=== PATIENT | female | born 1955 | race Caucasian/White ===

== ENCOUNTER 2024-12-12 20:18 | Inpatient (IN) | payer MEDICARE, MEDICAID, SELFPAY ==
[2024-12-12 20:15] VITALS: BP 120/48; PULSE 78; RESP 22; TEMP 36.9; O2SAT 93
[2024-12-12 21:31] VITALS: PULSE 81
[2024-12-12 21:35] VITALS: BP 121/60; PULSE 76; RESP 22; O2SAT 97
[2024-12-12 21:41] LABS: Add Urine Microscopic? YES; Appearance Urine Turbid (Clear); Glucose Urine UA Negative (Negative); Leukocyte Esterase Ur 3+ LEU/UL (Negative); Need Manual Microscopic Reviewed; Nitrate Urine Negative (Negative); Specific Grav Ur 1.019 (1.001-1.035)
[2024-12-12 21:52] LABS: Hematocrit 31.4 % (37.0-47.0); Hemoglobin 10.1 g/dL (12.0-15.0); Immature Granulocyte Percent A 0.4 % (0-0.5); Lymphocytes Absolute Auto 1.57 K/mm3 (0.9-3.2); Mean Corpuscular HGB Conc 32.2 g/dl (32-36); Mean Corpuscular Hemoglobin 29.2 pg (26-34); Mean Corpuscular Volume 90.8 fl (80-100); Nucleated Red Blood Cells Absolute Auto 0.000 K/mm3 (0.0-0.012); Nucleated Red Blood Cells Perc 0.0 % (0.0-0.2); Platelet Count Result 437 k/mm3 (150-375); Red Blood Count 3.46 M/mm3 (4.2-5.4); White Blood Count 11.0 K/mm3 (4.5-10.0)
[2024-12-12 22:17] LABS: Alanine Aminotransferase 19 U/L (6-35); Albumin Level 3.4 g/dL (3.5-5.1); Alkaline Phosphatase 140 U/L (38-126); Anion Gap 8 mmol/L (4-12); Aspartate Amino Transferase 23 U/L (14-36); Bilirubin,Total 0.3 mg/dL (0.2-1.3); Blood Urea Nitrogen 22 mg/dL (7-17); Calcium 8.8 mg/dL (8.4-10.2); Carbon Dioxide 21 mmol/L (22-30); Chloride 104 mmol/L (98-107); Estimated CRCL calculation 48 ml/min; Estimated Glomerular Filt Rate > 60; Glucose 110 mg/dL (65-110); Potassium 3.9 mmol/L (3.4-5.0); Sodium 133 mmol/L (137-145); Total Protein 6.8 g/dL (6.3-8.2)
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
[2024-12-12] MEDS: SODIUM CHLORIDE 0.9% IV 1,000 ML 999 ML IV CONT (22:51)
[2024-12-12] MEDS: cefTRIAXone 1 GM in SODIUM CHLORIDE 0.9% IV 50 ML 100 ML IVPB (22:51)
[2024-12-13] MEDS: FLUCONAZOLE 150 MG TABLET PO (00:42)
[2024-12-13 01:23] VITALS: BMI 21.7
--- NOTE | 2024-12-13 01:25 | ADMGEN ---
This patient, Valerie Rivers, was admitted to [facility] Surg Room 330-02. Patient/family oriented to hospital policies and general routines including ID bracelet, bed and alarms, visiting hours, pain management, procedures, bathroom and other care routines, personal items, smoking policy, room service/diet, and visiting hours. Information on how to activate the Rapid Response Team has been discussed. Patient/Family are encouraged to report perceived risks to care and to ask questions if they do not understand what they are told or what they should do.
[2024-12-13 02:30] VITALS: PULSE 76; RESP 22; O2SAT 97
[2024-12-13 03:00] VITALS: BP 133/57; PULSE 90; RESP 18; TEMP 35.9; O2SAT 97
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
[2024-12-13 06:15] VITALS: BP 133/67; PULSE 94; RESP 18; TEMP 36.3; O2SAT 98
[2024-12-13 08:50] LABS: Hematocrit 31.5 % (37.0-47.0); Hemoglobin 10.0 g/dL (12.0-15.0); Mean Corpuscular HGB Conc 31.7 g/dl (32-36); Mean Corpuscular Hemoglobin 29.2 pg (26-34); Mean Corpuscular Volume 91.8 fl (80-100); Platelet Count Result 375 k/mm3 (150-375); Red Blood Count 3.43 M/mm3 (4.2-5.4); White Blood Count 13.0 K/mm3 (4.5-10.0)
[2024-12-13 09:16] LABS: Anion Gap 7 mmol/L (4-12); Blood Urea Nitrogen 15 mg/dL (7-17); Calcium 8.7 mg/dL (8.4-10.2); Carbon Dioxide 22 mmol/L (22-30); Chloride 108 mmol/L (98-107); Estimated CRCL calculation 50 ml/min; Estimated Glomerular Filt Rate > 60; Glucose 103 mg/dL (65-110); Potassium 4.0 mmol/L (3.4-5.0); Sodium 137 mmol/L (137-145)
[2024-12-13] MEDS: ASPIRIN 81 MG ENTERIC TABLET PO (09:31)
[2024-12-13] MEDS: dilTIAZem HCL CD 180 MG CAP.24HR PO (09:31)
[2024-12-13] MEDS: LOSARTAN POTASSIUM 50 MG TABLET PO (09:31)
[2024-12-13] MEDS: FOLIC ACID 1 MG TABLET PO (09:31)
[2024-12-13] MEDS: FERROUS SULFATE 325 MG TABLET DR PO (09:31)
--- NOTE | 2024-12-13 09:33 | PM.IMPN ---
Progress Note: A&P Assessment and Plan (1) Neglectful caretaking: Status: Acute Assessment and Plan: Patient's family is concerned that the patient is not receiving good care at the [facility]. Care coordination has been consulted for palcement (2) Abnormal urinalysis: Code(s): R82.90 - Unspecified abnormal findings in urine Status: Acute Assessment and Plan: - UA with possible infection however many epithelial cells noted so possible contamination - UC obtained on 12/13: pending - no previous micro to be reviewed - started on rocephin on 12/13 (3) Candidiasis, unspecified: Code(s): B37.9 - Candidiasis, unspecified Status: Acute Assessment and Plan: Patient scratching at her groin and could possibly have some underlying candidiasis. Received a dose of fluconazole in the ER which should be adequate for treatment. Patient reports that itching has resolved. (4) Hyponatremia: Code(s): E87.1 - Hypo-osmolality and hyponatremia Status: Acute Assessment and Plan: Mild hyponatremia on admission, received fluids in the ER. Repeat Na on am labs WNL. Will also check TSH to rule out some component of thyroid dysfunction causing hyponatremia. TSH WNL. (5) Dementia: Qualifiers: Dementia behavioral or psychological symptom: unspecified whether behavioral, psychotic, or mood disturbance or anxiety Dementia severity: severe Dementia type: unspecified type Qualified Code(s): F03.C0 - Unspecified dementia, severe, without behavioral disturbance, psychotic disturbance, mood disturbance, and anxiety Code(s): F03.90 - Unspecified dementia, unspecified severity, without behavioral disturbance, psychotic disturbance, mood disturbance, and anxiety Status: Acute Assessment and Plan: Currently AOx3. (6) Diabetes: Code(s): E11.9 - Type 2 diabetes mellitus without complications Status: Acute Assessment and Plan: - hypoglycemia protocol - POC blood glucose ACHS - home medication - metformin 500 mg daily - correct regimen ordered - low dose SSI - A1C 5.8 (7) Hypertension: Code(s): I10 - Essential (primary) hypertension Status: Acute Assessment and Plan: Chronic, continue home medications - diltiazem 180 mg daily - losartan 50 mg daily - blood pressures stable, continue to monitor Time Spent With Patient Time with patient: 25 - 35 minutes Subjective Date/time seen: 12/13/24 09:33 Interval history: 69-year-old female with a past medical history of CVA, dementia essential hypertension and diabetes who presented to the ER from [facility] per family request because they were concerned about the patient receiving poor care. Patient is pleasant lying comfortably bed. He is alert and oriented x3 on exam she denies any chest pain, shortness a breath, palpitations, nausea/vomiting, abdominal pain, as well as dysuria/burning sensation with urination. Notes that the itching has resolved. Review of Systems Review of Systems: All systems reviewed & are unremarkable except as noted in HPI and below Exam Narrative: AF HR 94 RR 18 SpO2 98 BP 133/67 General: female in no acute respiratory distress who is nontoxic appearing, lying semi recumbent in bed. HEENT: Normocephalic. Atraumatic. Extraocular movement intact. Sclera clear and anicteric. No facial asymmetry. Chest: Lungs are clear to auscultation bilaterally. No wheezes or crackles. CV: Heart was regular rate and rhythm. S1-S2. No murmurs, gallops, or rubs. Abd: Abdomen was soft. Nontender. Nondistended. Positive bowel sounds. Ext: No clubbing, cyanosis, or edema. DP pulses bilaterally. Neuro: Patient is alert and oriented x3. Speech is clear. Objective Data Vital Signs Vital Signs: Vital Signs - 24 hr 12/12/24 20:15 12/12/24 21:31 12/12/24 21:35 Temperature 98.4 F Pulse Rate 78 81 76 Respiratory Rate 22 H 22 H Blood Pressure 120/48 L 121/60 Pulse Oximetry 93 97 Oxygen Delivery Room Air 12/13/24 02:30 12/13/24 03:00 12/13/24 06:15 Temperature 96.7 F L 97.3 F L Pulse Rate 76 90 94 Respiratory Rate 22 H 18 18 Blood Pressure 133/57 L 133/67 Pulse Oximetry 97 97 98 Oxygen Delivery Room Air Intake/Output Intake/Output: Intake & Output 12/10/24 12/11/24 12/12/24 12/13/24 23:59 23:59 23:59 23:59 Intake Total 50 1000 Output Total 75 Balance -25 1000 Meds/Results Medications: Active Medications Generic Name Dose Route Start Last Admin Trade Name Freq PRN Reason Stop Dose Admin Acetaminophen 650 mg 12/13/24 00:13 Acetaminophen 650 Mg Suppository RECTAL Q6H PRN Mild Pain (1-3) or Fever Artificial Tears 2 drop 12/13/24 08:04 Artificial Tears Ophth Soln 15 Ml Bottle EACH EYE Q6H PRN dry eye(s) Aspirin 81 mg 12/13/24 09:00 12/13/24 09:31 Aspirin 81 Mg Enteric Tablet PO 81 mg DAILY ELIAS Administration Atorvastatin Calcium 80 mg 12/13/24 18:00 Atorvastatin 40 Mg Tablet PO QPM ELIAS Dextrose 12.5 gm 12/13/24 00:13 Dextrose 50% 25 Gm/50 Ml Syringe IV PUSH PRN PRN Hypoglycemia Protocol Diltiazem HCl 180 mg 12/13/24 09:00 12/13/24 09:31 Diltiazem Hcl Cd 180 Mg Cap.24hr PO 180 mg DAILY ELIAS Administration Ferrous Sulfate 325 mg 12/13/24 08:15 08 09:31 Ferrous Sulfate [address] PO 325 mg DAILY@0800 ELIAS Administration Folic Acid 1 mg 12/13/24 09:00 12/13/24 09:31 Folic Acid 1 Mg Tablet PO 1 mg DAILY ELIAS Administration Glucagon 1 mg 12/13/24 00:13 Glucagon For Inj 1 Mg Vial IM PRN PRN Hypoglycemia Protocol Glucose 15 gm 12/13/24 00:13 Glucose Oral Gel 15 Gm Of Glucse In 37.5 Gm Tube PO PRN PRN Hypoglycemia Protocol Dextrose 1,000 mls @ 100 mls/hr 12/13/24 00:13 Dextrose 5% 1,000 Ml IVPB PRN PRN Hypoglycemia Protocol Ceftriaxone Sodium 1 gm/ 50 mls @ 100 mls/hr 12/13/24 21:00 Sodium Chloride IVPB Q24H ELIAS Losartan Potassium 50 mg 12/13/24 09:00 12/13/24 09:31 Losartan Potassium 50 Mg Tablet PO 50 mg DAILY ELIAS Administration Ondansetron HCl 4 mg 12/13/24 00:13 Ondansetron Inj 4 Mg/2 Ml Vial IV PUSH Q4H PRN Nausea Sodium Chloride 1 spray 12/13/24 08:04 Saline 0.65% Tomas Soln 44 Ml Btl NASAL Q2H PRN dry nasal passages Labs Labs: Laboratory Results - last 24 hr 12/12/24 12/12/24 12/13/24 21:15 21:45 08:43 WBC 11.0 H 13.0 H RBC 3.46 L 3.43 L Hgb 10.1 L 10.0 L Hct 31.4 L 31.5 L MCV 90.8 91.8 MCH 29.2 29.2 MCHC 32.2 31.7 L RDW 13.3 13.2 Plt Count 437 H 375 MPV 9.2 8.9 Immature Gran % (Auto) 0.4 Neut % (Auto) 74.6 H Lymph % (Auto) 14.2 L [place] % (Auto) 8.0 Eos % (Auto) 1.9 Baso % (Auto) 0.9 Lymph # (Auto) 1.57 [place] # (Auto) 0.9 H Eos # (Auto) 0.2 Baso # (Auto) 0.1 Abs Immat Gran (auto) 0.04 H Absolute Neuts (auto) 8.2 H Absolute Nucleated RBC 0.000 Nucleated RBC % 0.0 Sodium 133 L 137 Potassium 3.9 4.0 Chloride 104 108 H Carbon Dioxide 21 L 22 Anion Gap 8 7 BUN 22 H 15 D Creatinine 0.77 0.73 Estim Creat Clear Calc 48 50 Estimated GFR > 60 > 60 Glucose 110 103 Calcium 8.8 8.7 Total Bilirubin 0.3 AST 23 ALT 19 Alkaline Phosphatase 140 H Total Protein 6.8 Albumin 3.4 L Urine Color Yellow Urine Appearance Turbid H Urine pH 6.0 Ur Specific [place] 1.019 Urine Protein 2+ H Urine Glucose (UA) Negative Urine Ketones Negative Ur Blood (Man) 3+ H Urine Nitrate Negative Urine Bilirubin Negative Urine Urobilinogen 1.0 Add Ur Microanalysis Reviewed Leukocyte Esterase Rfl 3+ H Urine RBC >100 H Urine WBC >100 H Ur Squamous Epith Cells Many H Urine Bacteria 1+ H Urine Casts 3-5 Quality VTE Prophylaxis VTE prophylaxis: mechanical ordered (SCDs)
[2024-12-13 09:47] LABS: Thyroid Stimulating Hormone Reflex 0.832 uIU/mL (0.465-4.68)
[2024-12-13 10:31] LABS: Hemoglobin A1C 5.8 % (<5.7)
[2024-12-13 14:00] VITALS: BP 141/62; PULSE 78; RESP 18; TEMP 36.1; O2SAT 99
[2024-12-13] MEDS: ATORVASTATIN 40 MG TABLET 80 MG PO (17:23)
[2024-12-13 20:00] VITALS: PULSE 77; RESP 16; O2SAT 99
[2024-12-13 20:58] VITALS: BP 102/91; PULSE 77; RESP 16; TEMP 36.2; O2SAT 99
[2024-12-13] MEDS: cefTRIAXone 1 GM in SODIUM CHLORIDE 0.9% IV 50 ML 100 ML IVPB (21:34)
[2024-12-14 06:00] VITALS: BP 135/73; PULSE 84; RESP 20; TEMP 36.7; O2SAT 97
--- NOTE | 2024-12-14 08:08 | PM.IMPN ---
Progress Note: A&P Assessment and Plan (1) Neglectful caretaking: Status: Acute Assessment and Plan: Patient's family is concerned that the patient is not receiving good care at the skilled nursing. Care coordination has been consulted for palcement (2) Abnormal urinalysis: Code(s): R82.90 - Unspecified abnormal findings in urine Status: Acute Assessment and Plan: - UA with possible infection however many epithelial cells noted so possible contamination - UC obtained on 12/13: pending - no previous micro to be reviewed - started on rocephin on 12/13 Endorsed dysuria and burning sensation. (3) Candidiasis, unspecified: Code(s): B37.9 - Candidiasis, unspecified Status: Acute Assessment and Plan: Patient scratching at her groin and could possibly have some underlying candidiasis. Received a dose of fluconazole in the ER which should be adequate for treatment. (4) Hyponatremia: Code(s): E87.1 - Hypo-osmolality and hyponatremia Status: Acute Assessment and Plan: Mild hyponatremia on admission, received fluids in the ER. Repeat Na on am labs WNL. Will also check TSH to rule out some component of thyroid dysfunction causing hyponatremia. TSH WNL. Resolved. (5) Dementia: Qualifiers: Dementia behavioral or psychological symptom: unspecified whether behavioral, psychotic, or mood disturbance or anxiety Dementia severity: severe Dementia type: unspecified type Qualified Code(s): F03.C0 - Unspecified dementia, severe, without behavioral disturbance, psychotic disturbance, mood disturbance, and anxiety Code(s): F03.90 - Unspecified dementia, unspecified severity, without behavioral disturbance, psychotic disturbance, mood disturbance, and anxiety Status: Acute Assessment and Plan: Currently AOx3. (6) Diabetes: Code(s): E11.9 - Type 2 diabetes mellitus without complications Status: Acute Assessment and Plan: - hypoglycemia protocol - POC blood glucose ACHS - home medication - metformin 500 mg daily - correct regimen ordered - low dose SSI - A1C 5.8 (7) Hypertension: Code(s): I10 - Essential (primary) hypertension Status: Acute Assessment and Plan: Chronic, continue home medications - diltiazem 180 mg daily - losartan 50 mg daily - blood pressures stable, continue to monitor Time Spent With Patient Time with patient: 25 - 35 minutes Subjective Date/time seen: 12/14/24 08:08 Interval history: 69-year-old female with a past medical history of CVA, dementia essential hypertension and diabetes who presented to the ER from skilled nursing per family request because they were concerned about the patient receiving poor care. Patient is pleasant lying comfortably in bed. She is AOx3 on assessment but does appear confused and not following all commands. She endorses slight burning and pain with urination. She has no other complaints denying chest pain, palpitations, shortness of breath, nausea/vomiting and abdominal pain. Review of Systems Review of Systems: However unsure how accurate given baseline dementia. All systems reviewed & are unremarkable except as noted in HPI and below Exam Narrative: AF HR 84 RR 20 Spo2 97 BP 135/73 General: female in no acute respiratory distress who is nontoxic appearing, lying semi recumbent in bed. HEENT: Normocephalic. Atraumatic. Extraocular movement intact. Sclera clear and anicteric. No facial asymmetry. Chest: Lungs are clear to auscultation bilaterally. No wheezes or crackles. CV: Heart was regular rate and rhythm. Abd: Abdomen was soft. Nontender. Nondistended. Positive bowel sounds. Ext: No clubbing, cyanosis, or edema. DP pulses bilaterally. Neuro: Patient is alert and oriented x3. Speech is clear. Flaccid left arm and slight contracture to left leg from prior CVA. Objective Data Vital Signs Vital Signs: Vital Signs - 24 hr 12/13/24 09:30 12/13/24 14:00 12/13/24 20:00 Temperature 97.0 F L Pulse Rate 78 77 Respiratory Rate 18 16 Blood Pressure 141/62 H Pulse Oximetry 99 99 Oxygen Delivery Room Air Room Air 12/13/24 20:58 12/14/24 06:00 Temperature 97.2 F L 98.1 F Pulse Rate 77 84 Respiratory Rate 16 20 Blood Pressure 102/91 H 135/73 Pulse Oximetry 99 97 Oxygen Delivery Intake/Output Intake/Output: Intake & Output 12/11/24 12/12/24 12/13/24 12/14/24 23:59 23:59 23:59 23:59 Intake Total 50 1390 120 Output Total 75 Balance -25 1390 120 Meds/Results Medications: Active Medications Generic Name Dose Route Start Last Admin Trade Name Freq PRN Reason Stop Dose Admin Acetaminophen 650 mg 12/13/24 00:13 Acetaminophen 650 Mg Suppository RECTAL Q6H PRN Mild Pain (1-3) or Fever Artificial Tears 2 drop 12/13/24 08:04 Artificial Tears Ophth Soln 15 Ml Bottle EACH EYE Q6H PRN dry eye(s) Aspirin 81 mg 12/13/24 09:00 12/13/24 09:31 Aspirin 81 Mg Enteric Tablet PO 81 mg DAILY ELIAS Administration Atorvastatin Calcium 80 mg 12/13/24 18:00 12/13/24 17:23 Atorvastatin 40 Mg Tablet PO 80 mg QPM ELIAS Administration Dextrose 12.5 gm 12/13/24 09:36 Dextrose 50% 25 Gm/50 Ml Syringe IV PUSH PRN PRN Hypoglycemia Protocol Diltiazem HCl 180 mg 12/13/24 09:00 12/13/24 09:31 Diltiazem Hcl Cd 180 Mg Cap.24hr PO 180 mg DAILY ELIAS Administration Ferrous Sulfate 325 mg 12/13/24 08:15 08 09:31 Ferrous Sulfate [address] PO 325 mg DAILY@0800 ELIAS Administration Folic Acid 1 mg 12/13/24 09:00 12/13/24 09:31 Folic Acid 1 Mg Tablet PO 1 mg DAILY ELIAS Administration Glucagon 1 mg 12/13/24 09:36 Glucagon For Inj 1 Mg Vial IM PRN PRN Hypoglycemia Protocol Glucose 15 gm 12/13/24 09:36 Glucose Oral Gel 15 Gm Of Glucse In 37.5 Gm Tube PO PRN PRN Hypoglycemia Protocol Ceftriaxone Sodium 1 gm/ 50 mls @ 100 mls/hr 12/13/24 21:00 12/13/24 22:04 Sodium Chloride IVPB Infused Q24H ELIAS Infusion Dextrose 1,000 mls @ 100 mls/hr 12/13/24 09:36 Dextrose 5% 1,000 Ml IVPB PRN PRN Hypoglycemia Protocol Insulin Aspart 2 - 5 units 12/13/24 12:00 12/13/24 17:22 Insulin Aspart (*Bkc) 100 Units/Ml SUB-Q Not Given TIDWM [facility] Protocol Losartan Potassium 50 mg 12/13/24 09:00 12/13/24 09:31 Losartan Potassium 50 Mg Tablet PO 50 mg DAILY ELIAS Administration Ondansetron HCl 4 mg 12/13/24 00:13 Ondansetron Inj 4 Mg/2 Ml Vial IV PUSH Q4H PRN Nausea Sodium Chloride 1 spray 12/13/24 08:04 Saline 0.65% Tomas Soln 44 Ml Btl NASAL Q2H PRN dry nasal passages Labs Labs: Laboratory Results - last 24 hr 12/13/24 12/13/24 12/13/24 08:38 08:43 12:20 WBC 13.0 H RBC 3.43 L Hgb 10.0 L Hct 31.5 L MCV 91.8 MCH 29.2 MCHC 31.7 L RDW 13.2 Plt Count 375 MPV 8.9 Sodium 137 Potassium 4.0 Chloride 108 H Carbon Dioxide 22 Anion Gap 7 BUN 15 D Creatinine 0.73 Estim Creat Clear Calc 50 Estimated GFR > 60 Glucose 103 POC Capillary Glucose 102 Hemoglobin A1c 5.8 H Calcium 8.7 TSH (Reflex) 0.832 12/13/24 12/13/24 12/14/24 16:46 19:59 07:34 WBC RBC Hgb Hct MCV MCH MCHC RDW Plt Count MPV Sodium Potassium Chloride Carbon Dioxide Anion Gap BUN Creatinine Estim Creat Clear Calc Estimated GFR Glucose POC Capillary Glucose 91 98 93 Hemoglobin A1c Calcium TSH (Reflex) Quality VTE Prophylaxis VTE prophylaxis: mechanical ordered (SCDs)
[2024-12-14 08:21] LABS: Hematocrit 33.6 % (37.0-47.0); Hemoglobin 11.1 g/dL (12.0-15.0); Mean Corpuscular HGB Conc 33.0 g/dl (32-36); Mean Corpuscular Hemoglobin 29.4 pg (26-34); Mean Corpuscular Volume 89.1 fl (80-100); Platelet Count Result 392 k/mm3 (150-375); Red Blood Count 3.77 M/mm3 (4.2-5.4); White Blood Count 10.8 K/mm3 (4.5-10.0)
[2024-12-14 08:41] LABS: Alanine Aminotransferase 16 U/L (6-35); Albumin Level 3.4 g/dL (3.5-5.1); Alkaline Phosphatase 162 U/L (38-126); Anion Gap 8 mmol/L (4-12); Aspartate Amino Transferase 25 U/L (14-36); Bilirubin,Total 0.3 mg/dL (0.2-1.3); Blood Urea Nitrogen 12 mg/dL (7-17); Calcium 8.9 mg/dL (8.4-10.2); Carbon Dioxide 21 mmol/L (22-30); Chloride 106 mmol/L (98-107); Estimated CRCL calculation 53 ml/min; Estimated Glomerular Filt Rate > 60; Glucose 101 mg/dL (65-110); Potassium 4.1 mmol/L (3.4-5.0); Sodium 135 mmol/L (137-145); Total Protein 6.8 g/dL (6.3-8.2)
[2024-12-14] MEDS: FERROUS SULFATE 325 MG TABLET DR PO (09:54)
[2024-12-14] MEDS: LOSARTAN POTASSIUM 50 MG TABLET PO (09:54)
[2024-12-14] MEDS: ASPIRIN 81 MG ENTERIC TABLET PO (09:54)
[2024-12-14] MEDS: dilTIAZem HCL CD 180 MG CAP.24HR PO (09:54)
[2024-12-14] MEDS: FOLIC ACID 1 MG TABLET PO (09:55)
[2024-12-14 14:00] VITALS: BP 135/60; PULSE 76; RESP 16; TEMP 36.1; O2SAT 100
--- NOTE | 2024-12-14 17:32 | PC.NURSE ---
Patient has little to no appetite, not wanting to take medications at this time, patient wants to be left alone.
[2024-12-14] MEDS: cefTRIAXone 1 GM in SODIUM CHLORIDE 0.9% IV 50 ML 100 ML IVPB (20:20)
[2024-12-14 21:04] VITALS: O2SAT 97
[2024-12-14 22:00] VITALS: BP 150/64; PULSE 76; RESP 18; TEMP 36.4; O2SAT 100
[2024-12-15 06:00] VITALS: BP 147/69; PULSE 78; RESP 18; TEMP 36.5; O2SAT 99
[2024-12-15 06:09] LABS: Hematocrit 34.9 % (37.0-47.0); Hemoglobin 11.2 g/dL (12.0-15.0); Mean Corpuscular HGB Conc 32.1 g/dl (32-36); Mean Corpuscular Hemoglobin 29.3 pg (26-34); Mean Corpuscular Volume 91.4 fl (80-100); Platelet Count Result 465 k/mm3 (150-375); Red Blood Count 3.82 M/mm3 (4.2-5.4); White Blood Count 14.7 K/mm3 (4.5-10.0)
[2024-12-15 06:48] LABS: Alanine Aminotransferase 19 U/L (6-35); Albumin Level 3.5 g/dL (3.5-5.1); Alkaline Phosphatase 177 U/L (38-126); Anion Gap 13 mmol/L (4-12); Aspartate Amino Transferase 28 U/L (14-36); Bilirubin,Total 0.3 mg/dL (0.2-1.3); Blood Urea Nitrogen 13 mg/dL (7-17); Calcium 8.9 mg/dL (8.4-10.2); Carbon Dioxide 17 mmol/L (22-30); Chloride 105 mmol/L (98-107); Estimated CRCL calculation 51 ml/min; Estimated Glomerular Filt Rate > 60; Glucose 121 mg/dL (65-110); Potassium 3.9 mmol/L (3.4-5.0); Sodium 135 mmol/L (137-145); Total Protein 7.0 g/dL (6.3-8.2)
--- NOTE | 2024-12-15 07:17 | P.PNIM_ITS ---
Progress Note: A&P Assessment and Plan (1) Neglectful caretaking: Status: Acute Assessment and Plan: Patient's family is concerned that the patient is not receiving good care at the [facility]. Care coordination has been consulted for palcement (2) Abnormal urinalysis: Code(s): R82.90 - Unspecified abnormal findings in urine Status: Acute Assessment and Plan: - UA with possible infection however many epithelial cells noted so possible contamination - UC obtained on 12/13: negative - no previous micro to be reviewed - started on Rocephin on 12/12 Given that patient did endorse dysuria and burning sensation will still treat for UTI. (3) Candidiasis, unspecified: Code(s): B37.9 - Candidiasis, unspecified Status: Acute Assessment and Plan: Patient scratching at her groin and could possibly have some underlying candidiasis. Received a dose of fluconazole in the ER which should be adequate for treatment. (4) Hyponatremia: Code(s): E87.1 - Hypo-osmolality and hyponatremia Status: Acute Assessment and Plan: Mild hyponatremia on admission, received fluids in the ER. Repeat Na on am labs WNL. Will also check TSH to rule out some component of thyroid dysfunction causing hyponatremia. TSH WNL. Resolved. (5) Dementia: Qualifiers: Dementia behavioral or psychological symptom: unspecified whether behavioral, psychotic, or mood disturbance or anxiety Dementia severity: severe Dementia type: unspecified type Qualified Code(s): F03.C0 - Unspecified dementia, severe, without behavioral disturbance, psychotic disturbance, mood disturbance, and anxiety Code(s): F03.90 - Unspecified dementia, unspecified severity, without behavioral disturbance, psychotic disturbance, mood disturbance, and anxiety Status: Acute Assessment and Plan: Currently AOx3. (6) Diabetes: Code(s): E11.9 - Type 2 diabetes mellitus without complications Status: Acute Assessment and Plan: - hypoglycemia protocol - POC blood glucose ACHS - home medication - metformin 500 mg daily - correct regimen ordered - low dose SSI - A1C 5.8 (7) Hypertension: Code(s): I10 - Essential (primary) hypertension Status: Acute Assessment and Plan: Chronic, continue home medications - diltiazem 180 mg daily - losartan 50 mg daily - blood pressures stable, continue to monitor Time Spent With Patient Time with patient: 25 - 35 minutes Subjective Date/time seen: 12/15/24 07:17 Interval history: 69-year-old female with a past medical history of CVA, dementia essential hypertension and diabetes who presented [facility] ER from [facility] per family request because they were concerned about the patient receiving poor care. Patient is pleasant lying in bed. She remains Aox3 on assessment. She has no complaints denying chest pain, shortness of breath, palpitations, nausea/vomiting, abdominal pain, and dysuria/burning with urination. Review of Systems Review of Systems: All systems reviewed & are unremarkable except as noted in HPI and below Exam Narrative: AF HR 78 RR 18 Spo2 99 BP 147/69 General: female in no acute respiratory distress who is nontoxic appearing, lying semi recumbent in bed. HEENT: Normocephalic. Atraumatic. Extraocular movement intact. Sclera clear and anicteric. No facial asymmetry. Appears dry. Chest: Lungs are clear to auscultation bilaterally. No wheezes or crackles. CV: Heart was regular rate and rhythm. Abd: Abdomen was soft. Nontender. Nondistended. Positive bowel sounds. Ext: No clubbing, cyanosis, or edema. DP pulses bilaterally. Neuro: Patient is alert and oriented x3. Speech is clear. Flaccid left arm and slight contracture to left leg from prior CVA. Objective Data Vital Signs Vital Signs: Vital Signs - 24 hr 12/14/24 09:54 12/14/24 14:00 12/14/24 20:00 Temperature 96.9 F L Pulse Rate 76 Respiratory Rate 16 Blood Pressure 135/60 Pulse Oximetry 100 Oxygen Delivery Room Air Room Air 12/14/24 21:04 12/14/24 22:00 12/15/24 06:00 Temperature 97.6 F 97.7 F Pulse Rate 76 78 Respiratory Rate 18 18 Blood Pressure 150/64 H 147/69 H Pulse Oximetry 97 100 99 Oxygen Delivery Room Air Intake/Output Intake/Output: Intake & Output 12/12/24 12/13/24 12/14/24 12/15/24 23:59 23:59 23:59 23:59 Intake Total 50 1390 170 0 Output Total 75 Balance -25 1390 170 0 Meds/Results Medications: Active Medications Generic Name Dose Route Start Last Admin Trade Name Freq PRN Reason Stop Dose Admin Acetaminophen 650 mg 12/13/24 00:13 Acetaminophen 650 Mg Suppository RECTAL Q6H PRN Mild Pain (1-3) or Fever Artificial Tears 2 drop 12/13/24 08:04 Artificial Tears Ophth Soln 15 Ml Bottle EACH EYE Q6H PRN dry eye(s) Aspirin 81 mg 12/13/24 09:00 12/14/24 09:54 Aspirin 81 Mg Enteric Tablet PO 81 mg DAILY ELIAS Administration Atorvastatin Calcium 80 mg 12/13/24 18:00 12/14/24 17:31 Atorvastatin 40 Mg Tablet PO Not Given QPM ELIAS Dextrose 12.5 gm 12/13/24 09:36 Dextrose 50% 25 Gm/50 Ml Syringe IV PUSH PRN PRN Hypoglycemia Protocol Diltiazem HCl 180 mg 12/13/24 09:00 12/14/24 09:54 Diltiazem Hcl Cd 180 Mg Cap.24hr PO 180 mg DAILY ELIAS Administration Ferrous Sulfate 325 mg 12/13/24 08:15 08 09:54 Ferrous Sulfate [address] PO 325 mg DAILY@0800 ELIAS Administration Folic Acid 1 mg 12/13/24 09:00 12/14/24 09:55 Folic Acid 1 Mg Tablet PO 1 mg DAILY ELIAS Administration Glucagon 1 mg 12/13/24 09:36 Glucagon For Inj 1 Mg Vial IM PRN PRN Hypoglycemia Protocol Glucose 15 gm 12/13/24 09:36 Glucose Oral Gel 15 Gm Of Glucse In 37.5 Gm Tube PO PRN PRN Hypoglycemia Protocol Ceftriaxone Sodium 1 gm/ 50 mls @ 100 mls/hr 12/13/24 21:00 12/14/24 20:20 Sodium Chloride IVPB 100 mls/hr Q24H ELIAS Administration Dextrose 1,000 mls @ 100 mls/hr 12/13/24 09:36 Dextrose 5% 1,000 Ml IVPB PRN PRN Hypoglycemia Protocol Insulin Aspart 2 - 5 units 12/13/24 12:00 12/14/24 17:00 Insulin Aspart (*Bkc) 100 Units/Ml SUB-Q Not Given TIDWM [facility] Protocol Losartan Potassium 50 mg 12/13/24 09:00 12/14/24 09:54 Losartan Potassium 50 Mg Tablet PO 50 mg DAILY ELIAS Administration Ondansetron HCl 4 mg 12/13/24 00:13 Ondansetron Inj 4 Mg/2 Ml Vial IV PUSH Q4H PRN Nausea Sodium Chloride 1 spray 12/13/24 08:04 Saline 0.65% Tomas Soln 44 Ml Btl NASAL Q2H PRN dry nasal passages Labs Labs: Laboratory Results - last 24 hr 12/14/24 12/14/24 12/14/24 07:34 08:15 11:21 WBC 10.8 H RBC 3.77 L Hgb 11.1 L Hct 33.6 L MCV 89.1 MCH 29.4 MCHC 33.0 RDW 13.1 Plt Count 392 H MPV 8.9 Sodium 135 L Potassium 4.1 Chloride 106 Carbon Dioxide 21 L Anion Gap 8 BUN 12 Creatinine 0.69 L Estim Creat Clear Calc 53 Estimated GFR > 60 Glucose 101 POC Capillary Glucose 93 95 Calcium 8.9 Total Bilirubin 0.3 AST 25 ALT 16 Alkaline Phosphatase 162 H Total Protein 6.8 Albumin 3.4 L 12/14/24 12/14/24 12/15/24 16:47 20:14 05:47 WBC 14.7 H RBC 3.82 L Hgb 11.2 L Hct 34.9 L MCV 91.4 MCH 29.3 MCHC 32.1 RDW 13.2 Plt Count 465 H MPV 9.3 Sodium 135 L Potassium 3.9 Chloride 105 Carbon Dioxide 17 L Anion Gap 13 H BUN 13 Creatinine 0.72 Estim Creat Clear Calc 51 Estimated GFR > 60 Glucose 121 H POC Capillary Glucose 71 87 Calcium 8.9 Total Bilirubin 0.3 AST 28 ALT 19 Alkaline Phosphatase 177 H Total Protein 7.0 Albumin 3.5 Quality VTE Prophylaxis VTE prophylaxis: mechanical ordered (SCDs)
[2024-12-15] MEDS: dilTIAZem HCL CD 180 MG CAP.24HR PO (11:10)
[2024-12-15] MEDS: LOSARTAN POTASSIUM 50 MG TABLET PO (11:10)
[2024-12-15] MEDS: FOLIC ACID 1 MG TABLET PO (11:10)
[2024-12-15 14:00] VITALS: BP 114/61; PULSE 84; RESP 18; TEMP 36.6; O2SAT 99
[2024-12-15] MEDS: SODIUM CHLORIDE 0.9% IV 1,000 ML 75 ML IV CONT (14:11)
[2024-12-15] MEDS: ATORVASTATIN 40 MG TABLET 80 MG PO (18:02)
[2024-12-15 20:00] VITALS: PULSE 81; RESP 16; O2SAT 98
[2024-12-15 20:48] VITALS: BP 126/66; PULSE 81; RESP 16; TEMP 37.1; O2SAT 98
[2024-12-15] MEDS: cefTRIAXone 1 GM in SODIUM CHLORIDE 0.9% IV 50 ML 100 ML IVPB (21:54)
[2024-12-16 06:17] LABS: Hematocrit 31.9 % (37.0-47.0); Hemoglobin 10.1 g/dL (12.0-15.0); Mean Corpuscular HGB Conc 31.7 g/dl (32-36); Mean Corpuscular Hemoglobin 28.9 pg (26-34); Mean Corpuscular Volume 91.4 fl (80-100); Platelet Count Result 409 k/mm3 (150-375); Red Blood Count 3.49 M/mm3 (4.2-5.4); White Blood Count 11.6 K/mm3 (4.5-10.0)
[2024-12-16 06:39] LABS: Alanine Aminotransferase 19 U/L (6-35); Albumin Level 3.1 g/dL (3.5-5.1); Alkaline Phosphatase 143 U/L (38-126); Anion Gap 10 mmol/L (4-12); Aspartate Amino Transferase 27 U/L (14-36); Bilirubin,Total 0.3 mg/dL (0.2-1.3); Blood Urea Nitrogen 15 mg/dL (7-17); Calcium 8.4 mg/dL (8.4-10.2); Carbon Dioxide 16 mmol/L (22-30); Chloride 110 mmol/L (98-107); Estimated CRCL calculation 47 ml/min; Estimated Glomerular Filt Rate > 60; Glucose 90 mg/dL (65-110); Potassium 4.0 mmol/L (3.4-5.0); Sodium 136 mmol/L (137-145); Total Protein 6.2 g/dL (6.3-8.2)
[2024-12-16 07:32] VITALS: BP 134/60; PULSE 63; RESP 16; TEMP 36.6; O2SAT 99
[2024-12-16] MEDS: FERROUS SULFATE 325 MG TABLET DR PO (09:06)
[2024-12-16] MEDS: ASPIRIN 81 MG ENTERIC TABLET PO (09:06)
[2024-12-16] MEDS: dilTIAZem HCL CD 180 MG CAP.24HR PO (09:06)
[2024-12-16] MEDS: FOLIC ACID 1 MG TABLET PO (09:06)
[2024-12-16] MEDS: LOSARTAN POTASSIUM 50 MG TABLET PO (09:06)
--- NOTE | 2024-12-16 10:01 | P.DS_ITS ---
DS: Admitting Diagnosis Discharge Date 12/16/2024 Admitting Diagnosis neglectful caretaking abnormal ua candidiasis hyponatremia dementia dm htn DS: Discharge Diagnosis Discharge Diagnosis (1) Neglectful caretaking: Status: Acute (2) Abnormal urinalysis: Code(s): R82.90 - Unspecified abnormal findings in urine Status: Acute (3) Candidiasis, unspecified: Code(s): B37.9 - Candidiasis, unspecified Status: Acute (4) Hyponatremia: Code(s): E87.1 - Hypo-osmolality and hyponatremia Status: Acute (5) Dementia: Qualifiers: Dementia behavioral or psychological symptom: unspecified whether behavioral, psychotic, or mood disturbance or anxiety Dementia severity: severe Dementia type: unspecified type Qualified Code(s): F03.C0 - Unspecified dementia, severe, without behavioral disturbance, psychotic disturbance, mood disturbance, and anxiety Code(s): F03.90 - Unspecified dementia, unspecified severity, without behavioral disturbance, psychotic disturbance, mood disturbance, and anxiety Status: Acute (6) Diabetes: Code(s): E11.9 - Type 2 diabetes mellitus without complications Status: Acute (7) Hypertension: Code(s): I10 - Essential (primary) hypertension Status: Acute DS: Summary Hospital Course Reason for hospitalization: neglectful caretaking abnormal ua candidiasis hyponatremia dementia dm htn Hospital Course: 69-year-old female with a past medical history of CVA, dementia essential hypertension and diabetes who presented to the ER from care home per family request because they were concerned about the patient receiving poor care. Not meeting sepsis criteria. Mild hyponatremia on admission, received fluids in the ER. Repeat Na on am labs WNL. TSH obtained to rule out some component of thyroid dysfunction causing hyponatremia and TSH WNL. Patient scratching at her groin concerning underlying candidiasis. Received a dose of fluconazole in the ER which should be adequate for treatment. UA with possible infection however many epithelial cells noted so possible contamination. UC obtained on 12/13 was negative. Patient was endorsing dysuria and burning throughout the admission so she was treated for a possible UTI. Antibiotic course completed during admission. Patient had no complaints at time of discharge denying chest pain, shortness of breath, palpitations, nausea/vomiting, abdominal pain, and uti like symptoms of dysuria/burning/urgency. Patient discharged to SNF in a stable condition. She is to follow up with her PCP in 1 week. Status at Discharge Functional status at discharge: wheelchair bound Time Spent with Patient Time attestation: Total time spent providing and/or coordinating discharge services: Time spent: Greater than 30 minutes Exam Narrative: AF HR 63 RR 16 Spo2 99 BP 134/60 General: female in no acute respiratory distress who is nontoxic appearing, lying semi recumbent in bed. HEENT: Normocephalic. Atraumatic. Extraocular movement intact. Sclera clear and anicteric. No facial asymmetry. Chest: Lungs are clear to auscultation bilaterally. No wheezes or crackles. CV: Heart was regular rate and rhythm. Abd: Abdomen was soft. Nontender. Nondistended. Positive bowel sounds. Ext: No clubbing, cyanosis, or edema. DP pulses bilaterally. Neuro: Patient is alert and oriented x3. Speech is clear. Flaccid left arm and slight contracture to left leg from prior CVA. DS: Data Data Completed and Pending Labs on day of discharge: Labs from last 24 hours 12/16/24 12/16/24 12/15/24 07:42 05:55 20:51 WBC 11.6 H RBC 3.49 L Hgb 10.1 L Hct 31.9 L MCV 91.4 MCH 28.9 MCHC 31.7 L RDW 13.2 Plt Count 409 H MPV 9.1 Sodium 136 L Potassium 4.0 Chloride 110 H Carbon Dioxide 16 L Anion Gap 10 BUN 15 Creatinine 0.78 Estim Creat Clear Calc 47 Estimated GFR > 60 Glucose 90 POC Capillary Glucose 80 84 Calcium 8.4 Total Bilirubin 0.3 AST 27 ALT 19 Alkaline Phosphatase 143 H Total Protein 6.2 L Albumin 3.1 L 12/15/24 12/15/24 16:40 11:35 WBC RBC Hgb Hct MCV MCH MCHC RDW Plt Count MPV Sodium Potassium Chloride Carbon Dioxide Anion Gap BUN Creatinine Estim Creat Clear Calc Estimated GFR Glucose POC Capillary Glucose 87 101 Calcium Total Bilirubin AST ALT Alkaline Phosphatase Total Protein Albumin Discharge Plan Discharge Attending physician on discharge: Jesse Leal Consulting providers: Olivia Bass Discharging Clinician: Olivia Bass Anticipated Discharge Date/Time: 12/16/24 09:52 Patient Disposition: SNF Activity: as tolerated Diet: as tolerated, diabetic and other - see discharge instructions Discharge Instructions: Discharge disposition: Patient diagnosed with a UTI Completed antibiotics during admission Eat well balanced meals and stay hydrated Keep active to remain strong Avoid use of diapers or pads Good sid Care every 2 hours Trend urine output Continue to monitor blood glucose levels Patient is to remain a feeder Continue pureed diet and thickened liquids Monitor blood pressures Take caution while standing, rising, or moving Change positions slowly taking a break between each position change If you standing feel dizzy sit back down and take a break Encouraged to continue with yearly vaccinations Return to the emergency department if he developed sudden shortness of breath, chest pain, nausea, vomiting, upset stomach or intractable diarrhea Return to the emergency department if you develop fever greater than 100.5 Follow-up with the primary care physician within 1-2 weeks Thank you for [facility] for your healthcare needs Patient Instructions: Urinary Tract Infection in Older Adults (DC) Patient Language: Kiswahili Stand Alone Forms: General Discharge Information Follow-up/Referrals: UNKNOWN,DOCTOR [Primary Care Provider] - 1 Week Discharge Medications: Continued Artificial Tears([id number]) Drops 2 drp EACH EYE Q6H PRN (Reason: dry eye(s)) aspirin [Adult Low Dose Aspirin] 81 mg tablet,delayed release (DR/EC) 81 mg PO DAILY atorvastatin 80 mg tablet 80 mg PO QPM bisacodyl 5 mg tablet,delayed release (DR/EC) 5 mg PO DAILY PRN (Reason: constipation) diltiazem HCl 180 mg capsule,extended release 24hr 180 mg PO DAILY ferrous sulfate 325 mg (65 mg iron) tablet 325 mg PO DAILY Fleet Enema 19-7 gram/118 mL enema 118 ml RECTAL DAILY PRN (Reason: constipation) folic acid 1 mg tablet 1 mg PO DAILY hydrocortisone 1 % cream 1 applic topical DAILY Rx Instructions: Face losartan 50 mg tablet 50 mg PO DAILY metformin 500 mg tablet 500 mg PO DAILY polyethylene glycol 3350 [Miralax] 17 gram powder in packet 17 g PO DAILY PRN (Reason: constipation) Saline Mist 0.65 % aerosol,spray 1 spray intranasal Q2H PRN (Reason: dry nasal passages) Rx Instructions: 1 spray each nostril ergocalciferol (vitamin D2) [Vitamin D2] 1,250 mcg (50,000 unit) capsule 1,250 mcg PO WEEKLY Rx Instructions: MONDAYS Date of admission: 12/14/24 10:31 Primary Care Provider: UNKNOWN,DOCTOR Admitting Provider: Tori Patino Attending physician on admission: Tori Patino Condition: Stable Hospitalist MIPS Heart Failure (Exclusion) Patient has history of Heart Transplant or Left Ventricular Assistive Device?: No IF YES, STOP HERE Heart Failure (Qualifier) Patient has current or prior documentation of LVEF less than or equal to 40%, or mod/servere depressed LVSF?: No IF NO, STOP HERE
--- NOTE | 2024-12-16 12:14 | P.PNIM_ITS ---
Progress Note: A&P Assessment and Plan (1) Neglectful caretaking: Status: Acute Assessment and Plan: Patient's family is concerned that the patient is not receiving good care at the detention. Care coordination has been consulted for placement Received a phone call from care coordination stating that [facility] is unable to accept patient at this time due to bed availability. [facility] will be able to take patient on Wednesday. Patient remains inpatient awaiting bed availability at [facility]. (2) Abnormal urinalysis: Code(s): R82.90 - Unspecified abnormal findings in urine Status: Acute Assessment and Plan: - UA with possible infection however many epithelial cells noted so possible contamination - UC obtained on 12/13: negative - no previous micro to be reviewed - started on Rocephin on 12/12 Patient no longer endorsing dysuria and burning sensation however will still treat for UTI given that she was previously symptomatic. Rocephin course to be completed today, 12/16. (3) Candidiasis, unspecified: Code(s): B37.9 - Candidiasis, unspecified Status: Acute Assessment and Plan: Patient scratching at her groin and could possibly have some underlying candidiasis. Received a dose of fluconazole in the ER which should be adequate for treatment. (4) Hyponatremia: Code(s): E87.1 - Hypo-osmolality and hyponatremia Status: Acute Assessment and Plan: Mild hyponatremia on admission, received fluids in the ER. Repeat Na on am labs WNL. Will also check TSH to rule out some component of thyroid dysfunction causing hyponatremia. TSH WNL. Resolved. (5) Dementia: Qualifiers: Dementia type: unspecified type Dementia severity: severe Dementia behavioral or psychological symptom: unspecified whether behavioral, psychotic, or mood disturbance or anxiety Qualified Code(s): F03.C0 - Unspecified dementia, severe, without behavioral disturbance, psychotic disturbance, mood disturbance, and anxiety Code(s): F03.90 - Unspecified dementia, unspecified severity, without behavioral disturbance, psychotic disturbance, mood disturbance, and anxiety Status: Acute Assessment and Plan: Currently AOx3. (6) Diabetes: Code(s): E11.9 - Type 2 diabetes mellitus without complications Status: Acute Assessment and Plan: - hypoglycemia protocol - POC blood glucose ACHS - home medication - metformin 500 mg daily - correct regimen ordered - low dose SSI - A1C 5.8 Glucose levels remains well controlled. Continue to monitor. (7) Hypertension: Code(s): I10 - Essential (primary) hypertension Status: Acute Assessment and Plan: Chronic, continue home medications - diltiazem 180 mg daily - losartan 50 mg daily - blood pressures stable, continue to monitor Time Spent With Patient Time with patient: 25 - 35 minutes Subjective Date/time seen: 12/16/24 12:14 Interval history: 69-year-old female with a past medical history of CVA, dementia essential hypertension and diabetes who presented to the ER from detention per family request because they were concerned about the patient receiving poor care. Patient is pleasant lying in bed. She remains Aox3 on assessment following some commands. Per nursing staff patient ate about 25 % of breakfast today. She has no complaints denying chest pain, shortness of breath, palpitations, nausea/vomiting, abdominal pain, and dysuria/burning with urination. Review of Systems Review of Systems: All systems reviewed & are unremarkable except as noted in HPI and below Exam Narrative: AF HR 63 RR 16 Spo2 99 BP 134/60 General: female in no acute respiratory distress who is nontoxic appearing, lying semi recumbent in bed. HEENT: Normocephalic. Atraumatic. Extraocular movement intact. Sclera clear and anicteric. No facial asymmetry. Chest: Lungs are clear to auscultation bilaterally. No wheezes or crackles. CV: Heart was regular rate and rhythm. Abd: Abdomen was soft. Nontender. Nondistended. Positive bowel sounds. Ext: No clubbing, cyanosis, or edema. DP pulses bilaterally. Neuro: Patient is alert and oriented x3. Speech is clear. Flaccid left arm and slight contracture to left leg from prior CVA. Objective Data Vital Signs Vital Signs: Vital Signs - 24 hr 12/15/24 14:00 12/15/24 20:00 12/15/24 20:48 Temperature 98 F 98.8 F Pulse Rate 84 81 81 Respiratory Rate 18 16 16 Blood Pressure 114/61 126/66 Pulse Oximetry 99 98 98 Oxygen Delivery Room Air 12/16/24 07:32 Temperature 97.9 F Pulse Rate 63 Respiratory Rate 16 Blood Pressure 134/60 Pulse Oximetry 99 Oxygen Delivery Intake/Output Intake/Output: Intake & Output 12/13/24 12/14/24 12/15/24 12/16/24 23:59 23:59 23:59 23:59 Intake Total 1390 089 48 2923 Balance 1390 893 91 0464 Meds/Results Medications: Active Medications Generic Name Dose Route Start Last Admin Trade Name Freq PRN Reason Stop Dose Admin Acetaminophen 650 mg 12/13/24 00:13 Acetaminophen 650 Mg Suppository RECTAL Q6H PRN Mild Pain (1-3) or Fever Artificial Tears 2 drop 12/13/24 08:04 Artificial Tears Ophth Soln 15 Ml Bottle EACH EYE Q6H PRN dry eye(s) Aspirin 81 mg 12/13/24 09:00 12/16/24 09:06 Aspirin 81 Mg Enteric Tablet PO 81 mg DAILY ELIAS Administration Atorvastatin Calcium 80 mg 12/13/24 18:00 12/15/24 18:02 Atorvastatin 40 Mg Tablet PO 80 mg QPM ELIAS Administration Dextrose 12.5 gm 12/13/24 09:36 Dextrose 50% 25 Gm/50 Ml Syringe IV PUSH PRN PRN Hypoglycemia Protocol Diltiazem HCl 180 mg 12/13/24 09:00 12/16/24 09:06 Diltiazem Hcl Cd 180 Mg Cap.24hr PO 180 mg DAILY ELIAS Administration Ferrous Sulfate 325 mg 12/13/24 08:15 12/16/24 09:06 Ferrous Sulfate [address] PO 325 mg DAILY@0800 ELIAS Administration Folic Acid 1 mg 12/13/24 09:00 12/16/24 09:06 Folic Acid 1 Mg Tablet PO 1 mg DAILY ELIAS Administration Glucagon 1 mg 12/13/24 09:36 Glucagon For Inj 1 Mg Vial IM PRN PRN Hypoglycemia Protocol Glucose 15 gm 12/13/24 09:36 Glucose Oral Gel 15 Gm Of Glucse In 37.5 Gm Tube PO PRN PRN Hypoglycemia Protocol Ceftriaxone Sodium 1 gm/ 50 mls @ 100 mls/hr 12/13/24 21:00 12/15/24 22:24 Sodium Chloride IVPB Infused Q24H ELIAS Infusion Dextrose 1,000 mls @ 100 mls/hr 12/13/24 09:36 Dextrose 5% 1,000 Ml IVPB PRN PRN Hypoglycemia Protocol Insulin Aspart 2 - 5 units 12/13/24 12:00 12/16/24 09:01 Insulin Aspart (*Bkc) 100 Units/Ml SUB-Q Not Given TIDWM ELIAS Protocol Losartan Potassium 50 mg 12/13/24 09:00 12/16/24 09:06 Losartan Potassium 50 Mg Tablet PO 50 mg DAILY ELIAS Administration Ondansetron HCl 4 mg 12/13/24 00:13 Ondansetron Inj 4 Mg/2 Ml Vial IV PUSH Q4H PRN Nausea Sodium Chloride 1 spray 12/13/24 08:04 Saline 0.65% Tomas Soln 44 Ml Btl NASAL Q2H PRN dry nasal passages Labs Labs: Laboratory Results - last 24 hr 12/15/24 12/15/24 12/16/24 16:40 20:51 05:55 WBC 11.6 H RBC 3.49 L Hgb 10.1 L Hct 31.9 L MCV 91.4 MCH 28.9 MCHC 31.7 L RDW 13.2 Plt Count 409 H MPV 9.1 Sodium 136 L Potassium 4.0 Chloride 110 H Carbon Dioxide 16 L Anion Gap 10 BUN 15 Creatinine 0.78 Estim Creat Clear Calc 47 Estimated GFR > 60 Glucose 90 POC Capillary Glucose 87 84 Calcium 8.4 Total Bilirubin 0.3 AST 27 ALT 19 Alkaline Phosphatase 143 H Total Protein 6.2 L Albumin 3.1 L 12/16/24 12/16/24 07:42 11:14 WBC RBC Hgb Hct MCV MCH MCHC RDW Plt Count MPV Sodium Potassium Chloride Carbon Dioxide Anion Gap BUN Creatinine Estim Creat Clear Calc Estimated GFR Glucose POC Capillary Glucose 80 102 Calcium Total Bilirubin AST ALT Alkaline Phosphatase Total Protein Albumin Quality VTE Prophylaxis VTE prophylaxis: mechanical ordered (SCDs)
[2024-12-16 13:14] VITALS: BP 142/61; PULSE 78; RESP 16; TEMP 36.5; O2SAT 99
[2024-12-16] MEDS: ATORVASTATIN 40 MG TABLET 80 MG PO (17:17)
[2024-12-16] MEDS: cefTRIAXone 1 GM in SODIUM CHLORIDE 0.9% IV 50 ML 100 ML IVPB (21:04)
[2024-12-16 21:36] VITALS: O2SAT 97
[2024-12-16 22:00] VITALS: BP 130/69; PULSE 78; RESP 20; TEMP 36.2; O2SAT 96
[2024-12-17 06:00] VITALS: BP 137/55; PULSE 74; RESP 20; TEMP 36.2; O2SAT 100
[2024-12-17 06:27] LABS: Hematocrit 34.3 % (37.0-47.0); Hemoglobin 11.3 g/dL (12.0-15.0); Mean Corpuscular HGB Conc 32.9 g/dl (32-36); Mean Corpuscular Hemoglobin 29.6 pg (26-34); Mean Corpuscular Volume 89.8 fl (80-100); Platelet Count Result 428 k/mm3 (150-375); Red Blood Count 3.82 M/mm3 (4.2-5.4); White Blood Count 12.6 K/mm3 (4.5-10.0)
[2024-12-17 06:44] LABS: Alanine Aminotransferase 20 U/L (6-35); Albumin Level 3.5 g/dL (3.5-5.1); Alkaline Phosphatase 166 U/L (38-126); Anion Gap 10 mmol/L (4-12); Aspartate Amino Transferase 30 U/L (14-36); Bilirubin,Total 0.2 mg/dL (0.2-1.3); Blood Urea Nitrogen 13 mg/dL (7-17); Calcium 9.0 mg/dL (8.4-10.2); Carbon Dioxide 19 mmol/L (22-30); Chloride 109 mmol/L (98-107); Estimated CRCL calculation 52 ml/min; Estimated Glomerular Filt Rate > 60; Glucose 98 mg/dL (65-110); Potassium 4.0 mmol/L (3.4-5.0); Sodium 138 mmol/L (137-145); Total Protein 6.9 g/dL (6.3-8.2)
--- NOTE | 2024-12-17 06:52 | P.PNIM_ITS ---
Progress Note: A&P Assessment and Plan (1) Neglectful caretaking: Status: Acute Assessment and Plan: Patient's family is concerned that the patient is not receiving good care at the detention. Care coordination has been consulted for placement Received a phone call from care coordination stating that [facility] is unable to accept patient at this time due to bed availability. [facility] will be able to take patient on Wednesday. Patient remains inpatient awaiting bed availability at [facility]. (2) Abnormal urinalysis: Code(s): R82.90 - Unspecified abnormal findings in urine Status: Acute Assessment and Plan: - UA with possible infection however many epithelial cells noted so possible contamination - UC obtained on 12/13: negative - no previous micro to be reviewed - started on Rocephin on 12/12 Patient no longer endorsing dysuria and burning sensation however will still treat for UTI given that she was previously symptomatic. Rocephin course to be completed today, 12/16. Resolved. (3) Candidiasis, unspecified: Code(s): B37.9 - Candidiasis, unspecified Status: Acute Assessment and Plan: Patient scratching at her groin and could possibly have some underlying candidiasis. Received a dose of fluconazole in the ER which should be adequate for treatment. Patient no longer scratching. Resolved. (4) Hyponatremia: Code(s): E87.1 - Hypo-osmolality and hyponatremia Status: Acute Assessment and Plan: Mild hyponatremia on admission, received fluids in the ER. Repeat Na on am labs WNL. Will also check TSH to rule out some component of thyroid dysfunction causing hyponatremia. TSH WNL. Resolved. (5) Dementia: Qualifiers: Dementia behavioral or psychological symptom: unspecified whether behavioral, psychotic, or mood disturbance or anxiety Dementia severity: severe Dementia type: unspecified type Qualified Code(s): F03.C0 - Unspecified dementia, severe, without behavioral disturbance, psychotic disturbance, mood disturbance, and anxiety Code(s): F03.90 - Unspecified dementia, unspecified severity, without behavioral disturbance, psychotic disturbance, mood disturbance, and anxiety Status: Acute Assessment and Plan: Currently AOx3, follows few commands. (6) Diabetes: Code(s): E11.9 - Type 2 diabetes mellitus without complications Status: Acute Assessment and Plan: - hypoglycemia protocol - POC blood glucose ACHS - home medication - metformin 500 mg daily - correct regimen ordered - low dose SSI - A1C 5.8 Glucose levels remains well controlled. Continue to monitor. (7) Hypertension: Code(s): I10 - Essential (primary) hypertension Status: Acute Assessment and Plan: Chronic, continue home medications - diltiazem 180 mg daily - losartan 50 mg daily - blood remain pressures stable, continue to monitor Time Spent With Patient Time with patient: 15 - 25 minutes Subjective Date/time seen: 12/17/24 06:52 Interval history: 69-year-old female with a past medical history of CVA, dementia essential hypertension and diabetes who presented to the ER from detention per family request because they were concerned about the patient receiving poor care. Patient is pleasant lying in bed. She again remains AOx3 on assessment following some commands. She has no complaints denying chest pain, shortness of breath, palpitations, nausea/vomiting and abdominal pain. Review of Systems Review of Systems: All systems reviewed & are unremarkable except as noted in HPI and below Exam Narrative: AF HR 74 RR 20 SpO2 100 BP 137/55 General: female in no acute respiratory distress who is nontoxic appearing, lying semi recumbent in bed. HEENT: Normocephalic. Atraumatic. Extraocular movement intact. Sclera clear and anicteric. No facial asymmetry. Chest: Lungs are clear to auscultation bilaterally. No wheezes or crackles. CV: Heart was regular rate and rhythm. Abd: Abdomen was soft. Nontender. Nondistended. Positive bowel sounds. Ext: No clubbing, cyanosis, or edema. DP pulses bilaterally. Neuro: Patient is alert and oriented x3. Speech is clear. Flaccid left arm and slight contracture to left leg from prior CVA. Objective Data Vital Signs Vital Signs: Vital Signs - 24 hr 12/16/24 07:32 12/16/24 13:14 12/16/24 20:00 Temperature 97.9 F 97.7 F Pulse Rate 63 78 Respiratory Rate 16 16 Blood Pressure 134/60 142/61 H Pulse Oximetry 99 99 Oxygen Delivery Room Air Fraction of Inspired Oxygen 12/16/24 21:36 12/16/24 22:00 12/17/24 06:00 Temperature 97.2 F L 97.2 F L Pulse Rate 78 74 Respiratory Rate 20 20 Blood Pressure 130/69 137/55 L Pulse Oximetry 97 96 100 Oxygen Delivery Room Air Fraction of Inspired Oxygen 21 Intake/Output Intake/Output: Intake & Output 12/14/24 12/15/24 12/16/24 12/17/24 23:59 23:59 23:59 23:59 Intake Total 333 68 4375 50 Balance 935 61 4623 50 Meds/Results Medications: Active Medications Generic Name Dose Route Start Last Admin Trade Name Freq PRN Reason Stop Dose Admin Acetaminophen 650 mg 12/13/24 00:13 Acetaminophen 650 Mg Suppository RECTAL Q6H PRN Mild Pain (1-3) or Fever Artificial Tears 2 drop 12/13/24 08:04 Artificial Tears Ophth Soln 15 Ml Bottle EACH EYE Q6H PRN dry eye(s) Aspirin 81 mg 12/13/24 09:00 12/16/24 09:06 Aspirin 81 Mg Enteric Tablet PO 81 mg DAILY ELIAS Administration Atorvastatin Calcium 80 mg 12/13/24 18:00 12/16/24 17:17 Atorvastatin 40 Mg Tablet PO 80 mg QPM ELIAS Administration Dextrose 12.5 gm 12/13/24 09:36 Dextrose 50% 25 Gm/50 Ml Syringe IV PUSH PRN PRN Hypoglycemia Protocol Diltiazem HCl 180 mg 12/13/24 09:00 12/16/24 09:06 Diltiazem Hcl Cd 180 Mg Cap.24hr PO 180 mg DAILY ELIAS Administration Ferrous Sulfate 325 mg 12/13/24 08:15 12/16/24 09:06 Ferrous Sulfate [address] PO 325 mg DAILY@0800 ELIAS Administration Folic Acid 1 mg 12/13/24 09:00 12/16/24 09:06 Folic Acid 1 Mg Tablet PO 1 mg DAILY ELIAS Administration Glucagon 1 mg 12/13/24 09:36 Glucagon For Inj 1 Mg Vial IM PRN PRN Hypoglycemia Protocol Glucose 15 gm 12/13/24 09:36 Glucose Oral Gel 15 Gm Of Glucse In 37.5 Gm Tube PO PRN PRN Hypoglycemia Protocol Ceftriaxone Sodium 1 gm/ 50 mls @ 100 mls/hr 12/13/24 21:00 12/16/24 21:04 Sodium Chloride IVPB 100 mls/hr Q24H ELIAS Administration Dextrose 1,000 mls @ 100 mls/hr 12/13/24 09:36 Dextrose 5% 1,000 Ml IVPB PRN PRN Hypoglycemia Protocol Insulin Aspart 2 - 5 units 12/13/24 12:00 12/16/24 17:16 Insulin Aspart (*Bkc) 100 Units/Ml SUB-Q Not Given TIDWM [facility] Protocol Losartan Potassium 50 mg 12/13/24 09:00 12/16/24 09:06 Losartan Potassium 50 Mg Tablet PO 50 mg DAILY [facility] Administration Ondansetron HCl 4 mg 12/13/24 00:13 Ondansetron Inj 4 Mg/2 Ml Vial IV PUSH Q4H PRN Nausea Sodium Chloride 1 spray 12/13/24 08:04 Saline 0.65% Tomas Soln 44 Ml Btl NASAL Q2H PRN dry nasal passages Labs Labs: Laboratory Results - last 24 hr 12/16/24 12/16/24 12/16/24 07:42 11:14 16:14 WBC RBC Hgb Hct MCV MCH MCHC RDW Plt Count MPV Sodium Potassium Chloride Carbon Dioxide Anion Gap BUN Creatinine Estim Creat Clear Calc Estimated GFR Glucose POC Capillary Glucose 80 102 92 Calcium Total Bilirubin AST ALT Alkaline Phosphatase Total Protein Albumin 12/16/24 12/17/24 12/17/24 19:58 03:59 06:02 WBC 12.6 H RBC 3.82 L Hgb 11.3 L Hct 34.3 L MCV 89.8 MCH 29.6 MCHC 32.9 RDW 13.3 Plt Count 428 H MPV 9.3 Sodium 138 Potassium 4.0 Chloride 109 H Carbon Dioxide 19 L Anion Gap 10 BUN 13 Creatinine 0.70 Estim Creat Clear Calc 52 Estimated GFR > 60 Glucose 98 POC Capillary Glucose 75 87 Calcium 9.0 Total Bilirubin 0.2 AST 30 ALT 20 Alkaline Phosphatase 166 H Total Protein 6.9 Albumin 3.5 Quality VTE Prophylaxis VTE prophylaxis: mechanical ordered (SCDs)
[2024-12-17 08:00] VITALS: PULSE 74; RESP 20; O2SAT 100
[2024-12-17] MEDS: FERROUS SULFATE 325 MG TABLET DR PO (08:21)
[2024-12-17] MEDS: dilTIAZem HCL CD 180 MG CAP.24HR PO (08:21)
[2024-12-17] MEDS: LOSARTAN POTASSIUM 50 MG TABLET PO (08:21)
[2024-12-17] MEDS: FOLIC ACID 1 MG TABLET PO (08:21)
[2024-12-17] MEDS: ASPIRIN 81 MG ENTERIC TABLET PO (08:21)
[2024-12-17 14:00] VITALS: BP 119/56; PULSE 71; RESP 18; TEMP 35.8; O2SAT 100
[2024-12-17] MEDS: ATORVASTATIN 40 MG TABLET 80 MG PO (17:00)
[2024-12-17] MEDS: cefTRIAXone 1 GM in SODIUM CHLORIDE 0.9% IV 50 ML 100 ML IVPB (20:32)
[2024-12-17 22:00] VITALS: BP 154/54; PULSE 105; RESP 16; TEMP 36.7; O2SAT 97
[2024-12-18 06:00] VITALS: BP 91/72; PULSE 85; RESP 16; TEMP 36.7; O2SAT 96
[2024-12-18 06:50] LABS: Alanine Aminotransferase 24 U/L (6-35); Albumin Level 3.7 g/dL (3.5-5.1); Alkaline Phosphatase 186 U/L (38-126); Anion Gap 13 mmol/L (4-12); Aspartate Amino Transferase 34 U/L (14-36); Bilirubin,Total 0.4 mg/dL (0.2-1.3); Blood Urea Nitrogen 16 mg/dL (7-17); Calcium 9.1 mg/dL (8.4-10.2); Carbon Dioxide 15 mmol/L (22-30); Chloride 109 mmol/L (98-107); Estimated CRCL calculation 38 ml/min; Estimated Glomerular Filt Rate 56; Glucose 122 mg/dL (65-110); Potassium 4.0 mmol/L (3.4-5.0); Sodium 137 mmol/L (137-145); Total Protein 7.2 g/dL (6.3-8.2)
[2024-12-18 08:41] VITALS: BP 124/52; PULSE 78; RESP 18; O2SAT 100
[2024-12-18] MEDS: ASPIRIN 81 MG ENTERIC TABLET PO (08:43)
--- NOTE | 2024-12-18 13:19 | PM.IMPN ---
Progress Note: A&P Assessment and Plan (1) Dysphagia: Code(s): R13.10 - Dysphagia, unspecified Status: Acute Assessment and Plan: Throughout admission patient was able to tolerate her pureed diet with thickened liquids however today per RN patient was noted to pocket her pills and food. No noted choking event. Will consult speech therapy for a bedside swallow study to reassess. Patient was able to take most of her pills this am as they were crushable, however per RN patient had difficulties with the Diltazem given the size of the medication. Per pharmacy this form of diltiazem is unable to be crushed. After further discussion with pharmacy will transition patient to diltiazem 60 mg TID as this is the equivalent to her 180mg daily. The 60 mg TID tablets are also crushable. (2) Neglectful caretaking: Status: Acute Assessment and Plan: Patient's family is concerned that the patient is not receiving good care at the skilled nursing. Care coordination has been consulted for placement Received a phone call from care coordination stating that [facility] is unable to accept patient at this time due to bed availability. [facility] will be able to take patient on Wednesday. (3) Abnormal urinalysis: Code(s): R82.90 - Unspecified abnormal findings in urine Status: Acute Assessment and Plan: - UA with possible infection however many epithelial cells noted so possible contamination - UC obtained on 12/13: negative - no previous micro to be reviewed - started on Rocephin on 12/12 Patient no longer endorsing dysuria and burning sensation however will still treat for UTI given that she was previously symptomatic. Rocephin course to be completed today, 12/16. Resolved. (4) Candidiasis, unspecified: Code(s): B37.9 - Candidiasis, unspecified Status: Acute Assessment and Plan: Patient scratching at her groin and could possibly have some underlying candidiasis. Received a dose of fluconazole in the ER which should be adequate for treatment. Patient no longer scratching. Resolved. (5) Hyponatremia: Code(s): E87.1 - Hypo-osmolality and hyponatremia Status: Acute Assessment and Plan: Mild hyponatremia on admission, received fluids in the ER. Repeat Na on am labs WNL. Will also check TSH to rule out some component of thyroid dysfunction causing hyponatremia. TSH WNL. Resolved. (6) Dementia: Qualifiers: Dementia type: unspecified type Dementia severity: severe Dementia behavioral or psychological symptom: unspecified whether behavioral, psychotic, or mood disturbance or anxiety Qualified Code(s): F03.C0 - Unspecified dementia, severe, without behavioral disturbance, psychotic disturbance, mood disturbance, and anxiety Code(s): F03.90 - Unspecified dementia, unspecified severity, without behavioral disturbance, psychotic disturbance, mood disturbance, and anxiety Status: Acute Assessment and Plan: Currently AOx3, follows few commands. (7) Diabetes: Code(s): E11.9 - Type 2 diabetes mellitus without complications Status: Acute Assessment and Plan: - hypoglycemia protocol - POC blood glucose ACHS - home medication - metformin 500 mg daily - correct regimen ordered - low dose SSI - A1C 5.8 Glucose levels remains well controlled. Continue to monitor. (8) Hypertension: Code(s): I10 - Essential (primary) hypertension Status: Acute Assessment and Plan: Chronic, continue home medications - diltiazem 180 mg daily - losartan 50 mg daily - blood remain pressures stable, continue to monitor Subjective Date/time seen: 12/18/24 13:19 Interval history: 69-year-old female with a past medical history of CVA, dementia essential hypertension and diabetes who presented to the ER from skilled nursing per family request because they were concerned about the patient receiving poor care. Patient is pleasant lying comfortably in bed. She again remains AOx3 however remains confused as per baseline. Patient has no complaints denying chest pain, palpitations, shortness of breath, nausea/vomiting and abdominal pain. Patient was able to take most of her pills this am as they were crushable, however per RN patient had difficulties with the Diltazem given the size of the medication. Per pharmacy this form of diltiazem is unable to be crushed. After further discussion with pharmacy will transition patient to diltiazem 60 mg TID as this is the equivalent to her 180mg daily. The 60 mg TID tablets are also crushable. Will consult speech therapy for a bedside swallow study to reassess. Review of Systems Review of Systems: However unsure how accurate given patients baseline mental status. All systems reviewed & are unremarkable except as noted in HPI and below Exam Narrative: AF HR 78 RR 18 Spo2 100 BP 124/52 General: female in no acute respiratory distress who is nontoxic appearing, lying semi recumbent in bed. Chest: Lungs are clear to auscultation bilaterally. CV: Heart was regular rate and rhythm. Abd: Abdomen was soft. Nontender. Nondistended. Positive bowel sounds. Ext: No clubbing, cyanosis, or edema. DP pulses bilaterally. Neuro: Patient is alert and oriented x3. Speech is clear. Flaccid left arm and slight contracture to left leg from prior CVA. Objective Data Vital Signs Vital Signs: Vital Signs - 24 hr 12/17/24 14:00 12/17/24 20:00 12/17/24 22:00 Temperature 96.4 F L 98.0 F Pulse Rate 71 105 H Respiratory Rate 18 16 Blood Pressure 119/56 L 154/54 H Pulse Oximetry 100 97 Oxygen Delivery Room Air 12/18/24 06:00 12/18/24 08:41 Temperature 98.1 F Pulse Rate 85 78 Respiratory Rate 16 18 Blood Pressure 91/72 L 124/52 L Pulse Oximetry 96 100 Oxygen Delivery Intake/Output Intake/Output: Intake & Output 12/15/24 12/16/24 12/17/24 12/18/24 23:59 23:59 23:59 23:59 Intake Total 50 1350 210 0 Balance 50 1350 210 0 Meds/Results Medications: Active Medications Generic Name Dose Route Start Last Admin Trade Name Freq PRN Reason Stop Dose Admin Acetaminophen 650 mg 12/13/24 00:13 Acetaminophen 650 Mg Suppository RECTAL Q6H PRN Mild Pain (1-3) or Fever Artificial Tears 2 drop 12/13/24 08:04 Artificial Tears Ophth Soln 15 Ml Bottle EACH EYE Q6H PRN dry eye(s) Aspirin 81 mg 12/13/24 09:00 12/18/24 08:43 Aspirin 81 Mg Enteric Tablet PO 81 mg DAILY ELIAS Administration Atorvastatin Calcium 80 mg 12/13/24 18:00 12/17/24 17:00 Atorvastatin 40 Mg Tablet PO 80 mg QPM ELIAS Administration Dextrose 12.5 gm 12/13/24 09:36 Dextrose 50% 25 Gm/50 Ml Syringe IV PUSH PRN PRN Hypoglycemia Protocol Diltiazem HCl 180 mg 12/13/24 09:00 12/18/24 08:49 Diltiazem Hcl Cd 180 Mg Cap.24hr PO Not Given DAILY ELIAS Ferrous Sulfate 325 mg 12/13/24 08:15 12/18/24 08:43 Ferrous Sulfate [address] PO 325 mg DAILY@0800 ELIAS Administration Folic Acid 1 mg 12/13/24 09:00 12/18/24 08:43 Folic Acid 1 Mg Tablet PO 1 mg DAILY ELIAS Administration Glucagon 1 mg 12/13/24 09:36 Glucagon For Inj 1 Mg Vial IM PRN PRN Hypoglycemia Protocol Glucose 15 gm 12/13/24 09:36 Glucose Oral Gel 15 Gm Of Glucse In 37.5 Gm Tube PO PRN PRN Hypoglycemia Protocol Dextrose 1,000 mls @ 100 mls/hr 12/13/24 09:36 Dextrose 5% 1,000 Ml IVPB PRN PRN Hypoglycemia Protocol Insulin Aspart 2 - 5 units 12/13/24 12:00 12/18/24 12:25 Insulin Aspart (*Bkc) 100 Units/Ml SUB-Q Not Given TIDWM [facility] Protocol Losartan Potassium 50 mg 12/13/24 09:00 12/18/24 08:43 Losartan Potassium 50 Mg Tablet PO 50 mg DAILY ELIAS Administration Ondansetron HCl 4 mg 12/13/24 00:13 Ondansetron Inj 4 Mg/2 Ml Vial IV PUSH Q4H PRN Nausea Sodium Chloride 1 spray 12/13/24 08:04 Saline 0.65% Tomas Soln 44 Ml Btl NASAL Q2H PRN dry nasal passages Labs Labs: Laboratory Results - last 24 hr 12/17/24 12/17/24 12/18/24 16:30 20:01 06:28 Sodium 137 Potassium 4.0 Chloride 109 H Carbon Dioxide 15 L Anion Gap 13 H BUN 16 Creatinine 0.98 Estim Creat Clear Calc 38 Estimated GFR 56 L Glucose 122 H POC Capillary Glucose 93 101 Calcium 9.1 Total Bilirubin 0.4 AST 34 ALT 24 Alkaline Phosphatase 186 H Total Protein 7.2 Albumin 3.7 12/18/24 12/18/24 07:45 11:41 Sodium Potassium Chloride Carbon Dioxide Anion Gap BUN Creatinine Estim Creat Clear Calc Estimated GFR Glucose POC Capillary Glucose 116 H 109 H Calcium Total Bilirubin AST ALT Alkaline Phosphatase Total Protein Albumin Quality VTE Prophylaxis VTE prophylaxis: mechanical ordered (SCDs)
[2024-12-18 14:00] VITALS: BP 143/64; PULSE 96; RESP 18; TEMP 36.3; O2SAT 99
--- NOTE | 2024-12-18 15:34 | P.DS_ITS ---
DS: Admitting Diagnosis Discharge Date 12/18/2024 Admitting Diagnosis dysphagia neglectful care taking abnormal ua candidiasis hyponatremia dementia dm htn DS: Discharge Diagnosis Discharge Diagnosis (1) Dysphagia: Code(s): R13.10 - Dysphagia, unspecified Status: Acute (2) Neglectful caretaking: Status: Acute (3) Abnormal urinalysis: Code(s): R82.90 - Unspecified abnormal findings in urine Status: Acute (4) Candidiasis, unspecified: Code(s): B37.9 - Candidiasis, unspecified Status: Acute (5) Hyponatremia: Code(s): E87.1 - Hypo-osmolality and hyponatremia Status: Acute (6) Dementia: Qualifiers: Dementia type: unspecified type Dementia severity: severe Dementia behavioral or psychological symptom: unspecified whether behavioral, psychotic, or mood disturbance or anxiety Qualified Code(s): F03.C0 - Unspecified dementia, severe, without behavioral disturbance, psychotic disturbance, mood disturbance, and anxiety Code(s): F03.90 - Unspecified dementia, unspecified severity, without behavioral disturbance, psychotic disturbance, mood disturbance, and anxiety Status: Acute (7) Diabetes: Code(s): E11.9 - Type 2 diabetes mellitus without complications Status: Acute (8) Hypertension: Code(s): I10 - Essential (primary) hypertension Status: Acute DS: Summary Hospital Course Reason for hospitalization: dysphagia neglectful care taking abnormal ua candidiasis hyponatremia dementia dm htn Hospital Course: 69-year-old female with a past medical history of CVA, dementia essential hypertension and diabetes who [facility] because they were concerned about the patient receiving poor care. Not meeting sepsis criteria. Mild hyponatremia on admission, received fluids in the ER. Repeat Na on am labs WNL. TSH obtained to rule out some component of thyroid dysfunction causing hyponatremia and TSH WNL. Patient scratching at her groin concerning underlying candidiasis. Received a dose of fluconazole in the ER which should be adequate for treatment. On assessments throughout admission patient no longer scratching. UA with possible infection however many epithelial cells noted so possible contamination. UC obtained on 12/13 was negative. Patient was endorsing dysuria and burning throughout the admission so she was treated for a possible UTI. Antibiotic course completed during admission. Patient was to be discharged on 12/16 however received a phone call from care coordination stating that [facility] was unable to accept patient at that time due to bed availability. [facility] noted that they would be able to take the patient on Wednesday. On 12/18 patients nurse reported some concern for possible dysphagia and noted patient was unable to take her diltiazem 180 mg daily given pill size and the inability to crush it. Speech consulted and stated patient to remain on pureed diet and thickened liquids. No concerns per speech during bed side swallow. Given patients difficulty with the diltiazem medication size and the inability to crush this pill, discussed with pharmacy and will transition patient to diltiazem 60 mg TID as this is the equivalent dosage and that pill can be crushed if needed. Patient again had no complaints at time of discharge denying chest pain, shortness of breath, palpitations, nausea/vomiting, abdominal pain, and uti like symptoms of dysuria/burning/urgency. Patient discharged to SNF in a stable condition. She is to follow up with her PCP in 1 week. Status at Discharge Functional status at discharge: wheelchair bound Time Spent with Patient Time attestation: Total time spent providing and/or coordinating discharge services: Time spent: Greater than 30 minutes Exam Narrative: AF HR 78 RR 18 Spo2 100 BP 124/52 General: female in no acute respiratory distress who is nontoxic appearing, lying semi recumbent in bed. Chest: Lungs are clear to auscultation bilaterally. CV: Heart was regular rate and rhythm. Abd: Abdomen was soft. Nontender. Nondistended. Positive bowel sounds. Ext: No clubbing, cyanosis, or edema. DP pulses bilaterally. Neuro: Patient is alert and oriented x3. Speech is clear. Flaccid left arm and slight contracture to left leg from prior CVA. DS: Data Data Completed and Pending Labs on day of discharge: Labs from last 24 hours 12/18/24 12/18/24 12/18/24 11:41 07:45 06:28 Sodium 137 Potassium 4.0 Chloride 109 H Carbon Dioxide 15 L Anion Gap 13 H BUN 16 Creatinine 0.98 Estim Creat Clear Calc 38 Estimated GFR 56 L Glucose 122 H POC Capillary Glucose 109 H 116 H Calcium 9.1 Total Bilirubin 0.4 AST 34 ALT 24 Alkaline Phosphatase 186 H Total Protein 7.2 Albumin 3.7 12/17/24 12/17/24 20:01 16:30 Sodium Potassium Chloride Carbon Dioxide Anion Gap BUN Creatinine Estim Creat Clear Calc Estimated GFR Glucose POC Capillary Glucose 101 93 Calcium Total Bilirubin AST ALT Alkaline Phosphatase Total Protein Albumin Discharge Plan Discharge Attending physician on discharge: Jesse Leal Consulting providers: Olivia Bass Discharging Clinician: Olivia Bass Anticipated Discharge Date/Time: 12/16/24 09:52 Patient Disposition: SNF Activity: as tolerated Diet: as tolerated, diabetic and other - see discharge instructions Discharge Instructions: Discharge disposition: Patient diagnosed with a UTI Completed antibiotics during admission Eat well balanced meals and stay hydrated Keep active to remain strong Avoid use of diapers or pads Good sid Care every 2 hours Trend urine output Continue to monitor blood glucose levels Patient is to continue having help feeding with all meals Continue aspiration precautions Continue pureed diet and thickened liquids Monitor blood pressures Given patient requiring her pills intermittently crushed, her diltiazem medication has been changed to 60 mg three times a day. This tablet is crushable if needed. Take caution while standing, rising, or moving Change positions slowly taking a break between each position change If you standing feel dizzy sit back down and take a break Encouraged to continue with yearly vaccinations Return to the emergency department if he developed sudden shortness of breath, chest pain, nausea, vomiting, upset stomach or intractable diarrhea Return to the emergency department if you develop fever greater than 100.5 Follow-up with the primary care physician within 1-2 weeks Thank you for [facility] for your healthcare needs Patient Instructions: Urinary Tract Infection in Older Adults (DC) Patient Language: Chinese Stand Alone Forms: General Discharge Information Follow-up/Referrals: UNKNOWN,DOCTOR [Primary Care Provider] - 1 Week Discharge Medications: New diltiazem HCl 60 mg Tablet 60 mg PO TID Qty: 90 0RF Continued Artificial Tears([id number]) Drops 2 drp EACH EYE Q6H PRN (Reason: dry eye(s)) aspirin [Adult Low Dose Aspirin] 81 mg tablet,delayed release (DR/EC) 81 mg PO DAILY atorvastatin 80 mg tablet 80 mg PO QPM bisacodyl 5 mg tablet,delayed release (DR/EC) 5 mg PO DAILY PRN (Reason: constipation) ferrous sulfate 325 mg (65 mg iron) tablet 325 mg PO DAILY Fleet Enema 19-7 gram/118 mL enema 118 ml RECTAL DAILY PRN (Reason: constipation) folic acid 1 mg tablet 1 mg PO DAILY hydrocortisone 1 % cream 1 applic topical DAILY Rx Instructions: Face losartan 50 mg tablet 50 mg PO DAILY metformin 500 mg tablet 500 mg PO DAILY polyethylene glycol 3350 [Miralax] 17 gram powder in packet 17 g PO DAILY PRN (Reason: constipation) Saline Mist 0.65 % aerosol,spray 1 spray intranasal Q2H PRN (Reason: dry nasal passages) Rx Instructions: 1 spray each nostril ergocalciferol (vitamin D2) [Vitamin D2] 1,250 mcg (50,000 unit) capsule 1,250 mcg PO WEEKLY Rx Instructions: MONDAYS Discontinued diltiazem HCl 180 mg capsule,extended release 24hr 180 mg PO DAILY Date of admission: 12/14/24 10:31 Primary Care Provider: UNKNOWN,DOCTOR Admitting Provider: Tori Patino Attending physician on admission: Tori Patino Condition: Stable Hospitalist MIPS Heart Failure (Exclusion) Patient has history of Heart Transplant or Left Ventricular Assistive Device?: No IF YES, STOP HERE Heart Failure (Qualifier) Patient has current or prior documentation of LVEF less than or equal to 40%, or mod/servere depressed LVSF?: No IF NO, STOP HERE
== END 2024-12-18 16:15 | DRG 758 ==
LOC: ANHED 22:32 → ANH3MEDSUR 12-13 00:50
PROVIDERS: Emergency Medicine; Admitting Provider Internal Medicine; Emergency Provider Student in an Organized Health Care Education/Training Program; Visit Provider Student in an Organized Health Care Education/Training Program
DX: B37.49 Other urogenital candidiasis (principal); E87.1 Hypo-osmolality and hyponatremia; S40.812D Abrasion of left upper arm, subsequent encounter; S40.811D Abrasion of right upper arm, subsequent encounter; R13.10 Dysphagia, unspecified; D50.9 Iron deficiency anemia, unspecified; E11.9 Type 2 diabetes mellitus without complications; E78.5 Hyperlipidemia, unspecified; F03.90 Unspecified dementia, unspecified severity, without behavioral disturbance, psychotic disturbance, mood disturbance, and anxiety; F41.9 Anxiety disorder, unspecified; F32.A Depression, unspecified; H04.129 Dry eye syndrome of unspecified lacrimal gland; I10 Essential (primary) hypertension; Z86.73 Personal history of transient ischemic attack (TIA), and cerebral infarction without residual deficits; Z79.82 Long term (current) use of aspirin; Z79.84 Long term (current) use of oral hypoglycemic drugs; Z88.0 Allergy status to penicillin
CPT/HCPCS: 36415; 80048; 80053; 81001; 82948; 83036; 84443; 85025; 85027; 87086; 92610; 96365; 96375; 99285; A9270; G0378; J0696; J7030

== ENCOUNTER 2024-12-23 19:42 | Inpatient (IN) | payer MEDICARE, MEDICAID, SELFPAY ==
[2024-12-23] VITALS (9 sets, daily range): BP systolic 85–123; BP diastolic 40–104; PULSE 92–107; RESP 15–22; TEMP 36.6–36.7; O2SAT 92–100; BMI 15.7
--- NOTE | ~2024-12-23 | XR_ITS ---
EXAMINATION: XR chest ET placement 12/28/2024 15:37 INDICATION: Intubation TECHNIQUE:A single AP semiupright portable frontal image of the chest was obtained. COMPARISON: None available FINDINGS: Nasogastric tube courses below the diaphragm, its tip is not visualized. No pneumothorax. No pleural effusion. No free air in the diaphragm. Small opacities in the left lower lung. Endotracheal tube is present with its tip 1.3 cm above the dayana. IMPRESSION: 1: Endotracheal tube is present with its tip 1.3 cm above the dayana. Correlate clinically. 2. Small opacities in the left lower lung which represents atelectasis or infiltrates. Reviewed, dictated and finalized at location Q. IMPRESSION: 1: Endotracheal tube is present with its tip 1.3 cm above the dayana. Correlat e clinically. 2. Small opacities in the left lower lung which represents atelectasis or infil trates.
--- NOTE | ~2024-12-23 | XR_ITS ---
Clinical history:OG/NG tube insertion EXAM:X-ray abdomen gastric tube TECHNIQUE:A single AP semiupright portable frontal image was obtained. Comparisons:Chest x-ray 29/05/2024 FINDINGS: Nasogastric tube courses below the diaphragm, its tip projects over the medial aspect of the left upper abdomen likely within the body of the stomach. There are a few air-filled loops of large and small bowel. Visualized lungs are clear. IMPRESSION: Nasogastric tube courses below the diaphragm, its tip projects over the medial aspect of the left upper abdomen likely within the body of the stomach. Nonspecific bowel gas pattern. Reviewed, dictated and finalized at location Q.
--- NOTE | ~2024-12-23 | XR_ITS ---
Portable chest x-ray Comparison: 12/28/2024 Clinical History: Intubation Findings: Endotracheal tube and NG tube are in satisfactory positions. There is focal retrocardiac airspace disease. Right lung clear. Cardiomediastinal silhouette is stable. Bones and soft tissues are unremarkable. Impression: Focal retrocardiac airspace disease. Support tubes, as above. Reviewed, dictated and finalized at location . Impression: Focal retrocardiac airspace disease. Support tubes, as above.
--- NOTE | ~2024-12-23 | XR_ITS ---
XR chest 1V portable 12/30/2024 05:27 Indication: Recent instrumentation. Respiratory distress. Procedure: AP portable chest Comparison: 12/29/2024 Findings: Persistent retrocardiac airspace disease, consistent with pneumonia. There is atherosclerosis. Heart size normal. Right lung clear. No pneumothorax. Impression: 1: Persistent retrocardiac airspace disease, compatible with pneumonia. Reviewed, dictated and finalized at location O. Impression: 1: Persistent retrocardiac airspace disease, compatible with pneumonia.
--- NOTE | ~2024-12-23 | XR_ITS ---
XR abdomen gastric tube insert INDICATION: Evaluate NG tube position. TECHNIQUE: Limited KUB perform for evaluating NG tube . COMPARISON: 12/28/2024 FINDINGS: NG tube tip in the stomach. Visualized bowel gas pattern is unremarkable. IMPRESSION: 1: NG tube tip in the stomach. Reviewed, dictated and finalized at location O.
--- NOTE | 2024-12-23 19:46 | ED.GIBLEED ---
HPI - GI Bleed General Chief complaint: GI Bleed Stated complaint: Dark Emesis/stool Time Seen by Provider: 12/23/24 19:42 Source: EMS Mode of arrival: EMS Limitations: clinical condition History of Present Illness HPI Narrative: PATIENT CAME FROM INTERMEDIATE WITH 5 EPISODES OF BLOODY EMESIS, ON THE BLOODY STOOL PATIENT IS AWAKE ORIENTED TIME 1 AT BASELINE, PATIENT ON ASPIRIN, HISTORY OF DIABETES, HYPERTENSION AND DEMENTIA Related Data Home Medications ?Medication ?Instructions ?Recorded ?Confirmed ?Last Taken ?Type aspirin 81 mg tablet,delayed 81 mg PO DAILY 12/13/24 12/13/24 Unknown History release (Adult Low Dose Aspirin) atorvastatin 80 mg tablet 80 mg PO QPM 12/13/24 12/13/24 Unknown History bisacodyl 5 mg tablet,delayed 5 mg PO DAILY PRN constipation 12/13/24 12/13/24 Unknown History release dextran 70-hypromellose eye drops 2 drp EACH EYE Q6H PRN dry eye(s) 12/13/24 12/13/24 Unknown History (Artificial Tears (dextran 70-hypromellose) eye drops) ergocalciferol (vitamin D2) 1,250 1,250 mcg PO WEEKLY 12/13/24 12/13/24 12/11/24 History mcg (50,000 unit) capsule (Vitamin D2) ferrous sulfate 325 mg (65 mg 325 mg PO DAILY 12/13/24 12/13/24 Unknown History iron) tablet folic acid 1 mg tablet 1 mg PO DAILY 12/13/24 12/13/24 Unknown History hydrocortisone 1 % topical cream 1 applic topical DAILY 12/13/24 12/13/24 Unknown History losartan 50 mg tablet 50 mg PO DAILY 12/13/24 12/13/24 Unknown History metformin 500 mg tablet 500 mg PO DAILY 12/13/24 12/13/24 Unknown History polyethylene glycol 3350 17 gram 17 g PO DAILY PRN constipation 12/13/24 12/13/24 Unknown History oral powder packet (Miralax) sodium chloride 0.65 % nasal spray 1 spray intranasal Q2H PRN dry 12/13/24 12/13/24 Unknown History aerosol (Saline Mist) nasal passages sodium phosphates 19 gram-7 118 ml RECTAL DAILY PRN 12/13/24 12/13/24 Unknown History gram/118 mL enema (Fleet Enema) constipation Allergies Allergy/AdvReac Type Severity Reaction Status Date / Time Penicillins Allergy Anaphylactic Verified 12/12/24 22:49 Shock Review of Systems Review of Systems: ROS unobtainable: Yes unobtainable due to mental status PMFSH Past Medical History Medical History Dementia History of cerebrovascular accident (CVA) with residual deficit L sided deficits Depression, unspecified Personal history of transient ischemic attack (TIA), and cerebral infarction without residual deficits Constipation, unspecified Essential (primary) hypertension Anxiety disorder, unspecified Hyperlipidemia, unspecified Other specified diabetes mellitus without complications Dry eye syndrome of unspecified lacrimal gland Candidiasis, unspecified Other iron deficiency anemias Social History Social History Social History: Code status: Full code Surrogate decision maker: Smoking status: Current every day smoker [facility] Additional living arrangements comments: [facility] Spiritual care concerns: No Exam Narrative: GENERAL APPEARANCE: WELL-DEVELOPED, WELL-NOURISHED, DEBILITATED, FRAIL, LETHARGIC SKIN: PALE HEAD: NORMOCEPHALIC, NONTRAUMATIC EYES: CLEAR CONJUNCTIVA ENT: OROPHARYNX NORMAL, EARS NORMAL, NOSE NORMAL COFFEE-GROUND MATERIAL ON THE FACE AND CLOSE NECK: SUPPLE, NONTENDER CHEST AND RESPIRATORY: AIRWAY PATENT, NO RESPIRATORY DISTRESS, NO ACCESSORY MUSCLE USE HEART: REGULAR RATE/RHYTHM ABDOMEN: SOFT, NONTENDER, NO ORGANOMEGALY, QUIET BOWEL SOUNDS PAIN RECTAL EXAM SHOWED LARGE AMOUNT OF DARK TARRY STOOL IN THE DEPENDENT NEUROLOGIC: ALERT ,DISORIENTED X4 Course Consultations Consultation #1: DR. HAMLIN Date: 12/23/24 Consultation #2: DR. ESPARZA Date: 12/23/24 Consultation #3: DR. PATINO Date: 12/23/24 Vital Signs Vital signs: Vital Signs Temperature 36.7 C 12/23/24 19:43 Pulse Rate 107 H 12/23/24 19:43 Respiratory Rate 18 12/23/24 19:43 Blood Pressure 96/72 L 12/23/24 19:43 Pulse Oximetry 92 12/23/24 19:43 Oxygen Delivery Room Air 12/23/24 19:43 Temperature 36.7 C 12/23/24 19:43 Pulse Rate 107 H 12/23/24 19:43 Respiratory Rate 18 12/23/24 19:43 Blood Pressure 96/72 L 12/23/24 19:43 Pulse Oximetry 92 12/23/24 19:43 Oxygen Delivery Room Air 12/23/24 19:43 MDM - GI Bleed MDM Narrative Medical decision making narrative: PATIENT CAME WITH VOMITING BLOOD AND PASSING BLOOD PER RECTUM. VITAL SIGNS SHOWING BLOOD PRESSURE 96/72, HEART RATE 107 OTHERWISE WITHIN NORMAL LIMIT PHYSICAL EXAMINATION SHOWING LETHARGIC, PALE PATIENT, AWAKE, DISORIENTED. DRY DARK BLOOD ON THE FACE AND MOUTH, LIQUID DARK BLACK STOOL IN THE DEPENDENT DIFFERENTIAL DIAGNOSIS HEMATEMESIS, UPPER GI BLEED, ANEMIA BLOOD WORKUP TODAY SHOWED WBC OF 16.8, HEMOGLOBIN 6.9, PLATELET 424, INR 1.2, CREATININE 1.5, BUN 61, LACTIC ACID 5.3, TOTAL PROTEIN 5.4 ALBUMIN 2.7 OTHERWISE WITHIN NORMAL LIMIT IN THE ED PATIENT RECEIVED 2 L OF NORMAL SALINE, 40 MG OF PROTONIX, 2 UNITS OF BLOOD. ADMIT TO HOSPITALIST, ICU DR. HAMLIN WAS NOTIFIED Differential Diagnosis Differential diagnosis: Likely other ( ABOVE) Medical Records Attestation: I reviewed the patient's medical records. Lab Data Attestation: I reviewed the patient's lab results. 12/23/24 19:59 12/23/24 19:59 Labs: Lab Results 12/23/24 12/23/24 12/23/24 Range/Units 19:59 20:00 20:04 WBC 16.8 H (4.5-10.0) K/mm3 RBC 2.35 L (4.2-5.4) M/mm3 Hgb 6.9 L* D (12.0-15.0) g/dL Hct 22.2 L (37.0-47.0) % MCV 94.5 D (80-100) fl MCH 29.4 (26-34) pg MCHC 31.1 L (32-36) g/dl RDW 14.3 (11.5-14.5) % Plt Count 424 H (150-375) k/mm3 MPV 9.7 (7.4-10.4) fl Immature Gran % (Auto) Not Reportable Neut % (Auto) Not Reportable Lymph % (Auto) Not Reportable [place] % (Auto) Not Reportable Eos % (Auto) Not Reportable Baso % (Auto) Not Reportable Lymph # (Auto) Not Reportable [place] # (Auto) Not Reportable Eos # (Auto) Not Reportable Baso # (Auto) Not Reportable Abs Immat Gran (auto) Not Reportable Absolute Neuts (auto) Not Reportable Absolute Nucleated RBC Not Reportable Total Counted 100 Neutrophils % (Manual) 81 H (46-73) % Band Neutrophils % 5 (0-6) % Lymphocytes % (Manual) 9.0 L (18-44) % Monocytes % (Manual) 5 (3-9) % Nucleated RBC % Not Reportable Abs Neuts (Manual) 14.44 H (1.3-6.7) K/mm3 Abs Lymphs (Manual) 1.51 (1.1-4.5) K/mm3 Abs Monocytes (Manual) 0.84 (0.1-0.90) K/mm3 Platelet Estimate Increased (Adequate) Hypochromasia 1+ Schistocytes None seen PT 15.0 H (11.1-14.7) Seconds INR 1.2 APTT 26.9 (22.3-36.8) Seconds Sodium 141 (137-145) mmol/L Potassium 4.6 (3.4-5.0) mmol/L Chloride 112 H (98-107) mmol/L Carbon Dioxide 15 L (22-30) mmol/L Anion Gap 14 H (4-12) mmol/L BUN 61 H D (7-17) mg/dL Creatinine 1.51 H (0.7-1.0) mg/dL Estim Creat Clear Calc 23 ml/min Estimated GFR 34 L (59 - ) Glucose 181 H (65-110) mg/dL Lactic Acid 5.3 H* (0.7-2.0) mmol/L Calcium 8.2 L (8.4-10.2) mg/dL Magnesium 1.4 L (1.6-2.3) mg/dL Total Bilirubin 0.2 (0.2-1.3) mg/dL AST 27 (14-36) U/L ALT 27 (6-35) U/L Alkaline Phosphatase 117 (38-126) U/L Ammonia < 9 L (9-30) umol/L Total Protein 5.4 L (6.3-8.2) g/dL Albumin 2.7 L (3.5-5.1) g/dL Blood Type O Positive Antibody Screen Negative Crossmatch See Detail Critical Care Time Critical Care Time Critical Care Time: Yes Total Critical Care Time: 30 Discharge Plan Discharge Clinical Impression: GI (gastrointestinal bleed) Patient Disposition: Still a Patient Condition: Guarded Prognosis Patient Language: Polish Prescriptions: No Action Artificial Tears([id number]) Drops 2 drp EACH EYE Q6H PRN (Reason: dry eye(s)) aspirin [Adult Low Dose Aspirin] 81 mg tablet,delayed release (DR/EC) 81 mg PO DAILY atorvastatin 80 mg tablet 80 mg PO QPM bisacodyl 5 mg tablet,delayed release (DR/EC) 5 mg PO DAILY PRN (Reason: constipation) ferrous sulfate 325 mg (65 mg iron) tablet 325 mg PO DAILY Fleet Enema 19-7 gram/118 mL enema 118 ml RECTAL DAILY PRN (Reason: constipation) folic acid 1 mg tablet 1 mg PO DAILY hydrocortisone 1 % cream 1 applic topical DAILY Rx Instructions: Face losartan 50 mg tablet 50 mg PO DAILY metformin 500 mg tablet 500 mg PO DAILY polyethylene glycol 3350 [Miralax] 17 gram powder in packet 17 g PO DAILY PRN (Reason: constipation) Saline Mist 0.65 % aerosol,spray 1 spray intranasal Q2H PRN (Reason: dry nasal passages) Rx Instructions: 1 spray each nostril ergocalciferol (vitamin D2) [Vitamin D2] 1,250 mcg (50,000 unit) capsule 1,250 mcg PO WEEKLY Rx Instructions: MONDAYS diltiazem HCl 60 mg Tablet 60 mg PO TID Qty: 90 0RF Follow-up/Referrals: UNKNOWN,DOCTOR [Primary Care Provider] -
[2024-12-23] MEDS: ONDANSETRON INJ 4 MG/2 ML VIAL IV PUSH (19:59)
[2024-12-23] MEDS: SODIUM CHLORIDE 0.9% IV 1,000 ML 999 ML IV CONT (20:00)
[2024-12-23] MEDS: PANTOPRAZOLE SODIUM IV 40 MG VIAL IV PUSH (20:00)
[2024-12-23 20:11] LABS: Hematocrit 22.2 % (37.0-47.0); Mean Corpuscular HGB Conc 31.1 g/dl (32-36); Mean Corpuscular Hemoglobin 29.4 pg (26-34); Mean Corpuscular Volume 94.5 fl (80-100); Platelet Count Result 424 k/mm3 (150-375); Red Blood Count 2.35 M/mm3 (4.2-5.4); White Blood Count 16.8 K/mm3 (4.5-10.0)
[2024-12-23 20:20] LABS: Ammonia < 9 umol/L (9-30)
[2024-12-23 20:35] LABS: INR 1.2; Prothrombin Time 15.0 Seconds (11.1-14.7)
[2024-12-23 20:36] LABS: Hemoglobin 6.9 g/dL (12.0-15.0); Partial Thromboplastin Time 26.9 Seconds (22.3-36.8)
[2024-12-23 20:43] LABS: Band Neutrophils Percent 5 % (0-6); Lymphocytes Absolute Manual 1.51 K/mm3 (1.1-4.5); Lymphocytes Percent Manual 9.0 % (18-44); Monocytes Absolute Manual 0.84 K/mm3 (0.1-0.90); Monocytes Percent Manual 5 % (3-9); Neutrophils Absolute Manual 14.44 K/mm3 (1.3-6.7); Neutrophils Percent Manual 81 % (46-73); Total Cells Counted 100
[2024-12-23 20:44] LABS: Alanine Aminotransferase 27 U/L (6-35); Albumin Level 2.7 g/dL (3.5-5.1); Alkaline Phosphatase 117 U/L (38-126); Anion Gap 14 mmol/L (4-12); Aspartate Amino Transferase 27 U/L (14-36); Bilirubin,Total 0.2 mg/dL (0.2-1.3); Blood Urea Nitrogen 61 mg/dL (7-17); Calcium 8.2 mg/dL (8.4-10.2); Carbon Dioxide 15 mmol/L (22-30); Chloride 112 mmol/L (98-107); Estimated CRCL calculation 23 ml/min; Estimated Glomerular Filt Rate 34; Glucose 181 mg/dL (65-110); Hypochromasia 1+; Magnesium 1.4 mg/dL (1.6-2.3); Potassium 4.6 mmol/L (3.4-5.0); Schistocytes None Seen; Sodium 141 mmol/L (137-145); Total Protein 5.4 g/dL (6.3-8.2)
--- NOTE | 2024-12-23 20:51 | PC.NURSE ---
pt had 1 episode of black formed stool with some dark red streaks.
--- NOTE | 2024-12-23 21:12 | PC.NURSE ---
Pt family updated on plan of care.
--- NOTE | 2024-12-23 21:40 | P.HP_ITS ---
H&P: HPI History of Present Illness Date/Time: 12/23/24 21:40 Chief Complaint: Sent in from [facility] hematemesis and bloody stools Narrative: 69-year-old female with a past medical history of CVA, essential hypertension, dementia, diabetes, severe protein calorie malnutrition who presented to the ER [place] [facility] [place] [facility] [place] for GI bleed. The patient had 5 episodes of hematemesis and bloody stools in her depends. On arrival to the ER the patient was noted to have her systolic blood pressures in the mid 90s, tachycardia and large amount of liquid black with some mixed maroon streaks of stool in her depends. Patient received 1 L IV fluid bolus and Protonix 40 mg IV x1. Blood pressures remained in the low 90s despite IV fluid resuscitation. Labs demonstrated a 4 and half point drop in hemoglobin compared to 6 days ago, chronically low serum bicarb, marked increase in BUN from 16 now up to 61 and acute kidney injury with creatinine of 1.51 and significant lactic acidosis 5.8 as well as hypo magnesemia 1.4 in the low serum albumin decreased from baseline of 3.7 down to 2.7. A type and screen was performed and the patient is awaiting 2 units blood transfusion. When I arrived at the patient's bedside, in the ER, the patient's blood pressures had dropped down to the 70s systolic. Her normal saline boluses were complete. The patient's sons, Kareem and Wil, were at bedside and provided some additional past medical history. Denies the patient ever having had a prior GI bleed. They state that the patient has never had an abdominal surgery. They do not think she has ever had a colonoscopy or EGD. They did agree for patient to have a central line and pressors. However after goals of care discussion they did decide to change the patient's code status to DNR/DNI. They report that the patient did have some dementia but was living at home and for the most part was independent until 3 months ago. Three months ago she had a CVA resulting in left-sided deficits. They report that since she had her stroke she tends to keep her right eye closed. They report that since she had her stroke her confusion and dementia symptoms have markedly progressed. They report that the patient smoked heavily up until her stroke. They deny the patient ever having a history of cirrhosis or heavy alcohol use. The patient had reported dysphagia to me during her prior admission. Review of Systems 2 Review of Systems: Review of systems unobtainable due to dementia FOR[facility]LY [facility], [facility] Past Medical History Medical History (Updated 12/24/24 @ 02:21 by Tori Patino DO) Vitamin D deficiency Dementia History of cerebrovascular accident (CVA) with residual deficit L sided deficits Depression, unspecified Personal history of transient ischemic attack (TIA), and cerebral infarction without residual deficits Constipation, unspecified Essential (primary) hypertension Anxiety disorder, unspecified Hyperlipidemia, unspecified Other specified diabetes mellitus without complications 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 They deny that she ever drink alcohol or use illicit substances. She lives in her own home until September 2024 when she had a stroke. 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 Code status: DNR/DNI Surrogate decision maker: Jay (son) Smoking packs per day: 2 Smoking cigarettes per day: 40.0 Years smoked: 50 Smoking pack-years: 100.00 Smoking status: Former smoker Tobacco type: cigarettes Alcohol intake: never Substance use: never Living arrangements: [facility] Additional living arrangements comments: [facility] concerns: No Meds Home Medications and Allergies Home Medications ?Medication ?Instructions ?Recorded ?Confirmed ?Type aspirin 81 mg tablet,delayed 81 mg PO DAILY 12/13/24 12/13/24 History release (Adult Low Dose Aspirin) atorvastatin 80 mg tablet 80 mg PO QPM 12/13/24 12/13/24 History bisacodyl 5 mg tablet,delayed 5 mg PO DAILY PRN constipation 12/13/24 12/13/24 History release dextran 70-hypromellose eye drops 2 drp EACH EYE Q6H PRN dry eye(s) 12/13/24 12/13/24 History (Artificial Tears (dextran 70-hypromellose) eye drops) ergocalciferol (vitamin D2) 1,250 1,250 mcg PO WEEKLY 12/13/24 12/13/24 History mcg (50,000 unit) capsule (Vitamin D2) ferrous sulfate 325 mg (65 mg 325 mg PO DAILY 12/13/24 12/13/24 History iron) tablet folic acid 1 mg tablet 1 mg PO DAILY 12/13/24 12/13/24 History hydrocortisone 1 % topical cream 1 applic topical DAILY 12/13/24 12/13/24 History losartan 50 mg tablet 50 mg PO DAILY 12/13/24 12/13/24 History metformin 500 mg tablet 500 mg PO DAILY 12/13/24 12/13/24 History polyethylene glycol 3350 17 gram 17 g PO DAILY PRN constipation 12/13/24 12/13/24 History oral powder packet (Miralax) sodium chloride 0.65 % nasal spray 1 spray intranasal Q2H PRN dry 12/13/24 12/13/24 History aerosol (Saline Mist) nasal passages sodium phosphates 19 gram-7 118 ml RECTAL DAILY PRN 12/13/24 12/13/24 History gram/118 mL enema (Fleet Enema) constipation diltiazem HCl 60 mg tablet 60 mg PO TID #90 tabs 12/18/24 Rx Allergies Allergy/AdvReac Type Severity Reaction Status Date / Time Penicillins Allergy Anaphylactic Verified 12/12/24 22:49 Shock Vital Signs Vital Signs - 24 hr 12/23/24 19:43 Temperature 98.1 F Pulse Rate 107 H Respiratory Rate 18 Blood Pressure 96/72 L Pulse Oximetry 92 Oxygen Delivery Room Air Exam 2 Narrative: Weight 45.9 kg BMI 15.8 Const: Other: Acutely ill-appearing, thin body habitus HENMT: Other: Mucous membranes are tacky dry with dried brown material to the tongue and bilateral nares, head is normocephalic atraumatic, edentulous in upper and lower jaw Eyes: Other: Bilateral cataracts noted, marked conjunctival pallor, no scleral icterus Neck: Other: No JVD, no lymphadenopathy Resp: Other: Clear to auscultation bilaterally, no increased work of breathing Cardio: Other: Sinus tachycardia, 1+ bilateral radial and pedal pulses GI: Other: Soft, nontender, nondistended, positive bowel sounds : Other: Incontinent of urine and bowel Skin: Other: Generalized pallor, non jaundice, no petechia, small skin tear to the left forearm Neuro: Other: Patient is alert oriented to person only, she she was able to name her son who is at bedside, she did not know or location in could not state the month or year, she only intermittently answers questions, she has increased tone the left upper and lower extremity, she keeps her right eye closed and has some deviation of the right eye on evaluation but pupils are equal and reactive Extrem: Other: Marked pallor her nail beds, no clubbing, no cyanosis, left leg as flexion contractures of the left hip and left knee with increased tone, left upper extremity also has fisting of the left hand Psych: Other: Confused, difficult to redirect H&P: Results Labs Labs: Laboratory Tests 12/23/24 19:59 12/23/24 19:59 12/23/24 12/23/24 12/23/24 19:59 20:00 20:04 WBC 16.8 H RBC 2.35 L Hgb 6.9 L* D Hct 22.2 L MCV 94.5 D MCH 29.4 MCHC 31.1 L RDW 14.3 Plt Count 424 H MPV 9.7 Immature Gran % (Auto) Not Reportable Neut % (Auto) Not Reportable Lymph % (Auto) Not Reportable [place] % (Auto) Not Reportable Eos % (Auto) Not Reportable Baso % (Auto) Not Reportable Lymph # (Auto) Not Reportable [place] # (Auto) Not Reportable Eos # (Auto) Not Reportable Baso # (Auto) Not Reportable Abs Immat Gran (auto) Not Reportable Absolute Neuts (auto) Not Reportable Absolute Nucleated RBC Not Reportable Total Counted 100 Neutrophils % (Manual) 81 H Band Neutrophils % 5 Lymphocytes % (Manual) 9.0 L Monocytes % (Manual) 5 Nucleated RBC % Not Reportable Abs Neuts (Manual) 14.44 H Abs Lymphs (Manual) 1.51 Abs Monocytes (Manual) 0.84 Platelet Estimate Increased Hypochromasia 1+ Schistocytes None seen PT 15.0 H INR 1.2 APTT 26.9 Sodium 141 Potassium 4.6 Chloride 112 H Carbon Dioxide 15 L Anion Gap 14 H BUN 61 H D Creatinine 1.51 H Estim Creat Clear Calc 23 Estimated GFR 34 L Glucose 181 H Lactic Acid 5.3 H* Calcium 8.2 L Magnesium 1.4 L Total Bilirubin 0.2 AST 27 ALT 27 Alkaline Phosphatase 117 Ammonia < 9 L Total Protein 5.4 L Albumin 2.7 L Blood Type O Positive Antibody Screen Negative Crossmatch See Detail Telemetry reviewed demonstrated sinus tachycardia with improvement in tachycardia with volume resuscitation with resolution of sinus tachycardia after patient arrived to the the ICU Assessment and Plan Assessment and plan (1) Hemorrhagic shock: Code(s): R57.8 - Other shock Status: Acute (2) GI (gastrointestinal bleed): Qualifiers: GI bleed type/associated pathology: melena Qualified Code(s): K92.1 - Melena Code(s): K92.2 - Gastrointestinal hemorrhage, unspecified Status: Acute (3) Lactic acidosis: Code(s): E87.20 - Acidosis, unspecified Status: Acute (4) Hypomagnesemia: Code(s): E83.42 - Hypomagnesemia Status: Acute (5) Acute kidney injury: Code(s): N17.9 - Acute kidney failure, unspecified Status: Acute (6) Goals of care, counseling/discussion: Code(s): Z71.89 - Other specified counseling Status: Acute Plan Patient has hemorrhagic shock due to upper GI bleed with marked drop in hemoglobin in the last 6 days. Blood pressure remains low in the ER despite adequate fluid resuscitation. Patient was given 1 unit of blood stat with the 2nd unit of blood administered immediately following but still with somewhat rapid infusion. The patient was started on peripheral Blaine-Synephrine until central line could be placed in the ICU. Line placement was difficult but was able to obtain left femoral central line. Blood pressures did improve but patient still required pressor support. Patient was subsequently admitted to the ICU. Will monitor serial H& H. Patient received Protonix IV x1 in the ER. Will place patient on scheduled Protonix q.12 hours. Patient is NPO. GI has been consulted. CBC is been ordered for a.m.. Patient may benefit from CT scan to further evaluate bleeding or possible infection. Do the patient's agitation where likely not think it imaging that is all that helpful and we cannot perform study with contrast at this time due to patient's acute kidney injury. Will re- evaluate the patient's renal function in a.m. after more appropriate perfusion and consider contrast CT at that time. Patient does have some hypo magnesemia. 4 g magnesium sulfate rider was administered. Will repeat magnesium and phosphorus level in a.m.. Patient does have acute kidney injury due to hypovolemia and hypotension. Patient has chronically low serum bicarb for she likely has some component of chronic kidney disease as well. Will repeat electrolyte panel in a.m.. Lactic acidosis is improving with volume resuscitation and pressor support. Will repeat lactic acid level in a.m.. 2 of the patient's sons were at bedside. They agreed that the patient would not want cardiopulmonary resuscitation if her heart were to stop. They understand that cardiac resuscitation would not improve the patient's overall quality of life in they do not feel that she would desire heroic measures. They do feel that she would be okay with pressors and a central line and have consented to this. Home medication reconciliation was not confirmed by nursing staff at the time of documentation. 60 minutes spent in critical care activities. Due to a high probability of clinically significant, life threatening deterioration, the patient required my highest level of preparedness to intervene emergently and I personally spent this critical care time directly and personally managing the patient. This critical care time included obtaining a history; examining the patient; pulse oximetry; ordering and review of studies; arranging urgent treatment with development of a management plan; evaluation of patient's response to treatment; frequent reassessment; and discussions with other providers. It was exclusive of separately billable procedures and treating other patients and teaching time. Please see Assessment and Plan section and the rest of the note for further information on patient assessment and treatment. Hospitalist [facility] Advance Care Plan I have confirmed that the patient's Advanced Care Plan is present, code status is documented, or surrogate decision maker is listed in patient medical record.: Yes Medication Reconciliation I have utilized all available resources to obtain, update and review the patients current medications (includes all prescriptions, OTC, herbals, cannabis, and nutritional supplements).: Yes
[2024-12-23] MEDS: PHENYLEPHRINE HCL INJ 50 MG in SODIUM CHLORIDE 0.9% IV 245 ML 12 ML IV CONT (22:35)
[2024-12-23] MEDS: TUBING, BLOOD SET 1 EACH XX (22:41)
[2024-12-23] MEDS: SODIUM CHLORIDE 0.9% IV 250 ML 30 ML IV CONT (22:41)
[2024-12-23] MEDS: SODIUM CHLORIDE 0.9% IV 1,000 ML 125 ML IV CONT (23:15)
[2024-12-23] MEDS: MAGNESIUM SULF 4 GM/WATER100ML 4 GM/100 ML BAG IVPB (23:43)
--- NOTE | 2024-12-23 23:43 | ADMGEN ---
This patient, Valerie Rivers, was admitted to Intensive Care Unit-8. Patient/family oriented to hospital policies and general routines including ID bracelet, bed and alarms, visiting hours, pain management, procedures, bathroom and other care routines, personal items, smoking policy, room service/diet, and visiting hours. Information on how to activate the Rapid Response Team has been discussed. Patient/Family are encouraged to report perceived risks to care and to ask questions if they do not understand what they are told or what they should do.
[2024-12-23] MEDS: LORazepam INJ (*CRX) 2 MG/ML VIAL 0.5 MG IV PUSH (23:48)
[2024-12-24] VITALS (17 sets, daily range): BP systolic 95–137; BP diastolic 48–81; PULSE 78–105; RESP 14–23; TEMP 36.4–36.9; O2SAT 96–100
[2024-12-24] MEDS: MIDAZOLAM HCL (*CRX) 2 MG/2 ML VIAL IV PUSH (00:28)
[2024-12-24] MEDS: fentaNYL CITRATE INJ (*CRX) 100 MCG/2 ML VIAL 25 MCG IV PUSH (00:28)
--- NOTE | 2024-12-24 01:40 | WPDPROCEDUR ---
Procedures Central Line Placement Right Femoral: Central Line Date: 12/23/24 Central Line Time: 23:50 Discussed w/ the patient/family/POA,the placement of a central venous catheter, including its clinical necessity/indication & associated potential risks, benifits and alternatives.: Yes The patient/family/POA understand(s) and acknowledge(s) the need to proceed with central venous catheter insertion as an important element of the patient's clinical management.: Yes Consent: I have discussed with the patient and/or surrogate, the non-emergent placement of a central venous catheter, including its clinical necessity/indication and associated potential risks and complications. The patient and/or surrogate understand(s) and acknowledge(s) the need to proceed with central venous catheter insertion as an important element of the patient's clinical management. Time Out Performed: Yes Patient Position: trendelenburg Patient placed on monitor/pulse ox: Yes Provider Prep: mask, sterile gown, sterile gloves, Max. sterile barrier precautions, cap and hand hygiene with conventional soap/water or alcohol based hand rub Central line prep: 2% Chlorhexidine scrub Local anesthesia used: lidocaine 1% Amount of anesthesia used (ml): 4 Sterile US Technique with sterile gel/sterile probe covers: Yes Central line lumen inserted: triple [place]ese: 7 Length (cm): 16 Depth of Insertion (cm): 15 Complications: catheter malposition Additional comments: 3 attempts were made. First attempt despite use of ultrasound arterial blood return. Pressure held and 2nd attempt with venous blood return but the patient moved and was unable to complete the attempt. On the 3rd attempt the patient again moved but still head venous return and a guidewire was advanced without difficulty. However when I tried to advance the line or over the guidewire the line would not advanced. Subsequently this attempt on the right side was stopped and switched to the opposite side.
--- NOTE | 2024-12-24 01:43 | WPDPROCEDUR ---
Procedures Central Line Placement Left Femoral: Central Line Date: 12/24/24 Central Line Time: 00:30 Discussed w/ the patient/family/POA,the placement of a central venous catheter, including its clinical necessity/indication & associated potential risks, benifits and alternatives.: Yes The patient/family/POA understand(s) and acknowledge(s) the need to proceed with central venous catheter insertion as an important element of the patient's clinical management.: Yes Consent: I have discussed with the patient and/or surrogate, the non-emergent placement of a central venous catheter, including its clinical necessity/indication and associated potential risks and complications. The patient and/or surrogate understand(s) and acknowledge(s) the need to proceed with central venous catheter insertion as an important element of the patient's clinical management. Time Out Performed: Yes Patient Position: trendelenburg Patient placed on monitor/pulse ox: Yes Provider Prep: mask, sterile gown, sterile gloves, Max. sterile barrier precautions, cap and hand hygiene with conventional soap/water or alcohol based hand rub Central line prep: 2% Chlorhexidine scrub Central line lumen inserted: triple [place]ani: 7 Length (cm): 16 Depth of Insertion (cm): 14 Post Procedure: sutured in place, good blood return, all ports aspirated, flushed, capped, transparent dressing, hemostatic product, antimicrobial product, securement product and aseptic technique maintained throughout procedure Patient tolerated procedure: well Complications: none Additional comments: Patient received 2 mg of Versed and 25 mcg of fentanyl preprocedure. Patient was also placed in 4 point restraints that she is confused and fighting. And moving even after sedation administered. Successful return of venous blood on 1st attempt but patient moved. Needle was repositioned and the venous blood return was again obtained but guidewire would not advance. Subsequent attempt had return of venous blood and line was placed using standard Seldinger technique. All ports were flushed an all ports tiffany blood. Line was inserted to the depth of 15 cm but patient did move after the line was sutured in subsequently pulled the line out to 14 cm. Patient had about 10 mL of estimated blood loss. No hematoma at site. Site was cleansed a 2nd time with ChloraPrep prior to application of sterile glue. Sterile dressing was placed over the site. Line is okay to use.
[2024-12-24 02:25] LABS: Hematocrit 33.7 % (37.0-47.0); Hemoglobin 10.7 g/dL (12.0-15.0)
--- NOTE | 2024-12-24 03:17 | PC.NURSE ---
0205 This RN spoke to nursing staff from [facility] to request medication list and medical history
[2024-12-24 04:40] LABS: Hematocrit 31.8 % (37.0-47.0); Hemoglobin 10.1 g/dL (12.0-15.0)
[2024-12-24 04:54] LABS: Hematocrit 31.5 % (37.0-47.0); Hemoglobin 10.2 g/dL (12.0-15.0); Immature Granulocyte Percent A 0.8 % (0-0.5); Lymphocytes Absolute Auto 1.29 K/mm3 (0.9-3.2); Mean Corpuscular HGB Conc 32.4 g/dl (32-36); Mean Corpuscular Hemoglobin 28.5 pg (26-34); Mean Corpuscular Volume 88.0 fl (80-100); Nucleated Red Blood Cells Absolute Auto 0.000 K/mm3 (0.0-0.012); Nucleated Red Blood Cells Perc 0.0 % (0.0-0.2); Platelet Count Result 292 k/mm3 (150-375); Red Blood Count 3.58 M/mm3 (4.2-5.4); White Blood Count 15.5 K/mm3 (4.5-10.0)
[2024-12-24 05:02] LABS: Alanine Aminotransferase 19 U/L (6-35); Albumin Level 2.5 g/dL (3.5-5.1); Alkaline Phosphatase 115 U/L (38-126); Anion Gap 7 mmol/L (4-12); Aspartate Amino Transferase 23 U/L (14-36); Bilirubin,Total 0.4 mg/dL (0.2-1.3); Blood Urea Nitrogen 56 mg/dL (7-17); Calcium 7.9 mg/dL (8.4-10.2); Carbon Dioxide 16 mmol/L (22-30); Chloride 116 mmol/L (98-107); Estimated CRCL calculation 34 ml/min; Estimated Glomerular Filt Rate 52; Glucose 110 mg/dL (65-110); Magnesium 3.2 mg/dL (1.6-2.3); Potassium 4.1 mmol/L (3.4-5.0); Sodium 139 mmol/L (137-145); Total Protein 5.6 g/dL (6.3-8.2)
[2024-12-24] MEDS: CENTRAL LINE FLUSH 10 ML IV PUSH (05:05)
[2024-12-24] MEDS: SODIUM CHLORIDE 0.9% IV 1,000 ML 125 ML IV CONT (05:06)
--- NOTE | 2024-12-24 07:17 | PC.NURSE ---
This RN called [facility] again. Spoke with Josefina to request medication list and past medical history. Josefina states she will fax information.
[2024-12-24] MEDS: PANTOPRAZOLE SODIUM IV 40 MG VIAL IV PUSH ×2 (08:07→20:37)
[2024-12-24 10:26] LABS: Hematocrit 28.5 % (37.0-47.0); Hemoglobin 9.3 g/dL (12.0-15.0)
--- NOTE | 2024-12-24 11:34 | P.CONIN_ITS ---
Assessment and Plan Assessment and plan (1) Hemorrhagic shock: Code(s): R57.8 - Other shock Status: Acute Assessment and Plan: 12/23 patient presented from group home with hematemesis and melena with maroon streak stools. Hemoglobin 6.9 (recently discharged from [facility] on 12/17/2024 with hemoglobin of 8.3) -not on any anticoagulation meds at home, patient on aspirin 81 mg at group home -patient received 1 L of IV fluid bolus, follow blood pressures, central line was inserted and patient was started on phenylephrine for a brief amount of time -once she received 2 units of packed RBCs, patient's blood pressures of fine, lactic acid resolved, off pressors -continue to monitor hemoglobin and blood pressure (2) GI (gastrointestinal bleed): Qualifiers: GI bleed type/associated pathology: melena Qualified Code(s): K92.1 - Melena Code(s): K92.2 - Gastrointestinal hemorrhage, unspecified Status: Acute Assessment and Plan: GI bleed most likely upper GI bleed, peptic ulcer disease, gastritis -embossing machine operator was notified from the ER - currently on PPI IV q.12 hours -will discuss with GI further plan of care (3) Acute kidney injury: Code(s): N17.9 - Acute kidney failure, unspecified Status: Acute Assessment and Plan: Patient presented with acute kidney injury with a creatinine 1.51 (baseline creatinine is 0.7-0.9) -for receiving IV fluids and packed RBCs patient has had adequate urine output and creatinine is down to 1.06 -continue to monitor urine output, renal function electrolyte -maintain adequate SBP and MAP (4) Diabetes: Code(s): E11.9 - Type 2 diabetes mellitus without complications Status: Acute Assessment and Plan: Accu-Cheks and sliding scale insulin (5) Hypertension: Code(s): I10 - Essential (primary) hypertension Status: Acute Assessment and Plan: Will hold antihypertensive as patient was on pressors briefly (6) Dementia: Qualifiers: Dementia type: unspecified type Dementia severity: severe Dementia behavioral or psychological symptom: unspecified whether behavioral, psychotic, or mood disturbance or anxiety Qualified Code(s): F03.C0 - Unspecified dementia, severe, without behavioral disturbance, psychotic disturbance, mood disturbance, and anxiety Code(s): F03.90 - Unspecified dementia, unspecified severity, without behavioral disturbance, psychotic disturbance, mood disturbance, and anxiety Status: Acute Assessment and Plan: His history of dementia which is chronic per chart Plan DVT prophylaxis: SCDs Stress ulcer prophylaxis: IV PPI Nutrition: NPO Code Status: DNR/DNI Critical Care Time Spent: 47 minutes Due to a high probability of clinically significant, life threatening deterioration, the patient required my highest level of preparedness to intervene emergently and I personally spent this critical care time directly and personally managing the patient. This critical care time included obtaining a history; examining the patient; pulse oximetry; ordering and review of studies; arranging urgent treatment with development of a management plan; evaluation of patient's response to treatment; frequent reassessment; and discussions with other providers. It was exclusive of separately billable procedures and treating other patients and teaching time. Please see Assessment and Plan section and the rest of the note for further information on patient assessment and treatment This dictation may have been done utilizing a voice recognition system. Attempts have been made to correct errors. However, there may be uncorrected grammatical, spelling, and recognitions errors present. Manager Local Consult Note Consult date: 12/24/24 Reason for consult: Anemia, GI bleed, hypotension HPI: Valerie Rivers is a 69 year old female past medical history of CVA, essential hypertension, dementia, diabetes, protein calorie malnutrition presented the ED on 12/23/2024 [facility] and rehab for GI bleed. According to the records patient had multiple episodes of hematemesis and bloody stools in her depends. Upon arrival in the ER patient was noted to be hypotensive in the 80s and 90s systolic with black and maroon stools and her depends. 1 L of IV fluid was given along with Protonix IV. Patient hemoglobin in the ER was 6.9 as compared to 11.3 (12/17/24). WBC count was 16.8, he platelets 424, sodium 141, potassium 4.6, CO2 15, BUN 61, creatinine 1.51. INR of 1.2, PTT was 26.9, lactic acid of 5.3, ammonia < 9, normal LFTs, magnesium 1.0, albumin of 2.7. Patient received 2 units of packed RBCs, lactic acid is normalized, creatinine has improved, adequate urine output. Patient was transferred to the ICU for further management after contacting GI was agree to consult on the patient. Patient was transfer the ICU with a central line was placed in left femoral vein, patient did require phenylephrine for a brief amount of time before the blood to be transfused. Once the packed RBCs were transfused patient came off the pressors. Does sons have made the patient DNR/DNI Patient seen and examined the ICU this morning, is awake, able to tell me her name and date of , denies any chest pain, shortness of breath, abdominal pain, nausea or vomiting at this time. Hemodynamically stable, currently on room air head with good O2 sats, adequate urine output. Afebrile Review of Systems 2 Review of Systems: All systems reviewed & are unremarkable except as noted in HPI and below PMFSH Past Medical History Medical History (Updated 12/24/24 @ 02:21 by Tori Patino DO) Vitamin D deficiency Dementia History of cerebrovascular accident (CVA) with residual deficit L sided deficits Depression, unspecified Personal history of transient ischemic attack (TIA), and cerebral infarction without residual deficits Constipation, unspecified Essential (primary) hypertension Anxiety disorder, unspecified Hyperlipidemia, unspecified Other specified diabetes mellitus without complications 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 They deny that she ever drink alcohol or use illicit substances. She lives in her own home until September 2024 when she had a stroke. She is a retired [employer]. 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 Code status: DNR/DNI Surrogate decision maker: Jay (son) Smoking packs per day: 2 Smoking cigarettes per day: 40.0 Years smoked: 50 Smoking pack-years: 100.00 Smoking status: Former smoker Tobacco type: cigarettes Alcohol intake: never Substance use: never Living arrangements: group home Additional living arrangements comments: [facility] Spiritual care concerns: No Meds Home Medications and Allergies Home Medications ?Medication ?Instructions ?Recorded ?Confirmed ?Type aspirin 81 mg tablet,delayed 81 mg PO DAILY 12/13/24 12/13/24 History release (Adult Low Dose Aspirin) atorvastatin 80 mg tablet 80 mg PO QPM 12/13/24 12/13/24 History bisacodyl 5 mg tablet,delayed 5 mg PO DAILY PRN constipation 12/13/24 12/13/24 History release dextran 70-hypromellose eye drops 2 drp EACH EYE Q6H PRN dry eye(s) 12/13/24 12/13/24 History (Artificial Tears (dextran 70-hypromellose) eye drops) ergocalciferol (vitamin D2) 1,250 1,250 mcg PO WEEKLY 12/13/24 12/13/24 History mcg (50,000 unit) capsule (Vitamin D2) ferrous sulfate 325 mg (65 mg 325 mg PO DAILY 12/13/24 12/13/24 History iron) tablet folic acid 1 mg tablet 1 mg PO DAILY 12/13/24 12/13/24 History hydrocortisone 1 % topical cream 1 applic topical DAILY 12/13/24 12/13/24 History losartan 50 mg tablet 50 mg PO DAILY 12/13/24 12/13/24 History metformin 500 mg tablet 500 mg PO DAILY 12/13/24 12/13/24 History polyethylene glycol 3350 17 gram 17 g PO DAILY PRN constipation 12/13/24 12/13/24 History oral powder packet (Miralax) sodium chloride 0.65 % nasal spray 1 spray intranasal Q2H PRN dry 12/13/24 12/13/24 History aerosol (Saline Mist) nasal passages sodium phosphates 19 gram-7 118 ml RECTAL DAILY PRN 12/13/24 12/13/24 History gram/118 mL enema (Fleet Enema) constipation diltiazem HCl 60 mg tablet 60 mg PO TID #90 tabs 12/18/24 Rx Allergies Allergy/AdvReac Type Severity Reaction Status Date / Time Penicillins Allergy Anaphylactic Verified 12/24/24 02:56 Shock Vital Signs Vital Signs - 24 hr 12/23/24 19:43 12/23/24 22:21 12/23/24 22:28 Temperature 98.1 F 98 F 98 F Pulse Rate 107 H 105 H 107 H Respiratory Rate 18 16 22 H Blood Pressure 96/72 L 85/40 L 85/40 L Pulse Oximetry 92 100 93 Oxygen Delivery Room Air 12/23/24 22:35 12/23/24 22:42 12/23/24 23:10 Temperature 98 F 98.1 F Pulse Rate 96 99 93 Respiratory Rate 17 21 H Blood Pressure 85/44 L 90/54 L 123/104 H Pulse Oximetry 96 98 Oxygen Delivery 12/23/24 23:15 12/23/24 23:15 12/23/24 23:25 Temperature 98.1 F 98.1 F Pulse Rate 104 H 104 H 94 Respiratory Rate 22 H 15 Blood Pressure 123/104 H 123/104 H 106/59 L Pulse Oximetry 99 98 Oxygen Delivery 12/23/24 23:41 12/24/24 00:00 12/24/24 00:00 Temperature 98.1 F Pulse Rate 92 96 78 Respiratory Rate 17 18 16 Blood Pressure 119/53 L 109/64 128/71 Pulse Oximetry 99 99 99 Oxygen Delivery 12/24/24 00:00 12/24/24 00:00 12/24/24 00:15 Temperature Pulse Rate 100 103 H Respiratory Rate Blood Pressure 109/64 Pulse Oximetry Oxygen Delivery Room Air 12/24/24 00:41 12/24/24 01:15 12/24/24 01:22 Temperature 98.1 F 97.9 F Pulse Rate 105 H 80 87 Respiratory Rate 18 16 Blood Pressure 132/75 104/48 L 104/48 L Pulse Oximetry 99 99 Oxygen Delivery 12/24/24 01:30 12/24/24 02:00 12/24/24 02:00 Temperature 98.4 F Pulse Rate 84 80 80 Respiratory Rate 16 Blood Pressure 116/55 L 95/69 L 95/69 L Pulse Oximetry 99 Oxygen Delivery 12/24/24 02:00 12/24/24 02:45 12/24/24 02:58 Temperature Pulse Rate 80 87 Respiratory Rate Blood Pressure 130/81 Pulse Oximetry 99 Oxygen Delivery Room Air 12/24/24 04:00 12/24/24 04:00 12/24/24 04:00 Temperature 97.9 F Pulse Rate 92 92 Respiratory Rate 14 Blood Pressure 137/72 137/72 Pulse Oximetry 98 Oxygen Delivery Room Air 12/24/24 04:00 12/24/24 06:00 12/24/24 06:00 Temperature Pulse Rate 84 97 97 Respiratory Rate Blood Pressure 110/51 L Pulse Oximetry Oxygen Delivery 12/24/24 06:00 12/24/24 08:00 12/24/24 08:00 Temperature 98.4 F Pulse Rate 97 89 Respiratory Rate 23 H 14 Blood Pressure 110/51 L 123/54 L Pulse Oximetry 100 100 Oxygen Delivery Room Air 12/24/24 08:00 12/24/24 08:00 12/24/24 08:40 Temperature 98.0 F Pulse Rate 83 88 Respiratory Rate Blood Pressure 123/54 L Pulse Oximetry Oxygen Delivery 12/24/24 10:00 12/24/24 10:00 12/24/24 10:00 Temperature Pulse Rate 87 95 83 Respiratory Rate 19 Blood Pressure 128/52 L 128/52 L Pulse Oximetry 96 Oxygen Delivery Exam 2 Narrative: General: Pleasant female, currently in no acute distress HEENT:? Pupils equal and reactive, sclera is clear Neck:? Supple Respiratory:? Clear to auscultation bilaterally, no wheezing, no rales Cardiac:? S1-S2 will will regular rate and rhythm Abdomen:? Soft, nontender, nondistended, normoactive bowel sound Extremities:? Trace edema, palpable pedal pulses Neuro:? Patient is awake, alert and able to answer few questions but then she is ruling in bed, moving all extremities Skin:? Warm and dry Psych:? Normal mentation, dementia Results Labs 12/24/24 10:21 12/24/24 04:35 Labs: Short CBC 12/23/24 12/24/24 12/24/24 Range/Units 19:59 01:16 04:35 WBC 16.8 H 15.5 H (4.5-10.0) K/mm3 Hgb 6.9 L* D 10.7 L D 10.1 L (12.0-15.0) g/dL Hct 22.2 L 33.7 L (37.0-47.0) % Plt Count 424 H (150-375) k/mm3 12/24/24 12/24/24 12/24/24 Range/Units 04:35 04:35 10:21 WBC (4.5-10.0) K/mm3 Hgb 10.2 L 9.3 L (12.0-15.0) g/dL Hct 31.8 L 31.5 L 28.5 L (37.0-47.0) % Plt Count 292 (150-375) k/mm3 BMP 12/23/24 12/24/24 19:59 04:35 Sodium 141 139 Potassium 4.6 4.1 Chloride 112 H 116 H Carbon Dioxide 15 L 16 L BUN 61 H D 56 H Creatinine 1.51 H 1.06 H Glucose 181 H 110 Calcium 8.2 L 7.9 L Liver Function 12/23/24 12/24/24 Range/Units 19:59 04:35 Total Bilirubin 0.2 0.4 (0.2-1.3) mg/dL AST 27 23 (14-36) U/L ALT 27 19 (6-35) U/L Alkaline Phosphatase 117 115 (38-126) U/L Albumin 2.7 L 2.5 L (3.5-5.1) g/dL Quality VTE Prophylaxis VTE prophylaxis: mechanical ordered Hospitalist MIPS Advance Care Plan I have confirmed that the patient's Advanced Care Plan is present, code status is documented, or surrogate decision maker is listed in patient medical record.: Yes Medication Reconciliation I have utilized all available resources to obtain, update and review the patients current medications (includes all prescriptions, OTC, herbals, cannabis, and nutritional supplements).: Yes
--- NOTE | 2024-12-24 14:33 | P.PNIM_ITS ---
Progress Note: A&P Assessment and Plan (1) Hemorrhagic shock: Code(s): R57.8 - Other shock Status: Acute (2) GI (gastrointestinal bleed): Qualifiers: GI bleed type/associated pathology: melena Qualified Code(s): K92.1 - Melena Code(s): K92.2 - Gastrointestinal hemorrhage, unspecified Status: Acute (3) Lactic acidosis: Code(s): E87.20 - Acidosis, unspecified Status: Acute (4) Hypomagnesemia: Code(s): E83.42 - Hypomagnesemia Status: Acute (5) Acute kidney injury: Code(s): N17.9 - Acute kidney failure, unspecified Status: Acute (6) Goals of care, counseling/discussion: Code(s): Z71.89 - Other specified counseling Status: Acute Plan Patient has hemorrhagic shock due to upper GI bleed with marked drop in hemoglobin in the last 6 days. Blood pressure remains low in the ER despite adequate fluid resuscitation. Patient was given 1 unit of blood stat with the 2nd unit of blood administered immediately following but still with somewhat rapid infusion. The patient was started on peripheral Blaine-Synephrine until central line could be placed in the ICU. Line placement was difficult but was able to obtain left femoral central line. Blood pressures did improve but patient still required pressor support. Patient was subsequently admitted to the ICU. Will monitor serial H& H. Patient received Protonix IV x1 in the ER. Will place patient on scheduled Protonix q.12 hours. Patient is NPO. GI has been consulted. CBC is been ordered for a.m.. Patient may benefit from CT scan to further evaluate bleeding or possible infection. Do the patient's agitation where likely not think it imaging that is all that helpful and we cannot perform study with contrast at this time due to patient's acute kidney injury. Will re- evaluate the patient's renal function in a.m. after more appropriate perfusion and consider contrast CT at that time. Patient does have some hypo magnesemia. 4 g magnesium sulfate rider was administered. Will repeat magnesium and phosphorus level in a.m.. Patient does have acute kidney injury due to hypovolemia and hypotension. Patient has chronically low serum bicarb for she likely has some component of chronic kidney disease as well. Will repeat electrolyte panel in a.m.. Lactic acidosis is improving with volume resuscitation and pressor support. Will repeat lactic acid level in a.m.. 2 of the patient's sons were at bedside. They agreed that the patient would not want cardiopulmonary resuscitation if her heart were to stop. They understand that cardiac resuscitation would not improve the patient's overall quality of life in they do not feel that she would desire heroic measures. They do feel that she would be okay with pressors and a central line and have consented to this. Home medication reconciliation was not confirmed by nursing staff at the time of documentation. 69 y/o female a resident of [place] was sent to ER with hematemesis and bloody stools as patient had several episodes of hematemesis and and bloody stool, upon arrival patient hgb was 6.9 and patient was given 2 units of PRBC, patient is also found to have elevated lactic acid levels of 5.8 most likely due to stress, has hyponatremia, and hemialbumin, patient will be seen by GI and further recommendation to follow, patient is seen by supervisor marble and appreciate. Subjective Date/time seen: 12/24/24 14:33 Interval history: Sent in from long-term hematemesis and bloody stools H&P-Narrative: 69-year-old female with a past medical history of CVA, essential hypertension, dementia, diabetes, severe protein calorie malnutrition who presented to the ER from [facility] and rehab for GI bleed. The patient had 5 episodes of hematemesis and bloody stools in her depends. On arrival to the ER the patient was noted to have her systolic blood pressures in the mid 90s, tachycardia and large amount of liquid black with some mixed maroon streaks of stool in her depends. Patient received 1 L IV fluid bolus and Protonix 40 mg IV x1. Blood pressures remained in the low 90s despite IV fluid resuscitation. Labs demonstrated a 4 and half point drop in hemoglobin compared to 6 days ago, chronically low serum bicarb, marked increase in BUN from 16 now up to 61 and acute kidney injury with creatinine of 1.51 and significant lactic acidosis 5.8 as well as hypo magnesemia 1.4 in the low serum albumin decreased from baseline of 3.7 down to 2.7. A type and screen was performed and the patient is awaiting 2 units blood transfusion. When I arrived at the patient's bedside, in the ER, the patient's blood pressures had dropped down to the 70s systolic. Her normal saline boluses were complete. The patient's sons, Kareem and Wil, were at bedside and provided some additional past medical history. Denies the patient ever having had a prior GI bleed. They state that the patient has never had an abdominal surgery. They do not think she has ever had a colonoscopy or EGD. They did agree for patient to have a central line and pressors. However after goals of care discussion they did decide to change the patient's code status to DNR/DNI. They report that the patient did have some dementia but was living at home and for the most part was independent until 3 months ago. Three months ago she had a CVA resulting in left-sided deficits. They report that since she had her stroke she tends to keep her right eye closed. They report that since she had her stroke her confusion and dementia symptoms have markedly progressed. They report that the patient smoked heavily up until her stroke. They deny the patient ever having a history of cirrhosis or heavy alcohol use. The patient had reported dysphagia to me during her prior admission. 69 y/o female a resident of [place] was sent to ER with hematemesis and bloody stools as patient had several episodes of hematemesis and and bloody stool, upon arrival patient hgb was 6.9 and patient was given 2 units of PRBC, patient is also found to have elevated lactic acid levels of 5.8 most likely due to stress, has hyponatremia, and hemialbumin, patient will be seen by GI and further recommendation to follow, patient is seen by supervisor marble and appreciate. Review of Systems Review of Systems: Review of systems unobtainable due to dementia All systems reviewed & are unremarkable except as noted in HPI and below Exam Narrative: Elderly frail appears chronically ill Patient is comfortable, NAD HEENT: eyes are clear and none icteric LUNGS:CTA HEART: RR S1S2 ABD: BS+, Soft and nontender Lower extremities: no edema SKIN: nonjaundiced Neuro: grossly intact. Objective Data Vital Signs Vital Signs: Vital Signs - 24 hr 12/23/24 19:43 12/23/24 22:21 12/23/24 22:28 Temperature 36.7 C 36.6 C 36.6 C Pulse Rate 107 H 105 H 107 H Respiratory Rate 18 16 22 H Blood Pressure 96/72 L 85/40 L 85/40 L Pulse Oximetry 92 100 93 Oxygen Delivery Room Air 12/23/24 22:35 12/23/24 22:42 12/23/24 23:10 Temperature 36.6 C 36.7 C Pulse Rate 96 99 93 Respiratory Rate 17 21 H Blood Pressure 85/44 L 90/54 L 123/104 H Pulse Oximetry 96 98 Oxygen Delivery 12/23/24 23:15 12/23/24 23:15 12/23/24 23:25 Temperature 36.7 C 36.7 C Pulse Rate 104 H 104 H 94 Respiratory Rate 22 H 15 Blood Pressure 123/104 H 123/104 H 106/59 L Pulse Oximetry 99 98 Oxygen Delivery 12/23/24 23:41 12/24/24 00:00 12/24/24 00:00 Temperature 36.7 C Pulse Rate 92 96 78 Respiratory Rate 17 18 16 Blood Pressure 119/53 L 109/64 128/71 Pulse Oximetry 99 99 99 Oxygen Delivery 12/24/24 00:00 12/24/24 00:00 12/24/24 00:15 Temperature Pulse Rate 100 103 H Respiratory Rate Blood Pressure 109/64 Pulse Oximetry Oxygen Delivery Room Air 12/24/24 00:41 12/24/24 01:15 12/24/24 01:22 Temperature 36.7 C 36.6 C Pulse Rate 105 H 80 87 Respiratory Rate 18 16 Blood Pressure 132/75 104/48 L 104/48 L Pulse Oximetry 99 99 Oxygen Delivery 12/24/24 01:30 12/24/24 02:00 12/24/24 02:00 Temperature 36.9 C Pulse Rate 84 80 80 Respiratory Rate 16 Blood Pressure 116/55 L 95/69 L 95/69 L Pulse Oximetry 99 Oxygen Delivery 12/24/24 02:00 12/24/24 02:45 12/24/24 02:58 Temperature Pulse Rate 80 87 Respiratory Rate Blood Pressure 130/81 Pulse Oximetry 99 Oxygen Delivery Room Air 12/24/24 04:00 12/24/24 04:00 12/24/24 04:00 Temperature 36.6 C Pulse Rate 92 92 Respiratory Rate 14 Blood Pressure 137/72 137/72 Pulse Oximetry 98 Oxygen Delivery Room Air 12/24/24 04:00 12/24/24 06:00 12/24/24 06:00 Temperature Pulse Rate 84 97 97 Respiratory Rate Blood Pressure 110/51 L Pulse Oximetry Oxygen Delivery 12/24/24 06:00 12/24/24 08:00 12/24/24 08:00 Temperature 36.9 C Pulse Rate 97 89 Respiratory Rate 23 H 14 Blood Pressure 110/51 L 123/54 L Pulse Oximetry 100 100 Oxygen Delivery Room Air 12/24/24 08:00 12/24/24 08:00 12/24/24 08:40 Temperature 36.7 C Pulse Rate 83 88 Respiratory Rate Blood Pressure 123/54 L Pulse Oximetry Oxygen Delivery 12/24/24 10:00 12/24/24 10:00 12/24/24 10:00 Temperature Pulse Rate 87 95 83 Respiratory Rate 19 Blood Pressure 128/52 L 128/52 L Pulse Oximetry 96 Oxygen Delivery 12/24/24 12:00 12/24/24 12:00 12/24/24 12:00 Temperature Pulse Rate 85 97 Respiratory Rate 16 Blood Pressure 109/66 Pulse Oximetry 96 Oxygen Delivery Room Air 12/24/24 12:38 Temperature 36.8 C Pulse Rate Respiratory Rate Blood Pressure Pulse Oximetry Oxygen Delivery Intake/Output Intake/Output: Intake & Output 12/21/24 12/22/24 12/23/24 12/24/24 23:59 23:59 23:59 23:59 Intake Total 1358 1589.2 Balance 1358 1589.2 Meds/Results Medications: Active Medications Generic Name Dose Route Start Last Admin Trade Name Freq PRN Reason Stop Dose Admin Dextrose 12.5 gm 12/24/24 11:56 Dextrose 50% 25 Gm/50 Ml Syringe IV PUSH PRN PRN Hypoglycemia Protocol Glucagon 1 mg 12/24/24 11:56 Glucagon For Inj 1 Mg Vial IM PRN PRN Hypoglycemia Protocol Glucose 15 gm 12/24/24 11:56 Glucose Oral Gel 15 Gm Of Glucse In 37.5 Gm Tube PO PRN PRN Hypoglycemia Protocol Sodium Chloride 1,000 mls @ 75 mls/hr 12/23/24 21:40 12/24/24 08:07 Normal Saline Iv IV CONT 75 mls/hr .[id number] ELIAS Infusion Dextrose 1,000 mls @ 100 mls/hr 12/24/24 11:56 Dextrose 5% 1,000 Ml IVPB PRN PRN Hypoglycemia Protocol Insulin Aspart 2 - 5 units 12/24/24 12:00 12/24/24 13:46 Insulin Aspart (*Bkc) 100 Units/Ml SUB-Q Not Given Q6HR [facility]1983 Protocol Ondansetron HCl 4 mg 12/23/24 21:36 Ondansetron Inj 4 Mg/2 Ml Vial IV PUSH Q4H PRN Nausea Pantoprazole Sodium 40 mg 12/24/24 09:00 12/24/24 08:07 Pantoprazole Sodium Iv 40 Mg Vial IV PUSH 40 mg Q12HR ELIAS Administration Sodium Chloride 10 ml 12/24/24 06:00 12/24/24 05:05 Central Line Flush IV PUSH 10 ml Q8HR ELIAS Administration Sodium Chloride 20 ml 12/24/24 01:26 Central Line Flush IV PUSH PRN PRN after blood draws Labs Labs: Laboratory Results - last 24 hr 12/23/24 12/23/24 12/23/24 19:59 20:00 20:04 WBC 16.8 H RBC 2.35 L Hgb 6.9 L* D Hct 22.2 L MCV 94.5 D MCH 29.4 MCHC 31.1 L RDW 14.3 Plt Count 424 H MPV 9.7 Immature Gran % (Auto) Not Reportable Neut % (Auto) Not Reportable Lymph % (Auto) Not Reportable [place] % (Auto) Not Reportable Eos % (Auto) Not Reportable Baso % (Auto) Not Reportable Lymph # (Auto) Not Reportable [place] # (Auto) Not Reportable Eos # (Auto) Not Reportable Baso # (Auto) Not Reportable Abs Immat Gran (auto) Not Reportable Absolute Neuts (auto) Not Reportable Absolute Nucleated RBC Not Reportable Total Counted 100 Neutrophils % (Manual) 81 H Band Neutrophils % 5 Lymphocytes % (Manual) 9.0 L Monocytes % (Manual) 5 Nucleated RBC % Not Reportable Abs Neuts (Manual) 14.44 H Abs Lymphs (Manual) 1.51 Abs Monocytes (Manual) 0.84 Platelet Estimate Increased Hypochromasia 1+ Schistocytes None seen PT 15.0 H INR 1.2 APTT 26.9 Sodium 141 Potassium 4.6 Chloride 112 H Carbon Dioxide 15 L Anion Gap 14 H BUN 61 H D Creatinine 1.51 H Estim Creat Clear Calc 23 Estimated GFR 34 L Glucose 181 H Lactic Acid 5.3 H* Calcium 8.2 L Phosphorus Magnesium 1.4 L Total Bilirubin 0.2 AST 27 ALT 27 Alkaline Phosphatase 117 Ammonia < 9 L Total Protein 5.4 L Albumin 2.7 L Blood Type O Positive Antibody Screen Negative Crossmatch See Detail 12/24/24 12/24/24 12/24/24 01:16 01:20 04:35 WBC 15.5 H RBC 3.58 L Hgb 10.7 L D 10.1 L Hct 33.7 L MCV MCH MCHC RDW Plt Count MPV Immature Gran % (Auto) Neut % (Auto) Lymph % (Auto) [place] % (Auto) Eos % (Auto) Baso % (Auto) Lymph # (Auto) [place] # (Auto) Eos # (Auto) Baso # (Auto) Abs Immat Gran (auto) Absolute Neuts (auto) Absolute Nucleated RBC Total Counted Neutrophils % (Manual) Band Neutrophils % Lymphocytes % (Manual) Monocytes % (Manual) Nucleated RBC % Abs Neuts (Manual) Abs Lymphs (Manual) Abs Monocytes (Manual) Platelet Estimate Hypochromasia Schistocytes PT INR APTT Sodium Potassium Chloride Carbon Dioxide Anion Gap BUN Creatinine Estim Creat Clear Calc Estimated GFR Glucose Lactic Acid 3.0 H Calcium Phosphorus Magnesium Total Bilirubin AST ALT Alkaline Phosphatase Ammonia Total Protein Albumin Blood Type Antibody Screen Crossmatch 12/24/24 12/24/24 12/24/24 04:35 04:35 10:21 WBC RBC Hgb 10.2 L 9.3 L Hct 31.8 L 31.5 L 28.5 L MCV 88.0 D MCH 28.5 MCHC 32.4 RDW 15.9 H Plt Count 292 MPV 9.3 Immature Gran % (Auto) 0.8 H Neut % (Auto) 84.5 H Lymph % (Auto) 8.3 L [place] % (Auto) 6.0 Eos % (Auto) 0.0 Baso % (Auto) 0.4 Lymph # (Auto) 1.29 [place] # (Auto) 0.9 H Eos # (Auto) 0.0 Baso # (Auto) 0.1 Abs Immat Gran (auto) 0.12 H Absolute Neuts (auto) 13.1 H Absolute Nucleated RBC 0.000 Total Counted Neutrophils % (Manual) Band Neutrophils % Lymphocytes % (Manual) Monocytes % (Manual) Nucleated RBC % 0.0 Abs Neuts (Manual) Abs Lymphs (Manual) Abs Monocytes (Manual) Platelet Estimate Hypochromasia Schistocytes PT INR APTT Sodium 139 Potassium 4.1 Chloride 116 H Carbon Dioxide 16 L Anion Gap 7 BUN 56 H Creatinine 1.06 H Estim Creat Clear Calc 34 Estimated GFR 52 L Glucose 110 Lactic Acid 1.5 Calcium 7.9 L Phosphorus 3.0 Magnesium 3.2 H Total Bilirubin 0.4 AST 23 ALT 19 Alkaline Phosphatase 115 Ammonia Total Protein 5.6 L Albumin 2.5 L Blood Type Antibody Screen Crossmatch Quality VTE Prophylaxis VTE prophylaxis: mechanical ordered
--- NOTE | 2024-12-24 15:30 | P.CONGI_ITS ---
Assessment and Plan Assessment and plan (1) GI (gastrointestinal bleed): Qualifiers: GI bleed type/associated pathology: melena Qualified Code(s): K92.1 - Melena Code(s): K92.2 - Gastrointestinal hemorrhage, unspecified Status: Acute Assessment and Plan: iv protonix, now she is stable after icu treatment wonder if could have ulcer will do EGD tomorrow monitor for more signs of bleeding (2) Melena: Code(s): K92.1 - Melena Status: Acute (3) Acute on chronic anemia: Code(s): D64.9 - Anemia, unspecified Status: Acute Assessment and Plan: keep hgb>7 iv protonix egd tomorrow (4) Acute kidney injury: Code(s): N17.9 - Acute kidney failure, unspecified Status: Acute Assessment and Plan: improved (5) Lactic acidosis: Code(s): E87.20 - Acidosis, unspecified Status: Acute Assessment and Plan: resolved (6) Hemorrhagic shock: Code(s): R57.8 - Other shock Status: Acute Assessment and Plan: resolved BP normal now (7) Dementia: Qualifiers: Dementia type: unspecified type Dementia severity: severe Dementia behavioral or psychological symptom: unspecified whether behavioral, psychotic, or mood disturbance or anxiety Qualified Code(s): F03.C0 - Unspecified dementia, severe, without behavioral disturbance, psychotic disturbance, mood disturbance, and anxiety Code(s): F03.90 - Unspecified dementia, unspecified severity, without behavioral disturbance, psychotic disturbance, mood disturbance, and anxiety Status: Acute GI Consult Note Consult date/time: 12/24/24 15:30 Reason for consult: gib, anemia HPI: Valerie Rivers is a 69 year old female with past medical history of CVA, essential hypertension, dementia, diabetes, presented the ED on 12/23/2024 from [facility] and rehab for GI bleed (history obtained from records since she has dementia). She had multiple episodes of hematemesis and bloody stools in her depends. She was hypotensive in the ER- 80s and 90s systolic with black and maroon stools and her depends. 1 L of IV fluid was given along with Protonix IV and briefly on pressor. hemoglobin 6.9 as compared to 11.3 (12/17/24) and given 2 units prbc, admitted to icu. BP now is normal, also elevated lactic acid and DERRICK but improved now. She is hemodynamically stable now. She is confused. Review of Systems 2 Review of Systems: ROS unobtainable: Yes unobtainable due to mental status PMFSH Past Medical History Medical History (Updated 12/24/24 @ 15:34 by Desmond Jane MD) Acute on chronic anemia Melena Vitamin D deficiency Dementia History of cerebrovascular accident (CVA) with residual deficit L sided deficits Depression, unspecified Personal history of transient ischemic attack (TIA), and cerebral infarction without residual deficits Constipation, unspecified Essential (primary) hypertension Anxiety disorder, unspecified Hyperlipidemia, unspecified Other specified diabetes mellitus without complications 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 They deny that she ever drink alcohol or use illicit substances. She lives in her own home until September 2024 when she had a stroke. She is a retired [employer]. 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 Code status: DNR/DNI Surrogate decision maker: Jay (son) Smoking packs per day: 2 Smoking cigarettes per day: 40.0 Years smoked: 50 Smoking pack-years: 100.00 Smoking status: Former smoker Tobacco type: cigarettes Alcohol intake: never Substance use: never Living arrangements: custodial Additional living arrangements comments: [facility] [place] Spiritual care concerns: No Meds Home Medications and Allergies Home Medications ?Medication ?Instructions ?Recorded ?Confirmed ?Type aspirin 81 mg tablet,delayed 81 mg PO DAILY 12/13/24 12/24/24 History release (Adult Low Dose Aspirin) atorvastatin 80 mg tablet 80 mg PO QPM 12/13/24 12/24/24 History bisacodyl 5 mg tablet,delayed 5 mg PO DAILY PRN constipation 12/13/24 12/24/24 History release ergocalciferol (vitamin D2) 1,250 1,250 mcg PO WEEKLY 12/13/24 12/24/24 History mcg (50,000 unit) capsule (Vitamin D2) ferrous sulfate 325 mg (65 mg 325 mg PO DAILY 12/13/24 12/24/24 History iron) tablet folic acid 1 mg tablet 1 mg PO DAILY 12/13/24 12/24/24 History hydrocortisone 1 % topical cream 1 applic topical DAILY 12/13/24 12/24/24 History losartan 50 mg tablet 50 mg PO DAILY 12/13/24 12/24/24 History metformin 500 mg tablet 500 mg PO DAILY 12/13/24 12/24/24 History polyethylene glycol 3350 17 gram 17 g PO DAILY PRN constipation 12/13/24 12/24/24 History oral powder packet (Miralax) sodium chloride 0.65 % nasal spray 1 spray intranasal Q2H PRN dry 12/13/24 12/24/24 History aerosol (Saline Mist) nasal passages sodium phosphates 19 gram-7 118 ml RECTAL DAILY PRN 12/13/24 12/24/24 History gram/118 mL enema (Fleet Enema) constipation diltiazem HCl 60 mg tablet 60 mg PO TID #90 tabs 12/18/24 12/24/24 Rx artificial tears(hypromellose) 0.5 2 drp EACH EYE Q4H PRN dry eye(s) 12/24/24 12/24/24 History % eye drops Allergies Allergy/AdvReac Type Severity Reaction Status Date / Time Penicillins Allergy Anaphylactic Verified 12/24/24 02:56 Shock Vital Signs Vital Signs - 24 hr 12/23/24 19:43 12/23/24 22:21 12/23/24 22:28 Temperature 98.1 F 98 F 98 F Pulse Rate 107 H 105 H 107 H Respiratory Rate 18 16 22 H Blood Pressure 96/72 L 85/40 L 85/40 L Pulse Oximetry 92 100 93 Oxygen Delivery Room Air 12/23/24 22:35 12/23/24 22:42 12/23/24 23:10 Temperature 98 F 98.1 F Pulse Rate 96 99 93 Respiratory Rate 17 21 H Blood Pressure 85/44 L 90/54 L 123/104 H Pulse Oximetry 96 98 Oxygen Delivery 12/23/24 23:15 12/23/24 23:15 12/23/24 23:25 Temperature 98.1 F 98.1 F Pulse Rate 104 H 104 H 94 Respiratory Rate 22 H 15 Blood Pressure 123/104 H 123/104 H 106/59 L Pulse Oximetry 99 98 Oxygen Delivery 12/23/24 23:41 12/24/24 00:00 12/24/24 00:00 Temperature 98.1 F Pulse Rate 92 96 78 Respiratory Rate 17 18 16 Blood Pressure 119/53 L 109/64 128/71 Pulse Oximetry 99 99 99 Oxygen Delivery 12/24/24 00:00 12/24/24 00:00 12/24/24 00:15 Temperature Pulse Rate 100 103 H Respiratory Rate Blood Pressure 109/64 Pulse Oximetry Oxygen Delivery Room Air 12/24/24 00:41 12/24/24 01:15 12/24/24 01:22 Temperature 98.1 F 97.9 F Pulse Rate 105 H 80 87 Respiratory Rate 18 16 Blood Pressure 132/75 104/48 L 104/48 L Pulse Oximetry 99 99 Oxygen Delivery 12/24/24 01:30 12/24/24 02:00 12/24/24 02:00 Temperature 98.4 F Pulse Rate 84 80 80 Respiratory Rate 16 Blood Pressure 116/55 L 95/69 L 95/69 L Pulse Oximetry 99 Oxygen Delivery 12/24/24 02:00 12/24/24 02:45 12/24/24 02:58 Temperature Pulse Rate 80 87 Respiratory Rate Blood Pressure 130/81 Pulse Oximetry 99 Oxygen Delivery Room Air 12/24/24 04:00 12/24/24 04:00 12/24/24 04:00 Temperature 97.9 F Pulse Rate 92 92 Respiratory Rate 14 Blood Pressure 137/72 137/72 Pulse Oximetry 98 Oxygen Delivery Room Air 12/24/24 04:00 12/24/24 06:00 12/24/24 06:00 Temperature Pulse Rate 84 97 97 Respiratory Rate Blood Pressure 110/51 L Pulse Oximetry Oxygen Delivery 12/24/24 06:00 12/24/24 08:00 12/24/24 08:00 Temperature 98.4 F Pulse Rate 97 89 Respiratory Rate 23 H 14 Blood Pressure 110/51 L 123/54 L Pulse Oximetry 100 100 Oxygen Delivery Room Air 12/24/24 08:00 12/24/24 08:00 12/24/24 08:40 Temperature 98.0 F Pulse Rate 83 88 Respiratory Rate Blood Pressure 123/54 L Pulse Oximetry Oxygen Delivery 12/24/24 10:00 12/24/24 10:00 12/24/24 10:00 Temperature Pulse Rate 87 95 83 Respiratory Rate 19 Blood Pressure 128/52 L 128/52 L Pulse Oximetry 96 Oxygen Delivery 12/24/24 12:00 12/24/24 12:00 12/24/24 12:00 Temperature Pulse Rate 85 97 Respiratory Rate 16 Blood Pressure 109/66 Pulse Oximetry 96 Oxygen Delivery Room Air 12/24/24 12:38 Temperature 98.2 F Pulse Rate Respiratory Rate Blood Pressure Pulse Oximetry Oxygen Delivery Exam 2 Narrative: General: Pleasant female, currently in no acute distress HEENT:? Pupils equal and reactive, sclera is clear Neck:? Supple Respiratory:? Clear to auscultation bilaterally, no wheezing, no rales Cardiac:? S1-S2 will will regular rate and rhythm Abdomen:? Soft, nontender, nondistended, normoactive bowel sound Extremities:? Trace edema, palpable pedal pulses Neuro:? Patient is awake, alert and able to answer few questions but then she is ruling in bed, moving all extremities Skin:? Warm and dry Psych:? Normal mentation, dementia Results Labs 12/24/24 10:21 12/24/24 04:35 Labs: Short CBC 12/23/24 12/24/24 12/24/24 Range/Units 19:59 01:16 04:35 WBC 16.8 H 15.5 H (4.5-10.0) K/mm3 Hgb 6.9 L* D 10.7 L D 10.1 L (12.0-15.0) g/dL Hct 22.2 L 33.7 L (37.0-47.0) % Plt Count 424 H (150-375) k/mm3 12/24/24 12/24/24 12/24/24 Range/Units 04:35 04:35 10:21 WBC (4.5-10.0) K/mm3 Hgb 10.2 L 9.3 L (12.0-15.0) g/dL Hct 31.8 L 31.5 L 28.5 L (37.0-47.0) % Plt Count 292 (150-375) k/mm3 BMP 12/23/24 12/24/24 19:59 04:35 Sodium 141 139 Potassium 4.6 4.1 Chloride 112 H 116 H Carbon Dioxide 15 L 16 L BUN 61 H D 56 H Creatinine 1.51 H 1.06 H Glucose 181 H 110 Calcium 8.2 L 7.9 L Liver Function 12/23/24 12/24/24 Range/Units 19:59 04:35 Total Bilirubin 0.2 0.4 (0.2-1.3) mg/dL AST 27 23 (14-36) U/L ALT 27 19 (6-35) U/L Alkaline Phosphatase 117 115 (38-126) U/L Albumin 2.7 L 2.5 L (3.5-5.1) g/dL
[2024-12-24] MEDS: SODIUM CHLORIDE 0.9% IV 1,000 ML 75 ML IV CONT (16:38)
--- NOTE | 2024-12-24 16:38 | PC.NURSE ---
This patient, Valerie Rivers, was transferred to [facility] on 12/24/24 at 1638. Personal belongings sent with patient. Report given to Sherry. Appropriate documentation sent with patient.
[2024-12-24 17:09] LABS: Hematocrit 34.6 % (37.0-47.0); Hemoglobin 10.9 g/dL (12.0-15.0)
[2024-12-24 22:42] LABS: Hematocrit 32.4 % (37.0-47.0); Hemoglobin 10.4 g/dL (12.0-15.0)
[2024-12-25] VITALS (8 sets, daily range): BP systolic 125–169; BP diastolic 63–85; PULSE 83–96; RESP 16–22; TEMP 36.3–36.7; O2SAT 95–100; BMI 16.5
[2024-12-25 04:36] LABS: Hematocrit 29.5 % (37.0-47.0); Hemoglobin 9.6 g/dL (12.0-15.0); Immature Granulocyte Percent A 0.5 % (0-0.5); Lymphocytes Absolute Auto 1.12 K/mm3 (0.9-3.2); Mean Corpuscular HGB Conc 32.5 g/dl (32-36); Mean Corpuscular Hemoglobin 28.6 pg (26-34); Mean Corpuscular Volume 87.8 fl (80-100); Nucleated Red Blood Cells Absolute Auto 0.000 K/mm3 (0.0-0.012); Nucleated Red Blood Cells Perc 0.0 % (0.0-0.2); Platelet Count Result 260 k/mm3 (150-375); Red Blood Count 3.36 M/mm3 (4.2-5.4); White Blood Count 11.3 K/mm3 (4.5-10.0)
[2024-12-25 05:03] LABS: Alanine Aminotransferase 16 U/L (6-35); Albumin Level 2.5 g/dL (3.5-5.1); Alkaline Phosphatase 112 U/L (38-126); Anion Gap 4 mmol/L (4-12); Aspartate Amino Transferase 26 U/L (14-36); Bilirubin,Total 0.5 mg/dL (0.2-1.3); Blood Urea Nitrogen 36 mg/dL (7-17); Calcium 8.1 mg/dL (8.4-10.2); Carbon Dioxide 18 mmol/L (22-30); Chloride 119 mmol/L (98-107); Estimated CRCL calculation 41 ml/min; Estimated Glomerular Filt Rate > 60; Glucose 74 mg/dL (65-110); Magnesium 2.1 mg/dL (1.6-2.3); Potassium 3.7 mmol/L (3.4-5.0); Sodium 141 mmol/L (137-145); Total Protein 5.4 g/dL (6.3-8.2)
[2024-12-25] MEDS: DEXTROSE 50% 25 GM/50 ML SYRINGE IV PUSH (06:03)
[2024-12-25] MEDS: SODIUM CHLORIDE 0.9% IV 1,000 ML 75 ML IV CONT (06:09)
[2024-12-25] MEDS: DEXTROSE 5%/0.9% SOD CHL 1,000 ML 75 ML IV CONT ×2 (08:17→22:15)
[2024-12-25] MEDS: PANTOPRAZOLE SODIUM IV 40 MG VIAL IV PUSH ×2 (08:30→20:27)
[2024-12-25] MEDS: LACTATED RINGERS 1,000 ML 150 ML IV CONT (13:48)
--- NOTE | 2024-12-25 13:56 | WPDANESEPPF ---
Anes - Initial Pre Proc Eval Procedure: Operation Date: 12/25/24 13:45 Proposed Procedures p Esophagogastroduodenoscopy - Desmond Jane MD Date/Time: 12/25/24 13:56 Surgeon: Tori Patino DO Pre Op Diagnosis: GI bleed Patient Data Age: 69 Gender: F Height: 1.7 m Weight: 47.8 kg Last Vital Signs Temp 36.3 C L 12/25/24 13:41 Pulse 85 12/25/24 13:41 Resp 18 12/25/24 13:41 BP 140/67 12/25/24 13:41 Pulse Ox 99 12/25/24 13:41 O2 Del Method Room Air 12/25/24 13:41 Allergies Allergy/AdvReac Type Severity Reaction Status Date / Time Penicillins Allergy Anaphylactic Verified 12/25/24 13:40 Shock Home Medications ?Medication ?Instructions ?Recorded ?Confirmed ?Type aspirin 81 mg tablet,delayed 81 mg PO DAILY 12/13/24 12/24/24 History release (Adult Low Dose Aspirin) atorvastatin 80 mg tablet 80 mg PO QPM 12/13/24 12/24/24 History bisacodyl 5 mg tablet,delayed 5 mg PO DAILY PRN constipation 12/13/24 12/24/24 History release ergocalciferol (vitamin D2) 1,250 1,250 mcg PO WEEKLY 12/13/24 12/24/24 History mcg (50,000 unit) capsule (Vitamin D2) ferrous sulfate 325 mg (65 mg 325 mg PO DAILY 12/13/24 12/24/24 History iron) tablet folic acid 1 mg tablet 1 mg PO DAILY 12/13/24 12/24/24 History hydrocortisone 1 % topical cream 1 applic topical DAILY 12/13/24 12/24/24 History losartan 50 mg tablet 50 mg PO DAILY 12/13/24 12/24/24 History metformin 500 mg tablet 500 mg PO DAILY 12/13/24 12/24/24 History polyethylene glycol 3350 17 gram 17 g PO DAILY PRN constipation 12/13/24 12/24/24 History oral powder packet (Miralax) sodium chloride 0.65 % nasal spray 1 spray intranasal Q2H PRN dry 12/13/24 12/24/24 History aerosol (Saline Mist) nasal passages sodium phosphates 19 gram-7 118 ml RECTAL DAILY PRN 12/13/24 12/24/24 History gram/118 mL enema (Fleet Enema) constipation diltiazem HCl 60 mg tablet 60 mg PO TID #90 tabs 12/18/24 12/24/24 Rx artificial tears(hypromellose) 0.5 2 drp EACH EYE Q4H PRN dry eye(s) 12/24/24 12/24/24 History % eye drops Laboratory Tests 12/24/24 12/24/24 12/24/24 16:57 17:45 22:29 WBC RBC Hgb 10.9 L g/dL 10.4 L g/dL (12.0-15.0) (12.0-15.0) Hct 34.6 L % 32.4 L % (37.0-47.0) (37.0-47.0) MCV MCH MCHC RDW Plt Count MPV Immature Gran % (Auto) Neut % (Auto) Lymph % (Auto) [place] % (Auto) Eos % (Auto) Baso % (Auto) Lymph # (Auto) [place] # (Auto) Eos # (Auto) Baso # (Auto) Abs Immat Gran (auto) Absolute Neuts (auto) Absolute Nucleated RBC Nucleated RBC % Sodium Potassium Chloride Carbon Dioxide Anion Gap BUN Creatinine Estim Creat Clear Calc Estimated GFR Glucose POC Capillary Glucose 73 mg/dl (65-105) Calcium Phosphorus Magnesium Total Bilirubin AST ALT Alkaline Phosphatase Total Protein Albumin 12/24/24 12/25/24 12/25/24 23:38 00:19 02:07 WBC RBC Hgb Hct MCV MCH MCHC RDW Plt Count MPV Immature Gran % (Auto) Neut % (Auto) Lymph % (Auto) [place] % (Auto) Eos % (Auto) Baso % (Auto) Lymph # (Auto) [place] # (Auto) Eos # (Auto) Baso # (Auto) Abs Immat Gran (auto) Absolute Neuts (auto) Absolute Nucleated RBC Nucleated RBC % Sodium Potassium Chloride Carbon Dioxide Anion Gap BUN Creatinine Estim Creat Clear Calc Estimated GFR Glucose POC Capillary Glucose 68 mg/dl 97 mg/dl 95 mg/dl (65-105) (65-105) (65-105) Calcium Phosphorus Magnesium Total Bilirubin AST ALT Alkaline Phosphatase Total Protein Albumin 12/25/24 12/25/24 12/25/24 04:13 05:57 06:45 WBC 11.3 H K/mm3 (4.5-10.0) RBC 3.36 L M/mm3 (4.2-5.4) Hgb 9.6 L g/dL (12.0-15.0) Hct 29.5 L % (37.0-47.0) MCV 87.8 fl (80-100) MCH 28.6 pg (26-34) MCHC 32.5 g/dl (32-36) RDW 16.3 H % (11.5-14.5) Plt Count 260 k/mm3 (150-375) MPV 9.5 fl (7.4-10.4) Immature Gran % (Auto) 0.5 % (0-0.5) Neut % (Auto) 82.0 H % (45.5-73.1) Lymph % (Auto) 9.9 L % (18.3-44.2) [place] % (Auto) 5.0 % (2.6-8.5) Eos % (Auto) 2.0 % (0-4.4) Baso % (Auto) 0.6 % (0.2-1.2) Lymph # (Auto) 1.12 K/mm3 (0.9-3.2) [place] # (Auto) 0.6 K/mm3 (0.1-0.6) Eos # (Auto) 0.2 K/mm3 (0-0.3) Baso # (Auto) 0.1 K/mm3 (0.0-0.1) Abs Immat Gran (auto) 0.06 H K/mm3 (0.00-0.031) Absolute Neuts (auto) 9.2 H K/mm3 (1.3-6.7) Absolute Nucleated RBC 0.000 K/mm3 (0.0-0.012) Nucleated RBC % 0.0 % (0.0-0.2) Sodium 141 mmol/L (137-145) Potassium 3.7 mmol/L (3.4-5.0) Chloride 119 H mmol/L (98-107) Carbon Dioxide 18 L mmol/L (22-30) Anion Gap 4 mmol/L (4-12) BUN 36 H D mg/dL (7-17) Creatinine 0.86 mg/dL (0.7-1.0) Estim Creat Clear Calc 41 ml/min Estimated GFR > 60 (59 - ) Glucose 74 mg/dL (65-110) POC Capillary Glucose 68 mg/dl 108 H mg/dl (65-105) (65-105) Calcium 8.1 L mg/dL (8.4-10.2) Phosphorus 2.4 L mg/dL (2.5-4.5) Magnesium 2.1 mg/dL (1.6-2.3) Total Bilirubin 0.5 mg/dL (0.2-1.3) AST 26 U/L (14-36) ALT 16 U/L (6-35) Alkaline Phosphatase 112 U/L (38-126) Total Protein 5.4 L g/dL (6.3-8.2) Albumin 2.5 L g/dL (3.5-5.1) 12/25/24 12/25/24 11:34 13:37 WBC RBC Hgb Hct MCV MCH MCHC RDW Plt Count MPV Immature Gran % (Auto) Neut % (Auto) Lymph % (Auto) [place] % (Auto) Eos % (Auto) Baso % (Auto) Lymph # (Auto) [place] # (Auto) Eos # (Auto) Baso # (Auto) Abs Immat Gran (auto) Absolute Neuts (auto) Absolute Nucleated RBC Nucleated RBC % Sodium Potassium Chloride Carbon Dioxide Anion Gap BUN Creatinine Estim Creat Clear Calc Estimated GFR Glucose POC Capillary Glucose 89 mg/dl 81 mg/dl (65-105) (65-105) Calcium Phosphorus Magnesium Total Bilirubin AST ALT Alkaline Phosphatase Total Protein Albumin Patient hx anesthesia problems: none Family hx anesthesia problems: none Results Review: All pre-operative results and documents have been reviewed as part of the pre-operative evaluation. 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 They deny that she ever drink alcohol or use illicit substances. She lives in her own home until September 2024 when she had a stroke. She is a retired GROUP [employer] WORK[employer]. 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 Code status: DNR/DNI Surrogate decision maker: Jay (son) Smoking packs per day: 2 Smoking cigarettes per day: 40.0 Years smoked: 50 Smoking pack-years: 100.00 Smoking status: Former smoker Tobacco type: cigarettes Alcohol intake: never Substance use: never Living arrangements: assisted Additional living arrangements comments: [facility] concerns: No Anes - Eval Final PreProcedure Day of Procedure 12/25/24 13:56 Patient weight: thin Heart: regular rate and rhythm Lungs: clear to auscultation Airway: Mallampati scale Neurological: confused Last oral intake: >/= 8 hours ASA classification: IV Emergent: no Anesthetic plan: proceed Anesthesia type and monitoring: general GIVS and standard monitoring Results Review: All pre-operative results and documents have been reviewed as part of the pre-operative evaluation. Informed Consent: The patient's anesthetic plan and its attendant risks and benefits were discussed with the patient/family/POA. Questions were solicited and answers provided to the satisfaction of the patient/family/POA.
--- NOTE | 2024-12-25 15:49 | S_PTH ---
PATIENT: Valerie Rivers LOC: [id number] U#:[id number] AGE/SX: 69/F ROOM: 302 RE12/23/[address]: Jose Francisco Caicedo MD : [id number] BED: 01 DIS: 12/31/2024 SPEC #: [id number] RECD: 12/26/24 08:03 STATUS: FLORY RUSSO #: [id number] BALTAZAR: 12/25/24 15:[address]: Desmond Jane DEPT: [facility] RECD BY: Gila Guerrero ENTERED: 12/26/24 08:03 SP TYPE: Surgical OTHR DR: Reji Hernandez, MD Tori Patino, DO Tissues: A - Gastric Biopsy Procedures: Hematoxylin and Eosin Stain Gross and Microscopic Level 4 H.Pylori
[2024-12-25 16:37] LABS: HPYLORIRESULT Negative (Negative)
--- NOTE | 2024-12-25 17:30 | P.PNIM_ITS ---
Progress Note: A&P Assessment and Plan (1) Hemorrhagic shock: Code(s): R57.8 - Other shock Status: Acute (2) GI (gastrointestinal bleed): Qualifiers: GI bleed type/associated pathology: melena Qualified Code(s): K92.1 - Melena Code(s): K92.2 - Gastrointestinal hemorrhage, unspecified Status: Acute (3) Lactic acidosis: Code(s): E87.20 - Acidosis, unspecified Status: Acute (4) Hypomagnesemia: Code(s): E83.42 - Hypomagnesemia Status: Acute (5) Acute kidney injury: Code(s): N17.9 - Acute kidney failure, unspecified Status: Acute (6) Goals of care, counseling/discussion: Code(s): Z71.89 - Other specified counseling Status: Acute Plan Patient has hemorrhagic shock due to upper GI bleed with marked drop in hemoglobin in the last 6 days. Blood pressure remains low in the ER despite adequate fluid resuscitation. Patient was given 1 unit of blood stat with the 2nd unit of blood administered immediately following but still with somewhat rapid infusion. The patient was started on peripheral Blaine-Synephrine until central line could be placed in the ICU. Line placement was difficult but was able to obtain left femoral central line. Blood pressures did improve but patient still required pressor support. Patient was subsequently admitted to the ICU. Will monitor serial H& H. Patient received Protonix IV x1 in the ER. Will place patient on scheduled Protonix q.12 hours. Patient is NPO. GI has been consulted. CBC is been ordered for a.m.. Patient may benefit from CT scan to further evaluate bleeding or possible infection. Do the patient's agitation where likely not think it imaging that is all that helpful and we cannot perform study with contrast at this time due to patient's acute kidney injury. Will re- evaluate the patient's renal function in a.m. after more appropriate perfusion and consider contrast CT at that time. Patient does have some hypo magnesemia. 4 g magnesium sulfate rider was administered. Will repeat magnesium and phosphorus level in a.m.. Patient does have acute kidney injury due to hypovolemia and hypotension. Patient has chronically low serum bicarb for she likely has some component of chronic kidney disease as well. Will repeat electrolyte panel in a.m.. Lactic acidosis is improving with volume resuscitation and pressor support. Will repeat lactic acid level in a.m.. 2 of the patient's sons were at bedside. They agreed that the patient would not want cardiopulmonary resuscitation if her heart were to stop. They understand that cardiac resuscitation would not improve the patient's overall quality of life in they do not feel that she would desire heroic measures. They do feel that she would be okay with pressors and a central line and have consented to this. Home medication reconciliation was not confirmed by nursing staff at the time of documentation. 69 y/o female a resident of [place] was sent to ER with hematemesis and bloody stools as patient had several episodes of hematemesis and and bloody stool, upon arrival patient hgb was 6.9 and patient was given 2 units of PRBC, patient is also found to have elevated lactic acid levels of 5.8 most likely due to stress, has hyponatremia, and hemialbumin, patient is seen by GI and scheduled for EGD today, will monitor. Subjective Date/time seen: 12/25/24 17:30 Interval history: Sent in from senior care hematemesis and bloody stools H&P-Narrative: 69-year-old female with a past medical history of CVA, essential hypertension, dementia, diabetes, severe protein calorie malnutrition who presented to the ER from [facility] for GI bleed. The patient had 5 episodes of hematemesis and bloody stools in her depends. On arrival to the ER the patient was noted to have her systolic blood pressures in the mid 90s, tachycardia and large amount of liquid black with some mixed maroon streaks of stool in her depends. Patient received 1 L IV fluid bolus and Protonix 40 mg IV x1. Blood pressures remained in the low 90s despite IV fluid resuscitation. Labs demonstrated a 4 and half point drop in hemoglobin compared to 6 days ago, chronically low serum bicarb, marked increase in BUN from 16 now up to 61 and acute kidney injury with creatinine of 1.51 and significant lactic acidosis 5.8 as well as hypo magnesemia 1.4 in the low serum albumin decreased from baseline of 3.7 down to 2.7. A type and screen was performed and the patient is awaiting 2 units blood transfusion. When I arrived at the patient's bedside, in the ER, the patient's blood pressures had dropped down to the 70s systolic. Her normal saline boluses were complete. The patient's sons, Kareem and Wil, were at bedside and provided some additional past medical history. Denies the patient ever having had a prior GI bleed. They state that the patient has never had an abdominal surgery. They do not think she has ever had a colonoscopy or EGD. They did agree for patient to have a central line and pressors. However after goals of care discussion they did decide to change the patient's code status to DNR/DNI. They report that the patient did have some dementia but was living at home and for the most part was independent until 3 months ago. Three months ago she had a CVA resulting in left-sided deficits. They report that since she had her stroke she tends to keep her right eye closed. They report that since she had her stroke her confusion and dementia symptoms have markedly progressed. They report that the patient smoked heavily up until her stroke. They deny the patient ever having a history of cirrhosis or heavy alcohol use. The patient had reported dysphagia to me during her prior admission. 69 y/o female a resident of [place] was sent to ER with hematemesis and bloody stools as patient had several episodes of hematemesis and and bloody stool, upon arrival patient hgb was 6.9 and patient was given 2 units of PRBC, patient is also found to have elevated lactic acid levels of 5.8 most likely due to stress, has hyponatremia, and hemialbumin, patient is seen by GI and scheduled for EGD today, will monitor. Review of Systems Review of Systems: Review of systems unobtainable due to dementia All systems reviewed & are unremarkable except as noted in HPI and below Exam Narrative: Elderly frail appears chronically ill Patient is comfortable, NAD HEENT: eyes are clear and none icteric LUNGS:CTA HEART: RR S1S2 ABD: BS+, Soft and nontender Lower extremities: no edema SKIN: nonjaundiced Neuro: grossly intact. Objective Data Vital Signs Vital Signs: Vital Signs - 24 hr 12/24/24 19:40 12/24/24 20:00 12/25/24 03:11 Temperature 36.4 C 36.4 C Pulse Rate 85 94 Respiratory Rate 18 18 Blood Pressure 135/62 125/79 Pulse Oximetry 99 99 Oxygen Delivery Room Air 12/25/24 08:30 12/25/24 13:41 12/25/24 15:49 Temperature 36.3 C L Pulse Rate 94 85 83 Respiratory Rate 18 18 17 Blood Pressure 140/67 162/76 H Pulse Oximetry 99 99 99 Oxygen Delivery Room Air Room Air Room Air 12/25/24 15:59 12/25/24 16:09 Temperature Pulse Rate 84 83 Respiratory Rate 22 H 19 Blood Pressure 167/82 H 169/85 H Pulse Oximetry 99 100 Oxygen Delivery Room Air Room Air Intake/Output Intake/Output: Intake & Output 12/22/24 12/23/24 12/24/24 12/25/24 23:59 23:59 23:59 23:59 Intake Total 1358 2262.1 1600.0 Output Total 850 700 Balance 1358 1412.1 900.0 Meds/Results Medications: Active Medications Generic Name Dose Route Start Last Admin Trade Name Freq PRN Reason Stop Dose Admin Dextrose 12.5 gm 12/24/24 11:56 12/25/24 06:03 Dextrose 50% 25 Gm/50 Ml Syringe IV PUSH 12.5 gm PRN PRN Administration Hypoglycemia Protocol Glucagon 1 mg 12/24/24 11:56 Glucagon For Inj 1 Mg Vial IM PRN PRN Hypoglycemia Protocol Glucose 15 gm 12/24/24 11:56 Glucose Oral Gel 15 Gm Of Glucse In 37.5 Gm Tube PO PRN PRN Hypoglycemia Protocol Dextrose 1,000 mls @ 100 mls/hr 12/24/24 11:56 Dextrose 5% 1,000 Ml IVPB PRN PRN Hypoglycemia Protocol Dextrose/Sodium Chloride 1,000 mls @ 75 mls/hr 12/25/24 07:35 12/25/24 08:17 Dextrose 5% Sodium Chloride 0.9% IV CONT 75 mls/hr .[id number] ELIAS Administration Insulin Aspart 2 - 5 units 12/24/24 12:00 12/25/24 06:02 Insulin Aspart (*Bkc) 100 Units/Ml SUB-Q Not Given Q6HR ELIAS Protocol Ondansetron HCl 4 mg 12/23/24 21:36 Ondansetron Inj 4 Mg/2 Ml Vial IV PUSH Q4H PRN Nausea Pantoprazole Sodium 40 mg 12/24/24 09:00 12/25/24 08:30 Pantoprazole Sodium Iv 40 Mg Vial IV PUSH 40 mg Q12HR ELIAS Administration Labs Labs: Laboratory Results - last 24 hr 12/24/24 12/24/24 12/24/24 17:45 22:29 23:38 WBC RBC Hgb 10.4 L Hct 32.4 L MCV MCH MCHC RDW Plt Count MPV Immature Gran % (Auto) Neut % (Auto) Lymph % (Auto) [place] % (Auto) Eos % (Auto) Baso % (Auto) Lymph # (Auto) [place] # (Auto) Eos # (Auto) Baso # (Auto) Abs Immat Gran (auto) Absolute Neuts (auto) Absolute Nucleated RBC Nucleated RBC % Sodium Potassium Chloride Carbon Dioxide Anion Gap BUN Creatinine Estim Creat Clear Calc Estimated GFR Glucose POC Capillary Glucose 73 68 Calcium Phosphorus Magnesium Total Bilirubin AST ALT Alkaline Phosphatase Total Protein Albumin POC H. pylori Urease 12/25/24 12/25/24 12/25/24 00:19 02:07 04:13 WBC 11.3 H RBC 3.36 L Hgb 9.6 L Hct 29.5 L MCV 87.8 MCH 28.6 MCHC 32.5 RDW 16.3 H Plt Count 260 MPV 9.5 Immature Gran % (Auto) 0.5 Neut % (Auto) 82.0 H Lymph % (Auto) 9.9 L [place] % (Auto) 5.0 Eos % (Auto) 2.0 Baso % (Auto) 0.6 Lymph # (Auto) 1.12 [place] # (Auto) 0.6 Eos # (Auto) 0.2 Baso # (Auto) 0.1 Abs Immat Gran (auto) 0.06 H Absolute Neuts (auto) 9.2 H Absolute Nucleated RBC 0.000 Nucleated RBC % 0.0 Sodium 141 Potassium 3.7 Chloride 119 H Carbon Dioxide 18 L Anion Gap 4 BUN 36 H D Creatinine 0.86 Estim Creat Clear Calc 41 Estimated GFR > 60 Glucose 74 POC Capillary Glucose 97 95 Calcium 8.1 L Phosphorus 2.4 L Magnesium 2.1 Total Bilirubin 0.5 AST 26 ALT 16 Alkaline Phosphatase 112 Total Protein 5.4 L Albumin 2.5 L POC H. pylori Urease 12/25/24 12/25/24 12/25/24 05:57 06:45 11:34 WBC RBC Hgb Hct MCV MCH MCHC RDW Plt Count MPV Immature Gran % (Auto) Neut % (Auto) Lymph % (Auto) [place] % (Auto) Eos % (Auto) Baso % (Auto) Lymph # (Auto) [place] # (Auto) Eos # (Auto) Baso # (Auto) Abs Immat Gran (auto) Absolute Neuts (auto) Absolute Nucleated RBC Nucleated RBC % Sodium Potassium Chloride Carbon Dioxide Anion Gap BUN Creatinine Estim Creat Clear Calc Estimated GFR Glucose POC Capillary Glucose 68 108 H 89 Calcium Phosphorus Magnesium Total Bilirubin AST ALT Alkaline Phosphatase Total Protein Albumin POC H. pylori Urease 12/25/24 12/25/24 12/25/24 13:37 16:02 16:35 WBC RBC Hgb Hct MCV MCH MCHC RDW Plt Count MPV Immature Gran % (Auto) Neut % (Auto) Lymph % (Auto) [place] % (Auto) Eos % (Auto) Baso % (Auto) Lymph # (Auto) [place] # (Auto) Eos # (Auto) Baso # (Auto) Abs Immat Gran (auto) Absolute Neuts (auto) Absolute Nucleated RBC Nucleated RBC % Sodium Potassium Chloride Carbon Dioxide Anion Gap BUN Creatinine Estim Creat Clear Calc Estimated GFR Glucose POC Capillary Glucose 81 71 Calcium Phosphorus Magnesium Total Bilirubin AST ALT Alkaline Phosphatase Total Protein Albumin POC H. pylori Urease Negative 12/25/24 17:18 WBC RBC Hgb Hct MCV MCH MCHC RDW Plt Count MPV Immature Gran % (Auto) Neut % (Auto) Lymph % (Auto) [place] % (Auto) Eos % (Auto) Baso % (Auto) Lymph # (Auto) [place] # (Auto) Eos # (Auto) Baso # (Auto) Abs Immat Gran (auto) Absolute Neuts (auto) Absolute Nucleated RBC Nucleated RBC % Sodium Potassium Chloride Carbon Dioxide Anion Gap BUN Creatinine Estim Creat Clear Calc Estimated GFR Glucose POC Capillary Glucose 91 Calcium Phosphorus Magnesium Total Bilirubin AST ALT Alkaline Phosphatase Total Protein Albumin POC H. pylori Urease Quality VTE Prophylaxis VTE prophylaxis: mechanical ordered
[2024-12-26 05:16] VITALS: BP 141/98; PULSE 111; RESP 16; TEMP 36.6; O2SAT 100
[2024-12-26] MEDS: PANTOPRAZOLE SODIUM IV 40 MG VIAL IV PUSH ×2 (08:44→20:21)
[2024-12-26 11:08] VITALS: BMI 16.4
--- NOTE | 2024-12-26 13:34 | P.CDI_ITS ---
CDI Query Clarification Request 1)BMI: 16.4 Nutritional Diagnostic Statement: Please refer to the comprehensive nutrition assessment for further information. If you agree with diagnosis of Severe Protein Calorie Malnutrition as related to inadequate protein energy intake with increased protein energy needs in setting of chronic disease as evidenced by minimal oral intake for > 1-2 months and significant weight loss of 12%,(19ibs)in 2 weeks. Please specify severity if known: * Mild * Moderate * Severe * Other/Unknown 2) Please clarify the status of the patient's anemia, if known. Anemia has been documented, please specify type of anemia if known: * Acute blood loss anemia * Chronic blood loss anemia * Anemia of chronic disease (CKD,neoplasm, other) * Aplastic anemia * Dilutional anemia * Iron Deficiency anemia * Pernicious anemia * Nutritional anemia (e.g., scorbutic anemia) * Other anemia * Unknown/unable to determine hospitalist: Assessment and Plan (1) Hemorrhagic shock: Code(s): R57.8 - Other shock Status: Acute (2) GI (gastrointestinal bleed): Qualifiers: GI bleed type/associated pathology: melena Qualified Code(s): K92.1 - Melena Code(s): K92.2 - Gastrointestinal hemorrhage, unspecified Patient has hemorrhagic shock due to upper GI bleed with marked drop in hemoglobin in the last 6 days. Blood pressure remains low in the ER despite adequate fluid resuscitation. Patient was given 1 unit of blood stat with the 2nd unit of blood administered immediately following but still with somewhat rapid infusion. GI: Assessment and plan (1) GI (gastrointestinal bleed): Qualifiers: GI bleed type/associated pathology: melena Qualified Code(s): K92.1 - Melena Code(s): K92.2 - Gastrointestinal hemorrhage, unspecified Status: Acute Assessment and Plan: iv protonix, now she is stable after icu treatment wonder if could have ulcer will do EGD tomorrow monitor for more signs of bleeding (2) Melena: Code(s): K92.1 - Melena Status: Acute (3) Acute on chronic anemia: Code(s): D64.9 - Anemia, unspecified Status: Acute Assessment and Plan: keep hgb>7 iv protonix hgb 12/23 6.9 2 units PRBC <Reena Shane RN - Last Filed: 12/26/24 13:47> Provider Comments I agree with diagnosis of Severe Protein Calorie Malnutrition as related to inadequate protein energy intake with increased protein energy needs in setting of chronic disease as evidenced by minimal oral intake for > 1-2 months and significant weight loss of 12%,(19ibs)in 2 weeks. <Karla Sequeira MD - Last Filed: 01/02/25 10:05>
[2024-12-26 15:02] VITALS: BP 129/58; PULSE 100; RESP 20; TEMP 36.3; O2SAT 98
--- NOTE | 2024-12-26 16:50 | P.PNIM_ITS ---
Progress Note: A&P Assessment and Plan (1) Hemorrhagic shock: Code(s): R57.8 - Other shock Status: Acute (2) GI (gastrointestinal bleed): Qualifiers: GI bleed type/associated pathology: melena Qualified Code(s): K92.1 - Melena Code(s): K92.2 - Gastrointestinal hemorrhage, unspecified Status: Acute (3) Lactic acidosis: Code(s): E87.20 - Acidosis, unspecified Status: Acute (4) Hypomagnesemia: Code(s): E83.42 - Hypomagnesemia Status: Acute (5) Acute kidney injury: Code(s): N17.9 - Acute kidney failure, unspecified Status: Acute (6) Goals of care, counseling/discussion: Code(s): Z71.89 - Other specified counseling Status: Acute Plan Patient has hemorrhagic shock due to upper GI bleed with marked drop in hemoglobin in the last 6 days. Blood pressure remains low in the ER despite adequate fluid resuscitation. Patient was given 1 unit of blood stat with the 2nd unit of blood administered immediately following but still with somewhat rapid infusion. The patient was started on peripheral Blaine-Synephrine until central line could be placed in the ICU. Line placement was difficult but was able to obtain left femoral central line. Blood pressures did improve but patient still required pressor support. Patient was subsequently admitted to the ICU. Will monitor serial H& H. Patient received Protonix IV x1 in the ER. Will place patient on scheduled Protonix q.12 hours. Patient is NPO. GI has been consulted. CBC is been ordered for a.m.. Patient may benefit from CT scan to further evaluate bleeding or possible infection. Do the patient's agitation where likely not think it imaging that is all that helpful and we cannot perform study with contrast at this time due to patient's acute kidney injury. Will re- evaluate the patient's renal function in a.m. after more appropriate perfusion and consider contrast CT at that time. Patient does have some hypo magnesemia. 4 g magnesium sulfate rider was administered. Will repeat magnesium and phosphorus level in a.m.. Patient does have acute kidney injury due to hypovolemia and hypotension. Patient has chronically low serum bicarb for she likely has some component of chronic kidney disease as well. Will repeat electrolyte panel in a.m.. Lactic acidosis is improving with volume resuscitation and pressor support. Will repeat lactic acid level in a.m.. 2 of the patient's sons were at bedside. They agreed that the patient would not want cardiopulmonary resuscitation if her heart were to stop. They understand that cardiac resuscitation would not improve the patient's overall quality of life in they do not feel that she would desire heroic measures. They do feel that she would be okay with pressors and a central line and have consented to this. Home medication reconciliation was not confirmed by nursing staff at the time of documentation. 69 y/o female a resident of [place] was sent to ER with hematemesis and bloody stools as patient had several episodes of hematemesis and and bloody stool, upon arrival patient hgb was 6.9 and patient was given 2 units of PRBC, patient is also found to have elevated lactic acid levels of 5.8 most likely due to stress, has hyponatremia, and hemialbumin, patient was seen by GI and had EGD 12/25/24, there was slight concern for bleeding, patient remains clinically stable, family is thinking about hospice, will monitor. Subjective Date/time seen: 12/26/24 16:50 Interval history: [facility] st[facility] H&P-Narrative: 69-year-old female with a past medical history of CVA, essential hypertension, dementia, diabetes, severe protein calorie malnutrition who presented to the ER from [facility] and rehab for GI bleed. The patient had 5 episodes of hematemesis and bloody stools in her depends. On arrival to the ER the patient was noted to have her systolic blood pressures in the mid 90s, tachycardia and large amount of liquid black with some mixed maroon streaks of stool in her depends. Patient received 1 L IV fluid bolus and Protonix 40 mg IV x1. Blood pressures remained in the low 90s despite IV fluid resuscitation. Labs demonstrated a 4 and half point drop in hemoglobin compared to 6 days ago, chronically low serum bicarb, marked increase in BUN from 16 now up to 61 and acute kidney injury with creatinine of 1.51 and significant lactic acidosis 5.8 as well as hypo magnesemia 1.4 in the low serum albumin decreased from baseline of 3.7 down to 2.7. A type and screen was performed and the patient is awaiting 2 units blood transfusion. When I arrived at the patient's bedside, in the ER, the patient's blood pressures had dropped down to the 70s systolic. Her normal saline boluses were complete. The patient's sons, Kareem and Wil, were at bedside and provided some additional past medical history. Denies the patient ever having had a prior GI bleed. They state that the patient has never had an abdominal surgery. They do not think she has ever had a colonoscopy or EGD. They did agree for patient to have a central line and pressors. However after goals of care discussion they did decide to change the patient's code status to DNR/DNI. They report that the patient did have some dementia but was living at home and for the most part was independent until 3 months ago. Three months ago she had a CVA resulting in left-sided deficits. They report that since she had her stroke she tends to keep her right eye closed. They report that since she had her stroke her confusion and dementia symptoms have markedly progressed. They r eport that the patient smoked heavily up until her stroke. They deny the patient ever having a history of cirrhosis or heavy alcohol use. The patient had reported dysphagia to me during her prior admission. 69 y/o female a resident of [place] was sent to ER with hematemesis and bloody stools as patient had several episodes of hematemesis and and bloody stool, upon arrival patient hgb was 6.9 and patient was given 2 units of PRBC, patient is also found to have elevated lactic acid levels of 5.8 most likely due to stress, has hyponatremia, and hemialbumin, patient was seen by GI and had EGD 12/25/24, there was slight concern for bleeding, patient remains clinically stable, family is thinking about hospice, will monitor. Review of Systems Review of Systems: Review of systems unobtainable due to dementia All systems reviewed & are unremarkable except as noted in HPI and below Exam Narrative: Elderly frail appears chronically ill Patient is comfortable, NAD HEENT: eyes are clear and none icteric LUNGS:CTA HEART: RR S1S2 ABD: BS+, Soft and nontender Lower extremities: no edema SKIN: nonjaundiced Neuro: grossly intact. Objective Data Vital Signs Vital Signs: Vital Signs - 24 hr 12/25/24 18:47 12/25/24 19:44 12/25/24 20:00 Temperature 36.7 C 36.7 C Pulse Rate 96 95 Respiratory Rate 18 16 Blood Pressure 152/63 H 153/70 H Pulse Oximetry 95 100 Oxygen Delivery Room Air 12/26/24 05:16 12/26/24 08:44 12/26/24 15:02 Temperature 36.6 C 36.3 C L Pulse Rate 111 H 100 Respiratory Rate 16 20 Blood Pressure 141/98 H 129/58 L Pulse Oximetry 100 98 Oxygen Delivery Room Air Intake/Output Intake/Output: Intake & Output 12/23/24 12/24/24 12/25/24 12/26/24 23:59 23:59 23:59 23:59 Intake Total 1358 2262.1 2720.0 240 Output Total 850 1450 700 Balance 1358 1412.1 1270.0 -460 Meds/Results Medications: Active Medications Generic Name Dose Route Start Last Admin Trade Name Freq PRN Reason Stop Dose Admin Dextrose 12.5 gm 12/24/24 11:56 12/25/24 06:03 Dextrose 50% 25 Gm/50 Ml Syringe IV PUSH 12.5 gm PRN PRN Administration Hypoglycemia Protocol Glucagon 1 mg 12/24/24 11:56 Glucagon For Inj 1 Mg Vial IM PRN PRN Hypoglycemia Protocol Glucose 15 gm 12/24/24 11:56 Glucose Oral Gel 15 Gm Of Glucse In 37.5 Gm Tube PO PRN PRN Hypoglycemia Protocol Dextrose 1,000 mls @ 100 mls/hr 12/24/24 11:56 Dextrose 5% 1,000 Ml IVPB PRN PRN Hypoglycemia Protocol Dextrose/Sodium Chloride 1,000 mls @ 75 mls/hr 12/25/24 07:35 12/25/24 22:15 Dextrose 5% Sodium Chloride 0.9% IV CONT 75 mls/hr .[id number] ELIAS Administration Insulin Aspart 2 - 5 units 12/24/24 12:00 12/26/24 13:38 Insulin Aspart (*Bkc) 100 Units/Ml SUB-Q Not Given Q6HR ELIAS Protocol Ondansetron HCl 4 mg 12/23/24 21:36 Ondansetron Inj 4 Mg/2 Ml Vial IV PUSH Q4H PRN Nausea Pantoprazole Sodium 40 mg 12/24/24 09:00 12/26/24 08:44 Pantoprazole Sodium Iv 40 Mg Vial IV PUSH 40 mg Q12HR ELIAS Administration Labs Labs: Laboratory Results - last 24 hr 12/25/24 12/25/24 12/26/24 17:18 23:32 05:46 POC Capillary Glucose 91 126 H 157 H 12/26/24 11:54 POC Capillary Glucose 114 H Quality VTE Prophylaxis VTE prophylaxis: mechanical ordered
[2024-12-26 19:37] VITALS: BP 111/55; PULSE 102; RESP 18; TEMP 36.4; O2SAT 94
[2024-12-26] MEDS: DEXTROSE 5%/0.9% SOD CHL 1,000 ML 75 ML IV CONT (19:44)
[2024-12-26] MEDS: ONDANSETRON INJ 4 MG/2 ML VIAL IV PUSH (20:21)
[2024-12-27] VITALS (13 sets, daily range): BP systolic 99–131; BP diastolic 50–68; PULSE 95–119; RESP 14–18; TEMP 36.6–37.3; O2SAT 94–100
[2024-12-27 08:32] LABS: Mean Corpuscular HGB Conc 31.6 g/dl (32-36); Mean Corpuscular Hemoglobin 28.7 pg (26-34); Mean Corpuscular Volume 91.0 fl (80-100); Platelet Count Result 271 k/mm3 (150-375); Red Blood Count 1.67 M/mm3 (4.2-5.4); White Blood Count 12.5 K/mm3 (4.5-10.0)
[2024-12-27] MEDS: PANTOPRAZOLE SODIUM IV 40 MG VIAL IV PUSH (08:44)
[2024-12-27 08:45] LABS: Hematocrit 15.2 % (37.0-47.0); Hemoglobin 4.8 g/dL (12.0-15.0)
[2024-12-27 08:55] LABS: Anion Gap 7 mmol/L (4-12); Blood Urea Nitrogen 37 mg/dL (7-17); Calcium 7.6 mg/dL (8.4-10.2); Carbon Dioxide 16 mmol/L (22-30); Chloride 121 mmol/L (98-107); Estimated CRCL calculation 38 ml/min; Estimated Glomerular Filt Rate > 60; Glucose 146 mg/dL (65-110); Magnesium 1.4 mg/dL (1.6-2.3); Potassium 3.5 mmol/L (3.4-5.0); Sodium 144 mmol/L (137-145)
--- NOTE | 2024-12-27 16:06 | WPDGIPROGNO ---
Progress Note: A&P Assessment and Plan (1) Duodenal ulcer: Code(s): K26.9 - Duodenal ulcer, unspecified as acute or chronic, without hemorrhage or perforation Status: Acute Assessment and Plan: family would like to continue care will try to achieve hgb at leat 7 before we can repeat EGD most likely bleeding again from large DU egd tomorrow (2) GI (gastrointestinal bleed): Qualifiers: GI bleed type/associated pathology: melena Qualified Code(s): K92.1 - Melena Code(s): K92.2 - Gastrointestinal hemorrhage, unspecified Status: Acute Assessment and Plan: iv protonix drip discussed with hospitalist (3) Melena: Code(s): K92.1 - Melena Status: Acute (4) Acute on chronic anemia: Code(s): D64.9 - Anemia, unspecified Status: Acute Assessment and Plan: more blood transfusion egd tomorrow (5) Dementia: Qualifiers: Dementia type: unspecified type Dementia severity: severe Dementia behavioral or psychological symptom: unspecified whether behavioral, psychotic, or mood disturbance or anxiety Qualified Code(s): F03.C0 - Unspecified dementia, severe, without behavioral disturbance, psychotic disturbance, mood disturbance, and anxiety Code(s): F03.90 - Unspecified dementia, unspecified severity, without behavioral disturbance, psychotic disturbance, mood disturbance, and anxiety Status: Acute Subjective Date/time seen: 12/27/24 16:06 Interval history: noted more bleeding last night and hgb down to 4.5 however family initially was contemplating hospice until they made up decision and now would like to continue medical care patient received one unit prb she is lethargic, BP stable. Review of Systems Review of Systems: All systems reviewed & are unremarkable except as noted in HPI and below Exam Const: Other: lethargic, sick, chronically ill Eyes: Sclera: sclerae normal Neck: Neck: supple Resp: Effort & Inspection: normal respiratory effort Cardio: Rate: regular rate GI: GI Palp: Yes Soft to palpation and No Tenderness to palpation present (GI) Skin: Other: pale Neuro: Other: leathargic Objective Data Vital Signs Vital Signs: Vital Signs - 24 hr 12/26/24 19:15 12/26/24 19:37 12/27/24 02:46 Temperature 97.6 F 97.8 F Pulse Rate 102 H 100 Respiratory Rate 18 18 Blood Pressure 111/55 L 131/68 Pulse Oximetry 94 94 Oxygen Delivery Room Air 12/27/24 08:44 12/27/24 11:47 12/27/24 12:03 Temperature 98.6 F 98 F Pulse Rate 115 H 119 H Respiratory Rate 16 16 Blood Pressure 112/62 108/50 L Pulse Oximetry 98 94 Oxygen Delivery Room Air 12/27/24 13:03 12/27/24 14:03 12/27/24 15:03 Temperature 98.4 F 98 F 98.3 F Pulse Rate 113 H 111 H 96 Respiratory Rate 16 16 16 Blood Pressure 108/58 L 118/54 L 99/60 L Pulse Oximetry 100 94 98 Oxygen Delivery Intake/Output Intake/Output: Intake & Output 12/24/24 12/25/24 12/26/24 12/27/24 23:59 23:59 23:59 23:59 Intake Total 2262.1 2720.0 1340 350 Output Total 850 1450 1350 300 Balance 1412.1 1270.0 -10 50 Meds/Results Medications: Active Medications Generic Name Dose Route Start Last Admin Trade Name Freq PRN Reason Stop Dose Admin Dextrose 12.5 gm 12/24/24 11:56 12/25/24 06:03 Dextrose 50% 25 Gm/50 Ml Syringe IV PUSH 12.5 gm PRN PRN Administration Hypoglycemia Protocol Glucagon 1 mg 12/24/24 11:56 Glucagon For Inj 1 Mg Vial IM PRN PRN Hypoglycemia Protocol Glucose 15 gm 12/24/24 11:56 Glucose Oral Gel 15 Gm Of Glucse In 37.5 Gm Tube PO PRN PRN Hypoglycemia Protocol Dextrose 1,000 mls @ 100 mls/hr 12/24/24 11:56 Dextrose 5% 1,000 Ml IVPB PRN PRN Hypoglycemia Protocol Dextrose/Sodium Chloride 1,000 mls @ 75 mls/hr 12/25/24 07:35 12/26/24 19:59 Dextrose 5% Sodium Chloride 0.9% IV CONT Not Given .[id number] ELIAS Sodium Chloride 250 mls @ 30 mls/hr 12/27/24 08:52 Normal Saline Iv IV CONT 12/27/24 17:11 .[id number] STA Pantoprazole Sodium 80 mg/ 500 mls @ 50 mls/hr 12/27/24 16:00 Sodium Chloride IV CONT .Q10H [facility] Insulin Aspart 2 - 5 units 12/24/24 12:00 12/27/24 11:49 Insulin Aspart (*Bkc) 100 Units/Ml SUB-Q Not Given Q6HR [facility] Protocol Ondansetron HCl 4 mg 12/23/24 21:36 12/26/24 20:21 Ondansetron Inj 4 Mg/2 Ml Vial IV PUSH 4 mg Q4H PRN Administration Nausea Pantoprazole Sodium 40 mg 12/24/24 09:00 12/27/24 08:44 Pantoprazole Sodium Iv 40 Mg Vial IV PUSH 40 mg On Hold: 12/27/24 15:42 Q12HR [facility] Administration Comment: PT STARTING PROTONIX DRIP Labs Labs: Laboratory Results - last 24 hr 12/26/24 12/27/24 12/27/24 17:01 00:36 05:16 WBC RBC Hgb Hct MCV MCH MCHC RDW Plt Count MPV Sodium Potassium Chloride Carbon Dioxide Anion Gap BUN Creatinine Estim Creat Clear Calc Estimated GFR Glucose POC Capillary Glucose 109 H 144 H 134 H Calcium Magnesium Blood Type Antibody Screen Crossmatch 12/27/24 12/27/24 12/27/24 08:11 09:01 11:33 WBC 12.5 H RBC 1.67 L Hgb 4.8 L* D Hct 15.2 L* MCV 91.0 MCH 28.7 MCHC 31.6 L RDW 16.2 H Plt Count 271 MPV 9.8 Sodium 144 Potassium 3.5 Chloride 121 H Carbon Dioxide 16 L Anion Gap 7 BUN 37 H Creatinine 0.92 Estim Creat Clear Calc 38 Estimated GFR > 60 Glucose 146 H POC Capillary Glucose 128 H Calcium 7.6 L Magnesium 1.4 L Blood Type O Positive Antibody Screen Negative Crossmatch See Detail
[2024-12-27 16:18] LABS: Hematocrit 19.6 % (37.0-47.0); Hemoglobin 6.5 g/dL (12.0-15.0)
--- NOTE | 2024-12-27 16:45 | P.PNIM_ITS ---
Progress Note: A&P Assessment and Plan (1) Hemorrhagic shock: Code(s): R57.8 - Other shock Status: Acute (2) GI (gastrointestinal bleed): Qualifiers: GI bleed type/associated pathology: melena Qualified Code(s): K92.1 - Melena Code(s): K92.2 - Gastrointestinal hemorrhage, unspecified Status: Acute (3) Lactic acidosis: Code(s): E87.20 - Acidosis, unspecified Status: Acute (4) Hypomagnesemia: Code(s): E83.42 - Hypomagnesemia Status: Acute (5) Acute kidney injury: Code(s): N17.9 - Acute kidney failure, unspecified Status: Acute (6) Goals of care, counseling/discussion: Code(s): Z71.89 - Other specified counseling Status: Acute Plan Patient has hemorrhagic shock due to upper GI bleed with marked drop in hemoglobin in the last 6 days. Blood pressure remains low in the ER despite adequate fluid resuscitation. Patient was given 1 unit of blood stat with the 2nd unit of blood administered immediately following but still with somewhat rapid infusion. The patient was started on peripheral Blaine-Synephrine until central line could be placed in the ICU. Line placement was difficult but was able to obtain left femoral central line. Blood pressures did improve but patient still required pressor support. Patient was subsequently admitted to the ICU. Will monitor serial H& H. Patient received Protonix IV x1 in the ER. Will place patient on scheduled Protonix q.12 hours. Patient is NPO. GI has been consulted. CBC is been ordered for a.m.. Patient may benefit from CT scan to further evaluate bleeding or possible infection. Do the patient's agitation where likely not think it imaging that is all that helpful and we cannot perform study with contrast at this time due to patient's acute kidney injury. Will re- evaluate the patient's renal function in a.m. after more appropriate perfusion and consider contrast CT at that time. Patient does have some hypo magnesemia. 4 g magnesium sulfate rider was administered. Will repeat magnesium and phosphorus level in a.m.. Patient does have acute kidney injury due to hypovolemia and hypotension. Patient has chronically low serum bicarb for she likely has some component of chronic kidney disease as well. Will repeat electrolyte panel in a.m.. Lactic acidosis is improving with volume resuscitation and pressor support. Will repeat lactic acid level in a.m.. 2 of the patient's sons were at bedside. They agreed that the patient would not want cardiopulmonary resuscitation if her heart were to stop. They understand that cardiac resuscitation would not improve the patient's overall quality of life in they do not feel that she would desire heroic measures. They do feel that she would be okay with pressors and a central line and have consented to this. Home medication reconciliation was not confirmed by nursing staff at the time of documentation. 69 y/o female a resident of [place] was sent to ER with hematemesis and bloody stools as patient had several episodes of hematemesis and and bloody stool, upon arrival patient hgb was 6.9 and patient was given 2 units of PRBC, patient is also found to have elevated lactic acid levels of 5.8 most likely due to stress, has hyponatremia, and hemialbumin, patient was seen by GI and had EGD 12/25/24, there was slight concern for bleeding from gastric ulcer and it was coatorized, patient had bleeding this morning he hgb drop to 4.8 and patient was given 1 unit of PRBC, her hgb is now 65, patient remains clinically stable, there was discussion that family was thinking about hospice, however today patient to sons are present and they want to continue all the treatments, discussed with Dr. Rehman and patient will have EGD in the morning, will keep her NPO, will monitor. Subjective Date/time seen: 12/27/24 16:45 Interval history: Sent in from alf hematemesis and bloody stools H&P-Narrative: 69-year-old female with a past medical history of CVA, essential hypertension, dementia, diabetes, severe protein calorie malnutrition who presented to the ER [facility] rehab for GI bleed. The patient had 5 episodes of hematemesis and bloody stools in her depends. On arrival to the ER the patient was noted to have her systolic blood pressures in the mid 90s, tachycardia and large amount of liquid black with some mixed maroon streaks of stool in her depends. Patient received 1 L IV fluid bolus and Protonix 40 mg IV x1. Blood pressures remained in the low 90s despite IV fluid resuscitation. Labs demonstrated a 4 and half point drop in hemoglobin compared to 6 days ago, chronically low serum bicarb, marked increase in BUN from 16 now up to 61 and acute kidney injury with creatinine of 1.51 and significant lactic acidosis 5.8 as well as hypo magnesemia 1.4 in the low serum albumin decreased from baseline of 3.7 down to 2.7. A type and screen was performed and the patient is awaiting 2 units blood transfusion. When I arrived at the patient's bedside, in the ER, the patient's blood pressures had dropped down to the 70s systolic. Her normal saline boluses were complete. The patient's sons, Kareem and Wil, were at bedside and provided some additional past medical history. Denies the patient ever having had a prior GI bleed. They state that the patient has never had an abdominal surgery. They do not think she has ever had a colonoscopy or EGD. They did agree for patient to have a central line and pressors. However after goals of care discussion they did decide to change the patient's code status to DNR/DNI. They report that the patient did have some dementia but was living at home and for the most part was independent until 3 months ago. Three months ago she had a CVA resulting in left-sided deficits. They report that since she had her stro ke she tends to keep her right eye closed. They report that since she had her stroke her confusion and dementia symptoms have markedly progressed. They report that the patient smoked heavily up until her stroke. They deny the patient ever having a history of cirrhosis or heavy alcohol use. The patient had reported dysphagia to me during her prior admission. 69 y/o female a resident of [place] was sent to ER with hematemesis and bloody stools as patient had several episodes of hematemesis and and bloody stool, upon arrival patient hgb was 6.9 and patient was given 2 units of PRBC, patient is al so found to have elevated lactic acid levels of 5.8 most likely due to stress, has hyponatremia, and hemialbumin, patient was seen by GI and had EGD 12/25/24, there was slight concern for bleeding from gastric ulcer and it was coatorized, patient had bleeding this morning he hgb drop to 4.8 and patient was given 1 unit of PRBC, her hgb is now 65, patient remains clinically stable, there was discussion that family was thinking about hospice, however today patient to sons are present and they want to continue all the treatments, discussed with Dr. Rehman and patient will have EGD in the morning, will keep her NPO, will monitor. Review of Systems Review of Systems: Review of systems unobtainable due to dementia All systems reviewed & are unremarkable except as noted in HPI and below Exam Narrative: Elderly frail appears chronically ill Patient is comfortable, NAD HEENT: eyes are clear and none icteric LUNGS:CTA HEART: RR S1S2 ABD: BS+, Soft and nontender Lower extremities: no edema SKIN: nonjaundiced Neuro: grossly intact. Objective Data Vital Signs Vital Signs: Vital Signs - 24 hr 12/26/24 19:15 12/26/24 19:37 12/27/24 02:46 Temperature 36.4 C 36.6 C Pulse Rate 102 H 100 Respiratory Rate 18 18 Blood Pressure 111/55 L 131/68 Pulse Oximetry 94 94 Oxygen Delivery Room Air 12/27/24 08:44 12/27/24 11:47 12/27/24 12:03 Temperature 37.0 C 36.6 C Pulse Rate 115 H 119 H Respiratory Rate 16 16 Blood Pressure 112/62 108/50 L Pulse Oximetry 98 94 Oxygen Delivery Room Air 12/27/24 13:03 12/27/24 14:03 12/27/24 15:03 Temperature 36.9 C 36.6 C 36.8 C Pulse Rate 113 H 111 H 96 Respiratory Rate 16 16 16 Blood Pressure 108/58 L 118/54 L 99/60 L Pulse Oximetry 100 94 98 Oxygen Delivery Intake/Output Intake/Output: Intake & Output 12/24/24 12/25/24 12/26/24 12/27/24 23:59 23:59 23:59 23:59 Intake Total 2262.1 2720.0 1340 350 Output Total 850 1450 1350 900 Balance 1412.1 1270.0 -10 -550 Meds/Results Medications: Active Medications Generic Name Dose Route Start Last Admin Trade Name Freq PRN Reason Stop Dose Admin Dextrose 12.5 gm 12/24/24 11:56 12/25/24 06:03 Dextrose 50% 25 Gm/50 Ml Syringe IV PUSH 12.5 gm PRN PRN Administration Hypoglycemia Protocol Glucagon 1 mg 12/24/24 11:56 Glucagon For Inj 1 Mg Vial IM PRN PRN Hypoglycemia Protocol Glucose 15 gm 12/24/24 11:56 Glucose Oral Gel 15 Gm Of Glucse In 37.5 Gm Tube PO PRN PRN Hypoglycemia Protocol Dextrose 1,000 mls @ 100 mls/hr 12/24/24 11:56 Dextrose 5% 1,000 Ml IVPB PRN PRN Hypoglycemia Protocol Dextrose/Sodium Chloride 1,000 mls @ 75 mls/hr 12/25/24 07:35 12/26/24 19:59 Dextrose 5% Sodium Chloride 0.9% IV CONT Not Given .[id number] ELIAS Sodium Chloride 250 mls @ 30 mls/hr 12/27/24 08:52 Normal Saline Iv IV CONT 12/27/24 17:11 .Q8H20M STA Pantoprazole Sodium 80 mg/ 500 mls @ 50 mls/hr 12/27/24 16:00 Sodium Chloride IV CONT .Q10H ELIAS Sodium Chloride 250 mls @ 30 mls/hr 12/27/24 16:18 Normal Saline Iv IV CONT 12/28/24 00:37 .Q8H20M STA Insulin Aspart 2 - 5 units 12/24/24 12:00 12/27/24 11:49 Insulin Aspart (*Bkc) 100 Units/Ml SUB-Q Not Given Q6HR [facility] Protocol Ondansetron HCl 4 mg 12/23/24 21:36 12/26/24 20:21 Ondansetron Inj 4 Mg/2 Ml Vial IV PUSH 4 mg Q4H PRN Administration Nausea Pantoprazole Sodium 40 mg 12/24/24 09:00 12/27/24 08:44 Pantoprazole Sodium Iv 40 Mg Vial IV PUSH 40 mg On Hold: 12/27/24 15:42 Q12HR ELIAS Administration Comment: PT STARTING PROTONIX DRIP Labs Labs: Laboratory Results - last 24 hr 12/26/24 12/27/24 12/27/24 17:01 00:36 05:16 WBC RBC Hgb Hct MCV MCH MCHC RDW Plt Count MPV Sodium Potassium Chloride Carbon Dioxide Anion Gap BUN Creatinine Estim Creat Clear Calc Estimated GFR Glucose POC Capillary Glucose 109 H 144 H 134 H Calcium Magnesium Blood Type Antibody Screen Crossmatch 12/27/24 12/27/24 12/27/24 08:11 09:01 11:33 WBC 12.5 H RBC 1.67 L Hgb 4.8 L* D Hct 15.2 L* MCV 91.0 MCH 28.7 MCHC 31.6 L RDW 16.2 H Plt Count 271 MPV 9.8 Sodium 144 Potassium 3.5 Chloride 121 H Carbon Dioxide 16 L Anion Gap 7 BUN 37 H Creatinine 0.92 Estim Creat Clear Calc 38 Estimated GFR > 60 Glucose 146 H POC Capillary Glucose 128 H Calcium 7.6 L Magnesium 1.4 L Blood Type O Positive Antibody Screen Negative Crossmatch See Detail 12/27/24 15:51 WBC RBC Hgb 6.5 L* Hct 19.6 L* MCV MCH MCHC RDW Plt Count MPV Sodium Potassium Chloride Carbon Dioxide Anion Gap BUN Creatinine Estim Creat Clear Calc Estimated GFR Glucose POC Capillary Glucose Calcium Magnesium Blood Type Antibody Screen Crossmatch Quality VTE Prophylaxis VTE prophylaxis: mechanical ordered
[2024-12-27] MEDS: SODIUM CHLORIDE 0.9% IV 250 ML 30 ML IV CONT (17:26)
[2024-12-27] MEDS: DEXTROSE 5%/0.9% SOD CHL 1,000 ML 75 ML IV CONT (20:51)
[2024-12-27 21:08] LABS: Hematocrit 24.7 % (37.0-47.0); Hemoglobin 8.2 g/dL (12.0-15.0)
[2024-12-27] MEDS: PANTOPRAZOLE SODIUM IV 80 MG in SODIUM CHLORIDE 0.9% IV 500 ML 50 MG IV CONT (21:55)
[2024-12-28] VITALS (40 sets, daily range): BP systolic 62–154; BP diastolic 42–86; PULSE 47–120; RESP 13–29; TEMP 36.2–36.8; O2SAT 85–100
[2024-12-28 04:54] LABS: Hematocrit 24.0 % (37.0-47.0); Hemoglobin 7.9 g/dL (12.0-15.0); Mean Corpuscular HGB Conc 32.9 g/dl (32-36); Mean Corpuscular Hemoglobin 29.0 pg (26-34); Mean Corpuscular Volume 88.2 fl (80-100); Platelet Count Result 203 k/mm3 (150-375); Red Blood Count 2.72 M/mm3 (4.2-5.4); White Blood Count 9.2 K/mm3 (4.5-10.0)
[2024-12-28 05:31] LABS: Anion Gap 5 mmol/L (4-12); Blood Urea Nitrogen 31 mg/dL (7-17); Calcium 7.4 mg/dL (8.4-10.2); Carbon Dioxide 16 mmol/L (22-30); Chloride 124 mmol/L (98-107); Estimated CRCL calculation 45 ml/min; Estimated Glomerular Filt Rate > 60; Glucose 113 mg/dL (65-110); Magnesium 1.5 mg/dL (1.6-2.3); Potassium 3.5 mmol/L (3.4-5.0); Sodium 145 mmol/L (137-145)
[2024-12-28] MEDS: MAGNESIUM SULF 2 GM/WATER 50ML 2 GM/50 ML BAG IVPB (08:20)
[2024-12-28] MEDS: PANTOPRAZOLE SODIUM IV 80 MG in SODIUM CHLORIDE 0.9% IV 500 ML 50 MG IV CONT (08:20)
[2024-12-28] MEDS: DEXTROSE 5%/0.9% SOD CHL 1,000 ML 999 ML IV CONT (10:47)
[2024-12-28 11:01] LABS: Hematocrit 20.4 % (37.0-47.0); Hemoglobin 6.4 g/dL (12.0-15.0)
--- NOTE | 2024-12-28 11:13 | WPDCNINT ---
[facility] Consult Note Consult date: 12/28/24 Reason for consult: Upper GI bleed, hypotension HPI: Valerie Rivers is a 69 year old female Review of Systems Review of Systems: ROS unobtainable: Yes unobtainable due to medical condition and unobtainable due to mental status PMFSH Past Medical History Medical History Duodenal ulcer Acute on chronic anemia Melena Vitamin D deficiency Dementia History of cerebrovascular accident (CVA) with residual deficit L sided deficits Depression, unspecified Personal history of transient ischemic attack (TIA), and cerebral infarction without residual deficits Constipation, unspecified Essential (primary) hypertension Anxiety disorder, unspecified Hyperlipidemia, unspecified Other specified diabetes mellitus without complications 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 They deny that she ever drink alcohol or use illicit substances. She lives in her own home until September 2024 when she had a stroke. 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 Code status: DNR/DNI Surrogate decision maker: Davidoctavio garcia Kareem (son) Smoking packs per day: 2 Smoking cigarettes per day: 40.0 Years smoked: 50 Smoking pack-years: 100.00 Smoking status: Former smoker Tobacco type: cigarettes Alcohol intake: never Substance use: never Living arrangements: snf Additional living arrangements comments: [facility] care concerns: No Meds Home Medications and Allergies Home Medications ?Medication ?Instructions ?Recorded ?Confirmed ?Type aspirin 81 mg tablet,delayed 81 mg PO DAILY 12/13/24 12/24/24 History release (Adult Low Dose Aspirin) atorvastatin 80 mg tablet 80 mg PO QPM 12/13/24 12/24/24 History bisacodyl 5 mg tablet,delayed 5 mg PO DAILY PRN constipation 12/13/24 12/24/24 History release ergocalciferol (vitamin D2) 1,250 1,250 mcg PO WEEKLY 12/13/24 12/24/24 History mcg (50,000 unit) capsule (Vitamin D2) ferrous sulfate 325 mg (65 mg 325 mg PO DAILY 12/13/24 12/24/24 History iron) tablet folic acid 1 mg tablet 1 mg PO DAILY 12/13/24 12/24/24 History hydrocortisone 1 % topical cream 1 applic topical DAILY 12/13/24 12/24/24 History losartan 50 mg tablet 50 mg PO DAILY 12/13/24 12/24/24 History metformin 500 mg tablet 500 mg PO DAILY 12/13/24 12/24/24 History polyethylene glycol 3350 17 gram 17 g PO DAILY PRN constipation 12/13/24 12/24/24 History oral powder packet (Miralax) sodium chloride 0.65 % nasal spray 1 spray intranasal Q2H PRN dry 12/13/24 12/24/24 History aerosol (Saline Mist) nasal passages sodium phosphates 19 gram-7 118 ml RECTAL DAILY PRN 12/13/24 12/24/24 History gram/118 mL enema (Fleet Enema) constipation diltiazem HCl 60 mg tablet 60 mg PO TID #90 tabs 12/18/24 12/24/24 Rx artificial tears(hypromellose) 0.5 2 drp EACH EYE Q4H PRN dry eye(s) 12/24/24 12/24/24 History % eye drops Allergies Allergy/AdvReac Type Severity Reaction Status Date / Time Penicillins Allergy Anaphylactic Verified 12/25/24 13:40 Shock Vital Signs Vital Signs - 24 hr 12/27/24 11:47 12/27/24 12:03 12/27/24 13:03 Temperature 37.0 C 36.6 C 36.9 C Pulse Rate 115 H 119 H 113 H Respiratory Rate 16 16 16 Blood Pressure 112/62 108/50 L 108/58 L Pulse Oximetry 98 94 100 Oxygen Delivery Oxygen Flow Rate 12/27/24 14:03 12/27/24 15:03 12/27/24 17:11 Temperature 36.6 C 36.8 C 36.6 C Pulse Rate 111 H 96 101 H Respiratory Rate 16 16 16 Blood Pressure 118/54 L 99/60 L 100/50 L Pulse Oximetry 94 98 94 Oxygen Delivery Oxygen Flow Rate 12/27/24 17:29 12/27/24 18:29 12/27/24 19:29 Temperature 36.6 C 37.3 C 36.9 C Pulse Rate 100 102 H 95 Respiratory Rate 16 16 16 Blood Pressure 113/58 L 102/56 L 112/62 Pulse Oximetry 98 100 100 Oxygen Delivery Oxygen Flow Rate 12/27/24 20:00 12/27/24 20:00 12/27/24 20:20 Temperature 36.6 C Pulse Rate 96 96 96 Respiratory Rate 14 14 Blood Pressure 119/54 L Pulse Oximetry 99 99 99 Oxygen Delivery Room Air Room Air Oxygen Flow Rate 12/27/24 20:42 12/28/24 05:47 12/28/24 10:20 Temperature 37.0 C 36.5 C Pulse Rate 96 81 110 H Respiratory Rate 14 14 20 Blood Pressure 119/54 L 121/63 82/42 L Pulse Oximetry 99 94 85 L Oxygen Delivery Oxygen Flow Rate 12/28/24 10:25 Temperature Pulse Rate Respiratory Rate Blood Pressure Pulse Oximetry 97 Oxygen Delivery Nasal Cannula Oxygen Flow Rate 2 Exam Narrative: General: Pt is pleasantly confused Lungs/Chest: Trachea central Clear BS B/L, No crackles or wheezing. Cardiac: RRR. Normal S1 S2. No murmurs Circulation: Pedal pulses are intact and symmetrical. Feet are warm Abdomen: Normal bowel sounds.. Soft. NT. ND. Extremities: No clubbing, cyanosis or edema. Warm : Crystal in place Neurologic: Follows commands. Left hemiparesis, follows commands with right side, AO x1 PERRL Skin: No Rash HEENT: Dry tongue and mucosa Results Labs 12/28/24 10:41 12/28/24 04:21 Labs: Short CBC 12/27/24 12/27/24 12/28/24 Range/Units 15:51 21:03 04:21 WBC 9.2 (4.5-10.0) K/mm3 Hgb 6.5 L* 8.2 L 7.9 L (12.0-15.0) g/dL Hct 19.6 L* 24.7 L 24.0 L (37.0-47.0) % Plt Count 203 (150-375) k/mm3 12/28/24 Range/Units 10:41 WBC (4.5-10.0) K/mm3 Hgb 6.4 L* (12.0-15.0) g/dL Hct 20.4 L* (37.0-47.0) % Plt Count (150-375) k/mm3 [facility] 12/28/24 04:21 Sodium 145 Potassium 3.5 Chloride 124 H Carbon Dioxide 16 L BUN 31 H Creatinine 0.79 Glucose 113 H Calcium 7.4 L
--- NOTE | 2024-12-28 11:23 | P.PNINT_ITS ---
Progress Note: A&P Assessment and Plan (1) GI (gastrointestinal bleed): Qualifiers: GI bleed type/associated pathology: melena Qualified Code(s): K92.1 - Melena Code(s): K92.2 - Gastrointestinal hemorrhage, unspecified Status: Acute Assessment and Plan: Patient was admitted with GI bleed and EGD showed gastritis and duodenal ulcer. It appears that she continues to bleed. Her hemoglobin today 6.4 I will give additional 2 units of PRBC GI is following and anticipate she will need repeat EGD once hemodynamics are stabilized She is getting IV fluid bolus which will be followed by maintenance IV fluids Continue Protonix infusion NPO Serial hemoglobin monitoring (2) Hypotension: Code(s): I95.9 - Hypotension, unspecified Status: Acute Assessment and Plan: Hypotension secondary to GI bleed. Management as above IV fluid bolus, PRBC transfusion Phenylephrine infusion for blood pressure support if needed Transferred to ICU Will request PICC line insertion (3) Diabetes: Code(s): E11.9 - Type 2 diabetes mellitus without complications Status: Acute Assessment and Plan: Accu-Cheks and sliding scale insulin (4) Dementia: Qualifiers: Dementia type: unspecified type Dementia severity: severe Dementia behavioral or psychological symptom: unspecified whether behavioral, psychotic, or mood disturbance or anxiety Qualified Code(s): F03.C0 - Unspecified dementia, severe, without behavioral disturbance, psychotic disturbance, mood disturbance, and anxiety Code(s): F03.90 - Unspecified dementia, unspecified severity, without behavioral disturbance, psychotic disturbance, mood disturbance, and anxiety Status: Acute Assessment and Plan: His history of dementia which is chronic per chart (5) Electrolyte abnormality: Code(s): E87.8 - Other disorders of electrolyte and fluid balance, not elsewhere classified Status: Acute Assessment and Plan: Calcium magnesium and potassium replacement ordered Change IV fluids due to hyperchloremia Plan DVT prophylaxis: SCDs Stress ulcer prophylaxis: IV PPI infusion Nutrition: NPO Code Status: DNR/DNI Critical Care Time Spent: 35 minutes Due to a high probability of clinically significant, life threatening deterioration, the patient required my highest level of preparedness to intervene emergently and I personally spent this critical care time directly and personally managing the patient. This critical care time included obtaining a history; examining the patient; pulse oximetry; ordering and review of studies; arranging urgent treatment with development of a management plan; evaluation of patient's response to treatment; frequent reassessment; and discussions with other providers. It was exclusive of separately billable procedures and treating other patients and teaching time. Please see Assessment and Plan section and the rest of the note for further information on patient assessment and treatment This dictation may have been done utilizing a voice recognition system. Attempts have been made to correct errors. However, there may be uncorrected grammatical, spelling, and recognitions errors present. Subjective Date/time seen: 12/28/24 patient is admitted to ICU on 12/23 with GI bleed. She had EGD which showed duodenal ulcer. She was transferred out. Yesterday she continued to bleed and had drop in hemoglobin. Additional PRBC was given. Today she again had 2 dark bowel movements and repeat hemoglobin showed a drop along with drop in blood pressure. I was asked to evaluate patient. Patient again has dementia and is unable to provide any meaningful history or review of systems. Per nursing staff she had 2 dark black stools. Hemoglobin repeat was 6.4. Her blood pressure dropped to systolic in 80s she. She is currently getting IV fluid bolus. Patient is awake partially oriented but as above mentioned cannot provide any history. She states she has pain at IV site apart from that she is unable to give reliable answers. Review of Systems Review of Systems: ROS unobtainable: Yes unobtainable due to medical condition and unobtainable due to mental status Exam Narrative: General: Pt is pleasantly confused Lungs/Chest: Trachea central Clear BS B/L, No crackles or wheezing. Cardiac: RRR. Normal S1 S2. No murmurs Circulation: Pedal pulses are intact and symmetrical. Feet are warm Abdomen: Normal bowel sounds.. Soft. NT. ND. Extremities: No clubbing, cyanosis or edema. Warm : Crystal in place Neurologic: Follows commands. Left hemiparesis, follows commands with right side, AO x1 PERRL Skin: No Rash HEENT: Dry tongue and mucosa Objective Data Vital Signs Vital Signs: Vital Signs - 24 hr 12/27/24 11:47 12/27/24 12:03 12/27/24 13:03 Temperature 37.0 C 36.6 C 36.9 C Pulse Rate 115 H 119 H 113 H Respiratory Rate 16 16 16 Blood Pressure 112/62 108/50 L 108/58 L Pulse Oximetry 98 94 100 Oxygen Delivery Oxygen Flow Rate 12/27/24 14:03 12/27/24 15:03 12/27/24 17:11 Temperature 36.6 C 36.8 C 36.6 C Pulse Rate 111 H 96 101 H Respiratory Rate 16 16 16 Blood Pressure 118/54 L 99/60 L 100/50 L Pulse Oximetry 94 98 94 Oxygen Delivery Oxygen Flow Rate 12/27/24 17:29 12/27/24 18:29 12/27/24 19:29 Temperature 36.6 C 37.3 C 36.9 C Pulse Rate 100 102 H 95 Respiratory Rate 16 16 16 Blood Pressure 113/58 L 102/56 L 112/62 Pulse Oximetry 98 100 100 Oxygen Delivery Oxygen Flow Rate 12/27/24 20:00 12/27/24 20:00 12/27/24 20:20 Temperature 36.6 C Pulse Rate 96 96 96 Respiratory Rate 14 14 Blood Pressure 119/54 L Pulse Oximetry 99 99 99 Oxygen Delivery Room Air Room Air Oxygen Flow Rate 12/27/24 20:42 12/28/24 05:47 12/28/24 10:20 Temperature 37.0 C 36.5 C Pulse Rate 96 81 110 H Respiratory Rate 14 14 20 Blood Pressure 119/54 L 121/63 82/42 L Pulse Oximetry 99 94 85 L Oxygen Delivery Oxygen Flow Rate 12/28/24 10:25 Temperature Pulse Rate Respiratory Rate Blood Pressure Pulse Oximetry 97 Oxygen Delivery Nasal Cannula Oxygen Flow Rate 2 Intake/Output Intake/Output: Intake & Output 12/25/24 12/26/24 12/27/24 12/28/24 23:59 23:59 23:59 23:59 Intake Total 2720.0 1340 1682 500 Output Total 1450 1350 900 550 Balance 1270.0 -10 782 -50 Meds/Results Medications: Active Medications Generic Name Dose Route Start Last Admin Trade Name Freq PRN Reason Stop Dose Admin Dextrose 12.5 gm 12/24/24 11:56 12/25/24 06:03 Dextrose 50% 25 Gm/50 Ml Syringe IV PUSH 12.5 gm PRN PRN Administration Hypoglycemia Protocol Glucagon 1 mg 12/24/24 11:56 Glucagon For Inj 1 Mg Vial IM PRN PRN Hypoglycemia Protocol Glucose 15 gm 12/24/24 11:56 Glucose Oral Gel 15 Gm Of Glucse In 37.5 Gm Tube PO PRN PRN Hypoglycemia Protocol Dextrose 1,000 mls @ 100 mls/hr 12/24/24 11:56 Dextrose 5% 1,000 Ml IVPB PRN PRN Hypoglycemia Protocol Dextrose/Sodium Chloride 1,000 mls @ 75 mls/hr 12/25/24 07:35 12/27/24 20:51 Dextrose 5% Sodium Chloride 0.9% IV CONT 75 mls/hr .[id number] ELIAS Administration Pantoprazole Sodium 80 mg/ 500 mls @ 50 mls/hr 12/27/24 16:00 12/28/24 08:20 Sodium Chloride IV CONT 50 mls/hr .Q10H ELIAS Administration Dextrose/Sodium Chloride 1,000 mls @ 999 mls/hr 12/28/24 10:38 12/28/24 10:47 Dextrose 5% Sodium Chloride 0.9% IV CONT 12/28/24 11:38 999 mls/hr .Q1H1M ONE Administration Sodium Chloride 250 mls @ 30 mls/hr 12/28/24 11:14 Normal Saline Iv IV CONT 12/28/24 19:33 .Q8H20M STA Phenylephrine HCl 50 mg/ 250 mls @ 12 mls/hr 12/28/24 11:20 Sodium Chloride IV CONT .[id number] ELIAS Protocol 40 MCG/MIN Potassium Chloride/Dextrose/Sod Cl 1,000 mls @ 100 mls/hr 12/28/24 11:20 Kcl 20 Meq/D5/0.45% Sod Chl IV CONT .Q10H ELIAS Calcium Gluconate 2,000 mg in 100 mls @ 100 mls/hr 12/28/24 11:19 Calcium Gluc 2,000 Mg/Ns 100ml IVPB 12/28/24 12:18 ONCE ONE Insulin Aspart 2 - 5 units 12/24/24 12:00 12/28/24 05:38 Insulin Aspart (*Bkc) 100 Units/Ml SUB-Q Not Given Q6HR [facility] Protocol Ondansetron HCl 4 mg 12/23/24 21:36 12/26/24 20:21 Ondansetron Inj 4 Mg/2 Ml Vial IV PUSH 4 mg Q4H PRN Administration Nausea Pantoprazole Sodium 40 mg 12/24/24 09:00 12/27/24 08:44 Pantoprazole Sodium Iv 40 Mg Vial IV PUSH 40 mg On Hold: 12/27/24 15:42 Q12HR ELIAS Administration Comment: PT STARTING PROTONIX DRIP Labs Labs: Laboratory Results - last 24 hr 12/27/24 12/27/24 12/27/24 09:01 11:33 15:51 WBC RBC Hgb 6.5 L* Hct 19.6 L* MCV MCH MCHC RDW Plt Count MPV Sodium Potassium Chloride Carbon Dioxide Anion Gap BUN Creatinine Estim Creat Clear Calc Estimated GFR Glucose POC Capillary Glucose 128 H Calcium Magnesium Blood Type O Positive Antibody Screen Negative Crossmatch See Detail 12/27/24 12/27/24 12/28/24 18:03 21:03 00:03 WBC RBC Hgb 8.2 L Hct 24.7 L MCV MCH MCHC RDW Plt Count MPV Sodium Potassium Chloride Carbon Dioxide Anion Gap BUN Creatinine Estim Creat Clear Calc Estimated GFR Glucose POC Capillary Glucose 113 H 119 H Calcium Magnesium Blood Type Antibody Screen Crossmatch 12/28/24 12/28/24 12/28/24 04:21 05:36 10:41 WBC 9.2 RBC 2.72 L Hgb 7.9 L 6.4 L* Hct 24.0 L 20.4 L* MCV 88.2 MCH 29.0 MCHC 32.9 RDW 15.6 H Plt Count 203 MPV 9.7 Sodium 145 Potassium 3.5 Chloride 124 H Carbon Dioxide 16 L Anion Gap 5 BUN 31 H Creatinine 0.79 Estim Creat Clear Calc 45 Estimated GFR > 60 Glucose 113 H POC Capillary Glucose 117 H Calcium 7.4 L Magnesium 1.5 L Blood Type Antibody Screen Crossmatch Quality VTE Prophylaxis VTE prophylaxis: mechanical ordered
[2024-12-28] MEDS: PHENYLEPHRINE HCL INJ 50 MG in SODIUM CHLORIDE 0.9% IV 245 ML 12 ML IV CONT (12:19)
--- NOTE | 2024-12-28 12:35 | PC.NURSE ---
This patient, Valerie Rivers, was received from Medical room [facility] on 12/28/24 at 1235. Patient/family oriented to unit policies and routines
--- NOTE | 2024-12-28 14:05 | P.PNAN_ITS ---
Anes - Eval Final PreProcedure Day of Procedure 12/28/24 14:05 Patient weight: thin Heart: regular rate and rhythm Lungs: clear to auscultation Airway: Mallampati scale Neurological: alert and oriented Last oral intake: >/= 8 hours ASA classification: IV Emergent: yes Anesthetic plan: proceed Anesthesia type and monitoring: general GIVS and standard monitoring Results Review: All pre-operative results and documents have been reviewed as part of the pre- operative evaluation. Informed Consent: The patient's anesthetic plan and its attendant risks and benefits were discussed with the patient/family/POA. Questions were solicited and answers provided to the satisfaction of the patient/family/POA.
--- NOTE | 2024-12-28 14:26 | PM.IMPN ---
Progress Note: A&P Assessment and Plan (1) GI (gastrointestinal bleed): Qualifiers: GI bleed type/associated pathology: melena Qualified Code(s): K92.1 - Melena Code(s): K92.2 - Gastrointestinal hemorrhage, unspecified Status: Acute Assessment and Plan: Patient was admitted with GI bleed and EGD showed gastritis and duodenal ulcer. It appears that she continues to bleed. Her hemoglobin today 6.4 I will give additional 2 units of PRBC GI is following and anticipate she will need repeat EGD once hemodynamics are stabilized She is getting IV fluid bolus which will be followed by maintenance IV fluids Continue Protonix infusion NPO Serial hemoglobin monitoring (2) Hypotension: Code(s): I95.9 - Hypotension, unspecified Status: Acute Assessment and Plan: Hypotension secondary to GI bleed. Management as above IV fluid bolus, PRBC transfusion Phenylephrine infusion for blood pressure support if needed Transferred to ICU Will request PICC line insertion (3) Diabetes: Code(s): E11.9 - Type 2 diabetes mellitus without complications Status: Acute Assessment and Plan: Accu-Cheks and sliding scale insulin (4) Dementia: Qualifiers: Dementia type: unspecified type Dementia severity: severe Dementia behavioral or psychological symptom: unspecified whether behavioral, psychotic, or mood disturbance or anxiety Qualified Code(s): F03.C0 - Unspecified dementia, severe, without behavioral disturbance, psychotic disturbance, mood disturbance, and anxiety Code(s): F03.90 - Unspecified dementia, unspecified severity, without behavioral disturbance, psychotic disturbance, mood disturbance, and anxiety Status: Acute Assessment and Plan: His history of dementia which is chronic per chart (5) Electrolyte abnormality: Code(s): E87.8 - Other disorders of electrolyte and fluid balance, not elsewhere classified Status: Acute Assessment and Plan: Calcium magnesium and potassium replacement ordered Change IV fluids due to hyperchloremia Plan today patient hgb was 7.9 after receiving 2 units of PRBC, however earlier this morning patient had two large BM consisting of blood, ordered stat H and H, called patient son Rod and let him know patient was bleeding, called Dr. Rehman GI and informed him about the bleeding, patient systolic BP was 80 ordered 1L bolus d5NS, discussed with camera repairer Dr. Marroquin and presented the case, patient is being transferred to ICU, patient came and gave him update that patient will be transferred and patient son Rod who is her POA has revoked DNR, called GI informed him that patient in being transferred to the ICU. DVT prophylaxis: SCDs Stress ulcer prophylaxis: IV PPI infusion Nutrition: NPO Code Status: DNR/DNI Subjective Date/time seen: 12/28/24 14:26 Interval history: Sent in from retirement hematemesis and bloody stools H&P-Narrative: 69-year-old female with a past medical history of CVA, essential hypertension, dementia, diabetes, severe protein calorie malnutrition who presented to the ER from [facility] and rehab for GI bleed. The patient had 5 episodes of hematemesis and bloody stools in her depends. On arrival to the ER the patient was noted to have her systolic blood pressures in the mid 90s, tachycardia and large amount of liquid black with some mixed maroon streaks of stool in her depends. Patient received 1 L IV fluid bolus and Protonix 40 mg IV x1. Blood pressures remained in the low 90s despite IV fluid resuscitation. Labs demonstrated a 4 and half point drop in hemoglobin compared to 6 days ago, chronically low serum bicarb, marked increase in BUN from 16 now up to 61 and acute kidney injury with creatinine of 1.51 and significant lactic acidosis 5.8 as well as hypo magnesemia 1.4 in the low serum albumin decreased from baseline of 3.7 down to 2.7. A type and screen was performed and the patient is awaiting 2 units blood transfusion. When I arrived at the patient's bedside, in the ER, the patient's blood pressures had dropped down to the 70s systolic. Her normal saline boluses were complete. The patient's sons, Kareem and Wil, were at bedside and provided some additional past medical history. Denies the patient ever having had a prior GI bleed. They state that the patient has never had an abdominal surgery. They do not think she has ever had a colonoscopy or EGD. They did agree for patient to have a central line and pressors. However after goals of care discussion they did decide to change the patient's code status to DNR/DNI. They report that the patient did have some dementia but was living at home and for the most part was independent until 3 months ago. Three months ago she had a CVA resulting in left-sided deficits. They report that since she had her stroke she tends to keep her right eye closed. They report that since she had her stroke her confusion and dementia symptoms have markedly progressed. They report that the patient smoked heavily up until her stroke. They deny the patient ever having a history of cirrhosis or heavy alcohol use. The patient had reported dysphagia to me during her prior admission. 69 y/o female a resident of [place] was sent to ER with hematemesis and bloody stools as patient had several episodes of hematemesis and and bloody stool, upon arrival patient hgb was 6.9 and patient was given 2 units of PRBC, patient is also found to have elevated lactic acid levels of 5.8 most likely due to stress, has hyponatremia, and hemialbumin, patient was seen by GI and had EGD 12/25/24, there was slight concern for bleeding from gastric ulcer and it was coatorized, patient had bleeding this morning he hgb drop to 4.8 and patient was given 1 unit of PRBC, her hgb is now 65, patient remains clinically stable, there was discussion that family was thinking about hospice, however on 12/27 patient to sons are present and they want to continue all the treatments, discussed with Dr. Rehman and patient will have EGD in the morning, will keep her NPO, patient was given 2 units of PRBC will monitor. today patient hgb was 7.9 after receiving 2 units of PRBC, however earlier this morning patient had two large BM consisting of blood, ordered stat H and H, called patient son Rod and let him know patient was bleeding, called Dr. Rehman, GI and informed him about the bleeding, patient systolic BP was 80 ordered 1L bolus d5NS, discussed with camera repairer Dr. Marroquin and presented the case, patient is being transferred to ICU, patient came and gave him update that patient will be transferred and patient son Rod who is her POA has revoked DNR, called GI informed him that patient in being transferred to the ICU. Review of Systems Review of Systems: Review of systems unobtainable due to dementia All systems reviewed & are unremarkable except as noted in HPI and below ROS unobtainable: Yes unobtainable due to medical condition and unobtainable due to mental status Exam Narrative: Elderly frail appears chronically ill Patient is comfortable, NAD HEENT: eyes are clear and none icteric LUNGS:CTA HEART: RR S1S2 ABD: BS+, Soft and nontender Lower extremities: no edema SKIN: nonjaundiced Neuro: grossly intact. Objective Data Vital Signs Vital Signs: Vital Signs - 24 hr 12/27/24 15:03 12/27/24 17:11 12/27/24 17:29 Temperature 36.8 C 36.6 C 36.6 C Pulse Rate 96 101 H 100 Respiratory Rate 16 16 16 Blood Pressure 99/60 L 100/50 L 113/58 L Pulse Oximetry 98 94 98 Oxygen Delivery Oxygen Flow Rate 12/27/24 18:29 12/27/24 19:29 12/27/24 20:00 Temperature 37.3 C 36.9 C 36.6 C Pulse Rate 102 H 95 96 Respiratory Rate 16 16 14 Blood Pressure 102/56 L 112/62 119/54 L Pulse Oximetry 100 100 99 Oxygen Delivery Oxygen Flow Rate 12/27/24 20:00 12/27/24 20:20 12/27/24 20:42 Temperature 37.0 C Pulse Rate 96 96 96 Respiratory Rate 14 14 Blood Pressure 119/54 L Pulse Oximetry 99 99 99 Oxygen Delivery Room Air Room Air Oxygen Flow Rate 12/28/24 05:47 12/28/24 10:20 12/28/24 10:25 Temperature 36.5 C Pulse Rate 81 110 H Respiratory Rate 14 20 Blood Pressure 121/63 82/42 L Pulse Oximetry 94 85 L 97 Oxygen Delivery Nasal Cannula Oxygen Flow Rate 2 12/28/24 12:08 12/28/24 12:19 12/28/24 12:24 Temperature 36.5 C 36.6 C Pulse Rate 110 H 99 101 H Respiratory Rate 20 20 Blood Pressure 73/55 L 109/54 L 109/54 L Pulse Oximetry 97 100 Oxygen Delivery Oxygen Flow Rate 12/28/24 13:24 12/28/24 14:04 12/28/24 14:12 Temperature 36.4 C 36.8 C Pulse Rate 93 70 85 Respiratory Rate 19 16 18 Blood Pressure 126/68 129/79 118/78 Pulse Oximetry 100 95 100 Oxygen Delivery Room Air Oxygen Flow Rate Intake/Output Intake/Output: Intake & Output 12/25/24 12/26/24 12/27/24 12/28/24 23:59 23:59 23:59 23:59 Intake Total 2720.0 1340 1682 850 Output Total 1450 1350 900 550 Balance 1270.0 -10 782 300 Meds/Results Medications: Active Medications Generic Name Dose Route Start Last Admin Trade Name Freq PRN Reason Stop Dose Admin Artificial Tears 2 drop 12/28/24 12:16 Artificial Tears Ophth Soln 15 Ml Bottle EACH EYE Q4H PRN Dry Eye(s) Aspirin 81 mg 12/29/24 09:00 Aspirin 81 Mg Enteric Tablet PO DAILY [facility] Atorvastatin Calcium 80 mg 12/28/24 18:00 Atorvastatin 40 Mg Tablet PO QPM ELIAS Bisacodyl 5 mg 12/28/24 12:16 Bisacodyl 5 Mg Tablet Ec PO DAILY PRN Constipation Dextrose 12.5 gm 12/24/24 11:56 12/25/24 06:03 Dextrose 50% 25 Gm/50 Ml Syringe IV PUSH 12.5 gm PRN PRN Administration Hypoglycemia Protocol Diltiazem HCl 60 mg 12/28/24 13:00 Diltiazem Hcl 60 Mg Tablet PO TID [facility] Ergocalciferol 1,250 mcg 01/01/25 09:00 Ergocalciferol (Vitamin D2) 1,250 Mcg (50,000 Units) Capsule PO WEEKLY [facility] Ferrous Sulfate 325 mg 12/29/24 09:00 Ferrous Sulfate [address] PO DAILY [facility] Folic Acid 1 mg 12/29/24 09:00 Folic Acid 1 Mg Tablet PO DAILY [facility] Glucagon 1 mg 12/24/24 11:56 Glucagon For Inj 1 Mg Vial IM PRN PRN Hypoglycemia Protocol Glucose 15 gm 12/24/24 11:56 Glucose Oral Gel 15 Gm Of Glucse In 37.5 Gm Tube PO PRN PRN Hypoglycemia Protocol Hydrocortisone 1 applic 12/29/24 09:00 Hydrocortisone 1% 30 Gm Cream TOPICAL DAILY ELIAS Dextrose 1,000 mls @ 100 mls/hr 12/24/24 11:56 Dextrose 5% 1,000 Ml IVPB PRN PRN Hypoglycemia Protocol Dextrose/Sodium Chloride 1,000 mls @ 75 mls/hr 12/25/24 07:35 12/27/24 20:51 Dextrose 5% Sodium Chloride 0.9% IV CONT 75 mls/hr .[id number] ELIAS Administration Pantoprazole Sodium 80 mg/ 500 mls @ 50 mls/hr 12/27/24 16:00 12/28/24 08:20 Sodium Chloride IV CONT 50 mls/hr .Q10H ELIAS Administration Sodium Chloride 250 mls @ 30 mls/hr 12/28/24 11:14 Normal Saline Iv IV CONT 12/28/24 19:33 .Q8H20M STA Phenylephrine HCl 50 mg/ 250 mls @ 12 mls/hr 12/28/24 11:20 12/28/24 12:19 Sodium Chloride IV CONT 40 mcg/min .[id number] ELIAS 12 mls/hr Protocol Administration 40 MCG/MIN Potassium Chloride/Dextrose/Sod Cl 1,000 mls @ 100 mls/hr 12/28/24 11:20 Kcl 20 Meq/D5/0.45% Sod Chl IV CONT .Q10H ELIAS Lactated Ringer's 1,000 mls @ 150 mls/hr 12/28/24 14:15 Lr - Lactated Ringers Iv IV CONT .Q6H40M [facility] Insulin Aspart 2 - 5 units 12/24/24 12:00 12/28/24 13:22 Insulin Aspart (*Bkc) 100 Units/Ml SUB-Q Not Given Q6HR [facility] Protocol Losartan Potassium 50 mg 12/29/24 09:00 Losartan Potassium 50 Mg Tablet PO DAILY ELIAS Metformin HCl 500 mg 12/29/24 09:00 Metformin Hcl 500 Mg Tablet PO DAILY [facility] Miscellaneous Information 1 each 12/28/24 09:00 Central Supply Item XX 12/29/24 08:59 DAILY [facility] Ondansetron HCl 4 mg 12/23/24 21:36 12/26/24 20:21 Ondansetron Inj 4 Mg/2 Ml Vial IV PUSH 4 mg Q4H PRN Administration Nausea Pantoprazole Sodium 40 mg 12/24/24 09:00 12/27/24 08:44 Pantoprazole Sodium Iv 40 Mg Vial IV PUSH 40 mg On Hold: 12/28/24 13:10 Q12HR ELIAS Administration Comment: HOLD PER [facility]. TAKEN OFF HOLD BY ACCIDENT ON TRANSFER Polyethylene Glycol 17 gm 12/28/24 12:16 Polyethylene Glycol 3350 17 Gm Powd.Pack PO DAILY PRN Constipation Sodium Chloride 1 spray 12/28/24 12:16 Saline 0.65% Tomas Soln 44 Ml Btl NASAL Q2H PRN Dry Nasal Passages Labs Labs: Laboratory Results - last 24 hr 12/27/24 12/27/24 12/27/24 09:01 15:51 18:03 WBC RBC Hgb 6.5 L* Hct 19.6 L* MCV MCH MCHC RDW Plt Count MPV Sodium Potassium Chloride Carbon Dioxide Anion Gap BUN Creatinine Estim Creat Clear Calc Estimated GFR Glucose POC Capillary Glucose 113 H Calcium Magnesium Blood Type O Positive Antibody Screen Negative Crossmatch See Detail 12/27/24 12/28/24 12/28/24 21:03 00:03 04:21 WBC 9.2 RBC 2.72 L Hgb 8.2 L 7.9 L Hct 24.7 L 24.0 L MCV 88.2 MCH 29.0 MCHC 32.9 RDW 15.6 H Plt Count 203 MPV 9.7 Sodium 145 Potassium 3.5 Chloride 124 H Carbon Dioxide 16 L Anion Gap 5 BUN 31 H Creatinine 0.79 Estim Creat Clear Calc 45 Estimated GFR > 60 Glucose 113 H POC Capillary Glucose 119 H Calcium 7.4 L Magnesium 1.5 L Blood Type Antibody Screen Crossmatch 12/28/24 12/28/24 12/28/24 05:36 10:41 14:08 WBC RBC Hgb 6.4 L* Hct 20.4 L* MCV MCH MCHC RDW Plt Count MPV Sodium Potassium Chloride Carbon Dioxide Anion Gap BUN Creatinine Estim Creat Clear Calc Estimated GFR Glucose POC Capillary Glucose 117 H 206 H Calcium Magnesium Blood Type Antibody Screen Crossmatch Quality VTE Prophylaxis VTE prophylaxis: mechanical ordered
[2024-12-28] MEDS: LACTATED RINGERS 1,000 ML 150 ML IV CONT (14:39)
[2024-12-28] MEDS: dexmedeTOMIDine 400 MCG/100 ML 400 MCG/100 ML BAG IV CONT (15:15)
[2024-12-28] MEDS: EPINEPHrine INJ 1 MG/10 ML SYRINGE 0.8 MG XX (15:17)
[2024-12-28] MEDS: EPINEPHrine INJ 1 MG/10 ML SYRINGE XX (15:21)
--- NOTE | 2024-12-28 15:27 | SUR.OPER ---
Upon end of procedure at 1451, patient out of room at 1455 and transferred to chest pain center with an arrival of 1500. Bedside report was given to floor nurse.
[2024-12-28] MEDS: MIDAZOLAM HCL (*CRX) 2 MG/2 ML VIAL 1 MG IV PUSH (15:44)
--- NOTE | 2024-12-28 16:00 | PC.NURSE ---
Dr. Marroquin notified of multiple unsuccessful attempts at placing PICC line. A ultrasound guided peripheral IV was obtained, limiting IV access to 2 lines with multiples continuous drips and bloods products ordered. Protonix and fluids will be resumed after completion of blood products.
[2024-12-28] MEDS: CALCIUM GLUC 2,000 MG/NS 100ML 2,000 MG/100 ML BAG 100 MG IVPB (16:28)
[2024-12-28 16:58] LABS: Alveolar/Arterial O2 Gradient 345.9 mmHg; Carboxyhemoglobin 0.6 % THb (0-2.0); Fractional Inspired Oxygen 100 %; HCO3 ABG 13.2 mEq/l (22.0-26.0); Methemoglobin ABG 0.2 %THb (0-1.5); Oxygen Content ABG 12.2 %vol (16.0-22.0); Oxygen Saturation ABG 99.7 % (95.0-100.0); PCO2 ABG 29.2 mmHg (35.0-45.0); PO2 ABG 337.9 mmHg (80.0-100.0); PO2 FiO2 Ratio Arterial Blood 3.38 %; Reduced Hemoglobin 0.6 %THb (0-5.0)
[2024-12-28 17:10] LABS: Site Drawn RIGHT RADIAL
[2024-12-28 17:11] LABS: Modified Allen's Test Pass
[2024-12-28 17:13] LABS: Arterial Blood Gas Ventilator rate 18 /MIN
[2024-12-28 17:14] LABS: Arterial Blood Gas Tidal Volume 350 ml
[2024-12-28] MEDS: SODIUM BICARBONATE 8.4% 50 MEQ/50 ML SYRINGE IV PUSH ×2 (17:30→18:06)
--- NOTE | 2024-12-28 17:31 | PCRCNOTE ---
ABG done late due to a sterile procedure.
[2024-12-28] MEDS: INSULIN ASPART (*BKC) 100 UNITS/ML SUB-Q (17:40)
[2024-12-28] MEDS: KCL 20 MEQ/D5/0.45% SOD CHL 1,000 ML 100 ML IV CONT (18:31)
[2024-12-28 20:34] LABS: Hematocrit 32.7 % (37.0-47.0); Hemoglobin 10.3 g/dL (12.0-15.0); Mean Corpuscular HGB Conc 31.5 g/dl (32-36); Mean Corpuscular Hemoglobin 29.0 pg (26-34); Mean Corpuscular Volume 92.1 fl (80-100); Platelet Count Result 244 k/mm3 (150-375); Red Blood Count 3.55 M/mm3 (4.2-5.4); White Blood Count 27.1 K/mm3 (4.5-10.0)
[2024-12-28] MEDS: fentaNYL CITRATE INJ (*CRX) 100 MCG/2 ML VIAL 50 MCG IV PUSH ×2 (22:17→23:35)
[2024-12-28] MEDS: MINERAL OIL/WHITE PETROLATUM OINTMENT 1 APPLIC EACH EYE (22:18)
[2024-12-29] VITALS (31 sets, daily range): BP systolic 89–125; BP diastolic 45–85; PULSE 39–106; RESP 6–28; TEMP 36.4–37.3; O2SAT 92–100
[2024-12-29] MEDS: PANTOPRAZOLE SODIUM IV 80 MG in SODIUM CHLORIDE 0.9% IV 500 ML 50 MG IV CONT ×2 (01:30→12:18)
[2024-12-29] MEDS: dexmedeTOMIDine 400 MCG/100 ML 400 MCG/100 ML BAG 8.33 MCG IV CONT (01:44)
[2024-12-29] MEDS: fentaNYL CITRATE INJ (*CRX) 100 MCG/2 ML VIAL 50 MCG IV PUSH ×4 (01:50→09:34)
[2024-12-29 02:23] LABS: Hematocrit 32.9 % (37.0-47.0); Hemoglobin 10.5 g/dL (12.0-15.0); Mean Corpuscular HGB Conc 31.9 g/dl (32-36); Mean Corpuscular Hemoglobin 29.1 pg (26-34); Mean Corpuscular Volume 91.1 fl (80-100); Platelet Count Result 200 k/mm3 (150-375); Red Blood Count 3.61 M/mm3 (4.2-5.4); White Blood Count 24.6 K/mm3 (4.5-10.0)
[2024-12-29 02:38] LABS: Anion Gap 7 mmol/L (4-12); Blood Urea Nitrogen 34 mg/dL (7-17); Calcium 7.8 mg/dL (8.4-10.2); Carbon Dioxide 16 mmol/L (22-30); Chloride 124 mmol/L (98-107); Estimated CRCL calculation 41 ml/min; Estimated Glomerular Filt Rate > 60; Glucose 156 mg/dL (65-110); Magnesium 2.0 mg/dL (1.6-2.3); Potassium 3.7 mmol/L (3.4-5.0); Sodium 147 mmol/L (137-145)
[2024-12-29 06:11] LABS: Alveolar/Arterial O2 Gradient 200.0 mmHg; Carboxyhemoglobin 0.2 % THb (0-2.0); Fractional Inspired Oxygen 50 %; HCO3 ABG 14.9 mEq/l (22.0-26.0); Methemoglobin ABG 0.3 %THb (0-1.5); Oxygen Content ABG 14.8 %vol (16.0-22.0); Oxygen Saturation ABG 98.4 % (95.0-100.0); PCO2 ABG 27.5 mmHg (35.0-45.0); PO2 ABG 125.6 mmHg (80.0-100.0); PO2 FiO2 Ratio Arterial Blood 2.51 %; Reduced Hemoglobin 1.8 %THb (0-5.0)
[2024-12-29 06:17] LABS: Site Drawn LEFT BRACHIAL
[2024-12-29 06:18] LABS: Arterial Blood Gas Tidal Volume 350 ml; Arterial Blood Gas Ventilator rate 18 /MIN
--- NOTE | 2024-12-29 08:30 | P.PNINT_ITS ---
Progress Note: A&P Assessment and Plan (1) Acute respiratory failure: Code(s): J96.00 - Acute respiratory failure, unspecified whether with hypoxia or hypercapnia Status: Acute Assessment and Plan: Patient intubated during EGD for airway protection. Chest x-ray ABG and ventilator settings reviewed I will plan to do weaning trial this morning and see if patient can be extubated (2) GI (gastrointestinal bleed): Qualifiers: GI bleed type/associated pathology: melena Qualified Code(s): K92.1 - Melena Code(s): K92.2 - Gastrointestinal hemorrhage, unspecified Status: Acute Assessment and Plan: Patient was admitted with GI bleed and EGD showed gastritis and duodenal ulcer. 12/28 It appears that she continues to bleed. Her hemoglobin was 6.4. She was given additional 2 units of PRBC Patient underwent repeat EGD and showed active bleeding from duodenal ulcer requiring injection of epinephrine. Patient was intubated for airway protection Continue Protonix infusion NPO Continue Serial hemoglobin monitoring (3) Hypotension: Code(s): I95.9 - Hypotension, unspecified Status: Acute Assessment and Plan: Hypotension secondary to GI bleed. Management as above Patient was given IV fluid bolus and PRBC transfusion Low-dose Phenylephrine infusion for blood pressure support if needed PICC line insertion over unsuccessful (4) Diabetes: Code(s): E11.9 - Type 2 diabetes mellitus without complications Status: Acute Assessment and Plan: Accu-Cheks and sliding scale insulin (5) Dementia: Qualifiers: Dementia type: unspecified type Dementia severity: severe Dementia behavioral or psychological symptom: unspecified whether behavioral, psychotic, or mood disturbance or anxiety Qualified Code(s): F03.C0 - Unspecified dementia, severe, without behavioral disturbance, psychotic disturbance, mood disturbance, and anxiety Code(s): F03.90 - Unspecified dementia, unspecified severity, without behavioral disturbance, psychotic disturbance, mood disturbance, and anxiety Status: Acute Assessment and Plan: His history of dementia which is chronic per chart Currently sedated with Precedex (6) Electrolyte abnormality: Code(s): E87.8 - Other disorders of electrolyte and fluid balance, not elsewhere classified Status: Acute Assessment and Plan: Replace low potassium. Will give D5 water for hypernatremia and hyperchloremia Add bicarb per tube for hyperchloremic metabolic acidosis Plan DVT prophylaxis: SCDs Stress ulcer prophylaxis: IV PPI infusion Nutrition: NPO Code Status: DNR/DNI Critical Care Time Spent: 35 minutes Due to a high probability of clinically significant, life threatening deterioration, the patient required my highest level of preparedness to intervene emergently and I personally spent this critical care time directly and personally managing the patient. This critical care time included obtaining a history; examining the patient; pulse oximetry; ordering and review of studies; arranging urgent treatment with development of a management plan; evaluation of patient's response to treatment; frequent reassessment; and discussions with other providers. It was exclusive of separately billable procedures and treating other patients and teaching time. Please see Assessment and Plan section and the rest of the note for further information on patient assessment and treatment This dictation may have been done utilizing a voice recognition system. Attempts have been made to correct errors. However, there may be uncorrected grammatical, spelling, and recognitions errors present. Subjective Date/time seen: 12/29/24 Yesterday after my assessment patient was taken to GI lab for EGD. Patient was intubated due to active bleeding and airway protection. Patient was brought to ICU intubated and on mechanical ventilation. Overnight patient remained intubated sedated and on mechanical ventilation. She is doing purposeful movement but does not follow commands. She is on Precedex for sedation and low- dose Blaine-Synephrine for blood pressure support. Urine output on the lower side. Sinus bradycardia afebrile Review of Systems Review of Systems: ROS unobtainable: Yes unobtainable due to endotracheal tu be, unobtainable due to medical condition and unobtainable due to mental status Exam Narrative: General: Pt is sedated intubated Lungs/Chest: Trachea central Clear BS B/L, No crackles or wheezing. Cardiac: RRR. Normal S1 S2. No murmurs Circulation: Pedal pulses are intact and symmetrical. Feet are warm Abdomen: Normal bowel sounds.. Soft. NT. ND. Extremities: No clubbing, cyanosis or edema. Warm : Crystal in place Neurologic: Does not Follows commands. Left hemiparesis, moves her right side spontaneously, PERRL Skin: No Rash HEENT: Dry tongue and mucosa Objective Data Vital Signs Vital Signs: Vital Signs - 24 hr 12/28/24 10:20 12/28/24 10:25 12/28/24 12:00 Temperature Pulse Rate 110 H 99 Respiratory Rate 20 19 Blood Pressure 82/42 L 109/54 L Pulse Oximetry 85 L 97 100 Oxygen Delivery Nasal Cannula Oxygen Flow Rate 2 Fraction of Inspired Oxygen 12/28/24 12:08 12/28/24 12:19 12/28/24 12:24 Temperature 36.5 C 36.6 C Pulse Rate 110 H 99 101 H Respiratory Rate 20 20 Blood Pressure 73/55 L 109/54 L 109/54 L Pulse Oximetry 97 100 Oxygen Delivery Oxygen Flow Rate Fraction of Inspired Oxygen 12/28/24 12:45 12/28/24 13:00 12/28/24 13:24 Temperature 36.4 C Pulse Rate 96 95 93 Respiratory Rate 19 19 Blood Pressure 124/86 129/78 126/68 Pulse Oximetry 95 100 Oxygen Delivery Oxygen Flow Rate Fraction of Inspired Oxygen 12/28/24 14:00 12/28/24 14:04 12/28/24 14:12 Temperature 36.8 C Pulse Rate 91 70 85 Respiratory Rate 19 16 18 Blood Pressure 134/67 129/79 118/78 Pulse Oximetry 91 95 100 Oxygen Delivery Room Air Oxygen Flow Rate Fraction of Inspired Oxygen 12/28/24 15:00 12/28/24 15:15 12/28/24 15:45 Temperature Pulse Rate 120 H 65 66 Respiratory Rate 24 H 18 15 Blood Pressure 124/80 Pulse Oximetry 100 Oxygen Delivery Oxygen Flow Rate Fraction of Inspired Oxygen 12/28/24 16:00 12/28/24 16:00 12/28/24 16:20 Temperature 36.2 C L Pulse Rate 102 H 110 H 107 H Respiratory Rate 24 H 29 H 27 H Blood Pressure 88/60 L 91/71 L Pulse Oximetry 100 100 Oxygen Delivery Oxygen Flow Rate Fraction of Inspired Oxygen 12/28/24 16:30 12/28/24 16:36 12/28/24 16:40 Temperature 36.6 C Pulse Rate 106 H 106 H 105 H Respiratory Rate 22 H 24 H Blood Pressure 87/55 L 86/46 L Pulse Oximetry 98 Oxygen Delivery Oxygen Flow Rate Fraction of Inspired Oxygen 12/28/24 17:00 12/28/24 17:15 12/28/24 17:30 Temperature Pulse Rate 82 93 106 H Respiratory Rate 15 Blood Pressure 110/67 75/46 L Pulse Oximetry 100 100 Oxygen Delivery Mechanical Ventilation Oxygen Flow Rate Fraction of Inspired Oxygen 40 12/28/24 17:35 12/28/24 17:36 12/28/24 17:39 Temperature 36.4 C Pulse Rate 105 H 82 106 H Respiratory Rate 21 H Blood Pressure 71/52 L 71/52 L 71/52 L Pulse Oximetry 98 Oxygen Delivery Oxygen Flow Rate Fraction of Inspired Oxygen 12/28/24 17:45 12/28/24 18:00 12/28/24 18:00 Temperature Pulse Rate 88 70 70 Respiratory Rate 19 Blood Pressure 116/79 154/70 H 154/74 H Pulse Oximetry 98 Oxygen Delivery Oxygen Flow Rate Fraction of Inspired Oxygen 12/28/24 18:15 12/28/24 18:30 12/28/24 19:01 Temperature Pulse Rate 62 67 89 Respiratory Rate 16 Blood Pressure 149/69 H 114/66 Pulse Oximetry Oxygen Delivery Oxygen Flow Rate Fraction of Inspired Oxygen 12/28/24 19:02 12/28/24 19:12 12/28/24 19:51 Temperature Pulse Rate 72 68 76 Respiratory Rate 14 Blood Pressure 84/62 L 62/46 L Pulse Oximetry Oxygen Delivery Oxygen Flow Rate Fraction of Inspired Oxygen 12/28/24 20:00 12/28/24 20:00 12/28/24 20:00 Temperature 36.8 C Pulse Rate 57 L 57 L Respiratory Rate 15 15 Blood Pressure 131/59 L Pulse Oximetry 92 92 Oxygen Delivery Mechanical Ventilation Oxygen Flow Rate Fraction of Inspired Oxygen 40 12/28/24 20:00 12/28/24 20:00 12/28/24 20:00 Temperature Pulse Rate 57 L 59 L Respiratory Rate Blood Pressure 131/59 L Pulse Oximetry Oxygen Delivery Oxygen Flow Rate Fraction of Inspired Oxygen 40 12/28/24 20:40 12/28/24 22:00 12/28/24 22:00 Temperature Pulse Rate 57 L 55 L 55 L Respiratory Rate 13 13 Blood Pressure 114/65 Pulse Oximetry 95 99 Oxygen Delivery Mechanical Ventilation Oxygen Flow Rate Fraction of Inspired Oxygen 55 12/28/24 22:00 12/28/24 22:00 12/28/24 22:15 Temperature Pulse Rate 55 L 60 47 L Respiratory Rate 18 Blood Pressure 114/65 Pulse Oximetry Oxygen Delivery Oxygen Flow Rate Fraction of Inspired Oxygen 12/28/24 23:18 12/29/24 00:00 12/29/24 00:00 Temperature 36.7 C Pulse Rate 49 L 51 L Respiratory Rate 18 Blood Pressure 125/65 Pulse Oximetry 100 92 99 Oxygen Delivery Mechanical Ventilation Mechanical Ventilation Oxygen Flow Rate Fraction of Inspired Oxygen 55 40 12/29/24 00:00 12/29/24 00:00 12/29/24 00:00 Temperature Pulse Rate 49 L 51 L Respiratory Rate 18 Blood Pressure Pulse Oximetry Oxygen Delivery Oxygen Flow Rate Fraction of Inspired Oxygen 50 12/29/24 00:00 12/29/24 01:44 12/29/24 01:44 Temperature Pulse Rate 51 L 50 L 50 L Respiratory Rate 18 18 Blood Pressure 125/65 Pulse Oximetry Oxygen Delivery Oxygen Flow Rate Fraction of Inspired Oxygen 12/29/24 02:00 12/29/24 02:00 12/29/24 02:00 Temperature Pulse Rate 46 L 46 L 46 L Respiratory Rate 18 18 Blood Pressure 100/68 100/58 L Pulse Oximetry 100 Oxygen Delivery Oxygen Flow Rate Fraction of Inspired Oxygen 12/29/24 02:00 12/29/24 02:25 12/29/24 02:45 Temperature Pulse Rate 46 L 47 L 39 L Respiratory Rate 18 Blood Pressure Pulse Oximetry 100 Oxygen Delivery Mechanical Ventilation Oxygen Flow Rate Fraction of Inspired Oxygen 50 12/29/24 04:00 12/29/24 04:00 12/29/24 04:00 Temperature 36.8 C Pulse Rate 49 L Respiratory Rate 18 Blood Pressure 124/51 L Pulse Oximetry 100 100 Oxygen Delivery Mechanical Ventilation Oxygen Flow Rate Fraction of Inspired Oxygen 50 40 12/29/24 04:00 12/29/24 04:00 12/29/24 04:00 Temperature Pulse Rate 50 L 49 L 49 L Respiratory Rate 18 Blood Pressure 124/51 L Pulse Oximetry Oxygen Delivery Oxygen Flow Rate Fraction of Inspired Oxygen 12/29/24 05:00 12/29/24 06:00 12/29/24 06:00 Temperature 36.4 C Pulse Rate 47 L 53 L 53 L Respiratory Rate 18 Blood Pressure 120/71 120/71 Pulse Oximetry 95 100 Oxygen Delivery Mechanical Ventilation Oxygen Flow Rate Fraction of Inspired Oxygen 50 12/29/24 06:00 12/29/24 06:00 Temperature Pulse Rate 53 L 53 L Respiratory Rate 18 Blood Pressure Pulse Oximetry Oxygen Delivery Oxygen Flow Rate Fraction of Inspired Oxygen Intake/Output Intake/Output: Intake & Output 12/26/24 12/27/24 12/28/24 12/29/24 23:59 23:59 23:59 23:59 Intake Total 1340 1682 1449.5 493.4 Output Total 1350 900 550 750 Balance -10 782 899.5 -256.6 Meds/Results Medications: Active Medications Generic Name Dose Route Start Last Admin Trade Name Freq PRN Reason Stop Dose Admin Artificial Tears 2 drop 12/28/24 12:16 Artificial Tears Ophth Soln 15 Ml Bottle EACH EYE Q4H PRN Dry Eye(s) Atorvastatin Calcium 80 mg 12/28/24 18:00 12/28/24 16:44 Atorvastatin 40 Mg Tablet PO Not Given QPM ELIAS Bisacodyl 5 mg 12/28/24 12:16 Bisacodyl 5 Mg Tablet Ec PO DAILY PRN Constipation Dextrose 12.5 gm 12/24/24 11:56 12/25/24 06:03 Dextrose 50% 25 Gm/50 Ml Syringe IV PUSH 12.5 gm PRN PRN Administration Hypoglycemia Protocol Diltiazem HCl 60 mg 12/28/24 13:00 12/28/24 16:44 Diltiazem Hcl 60 Mg Tablet PO Not Given On Hold: 12/29/24 07:42 TID [facility] Ergocalciferol 1,250 mcg 01/01/25 09:00 Ergocalciferol (Vitamin D2) 1,250 Mcg (50,000 Units) Capsule PO WEEKLY [facility] Fentanyl Citrate 50 mcg 12/28/24 15:18 12/29/24 07:30 Fentanyl Citrate Inj (*Crx) 100 Mcg/2 Ml Vial IV PUSH 50 mcg Q1HR PRN Administration vent asynchronous Ferrous Sulfate 325 mg 12/29/24 09:00 Ferrous Sulfate [address] PO DAILY [facility] Folic Acid 1 mg 12/29/24 09:00 Folic Acid 1 Mg Tablet PO DAILY [facility]IAS Glucagon 1 mg 12/24/24 11:56 Glucagon For Inj 1 Mg Vial IM PRN PRN Hypoglycemia Protocol Glucose 15 gm 12/24/24 11:56 Glucose Oral Gel 15 Gm Of Glucse In 37.5 Gm Tube PO PRN PRN Hypoglycemia Protocol Hydrocortisone 1 applic 12/29/24 09:00 Hydrocortisone 1% 30 Gm Cream TOPICAL DAILY ELIAS Dextrose 1,000 mls @ 100 mls/hr 12/24/24 11:56 Dextrose 5% 1,000 Ml IVPB PRN PRN Hypoglycemia Protocol Pantoprazole Sodium 80 mg/ 500 mls @ 50 mls/hr 12/27/24 16:00 12/29/24 06:37 Sodium Chloride IV CONT Not Given .Q10H ELIAS Phenylephrine HCl 50 mg/ 250 mls @ 15 mls/hr 12/28/24 11:20 12/29/24 06:37 Sodium Chloride IV CONT Not Given .[id number] ELIAS Protocol 50 MCG/MIN Dexmedetomidine HCl 400 mcg in 100 mls @ 5.95 mls/hr 12/28/24 15:20 12/29/24 06:37 Precedex 400 Mcg/100 Ml IV CONT Not Given .[id number] ELIAS Protocol 0.5 MCG/KG/HR Insulin Aspart 2 - 5 units 12/24/24 12:00 12/29/24 06:37 Insulin Aspart (*Bkc) 100 Units/Ml SUB-Q Not Given Q6HR [facility] Protocol Metformin HCl 500 mg 12/29/24 09:00 Metformin Hcl 500 Mg Tablet PO DAILY [facility] Miscellaneous Information 1 each 12/28/24 09:00 12/28/24 15:59 Central Supply Item XX 12/29/24 08:59 Not Given DAILY [facility] Multi-Ingred Cream/Lotion/Oil/Oint 1 applic 12/28/24 21:00 12/28/24 22:18 Mineral Oil/White Petrolatum Ointment EACH EYE 1 applic Q12HR ELIAS Administration Ondansetron HCl 4 mg 12/23/24 21:36 12/26/24 20:21 Ondansetron Inj 4 Mg/2 Ml Vial IV PUSH 4 mg Q4H PRN Administration Nausea Polyethylene Glycol 17 gm 12/28/24 12:16 Polyethylene Glycol 3350 17 Gm Powd.Pack PO DAILY PRN Constipation Sodium Bicarbonate 650 mg 12/29/24 09:00 Sodium Bicarbonate Tab 650 Mg Tablet FEED TUBE BID ELIAS Sodium Chloride 1 spray 12/28/24 12:16 Saline 0.65% Tomas Soln 44 Ml Btl NASAL Q2H PRN Dry Nasal Passages Radiology Results: ITS Impressions Abdomen X-Ray 12/28/24 15:44 IMPRESSION: Nasogastric tube courses below the diaphragm, its tip projects over the medial aspect of the left upper abdomen likely within the body of the stomach. Nonspecific bowel gas pattern. Chest X-Ray 12/29/24 05:47 Impression: Focal retrocardiac airspace disease. Support tubes, as above. Labs Labs: Laboratory Results - last 24 hr 12/27/24 12/28/24 12/28/24 09:01 10:41 14:08 WBC RBC Hgb 6.4 L* Hct 20.4 L* MCV MCH MCHC RDW Plt Count MPV Puncture Site ABG pH ABG pCO2 ABG pO2 ABG PO2/FiO2 Ratio ABG HCO3 ABG O2 Saturation ABG O2 Content ABG Base Excess A-a Gradient Oxyhemoglobin Carboxyhemoglobin Methemoglobin Reduced Hemoglobin Total Hemoglobin O2 Delivery Device O2 Liters/Min Minute Volume Vent Rate Vent Mode FiO2 Tidal Volume PEEP Peak Inspir Pressure Pressure Support Sodium Potassium Chloride Carbon Dioxide Anion Gap BUN Creatinine Estim Creat Clear Calc Estimated GFR Glucose POC Capillary Glucose 206 H Calcium Magnesium Blood Type O Positive Antibody Screen Negative Crossmatch See Detail 12/28/24 12/28/24 12/28/24 16:41 16:48 20:28 WBC 27.1 H RBC 3.55 L Hgb 10.3 L D Hct 32.7 L MCV 92.1 MCH 29.0 MCHC 31.5 L RDW 15.7 H Plt Count 244 MPV 9.8 Puncture Site Right radial ABG pH 7.273 L* ABG pCO2 29.2 L ABG pO2 337.9 H ABG PO2/FiO2 Ratio 3.38 ABG HCO3 13.2 L ABG O2 Saturation 99.7 ABG O2 Content 12.2 L ABG Base Excess -12.5 A-a Gradient 345.9 Oxyhemoglobin 98.6 Carboxyhemoglobin 0.6 Methemoglobin 0.2 Reduced Hemoglobin 0.6 Total Hemoglobin 8.1 L O2 Delivery Device Ventilator O2 Liters/Min Not Reportable Minute Volume Not Reportable Vent Rate 18 Vent Mode Cmv FiO2 100 Tidal Volume 350 PEEP 5 Peak Inspir Pressure Pressure Support Not Reportable Sodium Potassium Chloride Carbon Dioxide Anion Gap BUN Creatinine Estim Creat Clear Calc Estimated GFR Glucose POC Capillary Glucose 211 H Calcium Magnesium Blood Type Antibody Screen Crossmatch 12/29/24 12/29/24 12/29/24 00:44 02:21 04:47 WBC 24.6 H RBC 3.61 L Hgb 10.5 L Hct 32.9 L MCV 91.1 MCH 29.1 MCHC 31.9 L RDW 15.9 H Plt Count 200 MPV 10.0 Puncture Site Left brachial ABG pH 7.353 ABG pCO2 27.5 L ABG pO2 125.6 H ABG PO2/FiO2 Ratio 2.51 ABG HCO3 14.9 L ABG O2 Saturation 98.4 ABG O2 Content 14.8 L ABG Base Excess -9.3 A-a Gradient 200.0 Oxyhemoglobin 97.7 Carboxyhemoglobin 0.2 Methemoglobin 0.3 Reduced Hemoglobin 1.8 Total Hemoglobin 10.6 L O2 Delivery Device Ventilator O2 Liters/Min Not Reportable Minute Volume Not Reportable Vent Rate 18 Vent Mode Cmv FiO2 50 Tidal Volume 350 PEEP 5 Peak Inspir Pressure Not Reportable Pressure Support Not Reportable Sodium 147 H Potassium 3.7 Chloride 124 H Carbon Dioxide 16 L Anion Gap 7 BUN 34 H Creatinine 0.87 Estim Creat Clear Calc 41 Estimated GFR > 60 Glucose 156 H POC Capillary Glucose 156 H Calcium 7.8 L Magnesium 2.0 Blood Type Antibody Screen Crossmatch 12/29/24 05:19 WBC RBC Hgb Hct MCV MCH MCHC RDW Plt Count MPV Puncture Site ABG pH ABG pCO2 ABG pO2 ABG PO2/FiO2 Ratio ABG HCO3 ABG O2 Saturation ABG O2 Content ABG Base Excess A-a Gradient Oxyhemoglobin Carboxyhemoglobin Methemoglobin Reduced Hemoglobin Total Hemoglobin O2 Delivery Device O2 Liters/Min Minute Volume Vent Rate Vent Mode FiO2 Tidal Volume PEEP Peak Inspir Pressure Pressure Support Sodium Potassium Chloride Carbon Dioxide Anion Gap BUN Creatinine Estim Creat Clear Calc Estimated GFR Glucose POC Capillary Glucose 115 H Calcium Magnesium Blood Type Antibody Screen Crossmatch Quality VTE Prophylaxis VTE prophylaxis: mechanical ordered
[2024-12-29] MEDS: POTASSIUM BICARBONATE 25 MEQ TABEF 50 MEQ FEED TUBE (09:01)
[2024-12-29] MEDS: FOLIC ACID 1 MG TABLET PO (09:02)
[2024-12-29] MEDS: FERROUS SULFATE 325 MG TABLET DR PO (09:02)
[2024-12-29] MEDS: MINERAL OIL/WHITE PETROLATUM OINTMENT 1 APPLIC EACH EYE (09:03)
[2024-12-29] MEDS: HYDROCORTISONE 1% 30 GM CREAM 1 APPLIC TOPICAL (09:03)
[2024-12-29] MEDS: SODIUM BICARBONATE TAB 650 MG TABLET FEED TUBE (09:03)
[2024-12-29 09:14] LABS: Alveolar/Arterial O2 Gradient 243.9 mmHg; Fractional Inspired Oxygen 50 %; HCO3 ABG 15.8 mEq/l (22.0-26.0); Oxygen Content ABG 14.0 %vol (16.0-22.0); Oxygen Saturation ABG 96.7 % (95.0-100.0); PCO2 ABG 25.0 mmHg (35.0-45.0); PO2 ABG 84.5 mmHg (80.0-100.0); PO2 FiO2 Ratio Arterial Blood 1.69 %
[2024-12-29 09:15] LABS: Modified Allen's Test Pass; Site Drawn RIGHT RADIAL
[2024-12-29 09:16] LABS: Arterial Blood Gas Pressure Support 5 cmH2O
[2024-12-29] MEDS: LIDOCAINE 1% PF INJ 5 ML VIAL INFILTRATE (12:19)
[2024-12-29 13:46] LABS: Hematocrit 25.9 % (37.0-47.0); Hemoglobin 8.9 g/dL (12.0-15.0); Mean Corpuscular HGB Conc 34.4 g/dl (32-36); Mean Corpuscular Hemoglobin 29.8 pg (26-34); Mean Corpuscular Volume 86.6 fl (80-100); Platelet Count Result 182 k/mm3 (150-375); Red Blood Count 2.99 M/mm3 (4.2-5.4); White Blood Count 22.5 K/mm3 (4.5-10.0)
--- NOTE | 2024-12-29 13:58 | PCFNICU ---
ICU Rounding Note: Pt current nutrition is NPO. Nutrition recommendation: Advance diet when medically able. Last recorded weight is 50.2 kg. Bowel Motility: +1 bm 12/27 Labs Reviewed: Na 147, BUN 34, Glu 156 Meds Noted: Novolog, Norsynephrine Skin: NA Additional Notes: Pt was intubated for EGD and plann to extubate today. GI bleed. Advance diet per MD only. Will follow on Wednesday. Previous diet was puree with moderately thickened liquids L3. Following daily in ICU rounds. RD will monitor, weight, labs, skin, diet orders, meds every 3 days. ..
[2024-12-29 14:19] LABS: Band Neutrophils Percent 10 % (0-6); Lymphocytes Absolute Manual 1.12 K/mm3 (1.1-4.5); Lymphocytes Percent Manual 5 % (18-44); Monocytes Absolute Manual 0.45 K/mm3 (0.1-0.90); Monocytes Percent Manual 2 % (3-9); Neutrophils Absolute Manual 20.92 K/mm3 (1.3-6.7); Neutrophils Percent Manual 83 % (46-73); Schistocytes None Seen; Total Cells Counted 100
[2024-12-29 14:20] LABS: Anisocytosis 1+
--- NOTE | 2024-12-29 16:19 | WPDGIPROGNO ---
Progress Note: A&P Assessment and Plan (1) Duodenal ulcer: Code(s): K26.9 - Duodenal ulcer, unspecified as acute or chronic, without hemorrhage or perforation Status: Acute Assessment and Plan: active bleeding, treated endoscopically yesterday and noted active bleeding from visible vessel, at the end of procedure able to achieve hemostasis monitor closely for rebleeding, may need transfer to tertiary hospital for IR embolization continue with iv protonix do not use blood thinner keep hgb> 7 overall better (2) GI (gastrointestinal bleed): Qualifiers: GI bleed type/associated pathology: melena Qualified Code(s): K92.1 - Melena Code(s): K92.2 - Gastrointestinal hemorrhage, unspecified Status: Acute Assessment and Plan: iv protonix (3) Melena: Code(s): K92.1 - Melena Status: Acute (4) Acute on chronic anemia: Code(s): D64.9 - Anemia, unspecified Status: Acute Assessment and Plan: monitor (5) Dementia: Qualifiers: Dementia type: unspecified type Dementia severity: severe Dementia behavioral or psychological symptom: unspecified whether behavioral, psychotic, or mood disturbance or anxiety Qualified Code(s): F03.C0 - Unspecified dementia, severe, without behavioral disturbance, psychotic disturbance, mood disturbance, and anxiety Code(s): F03.90 - Unspecified dementia, unspecified severity, without behavioral disturbance, psychotic disturbance, mood disturbance, and anxiety Status: Acute Subjective Date/time seen: 12/29/24 16:19 Interval history: egd yesterday with active bleeding from visible vessel duodenal ulcer treated with epi, clips and gold probe she was just extubated no more obvious signs of bleeding she is not longer on pressors Review of Systems Review of Systems: All systems reviewed & are unremarkable except as noted in HPI and below Exam Narrative: chronically ill appearing, just recently extubated neck: supple Lungs/Chest: Clear BS B/L, No crackles or wheezing. Cardiac: RRR. Normal S1 S2. Circulation: Pedal pulses are intact and symmetrical. Feet are warm Abdomen: Normal bowel sounds.. Soft. NT. ND. Extremities: No clubbing, cyanosis or edema. Warm : Crystal in place Neurologic: Does not Follows commands. Left hemiparesis, moves her right side spontaneously, PERRL Skin: No Rash HEENT: Dry tongue and mucosa Objective Data Vital Signs Vital Signs: Vital Signs - 24 hr 12/28/24 16:20 12/28/24 16:30 12/28/24 16:36 Temperature 97.2 F L 97.8 F Pulse Rate 107 H 106 H 106 H Respiratory Rate 27 H 22 H 24 H Blood Pressure 91/71 L 87/55 L Pulse Oximetry 100 98 Oxygen Delivery Fraction of Inspired Oxygen 12/28/24 16:40 12/28/24 17:00 12/28/24 17:15 Temperature Pulse Rate 105 H 82 93 Respiratory Rate 15 Blood Pressure 86/46 L 110/67 Pulse Oximetry 100 100 Oxygen Delivery Mechanical Ventilation Fraction of Inspired Oxygen 40 12/28/24 17:30 12/28/24 17:35 12/28/24 17:36 Temperature 97.6 F Pulse Rate 106 H 105 H 82 Respiratory Rate 21 H Blood Pressure 75/46 L 71/52 L 71/52 L Pulse Oximetry 98 Oxygen Delivery Fraction of Inspired Oxygen 12/28/24 17:39 12/28/24 17:45 12/28/24 18:00 Temperature Pulse Rate 106 H 88 70 Respiratory Rate Blood Pressure 71/52 L 116/79 154/70 H Pulse Oximetry Oxygen Delivery Fraction of Inspired Oxygen 12/28/24 18:00 12/28/24 18:15 12/28/24 18:30 Temperature Pulse Rate 70 62 67 Respiratory Rate 19 Blood Pressure 154/74 H 149/69 H 114/66 Pulse Oximetry 98 Oxygen Delivery Fraction of Inspired Oxygen 12/28/24 19:01 12/28/24 19:02 12/28/24 19:12 Temperature Pulse Rate 89 72 68 Respiratory Rate 16 Blood Pressure 84/62 L 62/46 L Pulse Oximetry Oxygen Delivery Fraction of Inspired Oxygen 12/28/24 19:51 12/28/24 20:00 12/28/24 20:00 Temperature 98.2 F Pulse Rate 76 57 L Respiratory Rate 14 15 Blood Pressure 131/59 L Pulse Oximetry 92 92 Oxygen Delivery Mechanical Ventilation Fraction of Inspired Oxygen 40 12/28/24 20:00 12/28/24 20:00 12/28/24 20:00 Temperature Pulse Rate 57 L 57 L 59 L Respiratory Rate 15 Blood Pressure 131/59 L Pulse Oximetry Oxygen Delivery Fraction of Inspired Oxygen 12/28/24 20:00 12/28/24 20:40 12/28/24 22:00 Temperature Pulse Rate 57 L 55 L Respiratory Rate 13 Blood Pressure 114/65 Pulse Oximetry 95 99 Oxygen Delivery Mechanical Ventilation Fraction of Inspired Oxygen 40 55 12/28/24 22:00 12/28/24 22:00 12/28/24 22:00 Temperature Pulse Rate 55 L 55 L 60 Respiratory Rate 13 Blood Pressure 114/65 Pulse Oximetry Oxygen Delivery Fraction of Inspired Oxygen 12/28/24 22:15 12/28/24 23:18 12/29/24 00:00 Temperature Pulse Rate 47 L 49 L Respiratory Rate 18 Blood Pressure Pulse Oximetry 100 92 Oxygen Delivery Mechanical Ventilation Mechanical Ventilation Fraction of Inspired Oxygen 55 40 12/29/24 00:00 12/29/24 00:00 12/29/24 00:00 Temperature 98.0 F Pulse Rate 51 L 49 L Respiratory Rate 18 Blood Pressure 125/65 Pulse Oximetry 99 Oxygen Delivery Fraction of Inspired Oxygen 50 12/29/24 00:00 12/29/24 00:00 12/29/24 01:44 Temperature Pulse Rate 51 L 51 L 50 L Respiratory Rate 18 18 Blood Pressure 125/65 Pulse Oximetry Oxygen Delivery Fraction of Inspired Oxygen 12/29/24 01:44 12/29/24 02:00 12/29/24 02:00 Temperature Pulse Rate 50 L 46 L 46 L Respiratory Rate 18 18 Blood Pressure 100/68 Pulse Oximetry Oxygen Delivery Fraction of Inspired Oxygen 12/29/24 02:00 12/29/24 02:00 12/29/24 02:25 Temperature Pulse Rate 46 L 46 L 47 L Respiratory Rate 18 Blood Pressure 100/58 L Pulse Oximetry 100 100 Oxygen Delivery Mechanical Ventilation Fraction of Inspired Oxygen 50 12/29/24 02:45 12/29/24 04:00 12/29/24 04:00 Temperature 98.3 F Pulse Rate 39 L 49 L Respiratory Rate 18 18 Blood Pressure 124/51 L Pulse Oximetry 100 Oxygen Delivery Fraction of Inspired Oxygen 50 12/29/24 04:00 12/29/24 04:00 12/29/24 04:00 Temperature Pulse Rate 50 L 49 L Respiratory Rate 18 Blood Pressure Pulse Oximetry 100 Oxygen Delivery Mechanical Ventilation Fraction of Inspired Oxygen 40 12/29/24 04:00 12/29/24 05:00 12/29/24 06:00 Temperature 97.6 F Pulse Rate 49 L 47 L 53 L Respiratory Rate 18 Blood Pressure 124/51 L 120/71 Pulse Oximetry 95 100 Oxygen Delivery Mechanical Ventilation Fraction of Inspired Oxygen 50 12/29/24 06:00 12/29/24 06:00 12/29/24 06:00 Temperature Pulse Rate 53 L 53 L 53 L Respiratory Rate 18 Blood Pressure 120/71 Pulse Oximetry Oxygen Delivery Fraction of Inspired Oxygen 12/29/24 08:00 12/29/24 08:00 12/29/24 08:00 Temperature 98.6 F Pulse Rate 60 63 Respiratory Rate 16 Blood Pressure 109/61 Pulse Oximetry 100 100 Oxygen Delivery Mechanical Ventilation Fraction of Inspired Oxygen 50 50 12/29/24 08:00 12/29/24 08:00 12/29/24 08:20 Temperature Pulse Rate 61 61 Respiratory Rate Blood Pressure Pulse Oximetry 100 100 Oxygen Delivery Mechanical Ventilation Mechanical Ventilation Fraction of Inspired Oxygen 50 12/29/24 10:00 12/29/24 10:00 12/29/24 10:05 Temperature 98.8 F Pulse Rate 70 70 61 Respiratory Rate 18 Blood Pressure 113/64 Pulse Oximetry 100 98 Oxygen Delivery Mechanical Ventilation Fraction of Inspired Oxygen 50 12/29/24 12:00 12/29/24 12:00 12/29/24 12:00 Temperature 98.8 F Pulse Rate 75 83 Respiratory Rate 20 Blood Pressure 110/56 L Pulse Oximetry 100 100 Oxygen Delivery Mechanical Ventilation Fraction of Inspired Oxygen 50 12/29/24 12:00 12/29/24 13:15 12/29/24 14:00 Temperature Pulse Rate 82 88 Respiratory Rate Blood Pressure Pulse Oximetry 100 Oxygen Delivery Mechanical Ventilation Fraction of Inspired Oxygen 50 40 12/29/24 14:00 Temperature Pulse Rate 88 Respiratory Rate 25 H Blood Pressure 111/60 Pulse Oximetry 97 Oxygen Delivery Fraction of Inspired Oxygen Intake/Output Intake/Output: Intake & Output 12/26/24 12/27/24 12/28/24 12/29/24 23:59 23:59 23:59 23:59 Intake Total 1340 1682 1449.5 993.4 Output Total 1350 900 550 750 Balance -10 782 899.5 243.4 Meds/Results Medications: Active Medications Generic Name Dose Route Start Last Admin Trade Name Freq PRN Reason Stop Dose Admin Artificial Tears 2 drop 12/28/24 12:16 Artificial Tears Ophth Soln 15 Ml Bottle EACH EYE Q4H PRN Dry Eye(s) Atorvastatin Calcium 80 mg 12/28/24 18:00 12/28/24 16:44 Atorvastatin 40 Mg Tablet PO Not Given QPM ELIAS Bisacodyl 5 mg 12/28/24 12:16 Bisacodyl 5 Mg Tablet Ec PO DAILY PRN Constipation Dextrose 12.5 gm 12/24/24 11:56 12/25/24 06:03 Dextrose 50% 25 Gm/50 Ml Syringe IV PUSH 12.5 gm PRN PRN Administration Hypoglycemia Protocol Diltiazem HCl 60 mg 12/28/24 13:00 12/28/24 16:44 Diltiazem Hcl 60 Mg Tablet PO Not Given On Hold: 12/29/24 07:42 TID ELIAS Ergocalciferol 1,250 mcg 01/01/25 09:00 Ergocalciferol (Vitamin D2) 1,250 Mcg (50,000 Units) Capsule PO WEEKLY ELIAS Ferrous Sulfate 325 mg 12/29/24 09:00 12/29/24 09:02 Ferrous Sulfate [address] PO 325 mg DAILY ELIAS Administration Folic Acid 1 mg 12/29/24 09:00 12/29/24 09:02 Folic Acid 1 Mg Tablet PO 1 mg DAILY ELIAS Administration Glucagon 1 mg 12/24/24 11:56 Glucagon For Inj 1 Mg Vial IM PRN PRN Hypoglycemia Protocol Glucose 15 gm 12/24/24 11:56 Glucose Oral Gel 15 Gm Of Glucse In 37.5 Gm Tube PO PRN PRN Hypoglycemia Protocol Hydrocortisone 1 applic 12/29/24 09:00 12/29/24 09:03 Hydrocortisone 1% 30 Gm Cream TOPICAL 1 applic DAILY ELIAS Administration Dextrose 1,000 mls @ 100 mls/hr 12/24/24 11:56 Dextrose 5% 1,000 Ml IVPB PRN PRN Hypoglycemia Protocol Pantoprazole Sodium 80 mg/ 500 mls @ 50 mls/hr 12/27/24 16:00 12/29/24 12:18 Sodium Chloride IV CONT 50 mls/hr .Q10H ELIAS Administration Phenylephrine HCl 50 mg/ 250 mls @ 15 mls/hr 12/28/24 11:20 12/29/24 06:37 Sodium Chloride IV CONT Not Given .[id number] ELIAS Protocol 50 MCG/MIN Insulin Aspart 2 - 5 units 12/24/24 12:00 12/29/24 12:22 Insulin Aspart (*Bkc) 100 Units/Ml SUB-Q Not Given Q6HR ELIAS Protocol Metformin HCl 500 mg 12/29/24 09:00 12/29/24 09:02 Metformin Hcl 500 Mg Tablet PO 500 mg On Hold: 12/29/24 13:46 DAILY ELIAS Administration Multi-Ingred Cream/Lotion/Oil/Oint 1 applic 12/28/24 21:00 12/29/24 09:03 Mineral Oil/White Petrolatum Ointment EACH EYE 1 applic Q12HR ELIAS Administration Ondansetron HCl 4 mg 12/23/24 21:36 12/26/24 20:21 Ondansetron Inj 4 Mg/2 Ml Vial IV PUSH 4 mg Q4H PRN Administration Nausea Polyethylene Glycol 17 gm 12/28/24 12:16 Polyethylene Glycol 3350 17 Gm Powd.Pack PO DAILY PRN Constipation Sodium Bicarbonate 650 mg 12/29/24 17:00 Sodium Bicarbonate Tab 650 Mg Tablet PO BID ELIAS Sodium Chloride 1 spray 12/28/24 12:16 Saline 0.65% Tomas Soln 44 Ml Btl NASAL Q2H PRN Dry Nasal Passages Radiology Results: ITS Impressions Abdomen X-Ray 12/28/24 15:44 IMPRESSION: Nasogastric tube courses below the diaphragm, its tip projects over the medial aspect of the left upper abdomen likely within the body of the stomach. Nonspecific bowel gas pattern. Chest X-Ray 12/29/24 05:47 Impression: Focal retrocardiac airspace disease. Support tubes, as above. Labs Labs: Laboratory Results - last 24 hr 12/27/24 12/28/24 12/28/24 09:01 16:41 16:48 WBC RBC Hgb Hct MCV MCH MCHC RDW Plt Count MPV Immature Gran % (Auto) Neut % (Auto) Lymph % (Auto) [place] % (Auto) Eos % (Auto) Baso % (Auto) Lymph # (Auto) [place] # (Auto) Eos # (Auto) Baso # (Auto) Abs Immat Gran (auto) Absolute Neuts (auto) Absolute Nucleated RBC Total Counted Neutrophils % (Manual) Band Neutrophils % Lymphocytes % (Manual) Monocytes % (Manual) Nucleated RBC % Abs Neuts (Manual) Abs Lymphs (Manual) Abs Monocytes (Manual) Platelet Estimate % Immature Plt Fraction Anisocytosis Schistocytes Puncture Site Right radial ABG pH 7.273 L* ABG pCO2 29.2 L ABG pO2 337.9 H ABG PO2/FiO2 Ratio 3.38 ABG HCO3 13.2 L ABG O2 Saturation 99.7 ABG O2 Content 12.2 L ABG Base Excess -12.5 A-a Gradient 345.9 Oxyhemoglobin 98.6 Carboxyhemoglobin 0.6 Methemoglobin 0.2 Reduced Hemoglobin 0.6 Total Hemoglobin 8.1 L O2 Delivery Device Ventilator O2 Liters/Min Not Reportable Minute Volume Not Reportable Vent Rate 18 Vent Mode Cmv FiO2 100 Tidal Volume 350 PEEP 5 Peak Inspir Pressure Pressure Support Not Reportable Sodium Potassium Chloride Carbon Dioxide Anion Gap BUN Creatinine Estim Creat Clear Calc Estimated GFR Glucose POC Capillary Glucose 211 H Calcium Magnesium Blood Type O Positive Antibody Screen Negative Crossmatch See Detail 12/28/24 12/29/24 12/29/24 20:28 00:44 02:21 WBC 27.1 H 24.6 H RBC 3.55 L 3.61 L Hgb 10.3 L D 10.5 L Hct 32.7 L 32.9 L MCV 92.1 91.1 MCH 29.0 29.1 MCHC 31.5 L 31.9 L RDW 15.7 H 15.9 H Plt Count 244 200 MPV 9.8 10.0 Immature Gran % (Auto) Neut % (Auto) Lymph % (Auto) [place] % (Auto) Eos % (Auto) Baso % (Auto) Lymph # (Auto) [place] # (Auto) Eos # (Auto) Baso # (Auto) Abs Immat Gran (auto) Absolute Neuts (auto) Absolute Nucleated RBC Total Counted Neutrophils % (Manual) Band Neutrophils % Lymphocytes % (Manual) Monocytes % (Manual) Nucleated RBC % Abs Neuts (Manual) Abs Lymphs (Manual) Abs Monocytes (Manual) Platelet Estimate % Immature Plt Fraction Anisocytosis Schistocytes Puncture Site ABG pH ABG pCO2 ABG pO2 ABG PO2/FiO2 Ratio ABG HCO3 ABG O2 Saturation ABG O2 Content ABG Base Excess A-a Gradient Oxyhemoglobin Carboxyhemoglobin Methemoglobin Reduced Hemoglobin Total Hemoglobin O2 Delivery Device O2 Liters/Min Minute Volume Vent Rate Vent Mode FiO2 Tidal Volume PEEP Peak Inspir Pressure Pressure Support Sodium 147 H Potassium 3.7 Chloride 124 H Carbon Dioxide 16 L Anion Gap 7 BUN 34 H Creatinine 0.87 Estim Creat Clear Calc 41 Estimated GFR > 60 Glucose 156 H POC Capillary Glucose 156 H Calcium 7.8 L Magnesium 2.0 Blood Type Antibody Screen Crossmatch 12/29/24 12/29/24 12/29/24 04:47 05:19 09:09 WBC RBC Hgb Hct MCV MCH MCHC RDW Plt Count MPV Immature Gran % (Auto) Neut % (Auto) Lymph % (Auto) [place] % (Auto) Eos % (Auto) Baso % (Auto) Lymph # (Auto) [place] # (Auto) Eos # (Auto) Baso # (Auto) Abs Immat Gran (auto) Absolute Neuts (auto) Absolute Nucleated RBC Total Counted Neutrophils % (Manual) Band Neutrophils % Lymphocytes % (Manual) Monocytes % (Manual) Nucleated RBC % Abs Neuts (Manual) Abs Lymphs (Manual) Abs Monocytes (Manual) Platelet Estimate % Immature Plt Fraction Anisocytosis Schistocytes Puncture Site Left brachial Right radial ABG pH 7.353 7.419 ABG pCO2 27.5 L 25.0 L ABG pO2 125.6 H 84.5 ABG PO2/FiO2 Ratio 2.51 1.69 ABG HCO3 14.9 L 15.8 L ABG O2 Saturation 98.4 96.7 ABG O2 Content 14.8 L 14.0 L ABG Base Excess -9.3 -7.3 A-a Gradient 200.0 243.9 Oxyhemoglobin 97.7 95.7 Carboxyhemoglobin 0.2 Methemoglobin 0.3 Reduced Hemoglobin 1.8 Total Hemoglobin 10.6 L 10.3 L O2 Delivery Device Ventilator Ventilator O2 Liters/Min Not Reportable Not Reportable Minute Volume Not Reportable Not Reportable Vent Rate 18 Not Reportable Vent Mode Cmv Spontaneous FiO2 50 50 Tidal Volume 350 Not Reportable PEEP 5 5 Peak Inspir Pressure Not Reportable Not Reportable Pressure Support Not Reportable 5 Sodium Potassium Chloride Carbon Dioxide Anion Gap BUN Creatinine Estim Creat Clear Calc Estimated GFR Glucose POC Capillary Glucose 115 H Calcium Magnesium Blood Type Antibody Screen Crossmatch 12/29/24 12/29/24 12/29/24 09:19 10:56 12:22 WBC Cancelled RBC Cancelled Hgb Cancelled Hct Cancelled MCV Cancelled MCH Cancelled MCHC Cancelled RDW Cancelled Plt Count Cancelled MPV Cancelled Immature Gran % (Auto) Neut % (Auto) Lymph % (Auto) [place] % (Auto) Eos % (Auto) Baso % (Auto) Lymph # (Auto) [place] # (Auto) Eos # (Auto) Baso # (Auto) Abs Immat Gran (auto) Absolute Neuts (auto) Absolute Nucleated RBC Total Counted Neutrophils % (Manual) Band Neutrophils % Lymphocytes % (Manual) Monocytes % (Manual) Nucleated RBC % Abs Neuts (Manual) Abs Lymphs (Manual) Abs Monocytes (Manual) Platelet Estimate % Immature Plt Fraction Cancelled Anisocytosis Schistocytes Puncture Site ABG pH ABG pCO2 ABG pO2 ABG PO2/FiO2 Ratio ABG HCO3 ABG O2 Saturation ABG O2 Content ABG Base Excess A-a Gradient Oxyhemoglobin Carboxyhemoglobin Methemoglobin Reduced Hemoglobin Total Hemoglobin O2 Delivery Device O2 Liters/Min Minute Volume Vent Rate Vent Mode FiO2 Tidal Volume PEEP Peak Inspir Pressure Pressure Support Sodium Potassium Chloride Carbon Dioxide Anion Gap BUN Creatinine Estim Creat Clear Calc Estimated GFR Glucose POC Capillary Glucose 92 102 Calcium Magnesium Blood Type Antibody Screen Crossmatch 12/29/24 13:47 WBC 22.5 H RBC 2.99 L Hgb 8.9 L Hct 25.9 L MCV 86.6 MCH 29.8 MCHC 34.4 RDW 16.0 H Plt Count 182 MPV 10.5 H Immature Gran % (Auto) Not Reportable Neut % (Auto) Not Reportable Lymph % (Auto) Not Reportable [place] % (Auto) Not Reportable Eos % (Auto) Not Reportable Baso % (Auto) Not Reportable Lymph # (Auto) Not Reportable [place] # (Auto) Not Reportable Eos # (Auto) Not Reportable Baso # (Auto) Not Reportable Abs Immat Gran (auto) Not Reportable Absolute Neuts (auto) Not Reportable Absolute Nucleated RBC Not Reportable Total Counted 100 Neutrophils % (Manual) 83 H Band Neutrophils % 10 H Lymphocytes % (Manual) 5 L Monocytes % (Manual) 2 L Nucleated RBC % Not Reportable Abs Neuts (Manual) 20.92 H Abs Lymphs (Manual) 1.12 Abs Monocytes (Manual) 0.45 Platelet Estimate Adequate % Immature Plt Fraction Anisocytosis 1+ Schistocytes None seen Puncture Site ABG pH ABG pCO2 ABG pO2 ABG PO2/FiO2 Ratio ABG HCO3 ABG O2 Saturation ABG O2 Content ABG Base Excess A-a Gradient Oxyhemoglobin Carboxyhemoglobin Methemoglobin Reduced Hemoglobin Total Hemoglobin O2 Delivery Device O2 Liters/Min Minute Volume Vent Rate Vent Mode FiO2 Tidal Volume PEEP Peak Inspir Pressure Pressure Support Sodium Potassium Chloride Carbon Dioxide Anion Gap BUN Creatinine Estim Creat Clear Calc Estimated GFR Glucose POC Capillary Glucose Calcium Magnesium Blood Type Antibody Screen Crossmatch
[2024-12-29] MEDS: PHENYLEPHRINE HCL INJ 50 MG in SODIUM CHLORIDE 0.9% IV 245 ML 15 ML IV CONT (19:01)
--- NOTE | 2024-12-29 19:44 | PC.NURSE ---
Clarified Protonix order with Dr Marroquin. Keep Protonix drip running he will change to IV push tomorrow.
[2024-12-30] VITALS (23 sets, daily range): BP systolic 96–140; BP diastolic 51–93; PULSE 65–117; RESP 16–28; TEMP 36.8–37.9; O2SAT 91–100
[2024-12-30] MEDS: PANTOPRAZOLE SODIUM IV 80 MG in SODIUM CHLORIDE 0.9% IV 500 ML 50 MG IV CONT (04:40)
[2024-12-30 04:58] LABS: Alveolar/Arterial O2 Gradient 59.0 mmHg; Carboxyhemoglobin 0.9 % THb (0-2.0); Fractional Inspired Oxygen 24 %; HCO3 ABG 17.6 mEq/l (22.0-26.0); Methemoglobin ABG 0.1 %THb (0-1.5); Oxygen Content ABG 10.4 %vol (16.0-22.0); Oxygen Saturation ABG 97.0 % (95.0-100.0); PCO2 ABG 24.4 mmHg (35.0-45.0); PO2 ABG 83.1 mmHg (80.0-100.0); PO2 FiO2 Ratio Arterial Blood 3.46 %; Reduced Hemoglobin 4.1 %THb (0-5.0)
[2024-12-30 05:01] LABS: Liters per Minute 1.0 LPM; Site Drawn LEFT BRACHIAL
[2024-12-30 06:42] LABS: Hematocrit 27.2 % (37.0-47.0); Hemoglobin 8.9 g/dL (12.0-15.0); Mean Corpuscular HGB Conc 32.7 g/dl (32-36); Mean Corpuscular Hemoglobin 29.7 pg (26-34); Mean Corpuscular Volume 90.7 fl (80-100); Platelet Count Result 157 k/mm3 (150-375); Red Blood Count 3.00 M/mm3 (4.2-5.4); White Blood Count 14.6 K/mm3 (4.5-10.0)
[2024-12-30 07:08] LABS: Anion Gap 5 mmol/L (4-12); Blood Urea Nitrogen 39 mg/dL (7-17); Calcium 7.7 mg/dL (8.4-10.2); Carbon Dioxide 18 mmol/L (22-30); Chloride 124 mmol/L (98-107); Estimated CRCL calculation 41 ml/min; Estimated Glomerular Filt Rate 55; Glucose 118 mg/dL (65-110); Magnesium 1.8 mg/dL (1.6-2.3); Potassium 4.4 mmol/L (3.4-5.0); Sodium 147 mmol/L (137-145)
--- NOTE | 2024-12-30 07:58 | WPDINTPN ---
Progress Note: A&P Assessment and Plan (1) Acute respiratory failure: Code(s): J96.00 - Acute respiratory failure, unspecified whether with hypoxia or hypercapnia Status: Acute Assessment and Plan: Patient intubated during EGD for airway protection. Chest x-ray ABG and ventilator settings reviewed 12/29 patient was extubated after discussed open trial Currently on 1 L nasal can. Incentive spirometry patient can do it (2) GI (gastrointestinal bleed): Qualifiers: GI bleed type/associated pathology: melena Qualified Code(s): K92.1 - Melena Code(s): K92.2 - Gastrointestinal hemorrhage, unspecified Status: Acute Assessment and Plan: Patient was admitted with GI bleed and EGD showed gastritis and duodenal ulcer. 12/28 It appears that she continues to bleed. Her hemoglobin was 6.4. She was given additional 2 units of PRBC Patient underwent repeat EGD and showed active bleeding from duodenal ulcer requiring injection of epinephrine. Patient was intubated for airway protection Hemoglobin appears to now has stabilized. I will discontinue Protonix infusion and switch to IV PPI q.12 hours Will request speech to evaluate swallowing and if adequate will start diet Continue hemoglobin monitoring (3) Hypotension: Code(s): I95.9 - Hypotension, unspecified Status: Acute Assessment and Plan: Hypotension secondary to GI bleed. Management as above Patient was given IV fluid bolus and PRBC transfusion Low-dose Phenylephrine infusion for blood pressure support was deployed and patient is now off of Blaine-Synephrine PICC line insertion over unsuccessful (4) Diabetes: Code(s): E11.9 - Type 2 diabetes mellitus without complications Status: Acute Assessment and Plan: Accu-Cheks and sliding scale insulin (5) Dementia: Qualifiers: Dementia type: unspecified type Dementia severity: severe Dementia behavioral or psychological symptom: unspecified whether behavioral, psychotic, or mood disturbance or anxiety Qualified Code(s): F03.C0 - Unspecified dementia, severe, without behavioral disturbance, psychotic disturbance, mood disturbance, and anxiety Code(s): F03.90 - Unspecified dementia, unspecified severity, without behavioral disturbance, psychotic disturbance, mood disturbance, and anxiety Status: Acute Assessment and Plan: His history of dementia which is chronic per chart (6) Electrolyte abnormality: Code(s): E87.8 - Other disorders of electrolyte and fluid balance, not elsewhere classified Status: Acute Assessment and Plan: Replace low potassium. Will give D5 water with for hypernatremia and hyperchloremia and metabolic acidosis Plan DVT prophylaxis: SCDs Stress ulcer prophylaxis: IV PPI Nutrition: Will consult speech for swallow evaluation Code Status: DNR/DNI Transfer out of ICU today Subjective Date/time seen: 12/30/24 . Patient was extubated yesterday after a successful weaning trial. She is on 1 L nasal cannula. She is pleasantly confused and provides limited history. When asked if she has any pain or shortness of breath she says no. She is only oriented partially and she is in the hospital. She follows commands but does not provide any detailed history or review of systems. She has been off of Blaine-Synephrine. She is in sinus rhythm. She has acceptable blood pressure and acceptable urine output overnight. She is afebrile Review of Systems Review of Systems: ROS unobtainable: Yes unobtainable due to medical condition and unobtainable due to mental status Exam Narrative: General: Pt is alert awake in no distress raspy voice Lungs/Chest: Trachea central Clear BS B/L, No crackles or wheezing. Cardiac: RRR. Normal S1 S2. No murmurs Circulation: Pedal pulses are intact and symmetrical. Feet are warm Abdomen: Normal bowel sounds.. Soft. NT. ND. Extremities: No clubbing, cyanosis or edema. Warm : Crystal in place Neurologic: She Follows commands with right side. Left hemiparesis, moves her right side spontaneously, PERRL Skin: No Rash HEENT: Dry tongue and mucosa Objective Data Vital Signs Vital Signs: Vital Signs - 24 hr 12/29/24 08:00 12/29/24 08:00 12/29/24 08:00 Temperature 37.0 C Pulse Rate 60 63 Respiratory Rate 16 Blood Pressure 109/61 Pulse Oximetry 100 100 Oxygen Delivery Mechanical Ventilation Oxygen Flow Rate Fraction of Inspired Oxygen 50 50 12/29/24 08:00 12/29/24 08:00 12/29/24 08:00 Temperature Pulse Rate 61 63 Respiratory Rate 16 Blood Pressure Pulse Oximetry 100 Oxygen Delivery Mechanical Ventilation Oxygen Flow Rate Fraction of Inspired Oxygen 50 12/29/24 08:00 12/29/24 08:20 12/29/24 10:00 Temperature 37.1 C Pulse Rate 63 61 70 Respiratory Rate 18 Blood Pressure 109/61 113/64 Pulse Oximetry 100 100 Oxygen Delivery Mechanical Ventilation Oxygen Flow Rate Fraction of Inspired Oxygen 12/29/24 10:00 12/29/24 10:00 12/29/24 10:00 Temperature Pulse Rate 70 70 70 Respiratory Rate 18 Blood Pressure 113/64 Pulse Oximetry Oxygen Delivery Oxygen Flow Rate Fraction of Inspired Oxygen 12/29/24 10:05 12/29/24 11:05 12/29/24 12:00 Temperature 37.1 C Pulse Rate 61 68 75 Respiratory Rate 19 20 Blood Pressure 110/56 L Pulse Oximetry 98 100 Oxygen Delivery Mechanical Ventilation Oxygen Flow Rate Fraction of Inspired Oxygen 50 12/29/24 12:00 12/29/24 12:00 12/29/24 12:00 Temperature Pulse Rate 83 Respiratory Rate Blood Pressure Pulse Oximetry 100 Oxygen Delivery Mechanical Ventilation Oxygen Flow Rate Fraction of Inspired Oxygen 50 50 12/29/24 12:00 12/29/24 13:15 12/29/24 14:00 Temperature Pulse Rate 75 82 88 Respiratory Rate Blood Pressure 110/56 L Pulse Oximetry 100 Oxygen Delivery Mechanical Ventilation Oxygen Flow Rate Fraction of Inspired Oxygen 40 12/29/24 14:00 12/29/24 14:00 12/29/24 14:15 Temperature Pulse Rate 88 88 80 Respiratory Rate 25 H 22 H Blood Pressure 111/60 111/60 Pulse Oximetry 97 96 Oxygen Delivery Nasal Cannula Oxygen Flow Rate 3 Fraction of Inspired Oxygen 12/29/24 16:00 12/29/24 16:00 12/29/24 16:00 Temperature 37.1 C Pulse Rate 93 94 Respiratory Rate 25 H Blood Pressure 120/58 L Pulse Oximetry 99 99 Oxygen Delivery Nasal Cannula Oxygen Flow Rate 3 Fraction of Inspired Oxygen 12/29/24 18:00 12/29/24 18:00 12/29/24 19:01 Temperature Pulse Rate 98 98 96 Respiratory Rate 25 H Blood Pressure 120/58 L 89/45 L Pulse Oximetry 99 Oxygen Delivery Oxygen Flow Rate Fraction of Inspired Oxygen 12/29/24 19:14 12/29/24 19:34 12/29/24 20:00 Temperature Pulse Rate 97 101 H 103 H Respiratory Rate 28 H 9 L Blood Pressure 116/48 L Pulse Oximetry 100 100 Oxygen Delivery Oxygen Flow Rate Fraction of Inspired Oxygen 12/29/24 20:00 12/29/24 20:00 12/29/24 20:44 Temperature 36.9 C Pulse Rate 106 H 104 H Respiratory Rate 15 Blood Pressure 116/48 L Pulse Oximetry 100 100 Oxygen Delivery Nasal Cannula Oxygen Flow Rate 3 Fraction of Inspired Oxygen 12/29/24 20:45 12/29/24 20:46 12/29/24 21:00 Temperature Pulse Rate 104 H 103 H Respiratory Rate 6 L 9 L Blood Pressure 109/85 Pulse Oximetry 100 100 100 Oxygen Delivery Nasal Cannula Oxygen Flow Rate 3 Fraction of Inspired Oxygen 12/29/24 22:00 12/29/24 22:00 12/29/24 22:00 Temperature 37.3 C Pulse Rate 106 H 106 H 106 H Respiratory Rate 19 Blood Pressure 123/64 123/64 Pulse Oximetry 100 Oxygen Delivery Oxygen Flow Rate Fraction of Inspired Oxygen 12/29/24 23:15 12/29/24 23:46 12/29/24 23:57 Temperature Pulse Rate 93 Respiratory Rate Blood Pressure 102/52 L 109/54 L Pulse Oximetry 100 100 Oxygen Delivery Nasal Cannula Oxygen Flow Rate 3 Fraction of Inspired Oxygen 12/30/24 00:00 12/30/24 00:00 12/30/24 00:44 Temperature 36.8 C Pulse Rate 102 H 99 112 H Respiratory Rate 25 H 26 H Blood Pressure 96/57 L Pulse Oximetry 100 95 Oxygen Delivery Oxygen Flow Rate Fraction of Inspired Oxygen 12/30/24 00:45 12/30/24 00:46 12/30/24 01:00 Temperature Pulse Rate 111 H 107 H 106 H Respiratory Rate 24 H 20 22 H Blood Pressure 129/65 133/69 Pulse Oximetry 97 97 99 Oxygen Delivery Oxygen Flow Rate Fraction of Inspired Oxygen 12/30/24 01:01 12/30/24 01:15 12/30/24 01:16 Temperature Pulse Rate 110 H 112 H 113 H Respiratory Rate 20 16 21 H Blood Pressure 115/67 Pulse Oximetry 98 97 97 Oxygen Delivery Oxygen Flow Rate Fraction of Inspired Oxygen 12/30/24 02:00 12/30/24 02:00 12/30/24 02:00 Temperature 36.9 C Pulse Rate 101 H 110 H 106 H Respiratory Rate 26 H Blood Pressure 130/59 L 110/59 L Pulse Oximetry 97 Oxygen Delivery Oxygen Flow Rate Fraction of Inspired Oxygen 12/30/24 04:00 12/30/24 04:00 12/30/24 04:00 Temperature 36.8 C Pulse Rate 108 H 65 103 H Respiratory Rate 25 H Blood Pressure 111/59 L 111/59 L Pulse Oximetry 95 Oxygen Delivery Oxygen Flow Rate Fraction of Inspired Oxygen 12/30/24 04:30 12/30/24 04:47 12/30/24 06:00 Temperature Pulse Rate 99 Respiratory Rate Blood Pressure Pulse Oximetry 96 96 Oxygen Delivery Nasal Cannula Nasal Cannula Oxygen Flow Rate 1 1 Fraction of Inspired Oxygen 12/30/24 06:00 12/30/24 06:03 Temperature 36.8 C Pulse Rate 92 100 Respiratory Rate 20 Blood Pressure 105/60 105/60 Pulse Oximetry 99 Oxygen Delivery Oxygen Flow Rate Fraction of Inspired Oxygen Intake/Output Intake/Output: Intake & Output 12/27/24 12/28/24 12/29/24 12/30/24 23:59 23:59 23:59 23:59 Intake Total 1682 1449.5 2155.6 0 Output Total 493 523 9981 300 Balance 782 899.5 1155.6 -300 Meds/Results Medications: Active Medications Generic Name Dose Route Start Last Admin Trade Name Freq PRN Reason Stop Dose Admin Artificial Tears 2 drop 12/28/24 12:16 Artificial Tears Ophth Soln 15 Ml Bottle EACH EYE Q4H PRN Dry Eye(s) Atorvastatin Calcium 80 mg 12/28/24 18:00 12/29/24 17:40 Atorvastatin 40 Mg Tablet PO Not Given QPM ELIAS Bisacodyl 5 mg 12/28/24 12:16 Bisacodyl 5 Mg Tablet Ec PO DAILY PRN Constipation Dextrose 12.5 gm 12/24/24 11:56 12/25/24 06:03 Dextrose 50% 25 Gm/50 Ml Syringe IV PUSH 12.5 gm PRN PRN Administration Hypoglycemia Protocol Diltiazem HCl 60 mg 12/28/24 13:00 12/28/24 16:44 Diltiazem Hcl 60 Mg Tablet PO Not Given On Hold: 12/29/24 07:42 TID ELIAS Ergocalciferol 1,250 mcg 01/01/25 09:00 Ergocalciferol (Vitamin D2) 1,250 Mcg (50,000 Units) Capsule PO WEEKLY ELIAS Ferrous Sulfate 325 mg 12/29/24 09:00 12/29/24 09:02 Ferrous Sulfate [address] PO 325 mg DAILY ELIAS Administration Folic Acid 1 mg 12/29/24 09:00 12/29/24 09:02 Folic Acid 1 Mg Tablet PO 1 mg DAILY ELIAS Administration Glucagon 1 mg 12/24/24 11:56 Glucagon For Inj 1 Mg Vial IM PRN PRN Hypoglycemia Protocol Glucose 15 gm 12/24/24 11:56 Glucose Oral Gel 15 Gm Of Glucse In 37.5 Gm Tube PO PRN PRN Hypoglycemia Protocol Hydrocortisone 1 applic 12/29/24 09:00 12/29/24 09:03 Hydrocortisone 1% 30 Gm Cream TOPICAL 1 applic DAILY ELIAS Administration Dextrose 1,000 mls @ 100 mls/hr 12/24/24 11:56 Dextrose 5% 1,000 Ml IVPB PRN PRN Hypoglycemia Protocol Lactated Ringer's 500 mls @ 999 mls/hr 12/30/24 07:48 Lr - Lactated Ringers Iv IV CONT 12/30/24 08:18 .Q31M STA Sodium Bicarbonate 100 meq/ 1,100 mls @ 100 mls/hr 12/30/24 07:55 Dextrose IV CONT 12/30/24 17:54 .Q11H ELIAS Insulin Aspart 2 - 5 units 12/24/24 12:00 12/30/24 06:05 Insulin Aspart (*Bkc) 100 Units/Ml SUB-Q Not Given Q6HR [facility] Protocol Metformin HCl 500 mg 12/29/24 09:00 12/29/24 09:02 Metformin Hcl 500 Mg Tablet PO 500 mg On Hold: 12/29/24 13:46 DAILY ELIAS Administration Multi-Ingred Cream/Lotion/Oil/Oint 1 applic 12/28/24 21:00 12/29/24 20:06 Mineral Oil/White Petrolatum Ointment EACH EYE Not Given Q12HR [facility] Ondansetron HCl 4 mg 12/23/24 21:36 12/26/24 20:21 Ondansetron Inj 4 Mg/2 Ml Vial IV PUSH 4 mg Q4H PRN Administration Nausea Pantoprazole Sodium 40 mg 12/30/24 09:00 Pantoprazole Sodium Iv 40 Mg Vial IV PUSH Q12HR ELIAS Polyethylene Glycol 17 gm 12/28/24 12:16 Polyethylene Glycol 3350 17 Gm Powd.Pack PO DAILY PRN Constipation Sodium Bicarbonate 650 mg 12/29/24 17:00 12/29/24 17:40 Sodium Bicarbonate Tab 650 Mg Tablet PO Not Given BID [facility] Sodium Chloride 1 spray 12/28/24 12:16 Saline 0.65% Tomas Soln 44 Ml Btl NASAL Q2H PRN Dry Nasal Passages Radiology Results: ITS Impressions Abdomen X-Ray 12/28/24 15:44 IMPRESSION: Nasogastric tube courses below the diaphragm, its tip projects over the medial aspect of the left upper abdomen likely within the body of the stomach. Nonspecific bowel gas pattern. Labs Labs: Laboratory Results - last 24 hr 12/29/24 12/29/24 12/29/24 09:09 09:19 10:56 WBC Cancelled RBC Cancelled Hgb Cancelled Hct Cancelled MCV Cancelled MCH Cancelled MCHC Cancelled RDW Cancelled Plt Count Cancelled MPV Cancelled Immature Gran % (Auto) Neut % (Auto) Lymph % (Auto) [place] % (Auto) Eos % (Auto) Baso % (Auto) Lymph # (Auto) [place] # (Auto) Eos # (Auto) Baso # (Auto) Abs Immat Gran (auto) Absolute Neuts (auto) Absolute Nucleated RBC Total Counted Neutrophils % (Manual) Band Neutrophils % Lymphocytes % (Manual) Monocytes % (Manual) Nucleated RBC % Abs Neuts (Manual) Abs Lymphs (Manual) Abs Monocytes (Manual) Platelet Estimate % Immature Plt Fraction Cancelled Anisocytosis Schistocytes Puncture Site Right radial ABG pH 7.419 ABG pCO2 25.0 L ABG pO2 84.5 ABG PO2/FiO2 Ratio 1.69 ABG HCO3 15.8 L ABG O2 Saturation 96.7 ABG O2 Content 14.0 L ABG Base Excess -7.3 A-a Gradient 243.9 Oxyhemoglobin 95.7 Carboxyhemoglobin Methemoglobin Reduced Hemoglobin Total Hemoglobin 10.3 L O2 Delivery Device Ventilator O2 Liters/Min Not Reportable Minute Volume Not Reportable Vent Rate Not Reportable Vent Mode Spontaneous FiO2 50 Tidal Volume Not Reportable PEEP 5 Peak Inspir Pressure Not Reportable Pressure Support 5 Sodium Potassium Chloride Carbon Dioxide Anion Gap BUN Creatinine Estim Creat Clear Calc Estimated GFR Glucose POC Capillary Glucose 92 Calcium Magnesium 12/29/24 12/29/24 12/29/24 12:22 13:47 17:41 WBC 22.5 H RBC 2.99 L Hgb 8.9 L Hct 25.9 L MCV 86.6 MCH 29.8 MCHC 34.4 RDW 16.0 H Plt Count 182 MPV 10.5 H Immature Gran % (Auto) Not Reportable Neut % (Auto) Not Reportable Lymph % (Auto) Not Reportable [place] % (Auto) Not Reportable Eos % (Auto) Not Reportable Baso % (Auto) Not Reportable Lymph # (Auto) Not Reportable [place] # (Auto) Not Reportable Eos # (Auto) Not Reportable Baso # (Auto) Not Reportable Abs Immat Gran (auto) Not Reportable Absolute Neuts (auto) Not Reportable Absolute Nucleated RBC Not Reportable Total Counted 100 Neutrophils % (Manual) 83 H Band Neutrophils % 10 H Lymphocytes % (Manual) 5 L Monocytes % (Manual) 2 L Nucleated RBC % Not Reportable Abs Neuts (Manual) 20.92 H Abs Lymphs (Manual) 1.12 Abs Monocytes (Manual) 0.45 Platelet Estimate Adequate % Immature Plt Fraction Anisocytosis 1+ Schistocytes None seen Puncture Site ABG pH ABG pCO2 ABG pO2 ABG PO2/FiO2 Ratio ABG HCO3 ABG O2 Saturation ABG O2 Content ABG Base Excess A-a Gradient Oxyhemoglobin Carboxyhemoglobin Methemoglobin Reduced Hemoglobin Total Hemoglobin O2 Delivery Device O2 Liters/Min Minute Volume Vent Rate Vent Mode FiO2 Tidal Volume PEEP Peak Inspir Pressure Pressure Support Sodium Potassium Chloride Carbon Dioxide Anion Gap BUN Creatinine Estim Creat Clear Calc Estimated GFR Glucose POC Capillary Glucose 102 107 H Calcium Magnesium 12/30/24 12/30/24 12/30/24 00:06 04:52 05:59 WBC RBC Hgb Hct MCV MCH MCHC RDW Plt Count MPV Immature Gran % (Auto) Neut % (Auto) Lymph % (Auto) [place] % (Auto) Eos % (Auto) Baso % (Auto) Lymph # (Auto) [place] # (Auto) Eos # (Auto) Baso # (Auto) Abs Immat Gran (auto) Absolute Neuts (auto) Absolute Nucleated RBC Total Counted Neutrophils % (Manual) Band Neutrophils % Lymphocytes % (Manual) Monocytes % (Manual) Nucleated RBC % Abs Neuts (Manual) Abs Lymphs (Manual) Abs Monocytes (Manual) Platelet Estimate % Immature Plt Fraction Anisocytosis Schistocytes Puncture Site Left brachial ABG pH 7.477 H ABG pCO2 24.4 L ABG pO2 83.1 ABG PO2/FiO2 Ratio 3.46 ABG HCO3 17.6 L ABG O2 Saturation 97.0 ABG O2 Content 10.4 L ABG Base Excess -5.1 A-a Gradient 59.0 Oxyhemoglobin 94.9 Carboxyhemoglobin 0.9 Methemoglobin 0.1 Reduced Hemoglobin 4.1 Total Hemoglobin 7.7 L* O2 Delivery Device Nasal cannula O2 Liters/Min 1.0 Minute Volume Vent Rate Vent Mode FiO2 24 Tidal Volume PEEP Peak Inspir Pressure Pressure Support Sodium Potassium Chloride Carbon Dioxide Anion Gap BUN Creatinine Estim Creat Clear Calc Estimated GFR Glucose POC Capillary Glucose 122 H 110 H Calcium Magnesium 12/30/24 06:36 WBC 14.6 H RBC 3.00 L Hgb 8.9 L Hct 27.2 L MCV 90.7 MCH 29.7 MCHC 32.7 RDW 16.4 H Plt Count 157 MPV 10.1 Immature Gran % (Auto) Neut % (Auto) Lymph % (Auto) [place] % (Auto) Eos % (Auto) Baso % (Auto) Lymph # (Auto) [place] # (Auto) Eos # (Auto) Baso # (Auto) Abs Immat Gran (auto) Absolute Neuts (auto) Absolute Nucleated RBC Total Counted Neutrophils % (Manual) Band Neutrophils % Lymphocytes % (Manual) Monocytes % (Manual) Nucleated RBC % Abs Neuts (Manual) Abs Lymphs (Manual) Abs Monocytes (Manual) Platelet Estimate % Immature Plt Fraction Anisocytosis Schistocytes Puncture Site ABG pH ABG pCO2 ABG pO2 ABG PO2/FiO2 Ratio ABG HCO3 ABG O2 Saturation ABG O2 Content ABG Base Excess A-a Gradient Oxyhemoglobin Carboxyhemoglobin Methemoglobin Reduced Hemoglobin Total Hemoglobin O2 Delivery Device O2 Liters/Min Minute Volume Vent Rate Vent Mode FiO2 Tidal Volume PEEP Peak Inspir Pressure Pressure Support Sodium 147 H Potassium 4.4 Chloride 124 H Carbon Dioxide 18 L Anion Gap 5 BUN 39 H Creatinine 1.01 H Estim Creat Clear Calc 41 Estimated GFR 55 L Glucose 118 H POC Capillary Glucose Calcium 7.7 L Magnesium 1.8 Quality VTE Prophylaxis VTE prophylaxis: mechanical ordered
[2024-12-30] MEDS: CALCIUM GLUC 2,000 MG/NS 100ML 2,000 MG/100 ML BAG 100 MG IVPB (08:59)
[2024-12-30] MEDS: SODIUM BICARBONATE 8.4% 100 MEQ in DEXTROSE 5% 1,000 ML 1,000 ML IV CONT (08:59)
[2024-12-30] MEDS: LACTATED RINGERS 500 ML 999 ML IV CONT (09:00)
[2024-12-30] MEDS: PANTOPRAZOLE SODIUM IV 40 MG VIAL IV PUSH ×2 (09:01→20:59)
[2024-12-30] MEDS: HYDROCORTISONE 1% 30 GM CREAM 1 APPLIC TOPICAL (09:01)
[2024-12-30] MEDS: FERROUS SULFATE 325 MG TABLET DR PO (09:19)
[2024-12-30] MEDS: FOLIC ACID 1 MG TABLET PO (09:19)
[2024-12-30] MEDS: SODIUM BICARBONATE TAB 650 MG TABLET PO ×2 (09:19→16:50)
--- NOTE | 2024-12-30 10:20 | P.PNGI_ITS ---
Progress Note: A&P Assessment and Plan (1) GI (gastrointestinal bleed): Qualifiers: GI bleed type/associated pathology: melena Qualified Code(s): K92.1 - Melena Code(s): K92.2 - Gastrointestinal hemorrhage, unspecified Status: Acute Assessment and Plan: the patient remains hemodynamically stable and hemoglobin unchanged from yesterday, 8.9. She is extubated and not having signs of GI bleeding. Intravenous Protonix drip will be changed to every 12 hours and pt may be moved to IMU soon. Will continue to monitor during the weekend. Subjective Date/time seen: 12/30/24 10:20 Objective Data Vital Signs Vital Signs: Vital Signs - 24 hr 12/29/24 11:05 12/29/24 12:00 12/29/24 12:00 Temperature 98.8 F Pulse Rate 68 75 Respiratory Rate 19 20 Blood Pressure 110/56 L Pulse Oximetry 100 100 Oxygen Delivery Mechanical Ventilation Oxygen Flow Rate Fraction of Inspired Oxygen 50 12/29/24 12:00 12/29/24 12:00 12/29/24 12:00 Temperature Pulse Rate 83 75 Respiratory Rate Blood Pressure 110/56 L Pulse Oximetry Oxygen Delivery Oxygen Flow Rate Fraction of Inspired Oxygen 50 12/29/24 13:15 12/29/24 14:00 12/29/24 14:00 Temperature Pulse Rate 82 88 88 Respiratory Rate 25 H Blood Pressure 111/60 Pulse Oximetry 100 97 Oxygen Delivery Mechanical Ventilation Oxygen Flow Rate Fraction of Inspired Oxygen 40 12/29/24 14:00 12/29/24 14:15 12/29/24 16:00 Temperature Pulse Rate 88 80 93 Respiratory Rate 22 H Blood Pressure 111/60 Pulse Oximetry 96 Oxygen Delivery Nasal Cannula Oxygen Flow Rate 3 Fraction of Inspired Oxygen 12/29/24 16:00 12/29/24 16:00 12/29/24 18:00 Temperature 98.7 F Pulse Rate 94 98 Respiratory Rate 25 H Blood Pressure 120/58 L Pulse Oximetry 99 99 Oxygen Delivery Nasal Cannula Oxygen Flow Rate 3 Fraction of Inspired Oxygen 12/29/24 18:00 12/29/24 19:01 12/29/24 19:14 Temperature Pulse Rate 98 96 97 Respiratory Rate 25 H 28 H Blood Pressure 120/58 L 89/45 L Pulse Oximetry 99 100 Oxygen Delivery Oxygen Flow Rate Fraction of Inspired Oxygen 12/29/24 19:34 12/29/24 20:00 12/29/24 20:00 Temperature Pulse Rate 101 H 103 H 106 H Respiratory Rate 9 L Blood Pressure 116/48 L Pulse Oximetry 100 Oxygen Delivery Oxygen Flow Rate Fraction of Inspired Oxygen 12/29/24 20:00 12/29/24 20:44 12/29/24 20:45 Temperature 98.5 F Pulse Rate 104 H 104 H Respiratory Rate 15 6 L Blood Pressure 116/48 L 109/85 Pulse Oximetry 100 100 100 Oxygen Delivery Nasal Cannula Oxygen Flow Rate 3 Fraction of Inspired Oxygen 12/29/24 20:46 12/29/24 21:00 12/29/24 22:00 Temperature Pulse Rate 103 H 106 H Respiratory Rate 9 L Blood Pressure 123/64 Pulse Oximetry 100 100 Oxygen Delivery Nasal Cannula Oxygen Flow Rate 3 Fraction of Inspired Oxygen 12/29/24 22:00 12/29/24 22:00 12/29/24 23:15 Temperature 99.1 F Pulse Rate 106 H 106 H Respiratory Rate 19 Blood Pressure 123/64 102/52 L Pulse Oximetry 100 100 Oxygen Delivery Oxygen Flow Rate Fraction of Inspired Oxygen 12/29/24 23:46 12/29/24 23:57 12/30/24 00:00 Temperature Pulse Rate 93 102 H Respiratory Rate Blood Pressure 109/54 L Pulse Oximetry 100 Oxygen Delivery Nasal Cannula Oxygen Flow Rate 3 Fraction of Inspired Oxygen 12/30/24 00:00 12/30/24 00:44 12/30/24 00:45 Temperature 98.3 F Pulse Rate 99 112 H 111 H Respiratory Rate 25 H 26 H 24 H Blood Pressure 96/57 L Pulse Oximetry 100 95 97 Oxygen Delivery Oxygen Flow Rate Fraction of Inspired Oxygen 12/30/24 00:46 12/30/24 01:00 12/30/24 01:01 Temperature Pulse Rate 107 H 106 H 110 H Respiratory Rate 20 22 H 20 Blood Pressure 129/65 133/69 Pulse Oximetry 97 99 98 Oxygen Delivery Oxygen Flow Rate Fraction of Inspired Oxygen 12/30/24 01:15 12/30/24 01:16 12/30/24 02:00 Temperature Pulse Rate 112 H 113 H 101 H Respiratory Rate 16 21 H Blood Pressure 115/67 130/59 L Pulse Oximetry 97 97 Oxygen Delivery Oxygen Flow Rate Fraction of Inspired Oxygen 12/30/24 02:00 12/30/24 02:00 12/30/24 04:00 Temperature 98.4 F 98.2 F Pulse Rate 110 H 106 H 108 H Respiratory Rate 26 H 25 H Blood Pressure 110/59 L 111/59 L Pulse Oximetry 97 95 Oxygen Delivery Oxygen Flow Rate Fraction of Inspired Oxygen 12/30/24 04:00 12/30/24 04:00 12/30/24 04:30 Temperature Pulse Rate 65 103 H Respiratory Rate Blood Pressure 111/59 L Pulse Oximetry 96 Oxygen Delivery Nasal Cannula Oxygen Flow Rate 1 Fraction of Inspired Oxygen 12/30/24 04:47 12/30/24 06:00 12/30/24 06:00 Temperature 98.3 F Pulse Rate 99 92 Respiratory Rate 20 Blood Pressure 105/60 Pulse Oximetry 96 99 Oxygen Delivery Nasal Cannula Oxygen Flow Rate 1 Fraction of Inspired Oxygen 12/30/24 06:03 12/30/24 08:00 Temperature 99.2 F Pulse Rate 100 106 H Respiratory Rate 22 H Blood Pressure 105/60 117/54 L Pulse Oximetry 96 Oxygen Delivery Oxygen Flow Rate Fraction of Inspired Oxygen Intake/Output Intake/Output: Intake & Output 12/27/24 12/28/24 12/29/24 12/30/24 23:59 23:59 23:59 23:59 Intake Total 1682 1449.5 2155.6 0 Output Total 596 493 5664 300 Balance 782 899.5 1155.6 -300 Meds/Results Medications: Active Medications Generic Name Dose Route Start Last Admin Trade Name Freq PRN Reason Stop Dose Admin Artificial Tears 2 drop 12/28/24 12:16 Artificial Tears Ophth Soln 15 Ml Bottle EACH EYE Q4H PRN Dry Eye(s) Atorvastatin Calcium 80 mg 12/28/24 18:00 12/29/24 17:40 Atorvastatin 40 Mg Tablet PO Not Given QPM ELIAS Bisacodyl 5 mg 12/28/24 12:16 Bisacodyl 5 Mg Tablet Ec PO DAILY PRN Constipation Dextrose 12.5 gm 12/24/24 11:56 12/25/24 06:03 Dextrose 50% 25 Gm/50 Ml Syringe IV PUSH 12.5 gm PRN PRN Administration Hypoglycemia Protocol Diltiazem HCl 60 mg 12/28/24 13:00 12/28/24 16:44 Diltiazem Hcl 60 Mg Tablet PO Not Given On Hold: 12/29/24 07:42 TID ELIAS Ergocalciferol 1,250 mcg 01/01/25 09:00 Ergocalciferol (Vitamin D2) 1,250 Mcg (50,000 Units) Capsule PO WEEKLY ELIAS Ferrous Sulfate 325 mg 12/29/24 09:00 12/30/24 09:19 Ferrous Sulfate [address] PO 325 mg DAILY ELIAS Administration Folic Acid 1 mg 12/29/24 09:00 12/30/24 09:19 Folic Acid 1 Mg Tablet PO 1 mg DAILY ELIAS Administration Glucagon 1 mg 12/24/24 11:56 Glucagon For Inj 1 Mg Vial IM PRN PRN Hypoglycemia Protocol Glucose 15 gm 12/24/24 11:56 Glucose Oral Gel 15 Gm Of Glucse In 37.5 Gm Tube PO PRN PRN Hypoglycemia Protocol Hydrocortisone 1 applic 12/29/24 09:00 12/30/24 09:01 Hydrocortisone 1% 30 Gm Cream TOPICAL 1 applic DAILY ELIAS Administration Dextrose 1,000 mls @ 100 mls/hr 12/24/24 11:56 Dextrose 5% 1,000 Ml IVPB PRN PRN Hypoglycemia Protocol Sodium Bicarbonate 100 meq/ 1,100 mls @ 100 mls/hr 12/30/24 07:55 12/30/24 08:59 Dextrose IV CONT 12/30/24 17:54 100 mls/hr .Q11H ELIAS Administration Insulin Aspart 2 - 5 units 12/24/24 12:00 12/30/24 06:05 Insulin Aspart (*Bkc) 100 Units/Ml SUB-Q Not Given Q6HR [facility] Protocol Metformin HCl 500 mg 12/29/24 09:00 12/29/24 09:02 Metformin Hcl 500 Mg Tablet PO 500 mg On Hold: 12/29/24 13:46 DAILY ELIAS Administration Multi-Ingred Cream/Lotion/Oil/Oint 1 applic 12/28/24 21:00 12/30/24 09:01 Mineral Oil/White Petrolatum Ointment EACH EYE Not Given Q12HR [facility] Ondansetron HCl 4 mg 12/23/24 21:36 12/26/24 20:21 Ondansetron Inj 4 Mg/2 Ml Vial IV PUSH 4 mg Q4H PRN Administration Nausea Pantoprazole Sodium 40 mg 12/30/24 09:00 12/30/24 09:01 Pantoprazole Sodium Iv 40 Mg Vial IV PUSH 40 mg Q12HR ELIAS Administration Polyethylene Glycol 17 gm 12/28/24 12:16 Polyethylene Glycol 3350 17 Gm Powd.Pack PO DAILY PRN Constipation Sodium Bicarbonate 650 mg 12/29/24 17:00 12/30/24 09:19 Sodium Bicarbonate Tab 650 Mg Tablet PO 650 mg BID ELIAS Administration Sodium Chloride 1 spray 12/28/24 12:16 Saline 0.65% Tomas Soln 44 Ml Btl NASAL Q2H PRN Dry Nasal Passages Radiology Results: ITS Impressions Abdomen X-Ray 12/28/24 15:44 IMPRESSION: Nasogastric tube courses below the diaphragm, its tip projects over the medial aspect of the left upper abdomen likely within the body of the stomach. Nonspecific bowel gas pattern. Chest X-Ray 12/30/24 08:07 Impression: 1: Persistent retrocardiac airspace disease, compatible with pneumonia. Labs Labs: Laboratory Results - last 24 hr 12/29/24 12/29/24 12/29/24 10:56 12:22 13:47 WBC Cancelled 22.5 H RBC Cancelled 2.99 L Hgb Cancelled 8.9 L Hct Cancelled 25.9 L MCV Cancelled 86.6 MCH Cancelled 29.8 MCHC Cancelled 34.4 RDW Cancelled 16.0 H Plt Count Cancelled 182 MPV Cancelled 10.5 H Immature Gran % (Auto) Not Reportable Neut % (Auto) Not Reportable Lymph % (Auto) Not Reportable [place] % (Auto) Not Reportable Eos % (Auto) Not Reportable Baso % (Auto) Not Reportable Lymph # (Auto) Not Reportable [place] # (Auto) Not Reportable Eos # (Auto) Not Reportable Baso # (Auto) Not Reportable Abs Immat Gran (auto) Not Reportable Absolute Neuts (auto) Not Reportable Absolute Nucleated RBC Not Reportable Total Counted 100 Neutrophils % (Manual) 83 H Band Neutrophils % 10 H Lymphocytes % (Manual) 5 L Monocytes % (Manual) 2 L Nucleated RBC % Not Reportable Abs Neuts (Manual) 20.92 H Abs Lymphs (Manual) 1.12 Abs Monocytes (Manual) 0.45 Platelet Estimate Adequate % Immature Plt Fraction Cancelled Anisocytosis 1+ Schistocytes None seen Puncture Site ABG pH ABG pCO2 ABG pO2 ABG PO2/FiO2 Ratio ABG HCO3 ABG O2 Saturation ABG O2 Content ABG Base Excess A-a Gradient Oxyhemoglobin Carboxyhemoglobin Methemoglobin Reduced Hemoglobin Total Hemoglobin O2 Delivery Device O2 Liters/Min FiO2 Sodium Potassium Chloride Carbon Dioxide Anion Gap BUN Creatinine Estim Creat Clear Calc Estimated GFR Glucose POC Capillary Glucose 102 Calcium Magnesium 12/29/24 12/30/24 12/30/24 17:41 00:06 04:52 WBC RBC Hgb Hct MCV MCH MCHC RDW Plt Count MPV Immature Gran % (Auto) Neut % (Auto) Lymph % (Auto) [place] % (Auto) Eos % (Auto) Baso % (Auto) Lymph # (Auto) [place] # (Auto) Eos # (Auto) Baso # (Auto) Abs Immat Gran (auto) Absolute Neuts (auto) Absolute Nucleated RBC Total Counted Neutrophils % (Manual) Band Neutrophils % Lymphocytes % (Manual) Monocytes % (Manual) Nucleated RBC % Abs Neuts (Manual) Abs Lymphs (Manual) Abs Monocytes (Manual) Platelet Estimate % Immature Plt Fraction Anisocytosis Schistocytes Puncture Site Left brachial ABG pH 7.477 H ABG pCO2 24.4 L ABG pO2 83.1 ABG PO2/FiO2 Ratio 3.46 ABG HCO3 17.6 L ABG O2 Saturation 97.0 ABG O2 Content 10.4 L ABG Base Excess -5.1 A-a Gradient 59.0 Oxyhemoglobin 94.9 Carboxyhemoglobin 0.9 Methemoglobin 0.1 Reduced Hemoglobin 4.1 Total Hemoglobin 7.7 L* O2 Delivery Device Nasal cannula O2 Liters/Min 1.0 FiO2 24 Sodium Potassium Chloride Carbon Dioxide Anion Gap BUN Creatinine Estim Creat Clear Calc Estimated GFR Glucose POC Capillary Glucose 107 H 122 H Calcium Magnesium 12/30/24 12/30/24 05:59 06:36 WBC 14.6 H RBC 3.00 L Hgb 8.9 L Hct 27.2 L MCV 90.7 MCH 29.7 MCHC 32.7 RDW 16.4 H Plt Count 157 MPV 10.1 Immature Gran % (Auto) Neut % (Auto) Lymph % (Auto) [place] % (Auto) Eos % (Auto) Baso % (Auto) Lymph # (Auto) [place] # (Auto) Eos # (Auto) Baso # (Auto) Abs Immat Gran (auto) Absolute Neuts (auto) Absolute Nucleated RBC Total Counted Neutrophils % (Manual) Band Neutrophils % Lymphocytes % (Manual) Monocytes % (Manual) Nucleated RBC % Abs Neuts (Manual) Abs Lymphs (Manual) Abs Monocytes (Manual) Platelet Estimate % Immature Plt Fraction Anisocytosis Schistocytes Puncture Site ABG pH ABG pCO2 ABG pO2 ABG PO2/FiO2 Ratio ABG HCO3 ABG O2 Saturation ABG O2 Content ABG Base Excess A-a Gradient Oxyhemoglobin Carboxyhemoglobin Methemoglobin Reduced Hemoglobin Total Hemoglobin O2 Delivery Device O2 Liters/Min FiO2 Sodium 147 H Potassium 4.4 Chloride 124 H Carbon Dioxide 18 L Anion Gap 5 BUN 39 H Creatinine 1.01 H Estim Creat Clear Calc 41 Estimated GFR 55 L Glucose 118 H POC Capillary Glucose 110 H Calcium 7.7 L Magnesium 1.8
--- NOTE | 2024-12-30 11:30 | PCSTNOTE ---
Please refer to the Bedside Swallow Evaluation in the EMR. Please note, silent aspiration cannot be ruled out at bedside.
--- NOTE | 2024-12-30 14:47 | P.PNIM_ITS ---
Progress Note: A&P Assessment and Plan (1) Acute respiratory failure: Code(s): J96.00 - Acute respiratory failure, unspecified whether with hypoxia or hypercapnia Status: Acute Assessment and Plan: Patient intubated during EGD for airway protection. Chest x-ray ABG and ventilator settings reviewed 12/29 patient was extubated after discussed open trial Currently on 1 L nasal can. Incentive spirometry (2) GI (gastrointestinal bleed): Qualifiers: GI bleed type/associated pathology: melena Qualified Code(s): K92.1 - Melena Code(s): K92.2 - Gastrointestinal hemorrhage, unspecified Status: Acute Assessment and Plan: Patient was admitted with GI bleed and EGD showed gastritis and duodenal ulcer. 12/28 It appears that she continues to bleed. Her hemoglobin was 6.4. She was given additional 2 units of PRBC Patient underwent repeat EGD and showed active bleeding from duodenal ulcer requiring injection of epinephrine. Patient was intubated for airway protection Hemoglobin appears to now has stabilized. Start IV PPI q.12 hours Will request speech to evaluate swallowing and if adequate will start diet Continue hemoglobin monitoring (3) Hypotension: Code(s): I95.9 - Hypotension, unspecified Status: Acute Assessment and Plan: Hypotension secondary to GI bleed. Management as above Patient was given IV fluid bolus and PRBC transfusion Low-dose Phenylephrine infusion for blood pressure support was deployed and patient is now off of Blaine-Synephrine PICC line insertion over unsuccessful (4) Diabetes: Code(s): E11.9 - Type 2 diabetes mellitus without complications Status: Acute Assessment and Plan: Accu-Cheks and sliding scale insulin (5) Dementia: Qualifiers: Dementia type: unspecified type Dementia severity: severe Dementia behavioral or psychological symptom: unspecified whether behavioral, psychotic, or mood disturbance or anxiety Qualified Code(s): F03.C0 - Unspecified dementia, severe, without behavioral disturbance, psychotic disturbance, mood disturbance, and anxiety Code(s): F03.90 - Unspecified dementia, unspecified severity, without behavioral disturbance, psychotic disturbance, mood disturbance, and anxiety Status: Acute Assessment and Plan: His history of dementia which is chronic per chart (6) Electrolyte abnormality: Code(s): E87.8 - Other disorders of electrolyte and fluid balance, not elsewhere classified Status: Acute Assessment and Plan: Replace low potassium. Will give D5 water with for hypernatremia and hyperchloremia and metabolic acidosis Plan DVT prophylaxis: SCDs Stress ulcer prophylaxis: IV PPI Nutrition: Will consult speech for swallow evaluation Code Status: DNR/DNI Transfer out of ICU today Subjective Date/time seen: 12/30/24 14:47 Interval history: Patient was extubated yesterday. Currently on NG tube for nutrition. Failed swallow eval. Review of Systems Review of Systems: Review of systems unobtainable due to dementia All systems reviewed & are unremarkable except as noted in HPI and below ROS unobtainable: Yes unobtainable due to endotracheal tube, unobtainable due to medical condition and unobtainable due to mental status Exam Narrative: General: Pt is alert awake in no distress raspy voice Lungs/Chest: Trachea central Clear BS B/L, No crackles or wheezing. Cardiac: RRR. Normal S1 S2. No murmurs Circulation: Pedal pulses are intact and symmetrical. Feet are warm Abdomen: Normal bowel sounds.. Soft. NT. ND. Extremities: No clubbing, cyanosis or edema. Warm : Crystal in place Neurologic: She Follows commands with right side. Left hemiparesis, moves her right side spontaneously, PERRL Skin: No Rash HEENT: Dry tongue and mucosa Const: Other: Acutely ill-appearing, thin body habitus HENMT: Other: Mucous membranes are tacky dry with dried brown material to the tongue and bilateral nares, head is normocephalic atraumatic, edentulous in upper and lower jaw Eyes: Other: Bilateral cataracts noted, marked conjunctival pallor, no scleral icterus Neck: Other: No JVD, no lymphadenopathy Resp: Other: Clear to auscultation bilaterally, no increased work of breathing Cardio: Other: Sinus tachycardia, 1+ bilateral radial and pedal pulses GI: Other: Soft, nontender, nondistended, positive bowel sounds : Other: Incontinent of urine and bowel Skin: Other: Generalized pallor, non jaundice, no petechia, small skin tear to the left forearm Neuro: Other: Patient is alert oriented to person only, she she was able to name her son who is at bedside, she did not know or location in could not state the month or year, she only intermittently answers questions, she has increased tone the left upper and lower extremity, she keeps her right eye closed and has some deviation of the right eye on evaluation but pupils are equal and reactive Extrem: Other: Marked pallor her nail beds, no clubbing, no cyanosis, left leg as flexion contractures of the left hip and left knee with increased tone, left upper extremity also has fisting of the left hand Psych: Other: Confused, difficult to redirect Objective Data Vital Signs Vital Signs: Vital Signs - 24 hr 12/29/24 16:00 12/29/24 16:00 12/29/24 16:00 Temperature 98.7 F Pulse Rate 93 94 Respiratory Rate 25 H Blood Pressure 120/58 L Pulse Oximetry 99 99 Oxygen Delivery Nasal Cannula Oxygen Flow Rate 3 12/29/24 18:00 12/29/24 18:00 12/29/24 19:01 Temperature Pulse Rate 98 98 96 Respiratory Rate 25 H Blood Pressure 120/58 L 89/45 L Pulse Oximetry 99 Oxygen Delivery Oxygen Flow Rate 12/29/24 19:14 12/29/24 19:34 12/29/24 20:00 Temperature Pulse Rate 97 101 H 103 H Respiratory Rate 28 H 9 L Blood Pressure 116/48 L Pulse Oximetry 100 100 Oxygen Delivery Oxygen Flow Rate 12/29/24 20:00 12/29/24 20:00 12/29/24 20:44 Temperature 98.5 F Pulse Rate 106 H 104 H Respiratory Rate 15 Blood Pressure 116/48 L Pulse Oximetry 100 100 Oxygen Delivery Nasal Cannula Oxygen Flow Rate 3 12/29/24 20:45 12/29/24 20:46 12/29/24 21:00 Temperature Pulse Rate 104 H 103 H Respiratory Rate 6 L 9 L Blood Pressure 109/85 Pulse Oximetry 100 100 100 Oxygen Delivery Nasal Cannula Oxygen Flow Rate 3 12/29/24 22:00 12/29/24 22:00 12/29/24 22:00 Temperature 99.1 F Pulse Rate 106 H 106 H 106 H Respiratory Rate 19 Blood Pressure 123/64 123/64 Pulse Oximetry 100 Oxygen Delivery Oxygen Flow Rate 12/29/24 23:15 12/29/24 23:46 12/29/24 23:57 Temperature Pulse Rate 93 Respiratory Rate Blood Pressure 102/52 L 109/54 L Pulse Oximetry 100 100 Oxygen Delivery Nasal Cannula Oxygen Flow Rate 3 12/30/24 00:00 12/30/24 00:00 12/30/24 00:44 Temperature 98.3 F Pulse Rate 102 H 99 112 H Respiratory Rate 25 H 26 H Blood Pressure 96/57 L Pulse Oximetry 100 95 Oxygen Delivery Oxygen Flow Rate 12/30/24 00:45 12/30/24 00:46 12/30/24 01:00 Temperature Pulse Rate 111 H 107 H 106 H Respiratory Rate 24 H 20 22 H Blood Pressure 129/65 133/69 Pulse Oximetry 97 97 99 Oxygen Delivery Oxygen Flow Rate 12/30/24 01:01 12/30/24 01:15 12/30/24 01:16 Temperature Pulse Rate 110 H 112 H 113 H Respiratory Rate 20 16 21 H Blood Pressure 115/67 Pulse Oximetry 98 97 97 Oxygen Delivery Oxygen Flow Rate 12/30/24 02:00 12/30/24 02:00 12/30/24 02:00 Temperature 98.4 F Pulse Rate 101 H 110 H 106 H Respiratory Rate 26 H Blood Pressure 130/59 L 110/59 L Pulse Oximetry 97 Oxygen Delivery Oxygen Flow Rate 12/30/24 04:00 12/30/24 04:00 12/30/24 04:00 Temperature 98.2 F Pulse Rate 108 H 65 103 H Respiratory Rate 25 H Blood Pressure 111/59 L 111/59 L Pulse Oximetry 95 Oxygen Delivery Oxygen Flow Rate 12/30/24 04:30 12/30/24 04:47 12/30/24 06:00 Temperature Pulse Rate 99 Respiratory Rate Blood Pressure Pulse Oximetry 96 96 Oxygen Delivery Nasal Cannula Nasal Cannula Oxygen Flow Rate 1 1 12/30/24 06:00 12/30/24 06:03 12/30/24 08:00 Temperature 98.3 F 99.2 F Pulse Rate 92 100 106 H Respiratory Rate 20 22 H Blood Pressure 105/60 105/60 117/54 L Pulse Oximetry 99 96 Oxygen Delivery Oxygen Flow Rate 12/30/24 08:00 12/30/24 08:00 12/30/24 10:00 Temperature 100.2 F H Pulse Rate 104 H 110 H Respiratory Rate 23 H Blood Pressure 116/62 Pulse Oximetry 97 94 Oxygen Delivery Nasal Cannula Oxygen Flow Rate 1 12/30/24 10:00 12/30/24 12:00 12/30/24 12:00 Temperature Pulse Rate 110 H 107 H Respiratory Rate Blood Pressure Pulse Oximetry 97 Oxygen Delivery Nasal Cannula Oxygen Flow Rate 1 12/30/24 12:00 12/30/24 14:00 Temperature 99.8 F H Pulse Rate 105 H 103 H Respiratory Rate 21 H Blood Pressure 122/57 L Pulse Oximetry 97 Oxygen Delivery Oxygen Flow Rate Intake/Output Intake/Output: Intake & Output 12/27/24 12/28/24 12/29/24 12/30/24 23:59 23:59 23:59 23:59 Intake Total 1682 1449.5 2155.6 600 Output Total 329 890 7278 300 Balance 782 899.5 1155.6 300 Meds/Results Medications: Active Medications Generic Name Dose Route Start Last Admin Trade Name Freq PRN Reason Stop Dose Admin Artificial Tears 2 drop 12/28/24 12:16 Artificial Tears Ophth Soln 15 Ml Bottle EACH EYE Q4H PRN Dry Eye(s) Atorvastatin Calcium 80 mg 12/28/24 18:00 12/29/24 17:40 Atorvastatin 40 Mg Tablet PO Not Given QPM ELIAS Bisacodyl 5 mg 12/28/24 12:16 Bisacodyl 5 Mg Tablet Ec PO DAILY PRN Constipation Dextrose 12.5 gm 12/24/24 11:56 12/25/24 06:03 Dextrose 50% 25 Gm/50 Ml Syringe IV PUSH 12.5 gm PRN PRN Administration Hypoglycemia Protocol Diltiazem HCl 60 mg 12/28/24 13:00 12/28/24 16:44 Diltiazem Hcl 60 Mg Tablet PO Not Given On Hold: 12/29/24 07:42 TID ELIAS Ergocalciferol 1,250 mcg 01/01/25 09:00 Ergocalciferol (Vitamin D2) 1,250 Mcg (50,000 Units) Capsule PO WEEKLY ELIAS Ferrous Sulfate 325 mg 12/29/24 09:00 12/30/24 09:19 Ferrous Sulfate [address] PO 325 mg DAILY ELIAS Administration Folic Acid 1 mg 12/29/24 09:00 12/30/24 09:19 Folic Acid 1 Mg Tablet PO 1 mg DAILY ELIAS Administration Glucagon 1 mg 12/24/24 11:56 Glucagon For Inj 1 Mg Vial IM PRN PRN Hypoglycemia Protocol Glucose 15 gm 12/24/24 11:56 Glucose Oral Gel 15 Gm Of Glucse In 37.5 Gm Tube PO PRN PRN Hypoglycemia Protocol Hydrocortisone 1 applic 12/29/24 09:00 12/30/24 09:01 Hydrocortisone 1% 30 Gm Cream TOPICAL 1 applic DAILY ELIAS Administration Dextrose 1,000 mls @ 100 mls/hr 12/24/24 11:56 Dextrose 5% 1,000 Ml IVPB PRN PRN Hypoglycemia Protocol Sodium Bicarbonate 100 meq/ 1,100 mls @ 100 mls/hr 12/30/24 07:55 12/30/24 08:59 Dextrose IV CONT 12/30/24 17:54 100 mls/hr .Q11H ELIAS Administration Insulin Aspart 2 - 5 units 12/24/24 12:00 12/30/24 11:42 Insulin Aspart (*Bkc) 100 Units/Ml SUB-Q Not Given Q6HR ELIAS Protocol Metformin HCl 500 mg 12/29/24 09:00 12/29/24 09:02 Metformin Hcl 500 Mg Tablet PO 500 mg On Hold: 12/29/24 13:46 DAILY ELIAS Administration Multi-Ingred Cream/Lotion/Oil/Oint 1 applic 12/28/24 21:00 12/30/24 09:01 Mineral Oil/White Petrolatum Ointment EACH EYE Not Given Q12HR [facility] Ondansetron HCl 4 mg 12/23/24 21:36 12/26/24 20:21 Ondansetron Inj 4 Mg/2 Ml Vial IV PUSH 4 mg Q4H PRN Administration Nausea Pantoprazole Sodium 40 mg 12/30/24 09:00 12/30/24 09:01 Pantoprazole Sodium Iv 40 Mg Vial IV PUSH 40 mg Q12HR ELIAS Administration Polyethylene Glycol 17 gm 12/28/24 12:16 Polyethylene Glycol 3350 17 Gm Powd.Pack PO DAILY PRN Constipation Sodium Bicarbonate 650 mg 12/29/24 17:00 12/30/24 09:19 Sodium Bicarbonate Tab 650 Mg Tablet PO 650 mg BID ELIAS Administration Sodium Chloride 1 spray 12/28/24 12:16 Saline 0.65% Tomas Soln 44 Ml Btl NASAL Q2H PRN Dry Nasal Passages Radiology Results: ITS Impressions Chest X-Ray 12/30/24 08:07 Impression: 1: Persistent retrocardiac airspace disease, compatible with pneumonia. Abdomen X-Ray 12/30/24 11:20 IMPRESSION: 1: NG tube tip in the stomach. Labs Labs: Laboratory Results - last 24 hr 12/29/24 12/30/24 12/30/24 17:41 00:06 04:52 WBC RBC Hgb Hct MCV MCH MCHC RDW Plt Count MPV Puncture Site Left brachial ABG pH 7.477 H ABG pCO2 24.4 L ABG pO2 83.1 ABG PO2/FiO2 Ratio 3.46 ABG HCO3 17.6 L ABG O2 Saturation 97.0 ABG O2 Content 10.4 L ABG Base Excess -5.1 A-a Gradient 59.0 Oxyhemoglobin 94.9 Carboxyhemoglobin 0.9 Methemoglobin 0.1 Reduced Hemoglobin 4.1 Total Hemoglobin 7.7 L* O2 Delivery Device Nasal cannula O2 Liters/Min 1.0 FiO2 24 Sodium Potassium Chloride Carbon Dioxide Anion Gap BUN Creatinine Estim Creat Clear Calc Estimated GFR Glucose POC Capillary Glucose 107 H 122 H Calcium Magnesium 12/30/24 12/30/24 12/30/24 05:59 06:36 11:25 WBC 14.6 H RBC 3.00 L Hgb 8.9 L Hct 27.2 L MCV 90.7 MCH 29.7 MCHC 32.7 RDW 16.4 H Plt Count 157 MPV 10.1 Puncture Site ABG pH ABG pCO2 ABG pO2 ABG PO2/FiO2 Ratio ABG HCO3 ABG O2 Saturation ABG O2 Content ABG Base Excess A-a Gradient Oxyhemoglobin Carboxyhemoglobin Methemoglobin Reduced Hemoglobin Total Hemoglobin O2 Delivery Device O2 Liters/Min FiO2 Sodium 147 H Potassium 4.4 Chloride 124 H Carbon Dioxide 18 L Anion Gap 5 BUN 39 H Creatinine 1.01 H Estim Creat Clear Calc 41 Estimated GFR 55 L Glucose 118 H POC Capillary Glucose 110 H 117 H Calcium 7.7 L Magnesium 1.8 Quality VTE Prophylaxis VTE prophylaxis: mechanical ordered Hospitalist MIPS Advance Care Plan I have confirmed that the patient's Advanced Care Plan is present, code status is documented, or surrogate decision maker is listed in patient medical record.: Yes Medication Reconciliation I have utilized all available resources to obtain, update and review the patients current medications (includes all prescriptions, OTC, herbals, cannabis, and nutritional supplements).: Yes
[2024-12-30 15:07] LABS: Hematocrit 23.9 % (37.0-47.0); Hemoglobin 7.7 g/dL (12.0-15.0)
[2024-12-30] MEDS: ATORVASTATIN 40 MG TABLET 80 MG PO (16:50)
[2024-12-30] MEDS: MINERAL OIL/WHITE PETROLATUM OINTMENT 1 APPLIC EACH EYE (20:00)
--- NOTE | 2024-12-30 20:16 | PC.NURSE ---
Spoke with patient's son/POA, Wil - requested to make patient a DNR/DNI. secretary Zuleika and myself verified together with POA. Meeta Shah FIELD SEISMOLOGIST was notified. Discussed comfort care, palliative care and hospice with family.
--- NOTE | 2024-12-30 21:07 | PC.NURSE ---
Spoke with Wil, POA/son, and family: requested patient to be placed on comfort care. Only want medications given that will make patient comfortable. Notified provider, Meeta Shah NP and charge master analystMAURICIO To.
--- NOTE | 2024-12-30 21:14 | PM.EVENT ---
Event Note Event Note Event Note: Son is at bedside and he has decided to do DNR DNI comfort measures only. Orders adjusted
[2024-12-30] MEDS: MORPHINE SULFATE (*CRX) 2 MG/ML INJ IV PUSH ×2 (21:29→23:31)
[2024-12-30] MEDS: GLYCOPYRROLATE INJ (*SP) 0.2 MG/ML VIAL IV PUSH (21:32)
[2024-12-30] MEDS: LORazepam (*CRX) 1 MG TABLET 2 MG PO (21:34)
[2024-12-30] MEDS: LORazepam (*CRX) 2 MG/ML ORAL CONCENTRATE 1 ML SYRINGE PO (23:32)
[2024-12-31] MEDS: LORazepam (*CRX) 2 MG/ML ORAL CONCENTRATE 1 ML SYRINGE PO ×2 (03:41→08:53)
[2024-12-31] MEDS: MORPHINE SULFATE (*CRX) 2 MG/ML INJ IV PUSH ×7 (05:27→14:55)
[2024-12-31 07:32] VITALS: BP 132/55; PULSE 120; RESP 32; TEMP 37.9; O2SAT 85
--- NOTE | 2024-12-31 08:52 | PCSTNOTE ---
Pt. seen for BSE on 12/30/24 with NPO recommendation. Physician request for pt. following on 12/31/24. Per discussion on this date with nursing, Denae, pt. has been placed on comfort care with hourly morphine and would not be appropriate to complete oral trials.
--- NOTE | 2024-12-31 10:58 | WPDGIPROGNO ---
Progress Note: A&P Assessment and Plan (1) Duodenal ulcer: Code(s): K26.9 - Duodenal ulcer, unspecified as acute or chronic, without hemorrhage or perforation Status: Acute Assessment and Plan: The patient was transferred from the ICU to the regular floor and is not actively bleeding. She is receiving benzodiazepines and hourly morphine injections. The hospitalist on-call was consulted, and the family has decided to transition to comfort care. Given her poor overall condition, no heroic measures will be taken even if she has recurrent bleeding. Subjective Date/time seen: 12/31/24 10:58 Objective Data Vital Signs Vital Signs: Vital Signs - 24 hr 12/30/24 12:00 12/30/24 12:00 12/30/24 12:00 Temperature 99.8 F H Pulse Rate 107 H 105 H Respiratory Rate 21 H Blood Pressure 122/57 L Pulse Oximetry 97 97 Oxygen Delivery Nasal Cannula Oxygen Flow Rate 1 12/30/24 14:00 12/30/24 14:45 12/30/24 14:58 Temperature 99.1 F Pulse Rate 103 H 105 H Respiratory Rate 22 H Blood Pressure 121/51 L Pulse Oximetry 95 Oxygen Delivery Room Air Oxygen Flow Rate 12/30/24 16:00 12/30/24 16:00 12/30/24 18:00 Temperature 99.3 F Pulse Rate 111 H 106 H 114 H Respiratory Rate Blood Pressure 113/93 H Pulse Oximetry 93 Oxygen Delivery Oxygen Flow Rate 12/30/24 18:00 12/30/24 19:47 12/30/24 21:00 Temperature 100.0 F H 100.2 F H Pulse Rate 117 H 115 H Respiratory Rate 28 H 22 H Blood Pressure 133/63 140/55 L Pulse Oximetry 96 91 92 Oxygen Delivery Room Air Oxygen Flow Rate 12/31/24 07:32 Temperature 100.2 F H Pulse Rate 120 H Respiratory Rate 32 H Blood Pressure 132/55 L Pulse Oximetry 85 L Oxygen Delivery Oxygen Flow Rate Intake/Output Intake/Output: Intake & Output 12/28/24 12/29/24 12/30/24 12/31/24 23:59 23:59 23:59 23:59 Intake Total 1449.5 2155.6 1700 0 Output Total 550 1000 350 325 Balance 899.5 1155.6 1350 -325 Meds/Results Medications: Active Medications Generic Name Dose Route Start Last Admin Trade Name Freq PRN Reason Stop Dose Admin Artificial Tears 2 drop 12/28/24 12:16 Artificial Tears Ophth Soln 15 Ml Bottle EACH EYE Q4H PRN Dry Eye(s) Glucagon 1 mg 12/24/24 11:56 Glucagon For Inj 1 Mg Vial IM PRN PRN Hypoglycemia Protocol Hydrocortisone 1 applic 12/29/24 09:00 12/31/24 09:39 Hydrocortisone 1% 30 Gm Cream TOPICAL Not Given DAILY ELIAS Lorazepam 2 mg 12/30/24 23:30 12/31/24 08:53 Lorazepam (*Crx) 2 Mg/Ml Oral Concentrate 1 Ml Syringe PO 2 mg Q2HR PRN Administration Anxiety Morphine Sulfate 2 mg 12/30/24 21:10 12/31/24 10:39 Morphine Sulfate (*Crx) 2 Mg/Ml Inj IV PUSH 2 mg Q1HR PRN Administration airhunger Multi-Ingred Cream/Lotion/Oil/Oint 1 applic 12/28/24 21:00 12/31/24 09:39 Mineral Oil/White Petrolatum Ointment EACH EYE Not Given Q12HR ELIAS Sodium Chloride 1 spray 12/28/24 12:16 Saline 0.65% Tomas Soln 44 Ml Btl NASAL Q2H PRN Dry Nasal Passages Radiology Results: ITS Impressions Chest X-Ray 12/30/24 08:07 Impression: 1: Persistent retrocardiac airspace disease, compatible with pneumonia. Abdomen X-Ray 12/30/24 11:20 IMPRESSION: 1: NG tube tip in the stomach. Labs Labs: Laboratory Results - last 24 hr 12/30/24 12/30/24 12/30/24 11:25 15:02 18:15 Hgb 7.7 L Hct 23.9 L POC Capillary Glucose 117 H 119 H
--- NOTE | 2024-12-31 13:13 | PM.IMPN ---
Progress Note: A&P Assessment and Plan (1) Acute respiratory failure: Code(s): J96.00 - Acute respiratory failure, unspecified whether with hypoxia or hypercapnia Status: Acute Assessment and Plan: Started comfort care and consulted hospice Patient intubated during EGD for airway protection. Chest x-ray ABG and ventilator settings reviewed 12/29 patient was extubated after discussed open trial Currently on 1 L nasal can. Incentive spirometry (2) GI (gastrointestinal bleed): Qualifiers: GI bleed type/associated pathology: melena Qualified Code(s): K92.1 - Melena Code(s): K92.2 - Gastrointestinal hemorrhage, unspecified Status: Acute Assessment and Plan: Started comfort care and consulted hospice Patient was admitted with GI bleed and EGD showed gastritis and duodenal ulcer. 12/28 It appears that she continues to bleed. Her hemoglobin was 6.4. She was given additional 2 units of PRBC Patient underwent repeat EGD and showed active bleeding from duodenal ulcer requiring injection of epinephrine. Patient was intubated for airway protection Hemoglobin appears to now has stabilized. Start IV PPI q.12 hours Will request speech to evaluate swallowing and if adequate will start diet Continue hemoglobin monitoring (3) Hypotension: Code(s): I95.9 - Hypotension, unspecified Status: Acute Assessment and Plan: Started comfort care and consulted hospice Hypotension secondary to GI bleed. Management as above Patient was given IV fluid bolus and PRBC transfusion Low-dose Phenylephrine infusion for blood pressure support was deployed and patient is now off of Blaine-Synephrine PICC line insertion over unsuccessful (4) Diabetes: Code(s): E11.9 - Type 2 diabetes mellitus without complications Status: Acute Assessment and Plan: Accu-Cheks and sliding scale insulin (5) Dementia: Qualifiers: Dementia behavioral or psychological symptom: unspecified whether behavioral, psychotic, or mood disturbance or anxiety Dementia severity: severe Dementia type: unspecified type Qualified Code(s): F03.C0 - Unspecified dementia, severe, without behavioral disturbance, psychotic disturbance, mood disturbance, and anxiety Code(s): F03.90 - Unspecified dementia, unspecified severity, without behavioral disturbance, psychotic disturbance, mood disturbance, and anxiety Status: Acute Assessment and Plan: His history of dementia which is chronic per chart (6) Electrolyte abnormality: Code(s): E87.8 - Other disorders of electrolyte and fluid balance, not elsewhere classified Status: Acute Assessment and Plan: Replace low potassium. Will give D5 water with for hypernatremia and hyperchloremia and metabolic acidosis Plan Started comfort care and consulted hospice DVT prophylaxis: SCDs Stress ulcer prophylaxis: IV PPI Nutrition: Will consult speech for swallow evaluation Code Status: DNR/DNI Transfer out of ICU today Subjective Date/time seen: 12/31/24 13:13 Interval history: Patient continues to deteriorate. Discussed with son. Patient started on comfort care yesterday night. Will consult hospice. Review of Systems Review of Systems: Review of systems unobtainable due to dementia All systems reviewed & are unremarkable except as noted in HPI and below ROS unobtainable: Yes unobtainable due to endotracheal tube, unobtainable due to medical condition and unobtainable due to mental status Exam Narrative: General: Acutely ill Lungs/Chest: Labored breathing Cardiac: RRR. Normal S1 S2. No murmurs Circulation: Pedal pulses are intact and symmetrical. Feet are warm Abdomen: Normal bowel sounds.. Soft. NT. ND. Extremities: No clubbing, cyanosis or edema. Warm : Crystal in place Skin: No Rash HEENT: Dry tongue and mucosa Const: Other: Acutely ill-appearing, thin body habitus HENMT: Other: Mucous membranes are tacky dry with dried brown material to the tongue and bilateral nares, head is normocephalic atraumatic, edentulous in upper and lower jaw Eyes: Other: Bilateral cataracts noted, marked conjunctival pallor, no scleral icterus Neck: Other: No JVD, no lymphadenopathy Resp: Other: increased work of breathing Cardio: Other: Sinus tachycardia GI: Other: Soft, nontender, nondistended, positive bowel sounds : Other: Incontinent of urine and bowel Skin: Other: Generalized pallor, non jaundice, no petechia, small skin tear to the left forearm Extrem: Other: Marked pallor her nail beds, no clubbing, no cyanosis, left leg as flexion contractures of the left hip and left knee with increased tone, left upper extremity also has fisting of the left hand Objective Data Vital Signs Vital Signs: Vital Signs - 24 hr 12/30/24 14:00 12/30/24 14:45 12/30/24 14:58 Temperature 99.1 F Pulse Rate 103 H 105 H Respiratory Rate 22 H Blood Pressure 121/51 L Pulse Oximetry 95 Oxygen Delivery Room Air 12/30/24 16:00 12/30/24 16:00 12/30/24 18:00 Temperature 99.3 F Pulse Rate 111 H 106 H 114 H Respiratory Rate Blood Pressure 113/93 H Pulse Oximetry 93 Oxygen Delivery 12/30/24 18:00 12/30/24 19:47 12/30/24 21:00 Temperature 100.0 F H 100.2 F H Pulse Rate 117 H 115 H Respiratory Rate 28 H 22 H Blood Pressure 133/63 140/55 L Pulse Oximetry 96 91 92 Oxygen Delivery Room Air 12/31/24 07:32 Temperature 100.2 F H Pulse Rate 120 H Respiratory Rate 32 H Blood Pressure 132/55 L Pulse Oximetry 85 L Oxygen Delivery Intake/Output Intake/Output: Intake & Output 12/28/24 12/29/24 12/30/24 12/31/24 23:59 23:59 23:59 23:59 Intake Total 1449.5 2155.6 1700 0 Output Total 550 1000 350 325 Balance 899.5 1155.6 1350 -325 Meds/Results Medications: Active Medications Generic Name Dose Route Start Last Admin Trade Name Freq PRN Reason Stop Dose Admin Artificial Tears 2 drop 12/28/24 12:16 Artificial Tears Ophth Soln 15 Ml Bottle EACH EYE Q4H PRN Dry Eye(s) Glucagon 1 mg 12/24/24 11:56 Glucagon For Inj 1 Mg Vial IM PRN PRN Hypoglycemia Protocol Hydrocortisone 1 applic 12/29/24 09:00 12/31/24 09:39 Hydrocortisone 1% 30 Gm Cream TOPICAL Not Given DAILY ELIAS Lorazepam 2 mg 12/30/24 23:30 12/31/24 08:53 Lorazepam (*Crx) 2 Mg/Ml Oral Concentrate 1 Ml Syringe PO 2 mg Q2HR PRN Administration Anxiety Morphine Sulfate 2 mg 12/30/24 21:10 12/31/24 12:43 Morphine Sulfate (*Crx) 2 Mg/Ml Inj IV PUSH 2 mg Q1HR PRN Administration airhunger Multi-Ingred Cream/Lotion/Oil/Oint 1 applic 12/28/24 21:00 12/31/24 09:39 Mineral Oil/White Petrolatum Ointment EACH EYE Not Given Q12HR ELIAS Sodium Chloride 1 spray 12/28/24 12:16 Saline 0.65% Tomas Soln 44 Ml Btl NASAL Q2H PRN Dry Nasal Passages Radiology Results: ITS Impressions Chest X-Ray 12/30/24 08:07 Impression: 1: Persistent retrocardiac airspace disease, compatible with pneumonia. Abdomen X-Ray 12/30/24 11:20 IMPRESSION: 1: NG tube tip in the stomach. Labs Labs: Laboratory Results - last 24 hr 12/30/24 12/30/24 15:02 18:15 Hgb 7.7 L Hct 23.9 L POC Capillary Glucose 119 H Quality VTE Prophylaxis VTE prophylaxis: mechanical ordered Hospitalist [facility] Advance Care Plan I have confirmed that the patient's Advanced Care Plan is present, code status is documented, or surrogate decision maker is listed in patient medical record.: Yes Medication Reconciliation I have utilized all available resources to obtain, update and review the patients current medications (includes all prescriptions, OTC, herbals, cannabis, and nutritional supplements).: Yes
--- NOTE | 2025-01-02 13:58 | PM.TDS ---
Transfer Discharge Sum: Prov Provider Date of admission: 12/23/24 21:37 Primary care physician: Reji Hernandez, MD Admitting clinician: Tori Patino DO Consults: 12/24/24 10:22 Consult to Physician Routine Comment: spoke with Dr. Jane [phone] Consulting Provider: Desmond Jane inbound call center representative/MD group to consult: GI Reason for consultation: GI bleed Has provider been notified: Yes 12/31/24 Care Coordination Consult Routine Reason for Consult:: Hospice Referral Care Coordination Consult Routine Reason for Consult:: Hospice Referral Consult to Spiritual Care Services Routine Comment: DS: Admitting Diagnosis Discharge Date 12/31/24 Admitting Diagnosis Hematemesis and bloody stools DS: Discharge Diagnosis Discharge Diagnosis (1) Acute respiratory failure: Code(s): J96.00 - Acute respiratory failure, unspecified whether with hypoxia or hypercapnia Status: Acute Assessment and Plan: Started comfort care and consulted hospice Patient intubated during EGD for airway protection. Chest x-ray ABG and ventilator settings reviewed 12/29 patient was extubated after discussed open trial Currently on 1 L nasal can. Incentive spirometry (2) GI (gastrointestinal bleed): Qualifiers: GI bleed type/associated pathology: melena Qualified Code(s): K92.1 - Melena Code(s): K92.2 - Gastrointestinal hemorrhage, unspecified Status: Acute Assessment and Plan: Started comfort care and consulted hospice Patient was admitted with GI bleed and EGD showed gastritis and duodenal ulcer. 12/28 It appears that she continues to bleed. Her hemoglobin was 6.4. She was given additional 2 units of PRBC Patient underwent repeat EGD and showed active bleeding from duodenal ulcer requiring injection of epinephrine. Patient was intubated for airway protection Hemoglobin appears to now has stabilized. Start IV PPI q.12 hours Will request speech to evaluate swallowing and if adequate will start diet Continue hemoglobin monitoring (3) Hypotension: Code(s): I95.9 - Hypotension, unspecified Status: Acute Assessment and Plan: Started comfort care and consulted hospice Hypotension secondary to GI bleed. Management as above Patient was given IV fluid bolus and PRBC transfusion Low-dose Phenylephrine infusion for blood pressure support was deployed and patient is now off of Blaine-Synephrine PICC line insertion over unsuccessful (4) Diabetes: Code(s): E11.9 - Type 2 diabetes mellitus without complications Status: Acute Assessment and Plan: Accu-Cheks and sliding scale insulin (5) Dementia: Qualifiers: Dementia type: unspecified type Dementia severity: severe Dementia behavioral or psychological symptom: unspecified whether behavioral, psychotic, or mood disturbance or anxiety Qualified Code(s): F03.C0 - Unspecified dementia, severe, without behavioral disturbance, psychotic disturbance, mood disturbance, and anxiety Code(s): F03.90 - Unspecified dementia, unspecified severity, without behavioral disturbance, psychotic disturbance, mood disturbance, and anxiety Status: Acute Assessment and Plan: His history of dementia which is chronic per chart (6) Electrolyte abnormality: Code(s): E87.8 - Other disorders of electrolyte and fluid balance, not elsewhere classified Status: Acute Assessment and Plan: Replace low potassium. Will give D5 water with for hypernatremia and hyperchloremia and metabolic acidosis Transfer Discharge Sum: Med Medications Active and Home Medications: Home Medications aspirin 81 mg tablet,delayed release (Adult Low Dose Aspirin) 81 mg PO DAILY 12/13/24 [History Confirmed 12/24/24] atorvastatin 80 mg tablet 80 mg PO QPM 12/13/24 [History Confirmed 12/24/24] bisacodyl 5 mg tablet,delayed release 5 mg PO DAILY PRN constipation 12/13/24 [History Confirmed 12/24/24] ergocalciferol (vitamin D2) 1,250 mcg (50,000 unit) capsule (Vitamin D2) 1,250 mcg PO WEEKLY 12/13/24 [History Confirmed 12/24/24] ferrous sulfate 325 mg (65 mg iron) tablet 325 mg PO DAILY 12/13/24 [History Confirmed 12/24/24] folic acid 1 mg tablet 1 mg PO DAILY 12/13/24 [History Confirmed 12/24/24] hydrocortisone 1 % topical cream 1 applic topical DAILY 12/13/24 [History Confirmed 12/24/24] losartan 50 mg tablet 50 mg PO DAILY 12/13/24 [History Confirmed 12/24/24] metformin 500 mg tablet 500 mg PO DAILY 12/13/24 [History Confirmed 12/24/24] polyethylene glycol 3350 17 gram oral powder packet (Miralax) 17 g PO DAILY PRN constipation 12/13/24 [History Confirmed 12/24/24] sodium chloride 0.65 % nasal spray aerosol (Saline Mist) 1 spray intranasal Q2H PRN dry nasal passages 12/13/24 [History Confirmed 12/24/24] sodium phosphates 19 gram-7 gram/118 mL enema (Fleet Enema) 118 ml RECTAL DAILY PRN constipation 12/13/24 [History Confirmed 12/24/24] diltiazem HCl 60 mg tablet 60 mg PO TID #90 tabs 12/18/24 [Rx Confirmed 12/24/24] artificial tears(hypromellose) 0.5 % eye drops 2 drp EACH EYE Q4H PRN dry eye(s) 12/24/24 [History Confirmed 12/24/24] Transfer Discharge Sum: Hosp Hospital Course Hospital course: Valerie Rivers is a 69 year old female with history of dementia was admitted [facility] with acute gastrointestinal bleeding and was found to have a bleeding duodenal ulcer. Underwent EGD with clipping initially. Was intubated in ICU due to respiratory failure with the procedure. She improved initially but repeat blood and required repeat EGD intubation and epinephrine injection for control of bleeding. Once extubated in ICU she was not able to eat or drink. Mental status had declined. Her PPS score was 20. Family opted for comfort care and for inpatient hospice care for control pain and restlessness. Since initiation of continuous IV morphine and schedule IV diazepam December 31 she has remained comfortable.69-[facility]-old [facility] resident with history of dementia was admitted [facility] with acute gastrointestinal bleeding and was found to have a bleeding duodenal ulcer. Underwent EGD with clipping initially. Was intubated in ICU due to respiratory failure with the procedure. She improved initially but repeat blood and required repeat EGD intubation and epinephrine injection for control of bleeding. Once extubated in ICU she was not able to eat or drink. Mental status had declined. Her PPS score was 20. Family opted for comfort care and for inpatient hospice care for control pain and restlessness. Since initiation of continuous IV morphine and schedule IV diazepam December 31 she has remained comfortable. Patient Condition: Gaurded Prognosis Time Spent with Patient Time attestation: Total time spent providing and/or coordinating transfer services:45 minutes Exam Narrative: General: Acutely ill Lungs/Chest: Labored breathing Cardiac: RRR. Normal S1 S2. No murmurs Circulation: Pedal pulses are intact and symmetrical. Feet are warm Abdomen: Normal bowel sounds.. Soft. NT. ND. Extremities: No clubbing, cyanosis or edema. Warm : Crystal in place Skin: No Rash HEENT: Dry tongue and mucosa Const: Other: Acutely ill-appearing, thin body habitus HENMT: Other: Mucous membranes are tacky dry with dried brown material to the tongue and bilateral nares, head is normocephalic atraumatic, edentulous in upper and lower jaw Eyes: Other: Bilateral cataracts noted, marked conjunctival pallor, no scleral icterus Neck: Other: No JVD, no lymphadenopathy Resp: Other: increased work of breathing Cardio: Other: Sinus tachycardia GI: Other: Soft, nontender, nondistended, positive bowel sounds : Other: Incontinent of urine and bowel Skin: Other: Generalized pallor, non jaundice, no petechia, small skin tear to the left forearm Neuro: Other: Patient is alert oriented to person only, she she was able to name her son who is at bedside, she did not know or location in could not state the month or year, she only intermittently answers questions, she has increased tone the left upper and lower extremity, she keeps her right eye closed and has some deviation of the right eye on evaluation but pupils are equal and reactive Extrem: Other: Marked pallor her nail beds, no clubbing, no cyanosis, left leg as flexion contractures of the left hip and left knee with increased tone, left upper extremity also has fisting of the left hand Psych: Other: Confused, difficult to redirect DS: Data Data Completed and Pending Completed studies during hospitalization: Pending at discharge 12/25/24 15:49 Surgical [PTH] Routine
== END 2024-12-31 15:01 | disposition hospice, inpatient (51) | DRG 377 ==
LOC: ANHED 21:49 → ANHICU 12-24 03:02 → ANH2MED 12-25 07:23 → ANH3MEDSUR 01-01 08:40 → ANHCPC 01-01 08:40 → ANHICU 01-01 08:40 → ANHIMU 01-01 08:40
PROVIDERS: Family Medicine; Internal Medicine; Internal Medicine Gastroenterology; Admitting Provider Internal Medicine; Emergency Provider Emergency Medicine; PCP Internal Medicine; Visit Provider General Practice
PROC: 0DJ08ZZ Inspection of Upper Intestinal Tract, Via Natural or Artificial Opening Endoscopic (ICD-10-PCS; principal; 2024-12-25 13:45)
DX: K26.4 Chronic or unspecified duodenal ulcer with hemorrhage (principal); E43 Unspecified severe protein-calorie malnutrition; J96.00 Acute respiratory failure, unspecified whether with hypoxia or hypercapnia; R57.8 Other shock; D62 Acute posthemorrhagic anemia; E87.0 Hyperosmolality and hypernatremia; E87.21 Acute metabolic acidosis; Z68.1 Body mass index [BMI] 19.9 or less, adult; N17.9 Acute kidney failure, unspecified; K29.70 Gastritis, unspecified, without bleeding; R13.10 Dysphagia, unspecified; F03.90 Unspecified dementia, unspecified severity, without behavioral disturbance, psychotic disturbance, mood disturbance, and anxiety; E87.8 Other disorders of electrolyte and fluid balance, not elsewhere classified; E11.22 Type 2 diabetes mellitus with diabetic chronic kidney disease; I12.9 Hypertensive chronic kidney disease with stage 1 through stage 4 chronic kidney disease, or unspecified chronic kidney disease; N18.9 Chronic kidney disease, unspecified; E78.5 Hyperlipidemia, unspecified; E83.42 Hypomagnesemia; I95.89 Other hypotension; E86.1 Hypovolemia; D50.9 Iron deficiency anemia, unspecified; F41.9 Anxiety disorder, unspecified; Z66 Do not resuscitate; Z51.5 Encounter for palliative care; I69.898 Other sequelae of other cerebrovascular disease; Z87.891 Personal history of nicotine dependence; Z79.82 Long term (current) use of aspirin
CPT/HCPCS: 36415; 36430; 36569; 36600; 71045; 80048; 80053; 82140; 82375; 82805; 82948; 83050; 83605; 83735; 84100; 85014; 85018; 85025; 85027; 85610; 85730; 86850; 86900; 86901; 86923; 87081; 88305; 88342; 92610; 94002; 94003; 96361; 96374; 96375; 99285; A9270; C1751; J0168; J0613; J1596; J1815; J2003; J2060; J2250; J2270; J2371; J2405; J2470; J2704; J3010; J3475; J3480; J7030; J7040; J7042; J7050; J7070; J7120; P9016

== ENCOUNTER 2024-12-31 14:00 | HOS | payer OTHER, MEDICARE, MEDICAID, SELFPAY ==
[2024-12-31] MEDS: MORPHINE SULFATE INJ (*CRX) 50 MG in SODIUM CHLORIDE 0.9% IV 95 ML IV CONT (16:21)
[2024-12-31 20:00] VITALS: BP 70/43; PULSE 118; RESP 28; TEMP 38.3; O2SAT 74
[2024-12-31 20:02] VITALS: TEMP 38.3
[2024-12-31] MEDS: ACETAMINOPHEN 650 MG SUPPOSITORY RECTAL (20:02)
[2024-12-31 21:05] VITALS: TEMP 37.8
[2024-12-31] MEDS: ARTIFICIAL TEARS OPHTH SOLN 15 ML BOTTLE 1 DROP EACH EYE (22:01)
[2025-01-01] MEDS: ARTIFICIAL TEARS OPHTH SOLN 15 ML BOTTLE 1 DROP EACH EYE ×2 (05:19→20:44)
--- NOTE | 2025-01-01 12:40 | P.HP_ITS ---
H&P: HPI History of Present Illness Date/Time: 01/01/25 12:40 Chief Complaint: Uncontrolled pain Narrative: 69-year-old shelter resident with history of dementia was admitted [facility] with acute gastrointestinal bleeding and was found to have a bleeding duodenal ulcer. Underwent EGD with clipping initially. Was intubated in ICU due to respiratory failure with the procedure. She improved initially but repeat blood and required repeat EGD intubation and epinephrine injection for control of bleeding. Once extubated in ICU she was not able to eat or drink. Mental status had declined. Her PPS score was 20. Family opted for comfort care and for inpatient hospice care for control pain and restlessness. Since initiation of continuous IV morphine and schedule IV diazepam December 31 she has remained comfortable. 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 They deny that she ever drink alcohol or use illicit substances. She lives in her own home until September 2024 when she had a stroke. She is a retired [employer]. 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 Code status: DNR/DNI Surrogate decision maker: Jay (son) Smoking packs per day: 2 Smoking cigarettes per day: 40.0 Years smoked: 50 Smoking pack-years: 100.00 Smoking status: Former smoker Tobacco type: cigarettes Alcohol intake: never Substance use: never Living arrangements: shelter Additional living arrangements comments: [facility] concerns: No Meds Home Medications and Allergies Home Medications ?Medication ?Instructions ?Recorded ?Confirmed ?Type aspirin 81 mg tablet,delayed 81 mg PO DAILY 12/13/24 0 12/24/24 History release (Adult Low Dose Aspirin) atorvastatin 80 mg tablet 80 mg PO QPM 12/13/24 History bisacodyl 5 mg tablet,delayed 5 mg PO DAILY PRN consti pation 12/13/24 12/24/24 History release ergocalciferol (vitamin D2) 1,250 1,250 mcg PO WEEKLY 12/13/24 12/24/24 History mcg (50,000 unit) capsule (Vitamin D2) ferrous sulfate 325 mg (65 mg 325 mg PO DAILY 12/13/24 12/24/24 History iron) tablet folic acid 1 mg tablet 1 mg PO DAILY 12/13/2412/24 History hydrocortisone 1 % topical cream 1 applic topical MARY Y 12/13/24 12/24/24 History losartan 50 mg tablet 50 mg PO DAILY 12/13/2412/08 History metformin 500 mg tablet 500 mg PO DAILY 12/13/24 History polyethylene glycol 3350 17 gram 17 g PO DAILY PRN con stipation 12/13/24 12/24/24 History oral powder packet (Miralax) sodium chloride 0.65 % nasal spray 1 spray intranasal Q2H PRN dry 12/13/24 12/24/24 History aerosol (Saline Mist) nasal passages sodium phosphates 19 gram-7 118 ml RECTAL DAILY PRN 12/24/24 History gram/118 mL enema (Fleet Enema) constipation diltiazem HCl 60 mg tablet 60 mg PO TID #90 tabs 12/1812/24/24 Rx artificial tears(hypromellose) 0.5 2 drp EACH EYE Q4H PRN dry eye(s) 12/24/24 12/24/24 History % eye drops Allergies Allergy/AdvReac Type Severity Reaction Status Date / Time Penicillins Allergy Anaphylactic Verified 12/28/24 14:10 Shock Vital Signs Vital Signs - 24 hr 12/31/24 17:46 12/31/24 20:00 12/31/24 20:02 Temperature 100.9 F H 100.9 F H Pulse Rate 118 H Respiratory Rate 28 H Blood Pressure 70/43 L Pulse Oximetry 74 L Oxygen Delivery Room Air 12/31/24 21:01/01/25 08:00 Temperature 100.0 F H Pulse Rate Respiratory Rate Blood Pressure Pulse Oximetry Oxygen Delivery Room Air Assessment and Plan Assessment and plan (1) Hospice care: Code(s): Z51.5 - Encounter for palliative care Status: Acute Assessment and Plan: * Meet inpatient hospice criteria due to requiring continuous IV morphine at 2 milligrams/hour in schedule IV diazepam 5 mg every 8 hours for control of symptoms * P.r.n. palliative regimen ordered * Blood pressure of 70 systolic oxygen saturation of 74% renders her too unstable for transfer * Discussed care and prognosis with family at bedside (2) Dysphagia: Code(s): R13.10 - Dysphagia, unspecified Status: Acute (3) Duodenal ulcer: Code(s): K26.9 - Duodenal ulcer, unspecified as acute or chronic, without hemorrhage or perforation Status: Acute (4) GI (gastrointestinal bleed): Qualifiers: GI bleed type/associated pathology: melena Qualified Code(s): K92.1 - Melena Code(s): K92.2 - Gastrointestinal hemorrhage, unspecified Status: Acute (5) Acute kidney injury: Code(s): N17.9 - Acute kidney failure, unspecified Status: Acute (6) Acute on chronic anemia: Code(s): D64.9 - Anemia, unspecified Status: Acute (7) Dementia: Qualifiers: Dementia type: unspecified type Dementia severity: severe Dementia behavioral or psychological symptom: unspecified whether behavioral, psychotic, or mood disturbance or anxiety Qualified Code(s): F03.C0 - Unspecified dementia, severe, without behavioral disturbance, psychotic disturbance, mood disturbance, and anxiety Code(s): F03.90 - Unspecified dementia, unspecified severity, without behavioral disturbance, psychotic disturbance, mood disturbance, and anxiety Status: Acute
[2025-01-01 14:00] VITALS: BP 80/43; PULSE 97; RESP 21; TEMP 36.8
[2025-01-01] MEDS: MORPHINE SULFATE INJ (*CRX) 50 MG in SODIUM CHLORIDE 0.9% IV 95 ML IV CONT (15:41)
[2025-01-01 21:05] VITALS: BP 92/52; PULSE 96; RESP 12; TEMP 37.2; O2SAT 71
[2025-01-02] MEDS: ARTIFICIAL TEARS OPHTH SOLN 15 ML BOTTLE 1 DROP EACH EYE ×2 (06:12→20:49)
[2025-01-02 08:00] VITALS: BP 86/41; PULSE 94; RESP 10; TEMP 36.3; O2SAT 83
--- NOTE | 2025-01-02 09:24 | PC.NURSE ---
Jose M nurse at bedside speaking with family at this time
[2025-01-02] MEDS: MORPHINE SULFATE INJ (*CRX) 50 MG in SODIUM CHLORIDE 0.9% IV 95 ML IV CONT (15:23)
--- NOTE | 2025-01-02 18:12 | P.PNIM_ITS ---
Progress Note: A&P Assessment and Plan (1) Hospice care: Code(s): Z51.5 - Encounter for palliative care Status: Acute Assessment and Plan: * Meet inpatient hospice criteria due to requiring continuous IV morphine at 2 milligrams/hour in schedule IV diazepam 5 mg every 8 hours for control of symptoms * P.r.n. palliative regimen ordered * 01/01/2025: Blood pressure of 70 systolic oxygen saturation of 74% renders her too unstable for transfer, discussed care and prognosis with son at bedside * 01/02/2025: hypoxic, hypotensive, hypothermic, to unstable for transfer, discussed care and prognosis with niece at bedside (2) Dysphagia: Code(s): R13.10 - Dysphagia, unspecified Status: Acute (3) Duodenal ulcer: Code(s): K26.9 - Duodenal ulcer, unspecified as acute or chronic, without hemorrhage or perforation Status: Acute (4) GI (gastrointestinal bleed): Qualifiers: GI bleed type/associated pathology: melena Qualified Code(s): K92.1 - Melena Code(s): K92.2 - Gastrointestinal hemorrhage, unspecified Status: Acute (5) Acute kidney injury: Code(s): N17.9 - Acute kidney failure, unspecified Status: Acute (6) Acute on chronic anemia: Code(s): D64.9 - Anemia, unspecified Status: Acute (7) Dementia: Qualifiers: Dementia type: unspecified type Dementia severity: severe Dementia behavioral or psychological symptom: unspecified whether behavioral, psychotic, or mood disturbance or anxiety Qualified Code(s): F03.C0 - Unspecified dementia, severe, without behavioral disturbance, psychotic disturbance, mood disturbance, and anxiety Code(s): F03.90 - Unspecified dementia, unspecified severity, without behavioral disturbance, psychotic disturbance, mood disturbance, and anxiety Status: Acute Subjective Date/time seen: 01/02/25 18:12 Interval history: Quiet today. Unresponsive. Review of Systems Review of Systems: ROS unobtainable: Yes unobtainable due to medical condition Exam Narrative: HEENT: Pale, mucosa moist Neck: No JVD Chest: Respirations w/o accessory muscle use or tachypnea, scattered fine crackles Heart: NL S1, S2, RR, Soft apical systolic murmur Extr: Cool, w/o edema MS: No gross deformity to visual inspection Neuro: CN symmetric to visual inspection Psych: Unresponsive to verbal or tactile stimuli Objective Data Vital Signs Vital Signs: Vital Signs - 24 hr 01/01/25 20:00 01/01/25 21:05 01/02/25 08:00 Temperature 98.9 F Pulse Rate 96 Respiratory Rate 12 Blood Pressure 92/52 L Pulse Oximetry 71 L Oxygen Delivery Room Air Room Air 01/02/25 08:00 Temperature 97.4 F L Pulse Rate 94 Respiratory Rate 10 L Blood Pressure 86/41 L Pulse Oximetry 83 L Oxygen Delivery Intake/Output Intake/Output: Intake & Output 12/30/24 12/31/24 01/01/25 01/02/25 23:59 23:59 23:59 23:59 Intake Total 93.3 94.8 Output Total 325 Balance 93.3 -230.2 Meds/Results Medications: Active Medications Generic Name Dose Route Start Last Admin Trade Name Freq PRN Reason Stop Dose Admin Acetaminophen 650 mg 12/31/24 15:30 12/31/24 20:02 Acetaminophen 650 Mg Suppository RECTAL 650 mg Q4H PRN Administration Fever Artificial Tears 1 drop 12/31/24 22:00 01/02/25 15:27 Artificial Tears Ophth Soln 15 Ml Bottle EACH EYE Not Given Q8HR ELIAS Artificial Tears 1 drop 12/31/24 15:42 Artificial Tears Ophth Soln 15 Ml Bottle EACH EYE PRN PRN Dry Eye(s) Bisacodyl 10 mg 12/31/24 15:30 Bisacodyl 10 Mg Suppository RECTAL DAILY PRN Constipation Diazepam 5 mg 12/31/24 16:48 Diazepam Inj (*Crx) 10 Mg/2 Ml Syringe IV PUSH Q4HR PRN Agitation Glycopyrrolate 0.1 mg 12/31/24 15:30 Glycopyrrolate Inj (*Sp) 0.2 Mg/Ml Vial IV PUSH Q4H PRN EXCESS secretions Morphine Sulfate 50 mg/ Sodium 100 mls @ 4 mls/hr 12/31/24 15:30 01/02/25 15:23 Chloride IV CONT 2 mg/hr .Q24H ELIAS 4 mls/hr 2 MG/HR Administration Morphine Sulfate 4 mg 12/31/24 15:30 Morphine Sulfate (*Crx) 2 Mg/Ml Inj IV PUSH Q2H PRN Pain Prochlorperazine Edisylate 10 mg 12/31/24 15:30 Prochlorperazine Edisylate 10 Mg/2 Ml Vial IV PUSH Q4H PRN Nausea And Vomiting
--- NOTE | 2025-01-02 18:31 | PC.NURSE ---
Family came to nurses station expressing concerns and questions about what the future looks like for them. This RN attempted to answer all question. It did not seem to be enough for the family. This RN called mery to request a nurse that could better answer their questions and soothe their feelings. Mery states a nurse is on their way.
[2025-01-02 20:35] VITALS: BP 90/48; PULSE 95; RESP 12; TEMP 38.1; O2SAT 72
[2025-01-02 21:07] VITALS: TEMP 38.1
[2025-01-02] MEDS: ACETAMINOPHEN 650 MG SUPPOSITORY RECTAL (21:07)
[2025-01-03] VITALS: TEMP 36.7
[2025-01-03 03:57] VITALS: TEMP 36.8
[2025-01-03 05:35] VITALS: RESP 12
[2025-01-03] MEDS: ARTIFICIAL TEARS OPHTH SOLN 15 ML BOTTLE 1 DROP EACH EYE (05:42)
--- NOTE | 2025-01-03 12:00 | PM.DDS ---
Discharge Summary Probable Cause of Probable Cause of : dysphagia due to dementia and exacerbated by acute gastrointestinal bleeding Summary Hospital Course: Admitted to inpatient hospice service for symptom management. Medications were titrated to comfort. Mrs. Rivers peacefully.
== END 2025-01-03 10:18 | disposition expired | DRG 951 ==
PROVIDERS: Admitting Provider Internal Medicine; PCP Internal Medicine; Visit Provider Internal Medicine
DX: Z51.5 Encounter for palliative care (principal); K92.1 Melena; R13.10 Dysphagia, unspecified; K26.9 Duodenal ulcer, unspecified as acute or chronic, without hemorrhage or perforation; D64.9 Anemia, unspecified; F03.C0 Unspecified dementia, severe, without behavioral disturbance, psychotic disturbance, mood disturbance, and anxiety
CPT/HCPCS: A9270; J2270